=== PATIENT | male | born 1940 | race American Indian/Alaskan Native ===

== ENCOUNTER 2017-06-29 13:29 | Emergency (ER) | payer MEDICARE, OTHER ==
--- NOTE | 2017-06-29 14:14 | EDM.PDOC ---
ED HPI GENERAL MEDICAL PROBLEM - General Chief Complaint: Abdominal Pain Stated Complaint: IN BY AMBULANCE Time Seen by Provider: 06/29/17 13:40 Source of Information: Reports: Patient, RN, RN Notes Reviewed History Limitations: Reports: No Limitations - History of Present Illness INITIAL COMMENTS - FREE TEXT/NARRATIVE: Pt presents to the ER per [facility] with c/o RLQ which came on suddenly today when he woke up. He states he has a right inguinal hernia as well as an umbilical hernia. He denies fever, chills, N/V/D, chest pain or sob. Pt denies any problems with urination or bowel movements. Onset: Today, Sudden Location: Reports: Abdomen Quality: Reports: Sharp Severity: Moderate Improves with: Reports: None Associated Symptoms: Reports: No Other Symptoms Right Lower Abdomen Pain Score (Numeric/FACES): 10 - Related Data Allergies Allergy/AdvReac Type Severity Reaction Status Date / Time piperacillin sodium Allergy Severe angioedema Verified 06/29/17 13:49 [From Zosyn] tazobactam sodium Allergy Severe angioedema Verified 06/29/17 13:49 [From Zosyn] adhesive tape Allergy Blisters Verified 06/29/17 13:49 Home Meds: Home Meds Aspirin [Adult Low Dose Aspirin EC] 81 mg PO DAILY 10/26/13 [History] Isosorbide Mononitrate [Imdur] 15 mg PO DAILY 10/26/13 [History] Montelukast [Singulair] 10 mg PO BEDTIME 10/26/13 [History] Potassium Chloride [Klor-Con 10] 20 meq PO BID 10/26/13 [History] Tiotropium [Spiriva Handihaler] 1 puff INH DAILY 10/26/13 [History] Budesonide [Pulmicort] 0.5 mg NEB BIDRT #30 neb 09/13/14 [Rx] Albuterol/Ipratropium [Combivent Respimat] 2 puff INH BID 08/16/15 [History] Digoxin [Lanoxin] 0.125 mg PO DAILY 09/04/15 [History] Albuterol/Ipratropium [DuoNeb 3.0-0.5 MG/3 ML] 3 ml NEB TID 11/09/15 [History] Carvedilol 6.25 mg PO BIDMEALS 11/09/15 [History] Docusate Sodium [Colace] 100 mg PO BID 11/09/15 [History] Pantoprazole Sodium 40 mg PO DAILY 11/09/15 [History] Spironolactone 25 mg PO DAILY 11/09/15 [History] Albuterol [Proventil Neb Soln] 1 ampule INH Q4H PRN 12/24/15 [History] Furosemide [Lasix] 20 mg PO BID 12/24/15 [History] Calcium Carbonate/Vitamin D3 [Calcium 600 + Vit D 400 Softgl] 1 tab PO BID 06/29 [History] Cholecalciferol (Vitamin D3) [Vitamin D] 400 unit PO DAILY 06/29/17 [History] Fluticasone/Salmeterol [Fluticasone-Salmeterol 113-14] 500 mcg INH BID 06/29/17 [History] Lactose-Reduced Food [Ensure Active Heart Health] 237 ml PO TID 06/29/17 [ History] Lisinopril [Lisinopril] 2.5 mg PO DAILY 06/29/17 [History] Rivaroxaban [Xarelto] 15 mg PO DAILY 06/29/17 [History] traMADol [Ultram] 50 mg PO TID PRN 06/29/17 [History] traZODone 50 mg PO DAILY 06/29/17 [History] Past Medical History HEENT History: Reports: Cataract, Hard of Hearing, Other (See Below) Other HEENT History: thyroid nodule Cardiovascular History: Reports: Afib, Angina, CAD, Heart Failure, High Cholesterol, Hypertension, MS, Pacemaker, SOB on Exertion, Stents, Other (See Below) Other Cardiovascular History: 6 stents placed total Respiratory History: Reports: Asthma, Bronchitis, Recurrent, COPD, Pneumonia, Recurrent, Sleep Apnea, SOB Gastrointestinal History: Reports: Hemorrhoids Genitourinary History: Reports: Prostate Disorder Musculoskeletal History: Reports: Arthritis, Fracture, Osteoarthritis Neurological History: Reports: None Psychiatric History: Reports: Depression Other Psychiatric History: insomnia Endocrine/Metabolic History: Reports: None Hematologic History: Reports: Anemia, Iron Deficiency Immunologic History: Reports: Other (See Below) Other Immunologic History: Hx prostate and lung ca. 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 SERVICE, "NOT THE BAD KIND" - Past Surgical History Head Surgeries/Procedures: Reports: None HEENT Surgical History: Reports: Cataract Surgery, Naso-Sinus Surgery GI Surgical History: Reports: Abdominal paracentesis, Appendectomy, Colonoscopy , EGD, Polypectomy, Other (See Below) Male Surgical History: Reports: TURP-Transurethral Resection of Prostate Endocrine Surgical History: Reports: Thyroid Biopsy Musculoskeletal Surgical History: Reports: Shoulder Surgery Other Oncologic Surgeries/Procedures: 3/4 of right lobe removed Social & Family History - Family History Family Medical History: Noncontributory - Tobacco Use Smoking Status *Q: Former Smoker Years of Tobacco use: 20 Packs/Tins Daily: 0.2 Used Tobacco, but Quit: Yes Month Tobacco Last Used: ? Second Hand Smoke Exposure: No - Caffeine Use Caffeine Use: Reports: Coffee - Alcohol Use Days Per Week of Alcohol Use: 0 Number of Drinks Per Day: 1 Total Drinks Per Week: 0 - Recreational Drug Use Recreational Drug Use: No - Living Situation & Occupation Living situation: Reports: , Alone Occupation: Retired ED ROS GENERAL - Review of Systems Review Of Systems: ROS reveals no pertinent complaints other than HPI. ED EXAM, GI/ABD - Physical Exam Exam: See Below Exam Limited By: No Limitations General Appearance: Alert, WD/WN, No Apparent Distress Ears: Normal External Exam, Hearing Grossly Normal Nose: Normal Inspection Throat/Mouth: Normal Inspection, Normal Voice, No Airway Compromise Head: Atraumatic, Normocephalic Neck: Normal Inspection, Supple, Non-Tender, Full Range of Motion Respiratory/Chest: No Respiratory Distress, Crackles (bilaterally) Cardiovascular: Normal Peripheral Pulses, No Edema, No Gallop, No JVD, No Murmur , No Rub, Irregularly Irregular GI/Abdominal Exam: Normal Bowel Sounds, Distended, Rigid, Tender (Male) Exam: Deferred, Other (right inguinal hernia) Rectal (Males) Exam: Deferred Back Exam: Normal Inspection, Full Range of Motion Extremities: Normal Inspection, Normal Range of Motion, Non-Tender, No Pedal Edema, Normal Capillary Refill Neurological: Alert, Oriented, Normal Cognition, No Motor/Sensory Deficits Psychiatric: Normal Affect, Normal Mood Skin Exam: Warm, Dry, Intact, Normal Color, No Rash Lymphatic: No Adenopathy Course - Vital Signs Last Recorded V/S: Last Vital Signs Temp 99 F 06/29/17 15:45 Pulse 83 06/29/17 15:45 Resp 22 H 06/29/17 15:45 BP 94/43 L 06/29/17 15:45 Pulse Ox 98 06/29/17 15:45 - Orders/Labs/Meds Labs: Laboratory Tests 06/29/17 06/29/17 06/29/17 Range/Units 14:03 14:03 14:17 WBC 15.0 H (5.0-10.0) 10^3/uL RBC 3.21 L (4.6-6.2) 10^6/uL Hgb 10.2 L D (14.0-18.0) g/dL Hct 29.6 L (40.0-54.0) % MCV 92.2 D (80-100) fL MCH 31.8 (27.0-34.0) pg MCHC 34.5 (33.0-35.0) g/dL Plt Count 166 D (150-450) 10^3/uL Neut % (Auto) 83.1 H (42.2-75.2) % Lymph % (Auto) 7.9 L (20.5-50.1) % [place] % (Auto) 8.1 H (2-8) % Eos % (Auto) 0.7 L (1.0-3.0) % Baso % (Auto) 0.2 (0.0-1.0) % Sodium 132 L (135-145) mmol/L Potassium 5.1 H (3.6-5.0) mmol/L Chloride 99 L (101-111) mmol/L Carbon Dioxide 24.0 (21.0-31.0) mmol/L Anion Gap 14.1 BUN 64 H D (7-18) mg/dL Creatinine 1.8 H (0.6-1.3) mg/dL Est Cr Clr Drug Dosing 32.13 mL/min Estimated GFR (MDRD) 37 BUN/Creatinine Ratio 35.55 Glucose 122 H (74-105) mg/dL Calcium 8.7 (8.4-10.2) mg/dl Total Bilirubin 1.8 H (0.2-1.0) mg/dL AST 24 (10-42) IU/L ALT 21 (10-60) IU/L Alkaline Phosphatase 75 (42-121) IU/L Total Protein 6.1 L (6.7-8.2) g/dl Albumin 3.2 (3.2-5.5) g/dl Globulin 2.9 Albumin/Globulin Ratio 1.10 Amylase 24 L (28-100) U/L Lipase 26 (22-51) U/L Urine Color Dark yellow (YELLOW) Urine Appearance Cloudy (CLEAR) Urine pH 5.5 (5.0-9.0) Ur Specific [place] 1.010 (1.005-1.030) Urine Protein Negative (NEGATIVE) Urine Glucose (UA) Negative (NEGATIVE) Urine Ketones Negative (NEGATIVE) Urine Occult Blood Negative (NEGATIVE) Urine Nitrite Negative (NEGATIVE) Urine Bilirubin Small H (NEGATIVE) Urine Urobilinogen 0.2 (0.2-1.0) mg/dL Ur Leukocyte Esterase Negative (NEGATIVE) Urine RBC 0-5 /HPF Urine WBC 0-5 (0-5/HPF) /HPF Ur Epithelial Cells Few /HPF Amorphous Sediment Rare (0/HPF) /HPF Urine Mucus Many H /LPF Meds: Medications Discontinued Medications Generic Name Dose Route Start Last Admin Trade Name Freq PRN Reason Stop Dose Admin Hydromorphone HCl 0.5 mg 06/29/17 15:51 06/29/17 15:58 Dilaudid IVPUSH 06/29/17 15:52 0.5 mg ONETIME ONE Administration Departure - Departure Time of Disposition: 16:02 Disposition: DC/Tfer to Acute Hospital 02 Condition: Poor Clinical Impression: Diverticulitis, Incarcerated hernia Abdominal pain Qualifiers: Abdominal location: right lower quadrant Qualified Code(s): R10.31 - Right lower quadrant pain Appendicitis Qualifiers: Appendicitis type: acute appendicitis Acute appendicitis type: unspecified acute appendicitis type Qualified Code(s): K35.80 - Unspecified acute appendicitis - Discharge Information Forms: ED Department Discharge, Interfacility Transfer EMTALA
[2017-06-29 15:46] VITALS: BP 94/43
[2017-06-29] MEDS ORDERED: HYDROmorphone 1 MG/ML Syringe IVPUSH ONE (15:51)
--- NOTE | 2017-06-29 15:55 | CT ---
Clinical history: 76-year-old hypertensive 168 pound male with right lower quadrant pain and elevated white blood cell count (15,000) who was "treated for appendicitis 2016". Scan technique: Volume acquisition of data emergency unenhanced (serum creatinine 1.8) CT scan of the abdomen and pelvis obtained with patient lying supine on the Siemens multi slice CT scanner [place], [place]. All data archived in the PACS system for storage, reformatti ng and study. Interpretation: Abnormal. 1. Punctate calcifications lying within a tubular structure anteriorly, right lower quadrant surround ed by "dirty" (inflammatory) peritoneal fat strongly suggestive of appendicoliths and acute appendice al inflammation. Close clinical correlation please. 2. Large gallstone impacted in the neck gallbladder, RUQ. No dilatation of intra or extra hepatic addi iary ducts. Unenhanced liver, stomach, spleen, pancreas and adrenal glands unremarkable. Solitary cys t lateral pole left kidney. No stones or obstruction. 3. Densely calcified aorta and major branches. No aneurysm or dissection. Osteoporosis. Hypertrophic spondylosis. 4. Extensive sigmoid diverticulosis (diverticulitis anteriorly RLQ differential consideration along w ith acute appendicitis). 5. Huge scrotal hernia, on the right with incarcerated loops of small intestine but no current signs of mechanical obstruction. 6. No pelvic or abdominal mass lesion, signs of mechanical bowel obstruction, ascites or free intrape ritoneal air. 7. Large heart. Cardiac pacemaker. CONCLUSION: Acute inflammatory process right lower quadrant (appendicitis versus diverticulitis). Cholelithiasis. Large right scrotal hernia with incarcerated loops of small intestine. No mechanical bowel obstruction.
== END 2017-06-29 16:30 ==
LOC: DL.ED 13:29
DX: K35.80 Unspecified acute appendicitis (principal); K57.92 Diverticulitis of intestine, part unspecified, without perforation or abscess without bleeding; K40.30 Unilateral inguinal hernia, with obstruction, without gangrene, not specified as recurrent; K42.9 Umbilical hernia without obstruction or gangrene; I11.0 Hypertensive heart disease with heart failure; I50.9 Heart failure, unspecified; I25.119 Atherosclerotic heart disease of native coronary artery with unspecified angina pectoris; J44.9 Chronic obstructive pulmonary disease, unspecified; F32.9 Major depressive disorder, single episode, unspecified; Z95.5 Presence of coronary angioplasty implant and graft; Z87.891 Personal history of nicotine dependence; Z95.0 Presence of cardiac pacemaker; Z79.82 Long term (current) use of aspirin; Z79.899 Other long term (current) drug therapy; Z88.8 Allergy status to other drugs, medicaments and biological substances; Z91.048 Other nonmedicinal substance allergy status
CPT/HCPCS: 36415; 74176; 80053; 81001; 82150; 83690; 85025; 96374; 99285; J1170

== ENCOUNTER 2018-01-31 10:06 | Inpatient (IN) | payer MEDICARE, OTHER ==
[2018-01-31] MEDS ORDERED: Albuterol/Ipratropium 3.0-0.5 MG/3 ML Neb Soln NEB ONE (10:16)
[2018-01-31] MEDS ORDERED: methylPREDNISolone Sodium Succinate 125 MG/2 ML SDV IVPUSH ONE (10:16)
[2018-01-31] MEDS ORDERED: Sodium Chloride 0.9% 10 ML Syringe FLUSH PRN (10:17)
[2018-01-31 11:05] LABS: ANION GAP 10.2; CHLORIDE,CL 101 mmol/L (101-111); SODIUM,NA 136 mmol/L (135-145)
[2018-01-31] MEDS ORDERED: Levofloxacin/Dextrose 5%-Water 750 MG in Premix Bag 1 BAG IV ONE (12:45)
--- NOTE | 2018-01-31 12:51 | EDM.PDOC ---
Scribed by Magali Bentley 01/31/18 1242 for Khai Allred MD ED HPI GENERAL MEDICAL PROBLEM - General Chief Complaint: General Stated Complaint: AMBULANCE, COPD Time Seen by Provider: 01/31/18 10:12 Source of Information: Reports: Patient, EMS, EMS Notes Reviewed, RN, RN Notes Reviewed History Limitations: Reports: No Limitations - History of Present Illness INITIAL COMMENTS - FREE TEXT/NARRATIVE: Patient presents to ER by [facility] with complaint of worsening shortness of breath over the past 3 to 4 days with wheezing and cough and subjective low grade fevers. Denies chest pain or edema. Onset: Gradual Duration: Getting Worse Location: Reports: Chest Quality: Reports: Ache Severity: Severe Improves with: Reports: None Worsens with: Reports: None Associated Symptoms: Reports: No Other Symptoms - Related Data Allergies Allergy/AdvReac Type Severity Reaction Status Date / Time piperacillin sodium Allergy Severe angioedema Verified 06/29/17 13:49 [From Zosyn] tazobactam sodium Allergy Severe angioedema Verified 06/29/17 13:49 [From Zosyn] adhesive tape Allergy Blisters Verified 06/29/17 13:49 Home Meds: Home Meds Montelukast [Singulair] 10 mg PO BEDTIME 10/26/13 [History] Tiotropium [Spiriva Handihaler] 1 puff INH DAILY 10/26/13 [History] Albuterol/Ipratropium [Combivent Respimat] 2 puff INH BID 08/16/15 [History] Albuterol/Ipratropium [DuoNeb 3.0-0.5 MG/3 ML] 3 ml NEB TID 11/09/15 [History] Carvedilol 6.25 mg PO BIDMEALS 11/09/15 [History] Pantoprazole Sodium 40 mg PO DAILY 11/09/15 [History] Albuterol [Proventil Neb Soln] 1 ampule INH Q4H PRN 12/24/15 [History] Furosemide [Lasix] 20 mg PO BID 12/24/15 [History] Fluticasone/Salmeterol [Fluticasone-Salmeterol 113-14] 500 mcg INH BID 06/29/17 [History] Lisinopril 2.5 mg PO DAILY 06/29/17 [History] traZODone 50 mg PO DAILY 06/29/17 [History] Past Medical History HEENT History: Reports: Cataract, Hard of Hearing, Other (See Below) Other HEENT History: thyroid nodule Cardiovascular History: Reports: Afib, Angina, CAD, Heart Failure, High Cholesterol, Hypertension, [place], Pacemaker, SOB on Exertion, Stents, Other (See Below) Other Cardiovascular History: 6 stents placed total Respiratory History: Reports: Asthma, Bronchitis, Recurrent, COPD, Pneumonia, Recurrent, Sleep Apnea, SOB Gastrointestinal History: Reports: Hemorrhoids Genitourinary History: Reports: Prostate Disorder Musculoskeletal History: Reports: Arthritis, Fracture, Osteoarthritis Neurological History: Reports: None Psychiatric History: Reports: Depression Other Psychiatric History: insomnia Endocrine/Metabolic History: Reports: None Hematologic History: Reports: Anemia, Iron Deficiency Immunologic History: Reports: Other (See Below) Other Immunologic History: Hx prostate and lung ca. 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 SERVICE, "NOT THE BAD KIND" - Past Surgical History Head Surgeries/Procedures: Reports: None HEENT Surgical History: Reports: Cataract Surgery, Naso-Sinus Surgery GI Surgical History: Reports: Abdominal paracentesis, Appendectomy, Colonoscopy , EGD, Polypectomy, Other (See Below) Male Surgical History: Reports: TURP-Transurethral Resection of Prostate Endocrine Surgical History: Reports: Thyroid Biopsy Musculoskeletal Surgical History: Reports: Shoulder Surgery Other Oncologic Surgeries/Procedures: 3/4 of right lobe removed Social & Family History - Family History Family Medical History: Noncontributory - Caffeine Use Caffeine Use: Reports: Coffee - Living Situation & Occupation Living situation: Reports: , Alone Occupation: Retired ED ROS GENERAL - Review of Systems Review Of Systems: ROS reveals no pertinent complaints other than HPI. ED EXAM, GENERAL - Physical Exam Exam: See Below Exam Limited By: No Limitations General Appearance: Alert, Anxious, Other (chronically ill but nontoxic appearing.) Eye Exam: Bilateral Eye: Normal Inspection Nose: Normal Inspection, Normal Mucosa, No Blood Throat/Mouth: Normal Inspection, Normal Lips, Normal Gums, Normal Oropharynx, Normal Voice, No Airway Compromise Head: Atraumatic, Normocephalic Neck: Normal Inspection, Supple, Non-Tender, Full Range of Motion Respiratory/Chest: No Respiratory Distress, Chest Non-Tender, Decreased Breath Sounds (markedly decreased on the right chest), Crackles, Rhonchi (right), Wheezing (throughout bilateral), Prolonged Expiration. No: Stridor, Splinting Cardiovascular: Irregularly Irregular GI/Abdominal: Normal Bowel Sounds, Soft, Non-Tender, No Distention. No: Guarding, Rigid, Rebound (Male) Exam: Deferred Rectal (Males) Exam: Deferred Back Exam: Normal Inspection, Full Range of Motion, NT Extremities: Normal Inspection, Normal Range of Motion, Non-Tender, No Pedal Edema Neurological: Alert, Oriented, CN II-XII Intact, Normal Cognition, No Motor/ Sensory Deficits Psychiatric: Normal Affect, Normal Mood Skin Exam: Warm, Dry, Intact, Normal Color, No Rash EKG INTERPRETATION EKG Date: 01/31/18 Time: 10:31 Rhythm: A-Fib Rate (Beats/Min): 92 [place]: Normal P-Wave: Present QRS: Other (inferior q-waves, chronic and RBBB) ST-T: Normal QT: Normal Comparison: No Change Course - Vital Signs Last Recorded V/S: Last Vital Signs Temp 37.9 C 01/31/18 10:23 Pulse 82 01/31/18 10:23 Resp 20 01/31/18 10:23 BP 133/86 01/31/18 10:23 Pulse Ox 99 01/31/18 10:23 - Orders/Labs/Meds Orders: Active Orders 24 hr Category Date Time Status EKG 12 Lead [EKG Documentation Completion] [RC] STAT Care 01/31/18 10:17 Active Peripheral IV Care [RC] . DIRECTED Care 01/31/18 10:18 Active RT Aerosol Therapy [RC] ASDIRECTED Care 01/31/18 10:17 Active CULTURE BLOOD [BC] Stat Lab 01/31/18 10:34 Received CULTURE BLOOD [BC] Stat Lab 01/31/18 10:38 Received UA W/MICROSCOPIC [URIN] Stat Lab 01/31/18 11:06 Ordered Levofloxacin/Dextrose 5%-Water [Levaquin in D5W 750 MG/ Med 01/31/18 12:45 Ordered 150 ML] 750 mg Premix Bag 1 bag IV ONETIME Sodium Chloride 0.9% [Saline Flush] Med 01/31/18 10:17 Active 10 ml FLUSH ASDIRECTED PRN Blood Culture x2 Reflex Set [OM.PC] Stat Oth 01/31/18 10:18 Ordered Peripheral IV Insertion Adult [OM.PC] Stat Ot 01/31/18 10:17 Ordered Medication Orders Levofloxacin/Dextrose 750 mg/ (Premix) 150 mls @ 100 mls/hr IV ONETIME ONE Stop: 01/31/18 14:14 Sodium Chloride (Saline Flush) 10 ml FLUSH ASDIRECTED PRN PRN Reason: Keep Vein Open Last Admin: 01/31/18 10:57 Dose: 10 ml Labs: Laboratory Tests 01/31/18 01/31/18 01/31/18 Range/Units 10:34 10:34 10:34 WBC 9.5 (5.0-10.0) 10^3/uL RBC 3.47 L (4.6-6.2) 10^6/uL Hgb 8.6 L D (14.0-18.0) g/dL Hct 28.1 L (40.0-54.0) % MCV 81.0 D (80-100) fL MCH 24.8 L (27.0-34.0) pg MCHC 30.6 L (33.0-35.0) g/dL Plt Count 131 L (150-450) 10^3/uL Neut % (Auto) 85.6 H (42.2-75.2) % Lymph % (Auto) 6.0 L (20.5-50.1) % [place] % (Auto) 7.0 (2-8) % Eos % (Auto) 1.2 (1.0-3.0) % Baso % (Auto) 0.2 (0.0-1.0) % Sodium 136 (135-145) mmol/L Potassium 3.2 L D (3.6-5.0) mmol/L Chloride 101 (101-111) mmol/L Carbon Dioxide 28.0 (21.0-31.0) mmol/L Anion Gap 10.2 BUN 17 D (7-18) mg/dL Creatinine 0.9 (0.6-1.3) mg/dL Est Cr Clr Drug Dosing 61.04 mL/min Estimated GFR (MDRD) > 60 BUN/Creatinine Ratio 18.88 Glucose 104 (74-105) mg/dL Lactic Acid 1.0 (0.5-2.2) mmol/L Calcium 8.7 (8.4-10.2) mg/dl Total Bilirubin 1.3 H (0.2-1.0) mg/dL AST 27 (10-42) IU/L ALT 17 (10-60) IU/L Alkaline Phosphatase 83 (42-121) IU/L B-Natriuretic Peptide 264 H (0-100) pg/ml Total Protein 6.3 L (6.7-8.2) g/dl Albumin 3.6 (3.2-5.5) g/dl Globulin 2.7 Albumin/Globulin Ratio 1.33 Urine Color (YELLOW) Urine Appearance (CLEAR) Urine pH (5.0-9.0) Ur Specific Sutter (1.005-1.030) Urine Protein (NEGATIVE) Urine Glucose (UA) (NEGATIVE) Urine Ketones (NEGATIVE) Urine Occult Blood (NEGATIVE) Urine Nitrite (NEGATIVE) Urine Bilirubin (NEGATIVE) Urine Urobilinogen (0.2-1.0) mg/dL Ur Leukocyte Esterase (NEGATIVE) Urine RBC /HPF Urine WBC (0-5/HPF) /HPF Ur Epithelial Cells /HPF Urine Bacteria (0-FEW/HPF) /HPF Digoxin (0-2.5) ng/ml 01/31/18 01/31/18 Range/Units 10:34 11:06 WBC (5.0-10.0) 10^3/uL RBC (4.6-6.2) 10^6/uL Hgb (14.0-18.0) g/dL Hct (40.0-54.0) % MCV (80-100) fL MCH (27.0-34.0) pg MCHC (33.0-35.0) g/dL Plt Count (150-450) 10^3/uL Neut % (Auto) (42.2-75.2) % Lymph % (Auto) (20.5-50.1) % Mer[place] % (Auto) (2-8) % Eos % (Auto) (1.0-3.0) % Baso % (Auto) (0.0-1.0) % Sodium (135-145) mmol/L Potassium (3.6-5.0) mmol/L Chloride (101-111) mmol/L Carbon Dioxide (21.0-31.0) mmol/L Anion Gap BUN (7-18) mg/dL Creatinine (0.6-1.3) mg/dL Est Cr Clr Drug Dosing mL/min Estimated GFR (MDRD) BUN/Creatinine Ratio Glucose (74-105) mg/dL Lactic Acid (0.5-2.2) mmol/L Calcium (8.4-10.2) mg/dl Total Bilirubin (0.2-1.0) mg/dL AST (10-42) IU/L ALT (10-60) IU/L Alkaline Phosphatase (42-121) IU/L B-Natriuretic Peptide (0-100) pg/ml Total Protein (6.7-8.2) g/dl Albumin (3.2-5.5) g/dl Globulin Albumin/Globulin Ratio Urine Color Yellow (YELLOW) Urine Appearance Clear (CLEAR) Urine pH 5.5 (5.0-9.0) Ur Specific [place] 1.010 (1.005-1.030) Urine Protein Negative (NEGATIVE) Urine Glucose (UA) Negative (NEGATIVE) Urine Ketones Negative (NEGATIVE) Urine Occult Blood Negative (NEGATIVE) Urine Nitrite Negative (NEGATIVE) Urine Bilirubin Negative (NEGATIVE) Urine Urobilinogen 1.0 (0.2-1.0) mg/dL Ur Leukocyte Esterase Negative (NEGATIVE) Urine RBC 0-5 /HPF Urine WBC 0-5 (0-5/HPF) /HPF Ur Epithelial Cells Rare /HPF Urine Bacteria Rare (0-FEW/HPF) /HPF Digoxin < 0.2 (0-2.5) ng/ml Meds: Medications Generic Name Dose Route Start Last Admin Trade Name Freq PRN Reason Stop Dose Admin Levofloxacin/Dextrose 750 mg/ 150 mls @ 100 mls/hr 01/31/18 12:45 Premix IV 01/31/18 14:14 ONETIME ONE Sodium Chloride 10 ml 01/31/18 10:17 01/31/18 10:57 Saline Flush FLUSH 10 ml ASDIRECTED PRN Administration Keep Vein Open Discontinued Medications Generic Name Dose Route Start Last Admin Trade Name Freq PRN Reason Stop Dose Admin Albuterol/Ipratropium 3 ml 01/31/18 10:16 01/31/18 10:22 Duoneb 3.0-0.5 Mg/3 Ml NEB 01/31/18 10:17 3 ml ONETIME ONE Administration Methylprednisolone Sodium Succinate 125 mg 01/31/18 10:16 01/31/18 10:54 Solu-Medrol IVPUSH 01/31/18 10:17 125 mg ONETIME ONE Administration - Radiology Interpretation Free Text/Narrative:: [facility] [place] [facility] Final Radiology Report Call: [phone] assistance Online chat: [email or web address] Name: FELIX MO Age: 77Years M Date: 01/31/2018 SSN: -- : [id number] Study: CT CHEST WO Requesting Physician: KHAI ALLRED Images: [id number] Addl Studies: Provided Clinical History: Contrast: Without Contrast Medium: Contrast Amount: Contrast Method: Page 1 of 2 EXAM: CT Chest Without Intravenous Contrast CLINICAL HISTORY: 77 years old, male; Cough, fever and shortness of breath TECHNIQUE: Axial computed tomography images of the chest without intravenous contrast. All CT scans at this facility use at least one of these dose optimization techniques: automated exposure control; mA and/or kV adjustment per patient size (includes targeted exams where dose is matched to clinical indication); or iterative reconstruction. Coronal and sagittal reformatted images were created and reviewed. COMPARISON: XR CHEST 01/31/[address] CHEST 08/30/2012 FINDINGS: Lungs: Prior partial right pneumonectomy. I believe the patient has had a prior right upper and middle lobectomy. Patchy alveolar air space disease is present in the remaining portion of the right lung, and to a lesser extent in the lingular segment of the left upper lobe and the posterior left lower lobe. These changes could be due to pneumonia, aspiration pneumonitis, or pulmonary edema. Pleural space: There is bilateral extrapleural fat deposition. There is a trace left pleural effusion. No pneumothorax. Heart: The heart is slightly enlarged. No pericardial effusion. There is coronary artery disease. Bones/joints: Multilevel bridging osteophytes are present in the thoracic spine. Soft tissues: There is bilateral gynecomastia. Vasculature: No thoracic aortic aneurysm or displaced intimal calcifications. Lymph nodes: Non-pathologically enlarged mediastinal lymph nodes are present. Liver: There is a nodular contour to the liver compatible with cirrhosis. Gallbladder and bile ducts: There is cholelithiasis. No biliary ductal dilatation. Tubes, lines and devices: There is a left subclavian AICD device. FELIX MO | Final Radiology Report CONFIDENTIALITY STATEMENT This report is intended only for use by the referring physician, and only in accordance with law. If you received this in error, call [phone]. Page 2 of 2 IMPRESSION: Asymmetric airspace disease, much more severe on the right, which can be due to pneumonia, aspiration pneumonitis, or pulmonary edema. Given the history, pneumonia is favored. Thank you for allowing us to participate in the care of your patient. Dictated and Authenticated by: Abdoulaye Collier MD 01/31/2018 12:37 PM Central Time Departure - Departure Time of Disposition: 12:46 (admit to Dr. Sagastume) Disposition: Admitted As Inpatient 65 Condition: Serious Clinical Impression: Acute exacerbation of chronic obstructive pulmonary disease Pneumonia Qualifiers: Pneumonia type: due to unspecified organism Laterality: right Lung location: unspecified part of lung Qualified Code(s): J18.9 - Pneumonia, unspecified organism - Discharge Information Forms: ED Department Discharge - My Orders Last 24 Hours: My Active Orders 01/31/18 10:17 EKG 12 Lead [EKG Documentation Completion] [RC] STAT RT Aerosol Therapy [RC] ASDIRECTED Sodium Chloride 0.9% [Saline Flush] 10 ml FLUSH ASDIRECTED PRN Peripheral IV Insertion Adult [OM.PC] Stat 01/31/18 10:18 Peripheral IV Care [RC] . DIRECTED Blood Culture x2 Reflex Set [OM.PC] Stat 01/31/18 10:34 CULTURE BLOOD [BC] Stat 01/31/18 10:38 CULTURE BLOOD [BC] Stat 01/31/18 11:06 UA W/MICROSCOPIC [URIN] Stat 01/31/18 12:45 Levofloxacin/Dextrose 5%-Water [Levaquin in D5W 750 MG/150 ML] 750 mg Premix Bag 1 bag IV ONETIME - Assessment/Plan Last 24 Hours: My Active Orders 01/31/18 10:17 EKG 12 Lead [EKG Documentation Completion] [RC] STAT RT Aerosol Therapy [RC] ASDIRECTED Sodium Chloride 0.9% [Saline Flush] 10 ml FLUSH ASDIRECTED PRN Peripheral IV Insertion Adult [OM.PC] Stat 01/31/18 10:18 Peripheral IV Care [RC] . DIRECTED Blood Culture x2 Reflex Set [OM.PC] Stat 01/31/18 10:34 CULTURE BLOOD [BC] Stat 01/31/18 10:38 CULTURE BLOOD [BC] Stat 01/31/18 11:06 UA W/MICROSCOPIC [URIN] Stat 01/31/18 12:45 Levofloxacin/Dextrose 5%-Water [Levaquin in D5W 750 MG/150 ML] 750 mg Premix Bag 1 bag IV ONETIME I have read and agree with the documentation that has been completed regarding this visit. By signing this record, I attest that the documentation was completed in my physical presence and is an accurate record of the encounter.
[2018-01-31] MEDS: Albuterol/Ipratropium 3.0-0.5 MG/3 ML Neb Soln NEB SCH ×2 (14:00→20:00)
[2018-01-31] MEDS: methylPREDNISolone Sodium Succinate 40 MG/1 ML SDV IVPUSH SCH ×2 (14:44→21:46)
[2018-01-31] MEDS: Carvedilol 6.25 MG Tab PO SCH (18:06)
[2018-01-31] MEDS: Montelukast 10 MG Tab PO SCH (20:00)
[2018-01-31] MEDS: Furosemide 20 MG Tab PO SCH (20:00)
--- NOTE | 2018-01-31 20:25 | HP ---
DATE OF SERVICE: 01/31/2018 CHIEF COMPLAINT: Increasing shortness of breath. HISTORY OF PRESENT ILLNESS: The patient is a 77-year-old gentleman with multiple medical problems including non-small cell lung cancer, coronary artery disease, and CHF, who was admitted through the emergency room because of increasing shortness of breath that has been going on for the last 3 to 4 days. He is also coughing up some productive phlegm with grayish phlegm and also had some low-grade temperature. The patient denies, though, any chest pain, orthopnea, pedal edema, abdominal pain, nausea, vomiting, nor any other complaints. Because of this, he presented to the emergency room. He was subsequently admitted because of right lobe pneumonia and signs of COPD exacerbation. PAST MEDICAL HISTORY: Remarkable for coronary artery disease, atrial fibrillation, heart failure, hypertension, and status post permanent pacemaker placement and stent placement. FAMILY HISTORY: Noncontributory. SOCIAL HISTORY: The patient is a . Nonsmoker. Nonalcohol drinker. HOME MEDICATIONS: 1. Combivent. 2. Albuterol neb. 3. DuoNeb. 4. Coreg. 5. Lasix. 6. Flovent/Advair. 7. Protonix. 8. Singulair. 9. Lisinopril. 10.Trazodone. 11.Spiriva. ALLERGIES: Zosyn. REVIEW OF SYSTEMS: As in HPI. The rest of the review of systems is negative. PHYSICAL EXAMINATION: General: The patient is alert and oriented, in mild respiratory distress, and slightly anxious. Vital Signs: Blood pressure is 133/86, pulse of 82, respirations 20, and saturation is 100% on 2 L per nasal cannula. SHEENT: Normocephalic. There are pale palpebral conjunctivae. Sclerae anicteric. Neck: No JVD. No lymphadenopathy. Heart: Regular rate and rhythm. Normal S1 and S2. No gallops. No rubs. Lungs: Coarse breath sounds bilaterally with mild expiratory wheeze, rhonchi, and mild crackles on the right lung field. Abdomen: Slightly protuberant, but soft and nontender. Bowel sounds positive. Extremities: Negative for any significant pedal edema. No calf tenderness. LABORATORY AND DIAGNOSTIC WORKUP: CBC; WBC is 9.5, hemoglobin is 8.6, hematocrit is 28.1, and platelets are 131. Comp panel; potassium is 3.2, total bilirubin of 1.3. BNP is 264. Total protein of 6.3. Urinalysis is unremarkable. Digoxin level is less than 0.2. CAT scan of the chest showed prior partial right pneumonectomy, and there is patchy alveolar airspace disease on the right lung and also on the lingular segment of the left upper lobe. Blood cultures are taken. ADMITTING DIAGNOSES: 1. Right lobe pneumonia/chronic obstructive pulmonary disease exacerbation. 2. History of congestive heart failure. 3. Coronary artery disease. 4. History of atrial fibrillation, status post permanent pacemaker placement. 5. Lung cancer. TREATMENT PLAN: The patient is going to be admitted to General Medicine floor. He will be empirically started on IV antibiotics, Levaquin. We will also put him on Solu-Medrol. We will continue with his nebulizer treatments. He will be on DVT prophylaxis, and the rest of the management as necessary. The patient is a code level 2, that is no intubation and no resuscitation as per the patient's request. [facility] /[id number]
[2018-01-31] MEDS ORDERED: Potassium Chloride 10 MEQ Tab.ER PO ONE (20:47)
[2018-01-31] MEDS ORDERED: [UNRECOGNIZED DRUG - OTHER] INH SCH (21:00)
[2018-01-31] MEDS ORDERED: FLUTICASONE INH SCH (21:00)
[2018-01-31] MEDS ORDERED: SALMETEROL INH SCH (21:00)
[2018-01-31] MEDS: Albuterol/Ipratropium 3.0-0.5 MG/3 ML Neb Soln NEB PRN (23:33)
[2018-02-01] MEDS: Albuterol/Ipratropium 3.0-0.5 MG/3 ML Neb Soln NEB PRN ×3 (03:05→13:48)
[2018-02-01] MEDS: Acetaminophen 325 MG Tab PO PRN (03:18)
[2018-02-01] MEDS: methylPREDNISolone Sodium Succinate 40 MG/1 ML SDV IVPUSH SCH ×3 (05:49→22:48)
[2018-02-01 06:55] LABS: ANION GAP 12.2; CHLORIDE,CL 99 mmol/L (101-111); SODIUM,NA 135 mmol/L (135-145)
[2018-02-01] MEDS: Albuterol/Ipratropium 3.0-0.5 MG/3 ML Neb Soln NEB SCH ×5 (07:20→22:49)
[2018-02-01] MEDS ORDERED: traZODone 50 MG Tab PO SCH (09:00)
[2018-02-01] MEDS: Tiotropium Inhaler 18 MCG Inhalation Powder Cap Kit of 5 INH SCH (09:02)
[2018-02-01] MEDS: Furosemide 20 MG Tab PO SCH ×2 (09:05→15:53)
[2018-02-01] MEDS: Lisinopril 5 MG Tab PO SCH (09:05)
[2018-02-01] MEDS: Pantoprazole 40 MG Tab.CR PO SCH (09:05)
[2018-02-01] MEDS: Carvedilol 6.25 MG Tab PO SCH ×2 (09:05→18:20)
[2018-02-01] MEDS: Levofloxacin/Dextrose 5%-Water 500 MG in Premix Bag 1 BAG IV SCH (09:06)
[2018-02-01] MEDS: Enoxaparin 30 MG/0.3 ML Syringe SUBCUT SCH (09:07)
[2018-02-01] MEDS: FORMOTEROL IH SCH ×2 (10:02→21:15)
[2018-02-01] MEDS: MOMETASONE IH SCH ×2 (10:02→21:15)
--- NOTE | 2018-02-01 11:29 | PCM.PN ---
- General Info Date of Service: 02/01/18 Subjective Update: The patient has multiple medical problems including non-small cell lung cancer coronary artery disease and congestive heart failure. He was admitted with complaint of cough and shortness of breath. CT scan of the chest showed evidence of right lung pneumonia. Working diagnosis is COPD exacerbation secondary to right lung pneumonia. Today Patient continues to have shortness of breath Has improved somewhat compared to yesterday Has associated cough. Intensity or shortness of breath is moderate to severe. - Review of Systems General: Reports: Weakness Pulmonary: Reports: Shortness of Breath, Cough Cardiovascular: Reports: Dyspnea on Exertion Musculoskeletal: Reports: No Symptoms - Patient Data Vitals - Most Recent: Last Vital Signs Temp 37.1 C 02/01/18 09:00 Pulse 98 02/01/18 09:05 Resp 22 H 02/01/18 09:00 BP 137/86 02/01/18 09:05 Pulse Ox 95 02/01/18 09:00 Weight - Most Recent: 81.647 kg I&O - Last 24 Hours: Intake & Output 01/31/18 02/01/18 02/01/18 22:59 06:59 14:59 Intake Total 490 450 440 Output Total 400 Balance 90 450 440 Lab Results Last 24 Hours: Laboratory Results - last 24 hr 01/31/18 01/31/18 02/01/18 Range/Units 10:34 11:06 05:48 Sodium 135 (135-145) mmol/L Potassium 4.2 (3.6-5.0) mmol/L Chloride 99 L (101-111) mmol/L Carbon Dioxide 28.0 (21.0-31.0) mmol/L Anion Gap 12.2 BUN 21 H (7-18) mg/dL Creatinine 1.1 (0.6-1.3) mg/dL Est Cr Clr Drug Dosing 49.94 mL/min Estimated GFR (MDRD) > 60 Glucose 152 H (74-105) mg/dL Calcium 9.4 (8.4-10.2) mg/dl Urine Color Yellow (YELLOW) Urine Appearance Clear (CLEAR) Urine pH 5.5 (5.0-9.0) Ur Specific [place] 1.010 (1.005-1.030) Urine Protein Negative (NEGATIVE) Urine Glucose (UA) Negative (NEGATIVE) Urine Ketones Negative (NEGATIVE) Urine Occult Blood Negative (NEGATIVE) Urine Nitrite Negative (NEGATIVE) Urine Bilirubin Negative (NEGATIVE) Urine Urobilinogen 1.0 (0.2-1.0) mg/dL Ur Leukocyte Esterase Negative (NEGATIVE) Urine RBC 0-5 /HPF Urine WBC 0-5 (0-5/HPF) /HPF Ur Epithelial Cells Rare /HPF Urine Bacteria Rare (0-FEW/HPF) /HPF Digoxin < 0.2 (0-2.5) ng/ml Fabien Results Last 24 Hours: Microbiology 01/31/18 10:38 Aerobic Blood Culture - Preliminary Blood - Venous - Lab Draw NO GROWTH AFTER 1 DAY Anaerobic Blood Culture - Preliminary NO GROWTH AFTER 1 DAY 01/31/18 10:34 Aerobic Blood Culture - Preliminary Blood - Venous NO GROWTH AFTER 1 DAY Anaerobic Blood Culture - Preliminary NO GROWTH AFTER 1 DAY Med Orders - Current: Current Medications Acetaminophen (Tylenol) 650 mg PO Q4H PRN PRN Reason: Pain (Mild 1-3)/fever Last Admin: 02/01/18 03:18 Dose: 650 mg Albuterol/Ipratropium (Duoneb 3.0-0.5 Mg/3 Ml) 3 ml NEB TID [facility] Last Admin: 01/31/18 20:00 Dose: 3 ml Albuterol/Ipratropium (Duoneb 3.0-0.5 Mg/3 Ml) 3 ml NEB Q2H PRN PRN Reason: Dyspnea Last Admin: 02/01/18 05:56 Dose: 3 ml Carvedilol (Coreg) 6.25 mg PO BIDMEALS [facility] Last Admin: 02/01/18 09:05 Dose: 6.25 mg Enoxaparin Sodium (Lovenox) 30 mg SUBCUT DAILY [facility] Last Admin: 02/01/18 09:07 Dose: 30 mg Furosemide (Lasix) 20 mg PO BIDDIURETIC [facility] Levofloxacin/Dextrose 500 mg/ (Premix) 100 mls @ 100 mls/hr IV DAILY [facility] Last Admin: 02/01/18 09:06 Dose: 100 mls/hr Lisinopril (Prinivil) 2.5 mg PO DAILY [facility] Last Admin: 02/01/18 09:05 Dose: 2.5 mg Methylprednisolone Sodium Succinate (Solu-Medrol) 40 mg IVPUSH Q8HR [facility] Last Admin: 02/01/18 05:49 Dose: 40 mg Mometasone Furoate/Formoterol Fumar (Dulera 200-5 Mcg) 2 puff IH BID [facility] Last Admin: 02/01/18 10:02 Dose: 2 puff Montelukast Sodium (Singulair) 10 mg PO BEDTIME [facility] Last Admin: 01/31/18 20:00 Dose: 10 mg Pantoprazole Sodium (Protonix) 40 mg PO DAILY [facility] Last Admin: 02/01/18 09:05 Dose: 40 mg Sodium Chloride (Saline Flush) 10 ml FLUSH ASDIRECTED PRN PRN Reason: Keep Vein Open Tiotropium [place] (Spiriva Handihaler) 18 mcg INH DAILY [facility] Last Admin: 02/01/18 09:02 Dose: 18 mcg Trazodone HCl (Trazodone) 50 mg PO DAILY [facility] Last Admin: 02/01/18 09:07 Dose: Not Given Discontinued Medications Albuterol/Ipratropium (Duoneb 3.0-0.5 Mg/3 Ml) 3 ml NEB ONETIME ONE Stop: 01/31/18 10:17 Last Admin: 01/31/18 10:22 Dose: 3 ml Furosemide (Lasix) 20 mg PO BID [facility] Last Admin: 02/01/18 09:05 Dose: 20 mg Levofloxacin/Dextrose 750 mg/ (Premix) 150 mls @ 100 mls/hr IV ONETIME ONE Stop: 01/31/18 14:14 Last Admin: 01/31/18 14:44 Dose: 100 mls/hr Methylprednisolone Sodium Succinate (Solu-Medrol) 125 mg IVPUSH ONETIME ONE Stop: 01/31/18 10:17 Last Admin: 01/31/18 10:54 Dose: 125 mg Non-Formulary Medication (Fluticasone/Salmeterol [Fluticasone-Salmeterol 113-14] ) 500 mcg INH BID [facility] Potassium Chloride (Klor-Con 10) 40 meq PO ONETIME ONE Stop: 01/31/18 20:48 Last Admin: 01/31/18 21:46 Dose: 40 meq Sodium Chloride (Saline Flush) 10 ml FLUSH ASDIRECTED PRN PRN Reason: Keep Vein Open Last Admin: 01/31/18 10:57 Dose: 10 ml - Exam Quality Assessment: Supplemental Oxygen General: Alert, Oriented Lungs: Decreased Breath Sounds, Rhonchi, Wheezing GI/Abdominal Exam: Normal Bowel Sounds, Soft, Non-Tender, No Organomegaly, No Distention, No Abnormal Bruit, No Mass, Pelvis Stable Extremities: Normal Inspection, Normal Range of Motion, Non-Tender, No Pedal Edema, Normal Capillary Refill Skin: Warm, Dry, Intact - Problem List Review Problem List Initiated/Reviewed/Updated: Yes - My Orders Last 24 Hours: My Active Orders 01/31/18 20:02 Albuterol/Ipratropium [DuoNeb 3.0-0.5 MG/3 ML] 3 ml NEB Q2H PRN 01/31/18 20:03 RT Aerosol Therapy [RC] ASDIRECTED 02/01/18 09:34 Flutter Valve Therapy [RT Chest Physiotherapy] [RC] ASDIRECTED Incentive Spirometry [RT Incentive Spirometry] [RC] ASDIRECTED 02/01/18 21:00 Mometasone/Formoterol [Dulera 200-5 MCG] 2 puff IH BID - Plan Plan:: Assessment/plan: #. Acute exacerbation of COPD Patient does have diminished air entry bilaterally. He is wheezing. #. Probable community-acquired pneumonia CT scan demonstrates right lung opacity consistent with infection #. Atrial fibrillation Status post pacemaker placement Rate is controlled #. Hypertension Blood pressure is intermittently elevated plan: Plan: Aggressive nebulization with DuoNeb Continue intravenous antibiotics No intravenous fluids
[2018-02-01] MEDS: Montelukast 10 MG Tab PO SCH (21:14)
[2018-02-01] MEDS: traZODone 50 MG Tab PO SCH (21:15)
[2018-02-01] MEDS: Sodium Chloride 0.9% 10 ML Syringe FLUSH PRN (22:47)
[2018-02-02] MEDS: Albuterol/Ipratropium 3.0-0.5 MG/3 ML Neb Soln NEB SCH ×6 (03:10→23:01)
[2018-02-02] MEDS: methylPREDNISolone Sodium Succinate 40 MG/1 ML SDV IVPUSH SCH ×3 (06:00→22:20)
[2018-02-02] MEDS: Sodium Chloride 0.9% 10 ML Syringe FLUSH PRN ×2 (06:01→22:19)
[2018-02-02] MEDS: Furosemide 20 MG Tab PO SCH ×2 (08:55→14:22)
[2018-02-02] MEDS: Levofloxacin/Dextrose 5%-Water 500 MG in Premix Bag 1 BAG IV SCH (08:56)
[2018-02-02] MEDS: Pantoprazole 40 MG Tab.CR PO SCH (08:56)
[2018-02-02] MEDS: Enoxaparin 30 MG/0.3 ML Syringe SUBCUT SCH (08:56)
[2018-02-02] MEDS: Carvedilol 6.25 MG Tab PO SCH ×2 (08:57→18:41)
[2018-02-02] MEDS: Lisinopril 5 MG Tab PO SCH (08:57)
[2018-02-02] MEDS: Tiotropium Inhaler 18 MCG Inhalation Powder Cap Kit of 5 INH SCH (09:01)
[2018-02-02] MEDS: MOMETASONE IH SCH ×2 (09:02→21:05)
[2018-02-02] MEDS: FORMOTEROL IH SCH ×2 (09:02→21:05)
[2018-02-02] MEDS ORDERED: Furosemide 40 MG/4 ML VIAL IVPUSH ONE (09:36)
--- NOTE | 2018-02-02 10:38 | PCM.PN ---
- General Info Date of Service: 02/02/18 Subjective Update: Today the patient still has some shortness of breath. He has improved compared to yesterday. He is still wheezing. Nebulized bronchodilators are helping. His weight is up about 6 pounds. He has developed bilateral lower extremity edema. - Review of Systems General: Reports: No Symptoms Pulmonary: Reports: No Symptoms Cardiovascular: Reports: No Symptoms Gastrointestinal: Reports: No Symptoms Skin: Reports: No Symptoms - Patient Data Vitals - Most Recent: Last Vital Signs Temp 36.6 C 02/02/18 07:00 Pulse 95 02/02/18 08:57 Resp 20 02/02/18 07:00 BP 141/73 H 02/02/18 08:57 Pulse Ox 97 02/02/18 07:00 Weight - Most Recent: 84.731 kg I&O - Last 24 Hours: Intake & Output 02/01/18 02/02/18 02/02/18 22:59 06:59 14:59 Intake Total 1000 475 Output Total 400 650 Balance 600 -175 Fabien Results Last 24 Hours: Microbiology 01/31/18 10:38 Aerobic Blood Culture - Preliminary Blood - Venous - Lab Draw NO GROWTH AFTER 1 DAY Anaerobic Blood Culture - Preliminary NO GROWTH AFTER 1 DAY 01/31/18 10:34 Aerobic Blood Culture - Preliminary Blood - Venous NO GROWTH AFTER 1 DAY Anaerobic Blood Culture - Preliminary NO GROWTH AFTER 1 DAY Med Orders - Current: Current Medications Acetaminophen (Tylenol) 650 mg PO Q4H PRN PRN Reason: Pain (Mild 1-3)/fever Last Admin: 02/01/18 03:18 Dose: 650 mg Albuterol/Ipratropium (Duoneb 3.0-0.5 Mg/3 Ml) 3 ml NEB Q2H PRN PRN Reason: Dyspnea Last Admin: 02/01/18 13:48 Dose: 3 ml Albuterol/Ipratropium (Duoneb 3.0-0.5 Mg/3 Ml) 3 ml NEB Q4HRRT [facility] Last Admin: 02/02/18 07:07 Dose: 3 ml Carvedilol (Coreg) 6.25 mg PO BIDMEALS [facility] Last Admin: 02/02/18 08:57 Dose: 6.25 mg Enoxaparin Sodium (Lovenox) 30 mg SUBCUT DAILY [facility] Last Admin: 07/03/18 08:56 Dose: 30 mg Furosemide (Lasix) 20 mg PO BIDDIURETIC [facility] Last Admin: 02/02/18 08:55 Dose: 20 mg Levofloxacin/Dextrose 500 mg/ (Premix) 100 mls @ 100 mls/hr IV DAILY [facility] Last Admin: 02/02/18 08:56 Dose: 100 mls/hr Lisinopril (Prinivil) 2.5 mg PO DAILY [facility] Last Admin: 02/02/18 08:57 Dose: 2.5 mg Methylprednisolone Sodium Succinate (Solu-Medrol) 40 mg IVPUSH Q8HR [facility] Last Admin: 02/02/18 06:00 Dose: 40 mg Mometasone Furoate/Formoterol Fumar (Dulera 200-5 Mcg) 2 puff IH BID [facility] Last Admin: 02/02/18 09:02 Dose: 2 puff Montelukast Sodium (Singulair) 10 mg PO BEDTIME [facility] Last Admin: 02/01/18 21:14 Dose: 10 mg Pantoprazole Sodium (Protonix) 40 mg PO DAILY [facility] Last Admin: 02/02/18 08:56 Dose: 40 mg Sodium Chloride (Saline Flush) 10 ml FLUSH ASDIRECTED PRN PRN Reason: Keep Vein Open Last Admin: 02/02/18 06:01 Dose: 10 ml Tiotropium [place] (Spiriva Handihaler) 18 mcg INH DAILY [facility] Last Admin: 02/02/18 09:01 Dose: 18 mcg Trazodone HCl (Trazodone) 50 mg PO BEDTIME [facility] Last Admin: 02/01/18 21:15 Dose: 50 mg Discontinued Medications Albuterol/Ipratropium (Duoneb 3.0-0.5 Mg/3 Ml) 3 ml NEB ONETIME ONE Stop: 01/31/18 10:17 Last Admin: 01/31/18 10:22 Dose: 3 ml Albuterol/Ipratropium (Duoneb 3.0-0.5 Mg/3 Ml) 3 ml NEB TID [facility] Last Admin: 02/01/18 12:15 Dose: Not Given Furosemide (Lasix) 20 mg PO BID [facility] Last Admin: 02/01/18 09:05 Dose: 20 mg Furosemide (Lasix) 40 mg IVPUSH NOW ONE Stop: 02/02/18 09:37 Levofloxacin/Dextrose 750 mg/ (Premix) 150 mls @ 100 mls/hr IV ONETIME ONE Stop: 01/31/18 14:14 Last Admin: 01/31/18 14:44 Dose: 100 mls/hr Methylprednisolone Sodium Succinate (Solu-Medrol) 125 mg IVPUSH ONETIME ONE Stop: 01/31/18 10:17 Last Admin: 01/31/18 10:54 Dose: 125 mg Non-Formulary Medication (Fluticasone/Salmeterol [Fluticasone-Salmeterol 113-14] ) 500 mcg INH BID [facility] Potassium Chloride (Klor-Con 10) 40 meq PO ONETIME ONE Stop: 01/31/18 20:48 Last Admin: 01/31/18 21:46 Dose: 40 meq Sodium Chloride (Saline Flush) 10 ml FLUSH ASDIRECTED PRN PRN Reason: Keep Vein Open Last Admin: 01/31/18 10:57 Dose: 10 ml Trazodone HCl (Trazodone) 50 mg PO DAILY [facility] Last Admin: 02/01/18 09:07 Dose: Not Given - Exam General: Alert, Oriented, Cooperative HEENT: Pupils Equal, Pupils Reactive, EOMI, Mucous Membr. Moist/[place] Neck: Supple Lungs: Wheezing Cardiovascular: Regular Rate, Regular Rhythm Extremities: Pedal Edema - Problem List Review Problem List Initiated/Reviewed/Updated: Yes - My Orders Last 24 Hours: My Active Orders 02/01/18 13:26 RT Aerosol Therapy [RC] .PRN 02/01/18 15:00 Albuterol/Ipratropium [DuoNeb 3.0-0.5 MG/3 ML] 3 ml NEB Q4HRRT 02/01/18 21:00 Mometasone/Formoterol [Dulera 200-5 MCG] 2 puff IH BID 02/03/18 10:32 B-TYPE NATRIURETIC PEPTIDE,BNP [CHEM] Routine 02/03/18 10:33 BASIC METABOLIC PANEL,BMP [CHEM] Routine CBC W/O DIFF,HEMOGRAM [HEME] Routine - Plan Plan:: Assessment/plan: #. Acute exacerbation of COPD Patient does have diminished air entry bilaterally. He is wheezing. #. Probable community-acquired pneumonia CT scan demonstrates right lung opacity consistent with infection #. Atrial fibrillation Status post pacemaker placement Rate is controlled #. Hypertension Blood pressure is intermittently elevated plan: #. Possible acute exacerbation of diastolic congestive heart failure Patient has gained some weight Patient has developed bilateral lower extremity edema. His BNP was elevated up to 400. He might have a component of fluid overload from congestive heart failure Plan: Discontinue intravenous fluid Give a stat dose of intravenous Lasix 40 mg now Obtain basic metabolic panel Obtain brain natruretic peptide Obtain complete blood count Encourage increased ambulation
[2018-02-02] MEDS: Montelukast 10 MG Tab PO SCH (21:04)
[2018-02-02] MEDS: traZODone 50 MG Tab PO SCH (21:05)
[2018-02-03] MEDS: Albuterol/Ipratropium 3.0-0.5 MG/3 ML Neb Soln NEB SCH ×6 (03:02→22:45)
[2018-02-03] MEDS: methylPREDNISolone Sodium Succinate 40 MG/1 ML SDV IVPUSH SCH (05:36)
[2018-02-03] MEDS: Sodium Chloride 0.9% 10 ML Syringe FLUSH PRN ×2 (05:36→21:15)
[2018-02-03] MEDS: Levofloxacin/Dextrose 5%-Water 500 MG in Premix Bag 1 BAG IV SCH (08:36)
[2018-02-03] MEDS: Lisinopril 5 MG Tab PO SCH (08:37)
[2018-02-03] MEDS: Furosemide 20 MG Tab PO SCH ×2 (08:37→15:48)
[2018-02-03] MEDS: Pantoprazole 40 MG Tab.CR PO SCH (08:37)
[2018-02-03] MEDS: Carvedilol 6.25 MG Tab PO SCH ×2 (08:37→18:29)
[2018-02-03] MEDS: Enoxaparin 30 MG/0.3 ML Syringe SUBCUT SCH (08:38)
[2018-02-03] MEDS: MOMETASONE IH SCH ×2 (08:39→21:15)
[2018-02-03] MEDS: FORMOTEROL IH SCH ×2 (08:39→21:15)
[2018-02-03] MEDS: Tiotropium Inhaler 18 MCG Inhalation Powder Cap Kit of 5 INH SCH (08:39)
[2018-02-03] MEDS ORDERED: Furosemide 40 MG/4 ML VIAL IVPUSH ONE (10:22)
--- NOTE | 2018-02-03 10:27 | PCM.PN ---
- General Info Date of Service: 02/03/18 Subjective Update: The patient complains of swelling of both lower extremity CV oddities about the same today compared to yesterday Still has associated shortness of breath but it is improving. It gets worse after he ambulates like going to the bathroom. Continues to have associated cough as well. No fever and no chills - Review of Systems General: Reports: Weakness Pulmonary: Reports: Shortness of Breath, Cough Cardiovascular: Reports: Dyspnea on Exertion Gastrointestinal: Reports: No Symptoms Musculoskeletal: Reports: No Symptoms Skin: Reports: No Symptoms - Patient Data Vitals - Most Recent: Last Vital Signs Temp 36.7 C 02/03/18 07:00 Pulse 89 02/03/18 08:37 Resp 18 02/03/18 07:00 BP 146/81 H 02/03/18 08:37 Pulse Ox 97 02/03/18 07:00 Weight - Most Recent: 83.28 kg I&O - Last 24 Hours: Intake & Output 02/02/18 02/03/18 02/03/18 22:59 06:59 14:59 Intake Total 200 475 340 Output Total 3000 1050 Balance -2800 -575 340 Lab Results Last 24 Hours: Laboratory Results - last 24 hr 02/03/18 02/03/18 Range/Units 06:37 06:37 WBC 8.2 (5.0-10.0) 10^3/uL RBC 3.66 L (4.6-6.2) 10^6/uL Hgb 9.0 L (14.0-18.0) g/dL Hct 28.8 L (40.0-54.0) % MCV 78.7 L (80-100) fL MCH 24.6 L (27.0-34.0) pg MCHC 31.3 L (33.0-35.0) g/dL Plt Count 203 (150-450) 10^3/uL Sodium 136 L (138-146) mmol/L Potassium 4.0 (3.5-4.9) mmol/L Chloride 97 L (98-109) mmol/L Carbon Dioxide 32 H (24-29) mmol/L Anion Gap 11.0 BUN 38 H (8-26) mg/dL Creatinine 1.3 (0.6-1.3) mg/dL Est Cr Clr Drug Dosing 42.26 mL/min Estimated GFR (MDRD) 53 Glucose 123 H (70-105) mg/dL Calcium B-Natriuretic Peptide 187 H (0-100) pg/ml Fabien Results Last 24 Hours: Microbiology 01/31/18 10:38 Aerobic Blood Culture - Preliminary Blood - Venous - Lab Draw NO GROWTH AFTER 2 DAYS Anaerobic Blood Culture - Preliminary NO GROWTH AFTER 2 DAYS 01/31/18 10:34 Aerobic Blood Culture - Preliminary Blood - Venous NO GROWTH AFTER 2 DAYS Anaerobic Blood Culture - Preliminary NO GROWTH AFTER 2 DAYS Med Orders - Current: Current Medications Acetaminophen (Tylenol) 650 mg PO Q4H PRN PRN Reason: Pain (Mild 1-3)/fever Last Admin: 02/01/18 03:18 Dose: 650 mg Albuterol/Ipratropium (Duoneb 3.0-0.5 Mg/3 Ml) 3 ml NEB Q2H PRN PRN Reason: Dyspnea Last Admin: 02/01/18 13:48 Dose: 3 ml Albuterol/Ipratropium (Duoneb 3.0-0.5 Mg/3 Ml) 3 ml NEB Q4HRRT [facility] Last Admin: 02/03/18 07:28 Dose: 3 ml Carvedilol (Coreg) 6.25 mg PO BIDMEALS [facility] Last Admin: 02/03/18 08:37 Dose: 6.25 mg Enoxaparin Sodium (Lovenox) 30 mg SUBCUT DAILY [facility] Last Admin: 02/03/18 08:38 Dose: 30 mg Furosemide (Lasix) 20 mg PO BIDDIURETIC [facility] Last Admin: 02/03/18 08:37 Dose: 20 mg Furosemide (Lasix) 40 mg IVPUSH NOW ONE Stop: 02/03/18 10:23 Levofloxacin/Dextrose 500 mg/ (Premix) 100 mls @ 100 mls/hr IV DAILY [facility] Last Admin: 02/03/18 08:36 Dose: 100 mls/hr Lisinopril (Prinivil) 2.5 mg PO DAILY [facility] Last Admin: 02/03/18 08:37 Dose: 2.5 mg Mometasone Furoate/Formoterol Fumar (Dulera 200-5 Mcg) 2 puff IH BID [facility] Last Admin: 02/03/18 08:39 Dose: 2 puff Montelukast Sodium (Singulair) 10 mg PO BEDTIME [facility] Last Admin: 02/02/18 21:04 Dose: 10 mg Pantoprazole Sodium (Protonix) 40 mg PO DAILY [facility] Last Admin: 02/03/18 08:37 Dose: 40 mg Prednisone (Prednisone) 40 mg PO WITHBREAKFAST [facility] Sodium Chloride (Saline Flush) 10 ml FLUSH ASDIRECTED PRN PRN Reason: Keep Vein Open Last Admin: 02/03/18 05:36 Dose: 10 ml Tiotropium [place] (Spiriva Handihaler) 18 mcg INH DAILY [facility] Last Admin: 02/03/18 08:39 Dose: 18 mcg Trazodone HCl (Trazodone) 50 mg PO BEDTIME [facility] Last Admin: 02/02/18 21:05 Dose: 50 mg Discontinued Medications Albuterol/Ipratropium (Duoneb 3.0-0.5 Mg/3 Ml) 3 ml NEB ONETIME ONE Stop: 01/31/18 10:17 Last Admin: 01/31/18 10:22 Dose: 3 ml Albuterol/Ipratropium (Duoneb 3.0-0.5 Mg/3 Ml) 3 ml NEB TID [facility] Last Admin: 02/01/18 12:15 Dose: Not Given Furosemide (Lasix) 20 mg PO BID [facility] Last Admin: 02/01/18 09:05 Dose: 20 mg Furosemide (Lasix) 40 mg IVPUSH NOW ONE Stop: 02/02/18 09:37 Last Admin: 02/02/18 11:34 Dose: 40 mg Levofloxacin/Dextrose 750 mg/ (Premix) 150 mls @ 100 mls/hr IV ONETIME ONE Stop: 01/31/18 14:14 Last Admin: 01/31/18 14:44 Dose: 100 mls/hr Methylprednisolone Sodium Succinate (Solu-Medrol) 125 mg IVPUSH ONETIME ONE Stop: 01/31/18 10:17 Last Admin: 01/31/18 10:54 Dose: 125 mg Methylprednisolone Sodium Succinate (Solu-Medrol) 40 mg IVPUSH Q8HR [facility] Last Admin: 02/03/18 05:36 Dose: 40 mg Non-Formulary Medication (Fluticasone/Salmeterol [Fluticasone-Salmeterol 113-14] ) 500 mcg INH BID [facility] Potassium Chloride (Klor-Con 10) 40 meq PO ONETIME ONE Stop: 01/31/18 20:48 Last Admin: 01/31/18 21:46 Dose: 40 meq Sodium Chloride (Saline Flush) 10 ml FLUSH ASDIRECTED PRN PRN Reason: Keep Vein Open Last Admin: 01/31/18 10:57 Dose: 10 ml Trazodone HCl (Trazodone) 50 mg PO DAILY [facility] Last Admin: 02/01/18 09:07 Dose: Not Given - Problem List Review Problem List Initiated/Reviewed/Updated: Yes - My Orders Last 24 Hours: My Active Orders 02/03/18 10:22 Furosemide [Lasix] 40 mg IVPUSH NOW ONE 02/04/18 08:00 predniSONE 40 mg PO WITHBREAKFAST - Plan Plan:: Assessment/plan: #. Acute exacerbation of COPD Patient does have diminished air entry bilaterally. He is wheezing. #. Probable community-acquired pneumonia CT scan demonstrates right lung opacity consistent with infection #. Atrial fibrillation Status post pacemaker placement Rate is controlled #. Hypertension Blood pressure is intermittently elevated plan: #. Possible acute exacerbation of diastolic congestive heart failure Patient has gained some weight Patient has developed bilateral lower extremity edema. His BNP was elevated up to 400. He might have a component of fluid overload from congestive heart failure No previous echocardiogram on record. Plan: Patient still has significant edema of the lower extremities I will go ahead and give intravenous Lasix 40 mg now Continue oral Lasix Discontinue intravenous Solu Medrol Start patient on prednisone 40 mg daily Encourage increased ambulation Encourage use of incentive spirometry Continue aggressive nebulization with DuoNeb
[2018-02-03] MEDS: Acetaminophen 325 MG Tab PO PRN (18:31)
[2018-02-03] MEDS: traZODone 50 MG Tab PO SCH (21:14)
[2018-02-03] MEDS: Montelukast 10 MG Tab PO SCH (21:14)
[2018-02-04] MEDS: Albuterol/Ipratropium 3.0-0.5 MG/3 ML Neb Soln NEB SCH ×6 (02:57→22:43)
[2018-02-04] MEDS: Carvedilol 6.25 MG Tab PO SCH ×2 (08:05→18:06)
[2018-02-04] MEDS: Furosemide 20 MG Tab PO SCH ×2 (08:06→15:00)
[2018-02-04] MEDS: Pantoprazole 40 MG Tab.CR PO SCH (08:07)
[2018-02-04] MEDS: predniSONE 20 MG Tab PO SCH (08:07)
[2018-02-04] MEDS: Lisinopril 5 MG Tab PO SCH (08:08)
[2018-02-04] MEDS: MOMETASONE IH SCH ×2 (08:10→20:57)
[2018-02-04] MEDS: FORMOTEROL IH SCH ×2 (08:10→20:57)
[2018-02-04] MEDS: Tiotropium Inhaler 18 MCG Inhalation Powder Cap Kit of 5 INH SCH (08:11)
[2018-02-04] MEDS: Enoxaparin 30 MG/0.3 ML Syringe SUBCUT SCH (08:12)
[2018-02-04] MEDS: Levofloxacin/Dextrose 5%-Water 500 MG in Premix Bag 1 BAG IV SCH (10:30)
--- NOTE | 2018-02-04 10:52 | PCM.PN ---
- General Info Date of Service: 02/04/18 Admission Dx/Problem (Free Text): Shortness of breath Subjective Update: No new complaints this morning Bilateral leg swelling and shortness of breath has improved. Functional Status: Reports: Pain Controlled - Review of Systems General: Reports: No Symptoms HEENT: Reports: No Symptoms Pulmonary: Reports: Shortness of Breath Cardiovascular: Reports: No Symptoms Gastrointestinal: Reports: No Symptoms Genitourinary: Reports: No Symptoms Musculoskeletal: Reports: No Symptoms Skin: Reports: No Symptoms - Patient Data Vitals - Most Recent: Last Vital Signs Temp 37.2 C 02/04/18 07:00 Pulse 89 02/04/18 08:05 Resp 20 02/04/18 08:00 BP 123/69 02/04/18 08:08 Pulse Ox 96 02/04/18 07:00 Weight - Most Recent: 82.645 kg I&O - Last 24 Hours: Intake & Output 02/03/18 02/04/18 02/04/18 22:59 06:59 14:59 Intake Total 200 440 Output Total 2200 850 Balance -2000 -850 440 Fabien Results Last 24 Hours: Microbiology 01/31/18 10:38 Aerobic Blood Culture - Preliminary Blood - Venous - Lab Draw NO GROWTH AFTER 4 DAYS Anaerobic Blood Culture - Preliminary NO GROWTH AFTER 4 DAYS 01/31/18 10:34 Aerobic Blood Culture - Preliminary Blood - Venous NO GROWTH AFTER 4 DAYS Anaerobic Blood Culture - Preliminary NO GROWTH AFTER 4 DAYS Med Orders - Current: Current Medications Acetaminophen (Tylenol) 650 mg PO Q4H PRN PRN Reason: Pain (Mild 1-3)/fever Last Admin: 02/03/18 18:31 Dose: 650 mg Albuterol/Ipratropium (Duoneb 3.0-0.5 Mg/3 Ml) 3 ml NEB Q2H PRN PRN Reason: Dyspnea Last Admin: 02/01/18 13:48 Dose: 3 ml Albuterol/Ipratropium (Duoneb 3.0-0.5 Mg/3 Ml) 3 ml NEB Q4HRRT [facility] Last Admin: 02/04/18 07:23 Dose: 3 ml Carvedilol (Coreg) 6.25 mg PO BIDMEALS [facility] Last Admin: 02/04/18 08:05 Dose: 6.25 mg Enoxaparin Sodium (Lovenox) 30 mg SUBCUT DAILY [facility] Last Admin: 02/04/18 08:12 Dose: 30 mg Furosemide (Lasix) 20 mg PO BIDDIURETIC ARIAS Last Admin: 02/04/18 08:06 Dose: 20 mg Levofloxacin/Dextrose 500 mg/ (Premix) 100 mls @ 100 mls/hr IV DAILY [facility] Last Infusion: 02/03/18 10:28 Dose: Infused Lisinopril (Prinivil) 2.5 mg PO DAILY [facility] Last Admin: 02/04/18 08:08 Dose: 2.5 mg Mometasone Furoate/Formoterol Fumar (Dulera 200-5 Mcg) 2 puff IH BID [facility] Last Admin: 02/04/18 08:10 Dose: 2 puff Montelukast Sodium (Singulair) 10 mg PO BEDTIME [facility] Last Admin: 02/03/18 21:14 Dose: 10 mg Pantoprazole Sodium (Protonix) 40 mg PO DAILY [facility] Last Admin: 02/04/18 08:07 Dose: 40 mg Prednisone (Prednisone) 40 mg PO WITHBREAKFAST [facility] Last Admin: 02/04/18 08:07 Dose: 40 mg Sodium Chloride (Saline Flush) 10 ml FLUSH ASDIRECTED PRN PRN Reason: Keep Vein Open Last Admin: 02/03/18 21:15 Dose: 10 ml Tiotropium [place] (Spiriva Handihaler) 18 mcg INH DAILY [facility] Last Admin: 02/04/18 08:11 Dose: 18 mcg Trazodone HCl (Trazodone) 50 mg PO BEDTIME [facility] Last Admin: 02/03/18 21:14 Dose: 50 mg Discontinued Medications Albuterol/Ipratropium (Duoneb 3.0-0.5 Mg/3 Ml) 3 ml NEB ONETIME ONE Stop: 01/31/18 10:17 Last Admin: 01/31/18 10:22 Dose: 3 ml Albuterol/Ipratropium (Duoneb 3.0-0.5 Mg/3 Ml) 3 ml NEB TID [facility] Last Admin: 02/01/18 12:15 Dose: Not Given Furosemide (Lasix) 20 mg PO BID [facility] Last Admin: 02/01/18 09:05 Dose: 20 mg Furosemide (Lasix) 40 mg IVPUSH NOW ONE Stop: 02/02/18 09:37 Last Admin: 02/02/18 11:34 Dose: 40 mg Furosemide (Lasix) 40 mg IVPUSH NOW ONE Stop: 02/03/18 10:23 Last Admin: 02/03/18 10:56 Dose: 40 mg Levofloxacin/Dextrose 750 mg/ (Premix) 150 mls @ 100 mls/hr IV ONETIME ONE Stop: 01/31/18 14:14 Last Admin: 01/31/18 14:44 Dose: 100 mls/hr Methylprednisolone Sodium Succinate (Solu-Medrol) 125 mg IVPUSH ONETIME ONE Stop: 01/31/18 10:17 Last Admin: 01/31/18 10:54 Dose: 125 mg Methylprednisolone Sodium Succinate (Solu-Medrol) 40 mg IVPUSH Q8HR [facility] Last Admin: 02/03/18 05:36 Dose: 40 mg Non-Formulary Medication (Fluticasone/Salmeterol [Fluticasone-Salmeterol 113-14] ) 500 mcg INH BID [facility] Potassium Chloride (Klor-Con 10) 40 meq PO ONETIME ONE Stop: 01/31/18 20:48 Last Admin: 01/31/18 21:46 Dose: 40 meq Sodium Chloride (Saline Flush) 10 ml FLUSH ASDIRECTED PRN PRN Reason: Keep Vein Open Last Admin: 01/31/18 10:57 Dose: 10 ml Trazodone HCl (Trazodone) 50 mg PO DAILY [facility] Last Admin: 02/01/18 09:07 Dose: Not Given - Exam General: Alert, Oriented HEENT: Pupils Equal Neck: Supple Lungs: Clear to Auscultation Cardiovascular: Regular Rate GI/Abdominal Exam: Normal Bowel Sounds (Male) Exam: No Hernia Extremities: Other (Bilateral pedal edema) - Problem List Review Problem List Initiated/Reviewed/Updated: Yes - Plan Plan:: Assessment/plan: #. Acute exacerbation of COPD Continue DuoNebs [id number] and when necessary for shortness of breath Continue prednisone 40 mg daily Continued Dulera and Spiriva #. Probable community-acquired pneumonia CT scan demonstrates right lung opacity consistent with infection Continue Levaquin #. Atrial fibrillation Status post pacemaker placement Rate is controlled #. Possible acute exacerbation of diastolic congestive heart failure Patient has gained some weight Patient has developed bilateral lower extremity edema. His BNP was elevated up to 400. He might have a component of fluid overload from congestive heart failure No previous echocardiogram on record. Continue oral Lasix twice a day #Dispo Likely discharge home tomorrow
[2018-02-04] MEDS: traZODone 50 MG Tab PO SCH (20:58)
[2018-02-04] MEDS: Montelukast 10 MG Tab PO SCH (20:58)
[2018-02-05] MEDS: Albuterol/Ipratropium 3.0-0.5 MG/3 ML Neb Soln NEB SCH ×3 (03:08→11:23)
[2018-02-05 07:07] VITALS: BP 134/75
[2018-02-05] MEDS: Lisinopril 5 MG Tab PO SCH (09:42)
[2018-02-05] MEDS: Carvedilol 6.25 MG Tab PO SCH (09:42)
[2018-02-05] MEDS: predniSONE 20 MG Tab PO SCH (09:42)
[2018-02-05] MEDS: Pantoprazole 40 MG Tab.CR PO SCH (09:42)
[2018-02-05] MEDS: Furosemide 20 MG Tab PO SCH (09:42)
[2018-02-05] MEDS: Enoxaparin 30 MG/0.3 ML Syringe SUBCUT SCH (09:43)
[2018-02-05] MEDS: Levofloxacin/Dextrose 5%-Water 500 MG in Premix Bag 1 BAG IV SCH (09:43)
[2018-02-05] MEDS: Tiotropium Inhaler 18 MCG Inhalation Powder Cap Kit of 5 INH SCH (09:45)
[2018-02-05] MEDS: FORMOTEROL IH SCH (09:45)
[2018-02-05] MEDS: MOMETASONE IH SCH (09:45)
--- NOTE | 2018-02-05 10:11 | PCM.DCSUM1 ---
Discharge Summary - Hospital Course Free Text/Narrative:: 77 year old mom with a past medical history of non-small cell lung cancer, coronary artery disease, CHF, COPD, who was admitted with shortness of breath, cough, low-grade fever. He was treated for a right lower lobe pneumonia, and a COPD exacerbation. He improved weight treatment which included the COPD protocol on antibiotics [Levaquin]. He should follow-up with his primary care provider. A prescription of Lasix and Levaquin oral was provided for the patient. Diagnosis: Stroke: No Modified [place] Scale: No Symptoms at All Modified [place] Scale Score: 0 - Discharge Data Discharge Date: 02/05/18 Discharge Disposition: Home, Self-Care 01 Condition: Good - Discharge Diagnosis/Problem(s) (1) COPD exacerbation SNOMED Code(s): 807416842079334 ICD Code: J44.1 - CHRONIC OBSTRUCTIVE PULMONARY DISEASE W (ACUTE) EXACERBATION Status: Acute Current Visit: No - Patient Instructions Diet: Regular Diet as Tolerated Activity: As Tolerated Driving: May Drive Today Showering/Bathing: May Shower - Discharge Plan Prescriptions/Med Rec: Furosemide [Lasix] 20 mg PO BIDDIURETIC 30 Days #60 tablet Levofloxacin 750 mg PO DAILY 5 Days #5 tablet predniSONE 40 mg PO WITHBREAKFAST 5 Days #5 tablet Home Medications: Home Meds Montelukast [Singulair] 10 mg PO BEDTIME 10/26/13 [History] Tiotropium [Spiriva Handihaler] 1 puff INH DAILY 10/26/13 [History] Albuterol/Ipratropium [Combivent Respimat] 2 puff INH BID 08/16/15 [History] Albuterol/Ipratropium [DuoNeb 3.0-0.5 MG/3 ML] 3 ml NEB TID 11/09/15 [History] Carvedilol 6.25 mg PO BIDMEALS 11/09/15 [History] Pantoprazole Sodium 40 mg PO DAILY 11/09/15 [History] Albuterol [Proventil Neb Soln] 1 ampule INH Q4H PRN 12/24/15 [History] Furosemide [Lasix] 20 mg PO BID 12/24/15 [History] Lisinopril 2.5 mg PO DAILY 06/29/17 [History] traZODone 50 mg PO DAILY 06/29/17 [History] Mometasone/Formoterol [Dulera 200-5 MCG] 2 puff INH BID 01/31/18 [History] Acetaminophen [Tylenol] 650 mg PO Q4H PRN tablet 02/05/18 [Rx] Furosemide [Lasix] 20 mg PO BIDDIURETIC 30 Days #60 tablet 02/05/18 [Rx] Levofloxacin 750 mg PO DAILY 5 Days #5 tablet 02/05/18 [Rx] predniSONE 40 mg PO WITHBREAKFAST 5 Days #5 tablet 02/05/18 [Rx] Forms: ED Department Discharge - General Info Admission Dx/Problem (Free Text: Shortness of breath Subjective Update: No new complaints this morning Bilateral leg swelling and shortness of breath has improved. Functional Status: Reports: Pain Controlled - Review of Systems General: Reports: No Symptoms HEENT: Reports: No Symptoms Pulmonary: Reports: No Symptoms Cardiovascular: Reports: No Symptoms Gastrointestinal: Reports: No Symptoms Genitourinary: Reports: No Symptoms Musculoskeletal: Reports: No Symptoms - Patient Data Vitals - Most Recent: Last Vital Signs Temp 36.7 C 02/05/18 07:00 Pulse 80 02/05/18 09:42 Resp 20 02/05/18 07:00 BP 134/75 02/05/18 09:42 Pulse Ox 95 02/05/18 07:00 Weight - Most Recent: 82.214 kg I&O - Last 24 hours: Intake & Output 02/04/18 02/05/18 02/05/18 22:59 06:59 14:59 Intake Total 100 Output Total 475 Balance 100 -475 JORJE Results - Last 24 hrs: Microbiology 01/31/18 10:38 Aerobic Blood Culture - Preliminary Blood - Venous - Lab Draw NO GROWTH AFTER 4 DAYS Anaerobic Blood Culture - Preliminary NO GROWTH AFTER 4 DAYS 01/31/18 10:34 Aerobic Blood Culture - Preliminary Blood - Venous NO GROWTH AFTER 4 DAYS Anaerobic Blood Culture - Preliminary NO GROWTH AFTER 4 DAYS Med Orders - Current: Current Medications Acetaminophen (Tylenol) 650 mg PO Q4H PRN PRN Reason: Pain (Mild 1-3)/fever Last Admin: 02/03/18 18:31 Dose: 650 mg Albuterol/Ipratropium (Duoneb 3.0-0.5 Mg/3 Ml) 3 ml NEB Q2H PRN PRN Reason: Dyspnea Last Admin: 02/01/18 13:48 Dose: 3 ml Albuterol/Ipratropium (Duoneb 3.0-0.5 Mg/3 Ml) 3 ml NEB Q4HRRT [facility] Last Admin: 02/05/18 07:12 Dose: 3 ml Carvedilol (Coreg) 6.25 mg PO BIDMEALS [facility] Last Admin: 02/05/18 09:42 Dose: 6.25 mg Enoxaparin Sodium (Lovenox) 30 mg SUBCUT DAILY [facility] Last Admin: 02/05/18 09:43 Dose: 30 mg Furosemide (Lasix) 20 mg PO BIDDIURETIC [facility] Last Admin: 02/05/18 09:42 Dose: 20 mg Levofloxacin/Dextrose 500 mg/ (Premix) 100 mls @ 100 mls/hr IV DAILY [facility] Last Admin: 02/05/18 09:43 Dose: 100 mls/hr Lisinopril (Prinivil) 2.5 mg PO DAILY [facility] Last Admin: 02/05/18 09:42 Dose: 2.5 mg Mometasone Furoate/Formoterol Fumar (Dulera 200-5 Mcg) 2 puff IH BID [facility] Last Admin: 02/05/18 09:45 Dose: 2 puff Montelukast Sodium (Singulair) 10 mg PO BEDTIME [facility] Last Admin: 02/04/18 20:58 Dose: 10 mg Pantoprazole Sodium (Protonix) 40 mg PO DAILY [facility] Last Admin: 02/05/18 09:42 Dose: 40 mg Prednisone (Prednisone) 40 mg PO WITHBREAKFAST [facility] Last Admin: 02/05/18 09:42 Dose: 40 mg Senna/Docusate Sodium (Senna Plus) 1 tab PO BID [facility] Last Admin: 02/05/18 09:46 Dose: Not Given Sodium Chloride (Saline Flush) 10 ml FLUSH ASDIRECTED PRN PRN Reason: Keep Vein Open Last Admin: 02/03/18 21:15 Dose: 10 ml Tiotropium [place] (Spiriva Handihaler) 18 mcg INH DAILY [facility] Last Admin: 02/05/18 09:45 Dose: 18 mcg Trazodone HCl (Trazodone) 50 mg PO BEDTIME [facility] Last Admin: 02/04/18 20:58 Dose: 50 mg Discontinued Medications Albuterol/Ipratropium (Duoneb 3.0-0.5 Mg/3 Ml) 3 ml NEB ONETIME ONE Stop: 01/31/18 10:17 Last Admin: 01/31/18 10:22 Dose: 3 ml Albuterol/Ipratropium (Duoneb 3.0-0.5 Mg/3 Ml) 3 ml NEB TID [facility] Last Admin: 02/01/18 12:15 Dose: Not Given Furosemide (Lasix) 20 mg PO BID [facility] Last Admin: 02/01/18 09:05 Dose: 20 mg Furosemide (Lasix) 40 mg IVPUSH NOW ONE Stop: 02/02/18 09:37 Last Admin: 02/02/18 11:34 Dose: 40 mg Furosemide (Lasix) 40 mg IVPUSH NOW ONE Stop: 02/03/18 10:23 Last Admin: 02/03/18 10:56 Dose: 40 mg Levofloxacin/Dextrose 750 mg/ (Premix) 150 mls @ 100 mls/hr IV ONETIME ONE Stop: 01/31/18 14:14 Last Admin: 01/31/18 14:44 Dose: 100 mls/hr Methylprednisolone Sodium Succinate (Solu-Medrol) 125 mg IVPUSH ONETIME ONE Stop: 01/31/18 10:17 Last Admin: 01/31/18 10:54 Dose: 125 mg Methylprednisolone Sodium Succinate (Solu-Medrol) 40 mg IVPUSH Q8HR [facility] Last Admin: 02/03/18 05:36 Dose: 40 mg Non-Formulary Medication (Fluticasone/Salmeterol [Fluticasone-Salmeterol 113-14] ) 500 mcg INH BID [facility] Potassium Chloride (Klor-Con 10) 40 meq PO ONETIME ONE Stop: 01/31/18 20:48 Last Admin: 01/31/18 21:46 Dose: 40 meq Sodium Chloride (Saline Flush) 10 ml FLUSH ASDIRECTED PRN PRN Reason: Keep Vein Open Last Admin: 01/31/18 10:57 Dose: 10 ml Trazodone HCl (Trazodone) 50 mg PO DAILY [facility] Last Admin: 02/01/18 09:07 Dose: Not Given - Exam General: Reports: Alert, Oriented HEENT: Reports: Pupils Equal Neck: Reports: Supple Lungs: Reports: Clear to Auscultation Cardiovascular: Reports: Regular Rate, Regular Rhythm GI/Abdominal Exam: Normal Bowel Sounds
== END 2018-02-05 11:52 | disposition home or self-care (01) | DRG 193 ==
LOC: DL.ED 10:06 → EEVIPCON 13:34 → DL.MS 13:34
PROVIDERS: ADMIT Internal Medicine; ATTEND Internal Medicine
DX: J18.9 Pneumonia, unspecified organism (principal); I50.33 Acute on chronic diastolic (congestive) heart failure; J44.0 Chronic obstructive pulmonary disease with (acute) lower respiratory infection; J44.1 Chronic obstructive pulmonary disease with (acute) exacerbation; I25.119 Atherosclerotic heart disease of native coronary artery with unspecified angina pectoris; I48.91 Unspecified atrial fibrillation; I50.9 Heart failure, unspecified; I11.0 Hypertensive heart disease with heart failure; E78.00 Pure hypercholesterolemia, unspecified; G47.30 Sleep apnea, unspecified; H54.7 Unspecified visual loss; M19.90 Unspecified osteoarthritis, unspecified site; G47.00 Insomnia, unspecified; I25.10 Atherosclerotic heart disease of native coronary artery without angina pectoris; F41.9 Anxiety disorder, unspecified; I25.2 Old myocardial infarction; Z95.0 Presence of cardiac pacemaker; Z95.5 Presence of coronary angioplasty implant and graft; Z90.2 Acquired absence of lung [part of]; Z79.899 Other long term (current) drug therapy; Z87.01 Personal history of pneumonia (recurrent); Z88.1 Allergy status to other antibiotic agents; E04.1 Nontoxic single thyroid nodule; Z88.8 Allergy status to other drugs, medicaments and biological substances; R06.02 Shortness of breath; D64.9 Anemia, unspecified; E61.1 Iron deficiency; K64.9 Unspecified hemorrhoids; R05 Cough; R06.2 Wheezing; R50.9 Fever, unspecified; Z85.46 Personal history of malignant neoplasm of prostate; Z85.118 Personal history of other malignant neoplasm of bronchus and lung; Z28.21 Immunization not carried out because of patient refusal
CPT/HCPCS: 36415; 71045; 71250; 80053; 80162; 81001; 83605; 83880; 85025; 87040 ×2; 93005; 93010; 94640; 96374; 99284; 99285; J2930; J7050; 80048; 85027; 94010; 94060; 94667; A9270-GY; J1650; J1940; J1956; J2920

== ENCOUNTER 2018-03-12 09:08 | Emergency (ER) | payer MEDICARE, OTHER ==
[2018-03-12 09:17] VITALS: BP 92/54
--- NOTE | 2018-03-12 09:25 | EDM.PDOC ---
ED HPI GENERAL MEDICAL PROBLEM - General Chief Complaint: Back Pain or Injury Stated Complaint: PAIN ALL OVER Time Seen by Provider: 03/12/18 09:22 Source of Information: Reports: Patient, Old Records, RN, RN Notes Reviewed History Limitations: Reports: No Limitations - History of Present Illness INITIAL COMMENTS - FREE TEXT/NARRATIVE: Pt presents to ER from home by POV with c/o low back, RLQ abdomen, and pelvic pain with painful urination, with some chills, increasing shortness of breath, and generalized weakness. He has a chronic productive cough, but feels it is unchanged. Pt states his mid-back has been very painful and hurt more when he tries to lay down which is making it very difficult to sleep. On Mar.06 pt describes an event where he woke and did his normal morning routine, then for some reason at 9:30AM he felt suddenly tired and laid down. The next thing he knew, he woke up over 24 hours later and was disoriented to time/date but otherwise felt ok. He denies chest pain, palpitations, headache, visual changes, facial droop, slurred speech, loss of bowel or bladder control, or lateralized motor or sensory deficits. He admits to generalized weakness. Onset: Gradual Duration: Constant, Getting Worse Location: Reports: Chest, Back, Pelvis Quality: Reports: Ache Severity: Severe Improves with: Reports: None Worsens with: Reports: Other (urination) Associated Symptoms: Reports: No Other Symptoms Lower Back Pain Score (Numeric/FACES): 7 - Related Data Allergies Allergy/AdvReac Type Severity Reaction Status Date / Time piperacillin sodium Allergy Severe angioedema Verified 03/12/18 09:14 [From Zosyn] tazobactam sodium Allergy Severe angioedema Verified 03/12/18 09:14 [From Zosyn] adhesive tape Allergy Blisters Verified 03/12/18 09:14 Home Meds: Home Meds Montelukast [Singulair] 10 mg PO BEDTIME 10/26/13 [History] Tiotropium [Spiriva Handihaler] 1 puff INH DAILY 10/26/13 [History] Albuterol/Ipratropium [Combivent Respimat] 2 puff INH BID 08/16/15 [History] Albuterol/Ipratropium [DuoNeb 3.0-0.5 MG/3 ML] 3 ml NEB TID 11/09/15 [History] Carvedilol 6.25 mg PO BIDMEALS 11/09/15 [History] Pantoprazole Sodium 40 mg PO DAILY 11/09/15 [History] Albuterol [Proventil Neb Soln] 1 ampule INH Q4H PRN 12/24/15 [History] Furosemide [Lasix] 20 mg PO BID 12/24/15 [History] Lisinopril 2.5 mg PO DAILY 06/29/17 [History] traZODone 50 mg PO DAILY 06/29/17 [History] Mometasone/Formoterol [Dulera 200-5 MCG] 2 puff INH BID 01/31/18 [History] Acetaminophen [Tylenol] 650 mg PO Q4H PRN tablet 02/05/18 [Rx] Furosemide [Lasix] 20 mg PO BIDDIURETIC 30 Days #60 tablet 02/05/18 [Rx] Levofloxacin 750 mg PO DAILY 5 Days #5 tablet 02/05/18 [Rx] predniSONE 40 mg PO WITHBREAKFAST 5 Days #5 tablet 02/05/18 [Rx] Past Medical History HEENT History: Reports: Cataract, Hard of Hearing, Other (See Below) Other HEENT History: thyroid nodule Cardiovascular History: Reports: Afib, Angina, CAD, Heart Failure, High Cholesterol, Hypertension, [place], Pacemaker, SOB on Exertion, Stents, Other (See Below) Other Cardiovascular History: 6 stents placed total Respiratory History: Reports: Asthma, Bronchitis, Recurrent, COPD, Pneumonia, Recurrent, Sleep Apnea, SOB Gastrointestinal History: Reports: Hemorrhoids, Other (See Below) (Inguinal hernia. Appendicitis treated with IV antibiotics and NO surgery.) Genitourinary History: Reports: BPH, Prostate Disorder Musculoskeletal History: Reports: Arthritis, Back Pain, Chronic, Fracture ( chronic thoracic compression fractures), Osteoarthritis Neurological History: Reports: None Psychiatric History: Reports: Depression Other Psychiatric History: insomnia Endocrine/Metabolic History: Reports: None Hematologic History: Reports: Anemia, Iron Deficiency Immunologic History: Reports: Other (See Below) Other Immunologic History: Hx prostate and lung ca. 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 SERVICE, "NOT THE BAD KIND" - Past Surgical History Head Surgeries/Procedures: Reports: None HEENT Surgical History: Reports: Cataract Surgery, Naso-Sinus Surgery GI Surgical History: Reports: Abdominal paracentesis, Appendectomy, Colonoscopy , EGD, Polypectomy, Other (See Below) Male Surgical History: Reports: TURP-Transurethral Resection of Prostate Endocrine Surgical History: Reports: Thyroid Biopsy Musculoskeletal Surgical History: Reports: Shoulder Surgery Other Oncologic Surgeries/Procedures: 3/4 of right lobe removed Social & Family History - Family History Family Medical History: Noncontributory - Tobacco Use Smoking Status *Q: Former Smoker Tobacco Use Within Last Twelve Months: Cigarettes Years of Tobacco use: 50 Packs/Tins Daily: 1 Second Hand Smoke Exposure: No - Caffeine Use Caffeine Use: Reports: Coffee - Alcohol Use Alcohol Use History: No - Recreational Drug Use Recreational Drug Use: No - Living Situation & Occupation Living situation: Reports: , Alone Occupation: Retired ED ROS GENERAL - Review of Systems Review Of Systems: ROS reveals no pertinent complaints other than HPI. ED EXAM, RENAL/ - Physical Exam Exam: See Below Exam Limited By: No Limitations General Appearance: Alert, No Apparent Distress, Other (Frail, elderly, and chronically ill appearing) Eye Exam: Bilateral Eye: Normal Inspection Ears: Normal External Exam, Hearing Grossly Normal Nose: Normal Inspection, Normal Mucosa, No Blood Throat/Mouth: Normal Inspection, Normal Lips, Normal Voice, No Airway Compromise Head: Atraumatic, Normocephalic Neck: Normal Inspection, Supple, Non-Tender, Full Range of Motion. No: Lymphadenopathy (L), Lymphadenopathy (R) Respiratory/Chest: No Respiratory Distress, No Accessory Muscle Use, Chest Non- Tender, Decreased Breath Sounds, Crackles (course breath sounds throughout), Rhonchi (Rt base), Wheezing (mild, scattered wheezes), Prolonged Expiration. No : Rales, Stridor Cardiovascular: Regular Rate, Rhythm, No Edema GI/Abdominal: Normal Bowel Sounds, Soft, No Distention, Rebound (RLQ), Tender ( suprapubic tenderness, RLQ tenderness). No: Guarding, Rigid (Male) Exam: Deferred Rectal (Males) Exam: Deferred Back Exam: CVA Tenderness (L) (mild), CVA Tenderness (R) (mild), Decreased Range of Motion (chronic/stable per pt), Muscle Spasm, Paraspinal Tenderness. No: Vertebral Tenderness Extremities: Normal Inspection, Normal Range of Motion, Non-Tender, No Pedal Edema, Normal Capillary Refill Neurological: Alert, Oriented, CN II-XII Intact, Normal Cognition, No Motor/ Sensory Deficits Psychiatric: Normal Mood Skin Exam: Warm, Dry, No Rash EKG INTERPRETATION EKG Date: 03/12/18 Time: 10:01 Rhythm: A-Fib Rate (Beats/Min): 68 [place]: LAD-Left [place] Deviation P-Wave: Absent QRS: RBBB ST-T: Normal QT: Normal Comparison: No Change Course - Vital Signs Last Recorded V/S: Last Vital Signs Temp 37.2 C 03/12/18 09:14 Pulse 71 03/12/18 09:55 Resp 16 03/12/18 09:14 BP 92/54 L 03/12/18 09:14 Pulse Ox 98 03/12/18 09:14 - Orders/Labs/Meds Orders: Active Orders 24 hr Category Date Time Status EKG 12 Lead [EKG Documentation Completion] [RC] STAT Care 03/12/18 09:43 Active Peripheral IV Care [RC] . DIRECTED Care 03/12/18 09:44 Active RT Aerosol Therapy [RC] ASDIRECTED Care 03/12/18 09:55 Active Chest 2V [CR] Stat Exams 03/12/18 09:43 Taken CULTURE BLOOD [BC] Stat Lab 03/12/18 09:49 Received CULTURE BLOOD [BC] Stat Lab 03/12/18 09:57 Received Sodium Chloride 0.9% [Saline Flush] Med 03/12/18 09:43 Active 10 ml FLUSH ASDIRECTED PRN Blood Culture x2 Reflex Set [OM.PC] Stat Oth 03/12/18 09:43 Ordered Peripheral IV Insertion Adult [OM.PC] Stat Oth 03/12/18 09:43 Ordered Medication Orders Sodium Chloride (Saline Flush) 10 ml FLUSH ASDIRECTED PRN PRN Reason: Keep Vein Open Last Admin: 03/12/18 09:54 Dose: 10 ml Labs: Laboratory Tests 03/12/18 03/12/18 03/12/18 Range/Units 09:18 09:49 09:57 WBC 10.5 H (5.0-10.0) 10^3/uL RBC 3.85 L (4.6-6.2) 10^6/uL Hgb 9.1 L (14.0-18.0) g/dL Hct 29.6 L (40.0-54.0) % MCV 76.9 L (80-100) fL MCH 23.6 L (27.0-34.0) pg MCHC 30.7 L (33.0-35.0) g/dL Plt Count 270 (150-450) 10^3/uL Neut % (Auto) 74.1 (42.2-75.2) % Lymph % (Auto) 13.3 L (20.5-50.1) % [place] % (Auto) 10.8 H (2-8) % Eos % (Auto) 1.6 (1.0-3.0) % Baso % (Auto) 0.2 (0.0-1.0) % Add Manual Diff Yes Neutrophils % (Manual) 75 (42-75) % Band Neutrophils % 1 % Lymphocytes % (Manual) 19 L (20-50) % Monocytes % (Manual) 5 (2-8) % Hypochromasia 1+ slight PT (9.0-12.0) SEC INR (0.9-1.2) APTT (22.0-34.0) SEC Sodium (135-145) mmol/L Potassium (3.6-5.0) mmol/L Chloride (101-111) mmol/L Carbon Dioxide (21.0-31.0) mmol/L Anion Gap BUN (7-18) mg/dL Creatinine (0.6-1.3) mg/dL Est Cr Clr Drug Dosing mL/min Estimated GFR (MDRD) BUN/Creatinine Ratio Glucose (74-105) mg/dL Lactic Acid 1.3 (0.5-2.2) mmol/L Calcium (8.4-10.2) mg/dl Total Bilirubin (0.2-1.0) mg/dL AST (10-42) IU/L ALT (10-60) IU/L Alkaline Phosphatase (42-121) IU/L Creatine Kinase (26-174) IU/L Creatine Kinase Index (0-2.4) % CK-MB (CK-2) (0.4-4.7) ng/mL Troponin I (0.00-0.02) ng/ml B-Natriuretic Peptide (0-100) pg/ml Total Protein (6.7-8.2) g/dl Albumin (3.2-5.5) g/dl Globulin Albumin/Globulin Ratio Urine Color Dark yellow (YELLOW) Urine Appearance Slightly cloudy (CLEAR) Urine pH 5.5 (5.0-9.0) Ur Specific [place] 1.010 (1.005-1.030) Urine Protein 30 H (NEGATIVE) Urine Glucose (UA) Negative (NEGATIVE) Urine Ketones Negative (NEGATIVE) Urine Occult Blood Negative (NEGATIVE) Urine Nitrite Negative (NEGATIVE) Urine Bilirubin Small H (NEGATIVE) Urine Urobilinogen 1.0 (0.2-1.0) mg/dL Ur Leukocyte Esterase Negative (NEGATIVE) Urine RBC 0-5 /HPF Urine WBC 0-5 (0-5/HPF) /HPF Ur Epithelial Cells Rare /HPF Amorphous Sediment Occasional (0/HPF) /HPF Urine Bacteria Few (0-FEW/HPF) /HPF Hyaline Casts Few H /LPF Urine Mucus Few H /LPF 03/12/18 03/12/18 03/12/18 Range/Units 09:57 09:57 09:57 WBC (5.0-10.0) 10^3/uL RBC (4.6-6.2) 10^6/uL Hgb (14.0-18.0) g/dL Hct (40.0-54.0) % MCV (80-100) fL MCH (27.0-34.0) pg MCHC (33.0-35.0) g/dL Plt Count (150-450) 10^3/uL Neut % (Auto) (42.2-75.2) % Lymph % (Auto) (20.5-50.1) % [place] % (Auto) (2-8) % Eos % (Auto) (1.0-3.0) % Baso % (Auto) (0.0-1.0) % Add Manual Diff Neutrophils % (Manual) (42-75) % Band Neutrophils % % Lymphocytes % (Manual) (20-50) % Monocytes % (Manual) (2-8) % Hypochromasia PT 11.1 (9.0-12.0) SEC INR 1.1 (0.9-1.2) APTT 30.3 (22.0-34.0) SEC Sodium 135 (135-145) mmol/L Potassium 2.9 L (3.6-5.0) mmol/L Chloride 99 L (101-111) mmol/L Carbon Dioxide 30.0 (21.0-31.0) mmol/L Anion Gap 8.9 BUN 12 (7-18) mg/dL Creatinine 0.9 (0.6-1.3) mg/dL Est Cr Clr Drug Dosing 61.04 mL/min Estimated GFR (MDRD) > 60 BUN/Creatinine Ratio 13.33 Glucose 116 H (74-105) mg/dL Lactic Acid (0.5-2.2) mmol/L Calcium 8.7 (8.4-10.2) mg/dl Total Bilirubin 1.1 H (0.2-1.0) mg/dL AST 20 (10-42) IU/L ALT 12 (10-60) IU/L Alkaline Phosphatase 100 (42-121) IU/L Creatine Kinase 18 L (26-174) IU/L Creatine Kinase Index 5.6 H (0-2.4) % CK-MB (CK-2) 1.00 (0.4-4.7) ng/mL Troponin I 0.05 H* (0.00-0.02) ng/ml B-Natriuretic Peptide 135 H (0-100) pg/ml Total Protein 6.3 L (6.7-8.2) g/dl Albumin 3.1 L (3.2-5.5) g/dl Globulin 3.2 Albumin/Globulin Ratio 0.97 Urine Color (YELLOW) Urine Appearance (CLEAR) Urine pH (5.0-9.0) Ur Specific [place] (1.005-1.030) Urine Protein (NEGATIVE) Urine Glucose (UA) (NEGATIVE) Urine Ketones (NEGATIVE) Urine Occult Blood (NEGATIVE) Urine Nitrite (NEGATIVE) Urine Bilirubin (NEGATIVE) Urine Urobilinogen (0.2-1.0) mg/dL Ur Leukocyte Esterase (NEGATIVE) Urine RBC /HPF Urine WBC (0-5/HPF) /HPF Ur Epithelial Cells /HPF Amorphous Sediment (0/HPF) /HPF Urine Bacteria (0-FEW/HPF) /HPF Hyaline Casts /LPF Urine Mucus /LPF Meds: Medications Generic Name Dose Route Start Last Admin Trade Name Eva PRN Reason Stop Dose Admin Sodium Chloride 10 ml 03/12/18 09:43 03/12/18 09:54 Saline Flush FLUSH 10 ml ASDIRECTED PRN Administration Keep Vein Open Discontinued Medications Generic Name Dose Route Start Last Admin Trade Name Eva PRN Reason Stop Dose Admin Hydrocodone Bitart/Acetaminophen 1 tab 03/12/18 09:56 03/12/18 10:10 [place] 325-5 Mg PO 03/12/18 09:57 1 tab ONETIME ONE Administration Albuterol/Ipratropium 3 ml 03/12/18 09:54 03/12/18 10:08 Duoneb 3.0-0.5 Mg/3 Ml NEB 03/12/18 09:55 3 ml ONETIME ONE Administration Potassium Chloride 10 meq/ 100 mls @ 100 mls/hr 03/12/18 10:33 03/12/18 10:40 Premix IV 03/12/18 11:32 100 mls/hr ONETIME ONE Administration Lidocaine HCl 15 gm 03/12/18 09:55 03/12/18 10:11 Lidocaine 5% TOP 03/12/18 09:56 15 gm ONETIME ONE Administration Lidocaine HCl 1 ml 03/12/18 10:33 03/12/18 10:41 Xylocaine-Mpf 1% .XX 03/12/18 10:34 1 ml ONETIME ONE Administration Potassium Chloride 40 meq 03/12/18 10:34 03/12/18 10:39 Klor-Con 10 PO 03/12/18 10:35 40 meq ONETIME ONE Administration - Radiology Interpretation Free Text/Narrative:: CT Abd/Pelvis: consolidated area consistent with an abscess, likely from appendix, but possibly from a diverticulum per Rad. report. CXR: chronic COPD, no acute process, see Rad. report. Departure - Departure Time of Disposition: 11:40 Disposition: DC/Tfer to Acute Hospital 02 Condition: Serious Clinical Impression: Hypokalemia, Elevated troponin, Chronic midline thoracic back pain, Appendicitis with abscess COPD (chronic obstructive pulmonary disease) Qualifiers: COPD type: chronic bronchitis Chronic bronchitis type: mixed simple and mucopurulent Qualified Code(s): J41.8 - Mixed simple and mucopurulent chronic bronchitis Chronic congestive heart failure Qualifiers: Heart failure type: unspecified Qualified Code(s): I50.9 - Heart failure, unspecified - Discharge Information Forms: ED Department Discharge, Interfacility Transfer EMTALA - My Orders Last 24 Hours: My Active Orders 03/12/18 09:43 EKG 12 Lead [EKG Documentation Completion] [RC] STAT Chest 2V [CR] Stat Sodium Chloride 0.9% [Saline Flush] 10 ml FLUSH ASDIRECTED PRN Blood Culture x2 Reflex Set [OM.PC] Stat Peripheral IV Insertion Adult [OM.PC] Stat 03/12/18 09:44 Peripheral IV Care [RC] . DIRECTED 03/12/18 09:49 CULTURE BLOOD [BC] Stat 03/12/18 09:55 RT Aerosol Therapy [RC] ASDIRECTED 03/12/18 09:57 CULTURE BLOOD [BC] Stat - Assessment/Plan Last 24 Hours: My Active Orders 03/12/18 09:43 EKG 12 Lead [EKG Documentation Completion] [RC] STAT Chest 2V [CR] Stat Sodium Chloride 0.9% [Saline Flush] 10 ml FLUSH ASDIRECTED PRN Blood Culture x2 Reflex Set [OM.PC] Stat Peripheral IV Insertion Adult [OM.PC] Stat 03/12/18 09:44 Peripheral IV Care [RC] . DIRECTED 03/12/18 09:49 CULTURE BLOOD [BC] Stat 03/12/18 09:55 RT Aerosol Therapy [RC] ASDIRECTED 03/12/18 09:57 CULTURE BLOOD [BC] Stat
[2018-03-12] MEDS ORDERED: Sodium Chloride 0.9% 10 ML Syringe FLUSH PRN (09:43)
[2018-03-12] MEDS ORDERED: Albuterol/Ipratropium 3.0-0.5 MG/3 ML Neb Soln NEB ONE (09:54)
[2018-03-12] MEDS ORDERED: Lidocaine 5% Oint 35.44 GM Tube TOP ONE (09:55)
[2018-03-12] MEDS ORDERED: Acetaminophen/HYDROcodone 325-5 MG Tab PO ONE (09:56)
[2018-03-12 10:24] LABS: ANION GAP 8.9; CHLORIDE,CL 99 mmol/L (101-111); SODIUM,NA 135 mmol/L (135-145)
[2018-03-12] MEDS ORDERED: Lidocaine 1% 30 ML SDV ONE (10:33)
[2018-03-12] MEDS ORDERED: Potassium Chloride 10 MEQ in Premix Bag 1 BAG IV ONE (10:33)
[2018-03-12] MEDS ORDERED: Potassium Chloride 10 MEQ Tab.ER PO ONE (10:34)
--- NOTE | 2018-03-12 11:45 | CT ---
Clinical history: 77-year-old male (retired [employer]) with pelvic pain and dysuria who significantly , in the past year, had a seven (7) day hospitalization for "appendicitis treated with antibiotic" because of generalized poor health. This hypertensive male with "prostate and lung cancer" has not had his appendix surgically re moved. Scan technique: Volume acquisition of data emergency unenhanced CT scan of the abdomen and pelvis obt ained while the patient was lying supine on the Siemens multi slice scanner [place], [place]. All data archived in the PACS system for storage, reformatting and study. Interpretation: Abnormal. 1. *Focal inflammatory "dirty" peritoneal fat RLQ abdomen-pelvis surrounding an oval 4.0 x 6.0 cm cys tic mass (abscess?) located at the epicenter of the inflammatory process demonstrated on previous [address] exam. 2. Numerous diverticula sigmoid colon midpelvis and LLQ abdomen. 3. No ascites or free intraperitoneal air. No sign of mechanical bowel obstruction. 4. Solitary large calcified 15 mm intraluminal gallstone RUQ. 5. Unenhanced liver, stomach, spleen, pancreas and adrenal glands unremarkable. Lower pole renal marie ical cyst. No sign of nephrolithiasis or obstructive uropathy. Prostatectomy. Huge right hydrocele sc rotum. 6. Cardiomegaly. Lung bases clear. Densely calcified "cast" normal caliber aortoiliac vessels. No ane urysm or dissection. CONCLUSION: Abnormal inflammatory process RLQ. Cholelithiasis. Diverticulosis distal colon.
--- NOTE | 2018-03-12 11:49 | CR ---
Clinical history: 77-year-old male history "lung cancer", cholelithiasis, and now right RLQ abdominal abscess.... with chest pain. Interpretation: Abnormal. 1. New insufficiency fracture (50% collapse) T7 vertebral body since previous lateral chest x-ray 15 April 2016. 2. Volume loss right hemithorax and pleural-parenchymal scarring characteristic of surgery for "lung" unchanged since 2016. 3. Chronic cardiomegaly. No new cephalization of flow, signs of alveolar edema or dependent pleural f luid accumulation this patient with cardiac pacemaker (leads intact). 4. No new lung mass, hilar lymphadenopathy or focal lobar pneumonia. 5. No pneumothorax or free subdiaphragmatic air." CONCLUSION: No acute cardiopulmonary abnormality. Postoperative changes right chest and cardiac pacem vasquez. Insufficiency fracture T7 vertebral body.
--- NOTE | 2018-03-14 13:01 | EKG ---
03/12/2018 - [place] - Cesar 12-lead EKG shows atrial fibrillation with right bundle branch block. No significant ST elevation or ST depression noted on this admission. [facility] /[id number]
== END 2018-03-12 12:34 ==
LOC: DL.ED 09:08
DX: K63.89 Other specified diseases of intestine (principal); J41.8 Mixed simple and mucopurulent chronic bronchitis; I11.0 Hypertensive heart disease with heart failure; I50.9 Heart failure, unspecified; E87.6 Hypokalemia; R79.89 Other specified abnormal findings of blood chemistry; M54.6 Pain in thoracic spine; Z88.8 Allergy status to other drugs, medicaments and biological substances; Z79.899 Other long term (current) drug therapy; Z87.891 Personal history of nicotine dependence
CPT/HCPCS: 36415; 71046; 74176; 80053; 81001; 82550; 82553; 83605; 83880; 84484; 85025; 85610; 85730; 87040; 93005; 93010; 94640; 96365; 99285; A9270; J3480; J7050; 99284; J7620-GY

== ENCOUNTER 2018-03-23 12:11 | Inpatient (IN) | payer MEDICARE, OTHER ==
--- NOTE | 2018-03-23 15:50 | PCM.HP ---
H&P History of Present Illness - General Date of Service: 03/23/18 Source of Information: Patient - History of Present Illness Initial Comments - Free Text/Narative: Patient is a 77-year-old male admitted under swing bed for continued strengthening. Recently admitted in [place] underwent exploratory laparotomy for adhesiolysis, hemicolectomy, after he was noted to have an abscess at the location of the appendix from a appendicular rupture.on admission to swing bed, patient denies any pain. He was started to have some episodes of wheezing. He didn't have any bowel movement today but had bowel movement yesterday. Reports that he is tolerating his meals. - Related Data Allergies/Adverse Reactions: Allergies Allergy/AdvReac Type Severity Reaction Status Date / Time piperacillin sodium Allergy Severe angioedema Verified 03/23/18 15:34 [From Zosyn] tazobactam sodium Allergy Severe angioedema Verified 03/23/18 15:34 [From Zosyn] adhesive tape Allergy Blisters Verified 03/23/18 15:34 Home Medications: Home Meds Montelukast [Singulair] 10 mg PO BEDTIME 10/26/13 [History] Tiotropium [Spiriva Handihaler] 1 puff INH DAILY 10/26/13 [History] Albuterol/Ipratropium [Combivent Respimat] 2 puff INH BID 08/16/15 [History] Albuterol/Ipratropium [DuoNeb 3.0-0.5 MG/3 ML] 3 ml NEB TID 11/09/15 [History] Pantoprazole Sodium 40 mg PO DAILY 11/09/15 [History] Lisinopril 2.5 mg PO DAILY 06/29/17 [History] traZODone 50 mg PO BEDTIME 06/29/17 [History] Aspirin 325 mg PO DAILY 03/23/18 [History] Calcium Carbonate/Vitamin D3 [Calcium 600-Vit D3 400 Tablet] 1 tab PO BID [History] Carvedilol 3.125 mg PO BID 03/23/18 [History] Cholecalciferol (Vitamin D3) [Vitamin D] 400 units PO DAILY 03/23/18 [History] Docusate Sodium [Colace] 100 mg PO BID 03/23/18 [History] Ferrous Sulfate 325 mg PO DAILY 03/23/18 [History] Furosemide [Lasix] 20 mg PO DAILY 03/23/18 [History] Non-Formulary Medication [NF Drug] 1 puff INH BID 03/23/18 [History] Sennosides/Docusate Sodium [Senna-S] 2 tab PO BID 03/23/18 [History] Past Medical History HEENT History: Reports: Cataract, Hard of Hearing, Other (See Below) Other HEENT History: thyroid nodule Cardiovascular History: Reports: Afib, Angina, CAD, Heart Failure, High Cholesterol, Hypertension, [place], Pacemaker, SOB on Exertion, Stents, Other (See Below) Other Cardiovascular History: 6 stents placed total Respiratory History: Reports: Asthma, Bronchitis, Recurrent, COPD, Pneumonia, Recurrent, Sleep Apnea, SOB Gastrointestinal History: Reports: Hemorrhoids, Other (See Below) Genitourinary History: Reports: BPH, Prostate Disorder Musculoskeletal History: Reports: Arthritis, Back Pain, Chronic, Fracture, Osteoarthritis Neurological History: Reports: None Psychiatric History: Reports: Depression Other Psychiatric History: insomnia Endocrine/Metabolic History: Reports: None Hematologic History: Reports: Anemia, Iron Deficiency Immunologic History: Reports: Other (See Below) Other Immunologic History: Hx prostate and lung ca. 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 IN THE SERVICE, "NOT THE BAD KIND" - Past Surgical History Head Surgeries/Procedures: Reports: None HEENT Surgical History: Reports: Cataract Surgery, Naso-Sinus Surgery Cardiovascular Surgical History: Reports: AICD, Coronary Artery Stent Respiratory Surgical History: Reports: Lung Resection GI Surgical History: Reports: Abdominal paracentesis, Appendectomy, Colonoscopy , EGD, Polypectomy, Other (See Below) Male Surgical History: Reports: TURP-Transurethral Resection of Prostate Endocrine Surgical History: Reports: Thyroid Biopsy Musculoskeletal Surgical History: Reports: Shoulder Surgery Other Oncologic Surgeries/Procedures: 3/4 of right lobe removed Social & Family History - Family History Family Medical History: Noncontributory - Caffeine Use Caffeine Use: Reports: Coffee - Living Situation & Occupation Living situation: Reports: , Alone Occupation: Retired H&P Review of Systems - Review of Systems: Review Of Systems: See Below General: Reports: Weakness Pulmonary: Reports: Wheezing Cardiovascular: Reports: Edema Gastrointestinal: Reports: Abdominal Pain Genitourinary: Reports: No Symptoms Musculoskeletal: Reports: Shoulder Pain Psychiatric: Reports: No Symptoms Neurological: Reports: No Symptoms Exam - Exam Exam: See Below - Vital Signs Vital Signs: Last Vital Signs Temp 97.8 F 03/23/18 15:21 Pulse 105 H 03/23/18 15:21 Resp 20 03/23/18 15:21 BP 108/50 L 03/23/18 15:21 Pulse Ox 97 03/23/18 15:21 Weight: 181 lb 11.2 oz Problem List Initiated/Reviewed/Updated: Yes Assessment/Plan Comment:: Status post exploratory laparotomy/hemicolectomy -Completed antibiotics, PICC line for blood draw - Continue dressing changes twice a day - Continue incentive spirometry 4 times per hour - Consultation with OT and PT for strengthening - Continue pain medications as needed Anemia, can be postoperative - Hemoglobin, March 22, 2018 8.1 g/dL - We will monitor her hemoglobin periodically and monitor for any signs of bleeding. Hypomagnesemia - Recheck magnesium level, replace if still low Hypertension, -Coreg was decreased to 3.125 mg - Monitor her blood pressure periodically COPD - Continue with incentive spirometry and nebulizers DVT prophylaxis - Lovenox daily
[2018-03-23] MEDS: Carvedilol 3.125 MG Tab PO SCH (20:44)
[2018-03-23] MEDS: Montelukast 10 MG Tab PO SCH (20:45)
[2018-03-23] MEDS: Docusate Sodium 100 MG Cap PO SCH (20:46)
[2018-03-23] MEDS: traZODone 50 MG Tab PO SCH (20:46)
[2018-03-23] MEDS: traMADol 50 MG Tab PO PRN (20:47)
[2018-03-23] MEDS: Calcium Carbonate/Vitamin D3 1250 MG-200 Unit Tab PO SCH (20:53)
[2018-03-23] MEDS: Sodium Chloride 0.9% 10 ML Syringe FLUSH SCH (20:57)
[2018-03-23] MEDS ORDERED: IPRATROPIUM INH SCH (21:00)
[2018-03-23] MEDS ORDERED: ALBUTEROL INH SCH (21:00)
[2018-03-23] MEDS ORDERED: Albuterol/Ipratropium 3.0-0.5 MG/3 ML Neb Soln NEB SCH (21:00)
[2018-03-23] MEDS ORDERED: SPIRIVA INH SCH (21:00)
[2018-03-23] MEDS ORDERED: Alteplase 2 MG Vial IVPUSH ONE (22:16)
[2018-03-23] MEDS ORDERED: Acetaminophen/oxyCODONE 325-5 MG Tab PO PRN (22:21)
[2018-03-24] MEDS: Albuterol/Ipratropium 3.0-0.5 MG/3 ML Neb Soln NEB SCH ×4 (00:29→18:33)
[2018-03-24] MEDS: Pantoprazole 40 MG Tab.CR PO SCH (05:25)
[2018-03-24] MEDS ORDERED: Alteplase 2 MG Vial IVPUSH ONE (08:00)
[2018-03-24] MEDS: Enoxaparin 40 MG/0.4 ML Syringe SUBCUT SCH (08:48)
[2018-03-24] MEDS: SPIRIVA INH SCH (08:48)
[2018-03-24] MEDS: Calcium Carbonate/Vitamin D3 1250 MG-200 Unit Tab PO SCH ×2 (08:49→20:52)
[2018-03-24] MEDS: Aspirin 325 MG Tab.EC PO SCH (08:49)
[2018-03-24] MEDS: Cholecalciferol (Vitamin D3) 400 Unit Tab PO SCH (08:50)
[2018-03-24] MEDS ORDERED: Non-Formulary Medication 1 Each INH SCH (09:00)
[2018-03-24] MEDS ORDERED: Tiotropium Inhaler 18 MCG Inhalation Powder Cap Kit of 5 INH SCH (09:00)
[2018-03-24] MEDS ORDERED: Furosemide 20 MG Tab PO SCH (09:00)
[2018-03-24] MEDS: Sodium Chloride 0.9% 10 ML Syringe FLUSH SCH ×2 (09:04→20:54)
[2018-03-24] MEDS: Ferrous Sulfate 325 MG Tab PO SCH (09:05)
[2018-03-24] MEDS: Docusate Sodium 100 MG Cap PO SCH ×2 (09:05→20:52)
[2018-03-24] MEDS: Lisinopril 5 MG Tab PO SCH (10:53)
[2018-03-24] MEDS: Carvedilol 3.125 MG Tab PO SCH ×2 (10:53→18:11)
[2018-03-24] MEDS: Furosemide 40 MG Tab PO SCH (17:33)
--- NOTE | 2018-03-24 18:58 | PN ---
DATE: 03/24/2018 SUBJECTIVE: The patient appears very lethargic today. Wakes up and communicates, but has been quite sleepy. Lower extremities are also swollen. REVIEW OF SYSTEMS: Constitutional, cardiac, respiratory, gastrointestinal, and genitourinary system were reviewed. No other pertinent findings except as noted above. OBJECTIVE: General: The patient is drowsy. HEENT: Head is atraumatic and normocephalic. Ear, nose, and throat are unremarkable. Neck: Supple. Chest: Diminished breath sounds bilaterally. Cardiovascular System: Regular rate and rhythm. Abdomen: Distended. Status post abdominal surgery. Extremities: Bilateral pitting edema. LABORATORY DATA: Magnesium is 1.2. ASSESSMENT AND PLAN: 1. Status post exploratory laparotomy/hemicolectomy. The patient had surgery at [place]. Completed antibiotics. 2. Generalized weakness/drowsiness. Reason for this is not obvious. I will go ahead and send sample for ammonia level. The patient has a prior history of cirrhosis. 3. Cirrhosis of the liver. Has not been decompensated. 4. Bilateral lower extremities edema. I will go ahead and start the patient on increased dose of Lasix at 40 mg, 2 times a day. 5. Chronic obstructive pulmonary disease. Continue current medication. 6. Hypomagnesemia. Start the patient on magnesium supplements. [facility] /[id number]
[2018-03-24] MEDS: Lactulose Soln 10 GM/15 ML 30 ML UD Cup PO SCH (20:51)
[2018-03-24] MEDS: Montelukast 10 MG Tab PO SCH (20:52)
[2018-03-24] MEDS: traZODone 50 MG Tab PO SCH (20:54)
[2018-03-25] MEDS: Albuterol/Ipratropium 3.0-0.5 MG/3 ML Neb Soln NEB SCH ×4 (00:31→18:27)
[2018-03-25] MEDS: Pantoprazole 40 MG Tab.CR PO SCH (05:40)
[2018-03-25 07:11] LABS: ANION GAP 11.7; CHLORIDE,CL 96 mmol/L (101-111); SODIUM,NA 134 mmol/L (135-145)
[2018-03-25] MEDS: Calcium Carbonate/Vitamin D3 1250 MG-200 Unit Tab PO SCH ×2 (08:49→21:22)
[2018-03-25] MEDS: Docusate Sodium 100 MG Cap PO SCH ×3 (08:50→21:53)
[2018-03-25] MEDS: Furosemide 40 MG Tab PO SCH ×2 (08:50→13:50)
[2018-03-25] MEDS: Cholecalciferol (Vitamin D3) 400 Unit Tab PO SCH (08:51)
[2018-03-25] MEDS: Lisinopril 5 MG Tab PO SCH (08:51)
[2018-03-25] MEDS: Ferrous Sulfate 325 MG Tab PO SCH (08:52)
[2018-03-25] MEDS: Lactulose Soln 10 GM/15 ML 30 ML UD Cup PO SCH ×2 (08:52→21:19)
[2018-03-25] MEDS: Carvedilol 3.125 MG Tab PO SCH ×2 (08:52→17:00)
[2018-03-25] MEDS: Aspirin 325 MG Tab.EC PO SCH (08:52)
[2018-03-25] MEDS: Enoxaparin 40 MG/0.4 ML Syringe SUBCUT SCH (08:53)
[2018-03-25] MEDS: SPIRIVA INH SCH (08:54)
[2018-03-25] MEDS: Sodium Chloride 0.9% 10 ML Syringe FLUSH SCH ×2 (08:55→21:27)
[2018-03-25] MEDS: traMADol 50 MG Tab PO PRN (11:50)
[2018-03-25] MEDS: Potassium Chloride 20 MEQ in Premix Bag 1 BAG IV SCH ×2 (11:52→13:51)
[2018-03-25] MEDS: Montelukast 10 MG Tab PO SCH (21:18)
[2018-03-25] MEDS: traZODone 50 MG Tab PO SCH (21:19)
[2018-03-26] MEDS: Albuterol/Ipratropium 3.0-0.5 MG/3 ML Neb Soln NEB SCH ×4 (00:51→18:29)
[2018-03-26] MEDS: Pantoprazole 40 MG Tab.CR PO SCH (06:05)
[2018-03-26] MEDS: Enoxaparin 40 MG/0.4 ML Syringe SUBCUT SCH (08:48)
[2018-03-26] MEDS: Furosemide 40 MG Tab PO SCH ×2 (08:49→14:02)
[2018-03-26] MEDS: Calcium Carbonate/Vitamin D3 1250 MG-200 Unit Tab PO SCH ×2 (08:49→22:35)
[2018-03-26] MEDS: Cholecalciferol (Vitamin D3) 400 Unit Tab PO SCH (08:49)
[2018-03-26] MEDS: Aspirin 325 MG Tab.EC PO SCH (08:50)
[2018-03-26] MEDS: Docusate Sodium 100 MG Cap PO SCH ×2 (08:50→22:35)
[2018-03-26] MEDS: Ferrous Sulfate 325 MG Tab PO SCH (08:50)
[2018-03-26] MEDS: Lactulose Soln 10 GM/15 ML 30 ML UD Cup PO SCH ×2 (08:50→22:35)
[2018-03-26] MEDS: SPIRIVA INH SCH (08:51)
[2018-03-26] MEDS: Sodium Chloride 0.9% 10 ML Syringe FLUSH SCH ×2 (08:52→22:35)
[2018-03-26] MEDS: Lisinopril 5 MG Tab PO SCH (08:56)
[2018-03-26] MEDS: Carvedilol 3.125 MG Tab PO SCH ×2 (08:56→17:37)
[2018-03-26] MEDS ORDERED: Carboxymethylcellulose Sodium 1% Ophth Gel 0.4 ML UD EYEBOTH PRN (13:13)
[2018-03-26 13:40] LABS: ANION GAP 9.7; CHLORIDE,CL 95 mmol/L (101-111); SODIUM,NA 133 mmol/L (135-145)
[2018-03-26] MEDS: Potassium Chloride 20 MEQ in Premix Bag 100 BAG IV SCH ×2 (20:10→22:28)
[2018-03-26] MEDS: Montelukast 10 MG Tab PO SCH (22:35)
[2018-03-26] MEDS: traZODone 50 MG Tab PO SCH (22:35)
[2018-03-27] MEDS: Albuterol/Ipratropium 3.0-0.5 MG/3 ML Neb Soln NEB SCH ×4 (01:04→18:03)
[2018-03-27] MEDS: Pantoprazole 40 MG Tab.CR PO SCH (06:40)
[2018-03-27] MEDS: Cholecalciferol (Vitamin D3) 400 Unit Tab PO SCH (08:49)
[2018-03-27] MEDS: Calcium Carbonate/Vitamin D3 1250 MG-200 Unit Tab PO SCH ×2 (08:49→20:56)
[2018-03-27] MEDS: Potassium Chloride 10 MEQ Tab.ER PO SCH ×2 (08:49→17:35)
[2018-03-27] MEDS: Aspirin 325 MG Tab.EC PO SCH (08:50)
[2018-03-27] MEDS: Docusate Sodium 100 MG Cap PO SCH ×2 (08:50→20:58)
[2018-03-27] MEDS: Ferrous Sulfate 325 MG Tab PO SCH (08:50)
[2018-03-27] MEDS: Furosemide 40 MG Tab PO SCH ×2 (08:50→14:06)
[2018-03-27] MEDS: Lactulose Soln 10 GM/15 ML 30 ML UD Cup PO SCH ×2 (08:50→20:58)
[2018-03-27] MEDS: Lisinopril 5 MG Tab PO SCH (08:51)
[2018-03-27] MEDS: Carvedilol 3.125 MG Tab PO SCH ×2 (08:51→17:35)
[2018-03-27] MEDS: SPIRIVA INH SCH (08:52)
[2018-03-27] MEDS: Enoxaparin 40 MG/0.4 ML Syringe SUBCUT SCH (08:53)
[2018-03-27] MEDS: Sodium Chloride 0.9% 10 ML Syringe FLUSH SCH ×4 (08:54→20:57)
[2018-03-27] MEDS: Potassium Chloride 20 MEQ in Premix Bag 1 BAG IV SCH ×2 (11:06→12:41)
[2018-03-27] MEDS: Potassium Chloride 100 ML IV SCH ×2 (12:59→14:05)
[2018-03-27] MEDS: traZODone 50 MG Tab PO SCH (20:56)
[2018-03-27] MEDS: Montelukast 10 MG Tab PO SCH (20:56)
[2018-03-28] MEDS: Albuterol/Ipratropium 3.0-0.5 MG/3 ML Neb Soln NEB SCH ×2 (01:14→08:01)
[2018-03-28] MEDS: Pantoprazole 40 MG Tab.CR PO SCH (06:15)
[2018-03-28 06:50] LABS: ANION GAP 11.5; CHLORIDE,CL 95 mmol/L (101-111); SODIUM,NA 134 mmol/L (135-145)
[2018-03-28] MEDS: Potassium Chloride 10 MEQ Tab.ER PO SCH (09:24)
[2018-03-28] MEDS: Enoxaparin 40 MG/0.4 ML Syringe SUBCUT SCH (09:24)
[2018-03-28] MEDS: Aspirin 325 MG Tab.EC PO SCH (09:24)
[2018-03-28] MEDS: Cholecalciferol (Vitamin D3) 400 Unit Tab PO SCH (09:26)
[2018-03-28] MEDS: Sodium Chloride 0.9% 10 ML Syringe FLUSH SCH (09:26)
[2018-03-28] MEDS: Calcium Carbonate/Vitamin D3 1250 MG-200 Unit Tab PO SCH (09:26)
[2018-03-28] MEDS: Lactulose Soln 10 GM/15 ML 30 ML UD Cup PO SCH (09:28)
[2018-03-28] MEDS: Docusate Sodium 100 MG Cap PO SCH (09:28)
[2018-03-28] MEDS: Ferrous Sulfate 325 MG Tab PO SCH (09:30)
[2018-03-28] MEDS: SPIRIVA INH SCH (09:31)
[2018-03-28 09:33] VITALS: BP 85/50
[2018-03-28] MEDS: Carvedilol 3.125 MG Tab PO SCH (09:33)
[2018-03-28] MEDS: Furosemide 40 MG Tab PO SCH (09:33)
[2018-03-28] MEDS: Lisinopril 5 MG Tab PO SCH (09:33)
[2018-03-28] MEDS ORDERED: Albuterol 6.7 GM Inhaler INH PRN (10:07)
[2018-03-28] MEDS ORDERED: Magnesium Sulfate/Water 2 GM in Premix Bag 1 BAG IV ONE (10:10)
[2018-03-28] MEDS ORDERED: Sodium Chloride 0.9% 500 ML IV ONE (10:15)
[2018-03-28] MEDS ORDERED: Potassium Chloride 20 MEQ in Premix Bag 1 BAG IV ONE (10:41)
[2018-03-28] MEDS ORDERED: Albuterol/Ipratropium 3.0-0.5 MG/3 ML Neb Soln NEB SCH (11:00)
--- NOTE | 2018-03-28 11:25 | PCM.DCSUM1 ---
Discharge Summary - Hospital Course HPI Initial Comments: Patient is a 77-year-old male admitted under swing bed for continued strengthening. Recently admitted in [place] underwent exploratory laparotomy for adhesiolysis, hemicolectomy, after he was noted to have an abscess at the location of the appendix from a appendicular rupture. Diagnosis: Stroke: No - Discharge Data Discharge Date: 03/28/18 Discharge Disposition: DC/Tfer to Acute Hospital 02 Condition: Good - Patient Summary/Data Consults: Consultations 03/23/18 16:29 OT Evaluation and Treatment [CONS] Routine PT Evaluation and Treatment [CONS] Routine - Patient Instructions Fluid Restriction: 1500 mL Activity: As Tolerated Notify Provider of: Fever, Increased Pain, Swelling and Redness, Nausea and/or Vomiting - Discharge Plan Prescriptions/Med Rec: Phosphorus #1 [Neutra-Phos] 250 mg PO QID 5 Days #20 tablet Potassium Chloride [Klor-Con 10] 20 meq PO BIDMEALS 14 Days #28 tab.er Home Medications: Home Meds Montelukast [Singulair] 10 mg PO BEDTIME 10/26/13 [History] Tiotropium [Spiriva Handihaler] 1 puff INH DAILY 10/26/13 [History] Albuterol/Ipratropium [Combivent Respimat] 2 puff INH BID 08/16/15 [History] Albuterol/Ipratropium [DuoNeb 3.0-0.5 MG/3 ML] 3 ml NEB TID 11/09/15 [History] Pantoprazole Sodium 40 mg PO DAILY 11/09/15 [History] traZODone 50 mg PO BEDTIME 06/29/17 [History] Aspirin 325 mg PO DAILY 03/23/18 [History] Calcium Carbonate/Vitamin D3 [Calcium 600-Vit D3 400 Tablet] 1 tab PO BID [History] Cholecalciferol (Vitamin D3) [Vitamin D3] 400 units PO DAILY 03/23/18 [History] Docusate Sodium [Colace] 100 mg PO BID 03/23/18 [History] Ferrous Sulfate 325 mg PO DAILY 03/23/18 [History] Fluticasone/Salmeterol [Advair 500-50] 1 puff INH BID 03/23/18 [History] Non-Formulary Medication [NF Drug] 1 puff INH BID 03/23/18 [History] Sennosides/Docusate Sodium [Senna-S] 2 tab PO BID 03/23/18 [History] Phosphorus #1 [Neutra-Phos] 250 mg PO QID 5 Days #20 tablet 03/28/18 [Rx] Potassium Chloride [Klor-Con 10] 20 meq PO BIDMEALS 14 Days #28 tab.er 03/28/18 [Rx] - Discharge Summary/Plan Comment DC Time >30 min.: Yes - General Info Date of Service: 03/28/18 Subjective Update: Patient is a 77-year-old male admitted under swing bed for continued strengthening. Recently admitted in [place] underwent exploratory laparotomy for adhesiolysis, hemicolectomy, after he was noted to have an abscess at the location of the appendix from a appendicular rupture. He completed abx at [facility]. Since admission his overall condition has not improved clinically. His BP has been running low normal. Patient was hypotensive yesterday and this morning. He received bolus B/S 500 mL. Abdominal midline incision is gapped in the middle portion. He has continue to be SOB despite pulmonary treatment. IVF is given gently given history of fluid overload from cirrhosis. He is being transferred to [facility] for further management and optimization of care. Functional Status: Reports: Pain Controlled, Tolerating Diet, Other (SOB, hypotensive) - Review of Systems General: Reports: Weakness, Fatigue, Malaise, Appetite HEENT: Reports: No Symptoms Pulmonary: Reports: Shortness of Breath, Wheezing Cardiovascular: Reports: Palpitations, Edema Gastrointestinal: Reports: No Symptoms Genitourinary: Reports: No Symptoms Musculoskeletal: Reports: Other (weakness) Skin: Reports: No Symptoms Neurological: Reports: No Symptoms Psychiatric: Reports: No Symptoms - Patient Data Vitals - Most Recent: Last Vital Signs Temp 97.6 F 03/28/18 08:00 Pulse 92 03/28/18 11:02 Resp 20 03/28/18 08:00 BP 85/50 L 03/28/18 09:33 Pulse Ox 90 L 03/28/18 11:02 Weight - Most Recent: 165 lb 6 oz I&O - Last 24 hours: Intake & Output 03/27/18 03/28/18 03/28/18 22:59 06:59 14:59 Intake Total 402 75 Output Total 550 200 Balance -148 -125 Lab Results - Last 24 hrs: Laboratory Results - last 24 hr 03/28/18 03/28/18 03/28/18 Range/Units 05:55 05:55 05:55 WBC 5.5 (5.0-10.0) 10^3/uL RBC 3.16 L (4.6-6.2) 10^6/uL Hgb 7.9 L (14.0-18.0) g/dL Hct 24.9 L (40.0-54.0) % MCV 78.8 L (80-100) fL MCH 25.0 L (27.0-34.0) pg MCHC 31.7 L (33.0-35.0) g/dL Plt Count 188 (150-450) 10^3/uL Neut % (Auto) 47.3 (42.2-75.2) % Lymph % (Auto) 23.9 (20.5-50.1) % [place] % (Auto) 13.3 H (2-8) % Eos % (Auto) 14.2 H (1.0-3.0) % Baso % (Auto) 1.3 H (0.0-1.0) % Add Manual Diff Yes Neutrophils % (Manual) 50 (42-75) % Band Neutrophils % 1 % Lymphocytes % (Manual) 21 (20-50) % Monocytes % (Manual) 8 (2-8) % Eosinophils % (Manual) 16 H (1-3) % Basophils % (Manual) 4 Vacuolated Monocytes Few Platelet Estimate Adequate Giant Platelets Few Hypochromasia 1+ slight Anisocytosis 3+ marked Microcytosis 1+ slight Sodium 134 L (135-145) mmol/L Potassium 3.5 L (3.6-5.0) mmol/L Chloride 95 L (101-111) mmol/L Carbon Dioxide 31.0 (21.0-31.0) mmol/L Anion Gap 11.5 BUN 8 (7-18) mg/dL Creatinine 1.0 (0.6-1.3) mg/dL Est Cr Clr Drug Dosing 54.94 mL/min Estimated GFR (MDRD) > 60 Glucose 91 (74-105) mg/dL Calcium 8.0 L (8.4-10.2) mg/dl Phosphorus 1.9 L (2.5-4.6) mg/dL Magnesium 1.2 L (1.8-2.5) mg/dL Med Orders - Current: Current Medications Albuterol (Proventil Hfa) 0 gm INH Q2H PRN PRN Reason: Shortness of Breath Albuterol/Ipratropium (Duoneb 3.0-0.5 Mg/3 Ml) 3 ml NEB Q4HRRT [facility] Last Admin: 03/28/18 10:53 Dose: 3 ml Artificial Tears (Refresh Celluvisc) 1 each EYEBOTH ASDIRECTED PRN PRN Reason: Dry Eyes Last Admin: 03/26/18 14:02 Dose: 1 each Aspirin (Ecotrin) 325 mg PO DAILY@0800 [facility] Last Admin: 03/28/18 09:24 Dose: 325 mg Calcium Carbonate (Calcium Carbonate/Vitamin D 1250 Mg-200 Unit) 1 tab PO BID [facility] Last Admin: 03/28/18 09:26 Dose: 1 tab Carvedilol (Coreg) 3.125 mg PO BIDMEALS [facility] Last Admin: 03/28/18 09:33 Dose: Not Given Cholecalciferol (Vitamin D3) 400 units PO DAILY [facility] Last Admin: 03/28/18 09:26 Dose: 400 units Docusate Sodium (Colace) 100 mg PO BID [facility] Last Admin: 03/28/18 09:28 Dose: Not Given Enoxaparin Sodium (Lovenox) 40 mg SUBCUT DAILY [facility] Last Admin: 03/28/18 09:24 Dose: 40 mg Ferrous Sulfate (Ferrous Sulfate) 325 mg PO DAILY [facility] Last Admin: 03/28/18 09:30 Dose: 325 mg Furosemide (Lasix) 40 mg PO BIDDIURETIC [facility] Last Admin: 03/28/18 09:33 Dose: Not Given Magnesium Sulfate 2 gm/ Premix 50 mls @ 25 mls/hr IV ONETIME ONE Stop: 03/28/18 12:09 Last Admin: 03/28/18 11:03 Dose: 25 mls/hr Potassium Chloride 20 meq/ (Premix) 100 mls @ 50 mls/hr IV ONETIME ONE Stop: 03/28/18 12:40 Lactulose (Cephulac) 20 gm PO BID [facility] Last Admin: 03/28/18 09:28 Dose: Not Given Lisinopril (Prinivil) 2.5 mg PO DAILY [facility] Last Admin: 03/28/18 09:33 Dose: Not Given Magnesium Oxide (Magnesium Oxide) 250 mg PO BIDM [facility] Last Admin: 03/28/18 09:25 Dose: 250 mg Montelukast Sodium (Singulair) 10 mg PO BEDTIME [facility] Last Admin: 03/27/18 20:56 Dose: 10 mg Non-Formulary Medication (Nf Drug) 1 each INH BID [facility] Pantoprazole Sodium (Protonix) 40 mg PO ACBRK [facility] Last Admin: 03/28/18 06:15 Dose: 40 mg Potassium Chloride (Klor-Con 10) 20 meq PO BIDMEALS [facility] Last Admin: 03/28/18 09:24 Dose: 20 meq Senna/Docusate Sodium (Senna Plus) 2 tab PO BID [facility] Last Admin: 03/28/18 09:26 Dose: Not Given Sodium Chloride (Saline Flush) 10 ml FLUSH [facility] Last Admin: 03/28/18 09:26 Dose: 10 ml Sodium Phosphate (Neutra-Phos) 250 mg PO QID [facility] Tiotropium [place] (Spiriva Handihaler) 18 mcg INH DAILY [facility] Last Admin: 03/28/18 09:31 Dose: 18 mcg Tramadol HCl (Ultram) 50 mg PO Q8H PRN PRN Reason: Pain Last Admin: 03/25/18 11:50 Dose: 50 mg Trazodone HCl (Trazodone) 50 mg PO BEDTIME [facility] Last Admin: 03/27/18 20:56 Dose: 50 mg Discontinued Medications Albuterol/Ipratropium (Duoneb 3.0-0.5 Mg/3 Ml) 3 ml NEB TIDRT [facility] Albuterol/Ipratropium (Duoneb 3.0-0.5 Mg/3 Ml) 3 ml NEB Q6HRRT [facility] Last Admin: 03/28/18 08:01 Dose: 3 ml Alteplase, Recombinant (Cathflo Activase) 2 mg IVPUSH ONETIME ONE Stop: 03/24/18 08:01 Last Admin: 03/24/18 08:50 Dose: 2 mg Furosemide (Lasix) 20 mg PO DAILY [facility] Last Admin: 03/24/18 08:49 Dose: 20 mg Potassium Chloride 20 meq/ (Premix) 100 mls @ 50 mls/hr IV Q2H [facility] Stop: 03/25/18 13:59 Last Admin: 03/25/18 13:51 Dose: 50 mls/hr Potassium Chloride 20 meq/ (Premix) 0 mls @ 50 mls/hr IV Q2H [facility] Stop: 03/26/18 21:46 Last Admin: 03/26/18 22:28 Dose: 50 mls/hr Potassium Chloride 20 meq/ (Premix) 100 mls @ 50 mls/hr IV Q2H [facility] Stop: 03/27/18 14:29 Last Infusion: 03/27/18 12:58 Dose: Infused Potassium Chloride (Kcl 10 Meq In Water 100 Ml) 100 mls @ 100 mls/hr IV Q1H [facility] Stop: 03/27/18 14:44 Last Infusion: 03/27/18 15:11 Dose: Infused Sodium Chloride (Normal Saline) 500 mls @ 999 mls/hr IV .BOLUS ONE Stop: 03/28/18 10:45 Last Admin: 03/28/18 10:58 Dose: 250 mls/hr Non-Formulary Medication (Albuterol/Ipratropium [Combivent Respimat]) 2 puff INH BID [facility] Last Admin: 03/23/18 22:31 Dose: Not Given Senna/Docusate Sodium (Senna Plus) 1 tab PO BID [facility] Tiotropium [place] (Spiriva Handihaler) 18 mcg INH BID [facility] Tiotropium [place] (Spiriva Handihaler) 18 mcg INH DAILY [facility] - Exam Quality Assessment: Reports: Supplemental Oxygen, DVT Prophylaxis General: Reports: Alert, Oriented, Cooperative, Mild Distress, Lethargic HEENT: Reports: Pupils Equal, Pupils Reactive, EOMI, Mucous Membr. Moist/[place] Neck: Reports: Supple Lungs: Reports: Crackles, Rhonchi, Wheezing Cardiovascular: Reports: Regular Rate, Regular Rhythm GI/Abdominal Exam: Normal Bowel Sounds, Soft, Non-Tender, No Organomegaly, No Distention, No Abnormal Bruit, No Mass, Pelvis Stable, Other (surgical midline incision gapped in the middle) (Male) Exam: No Hernia, Normal Inspection, Normal Prostate, Circumcised Rectal (Males) Exam: Normal Exam, Normal Rectal Tone, Prostate Normal Back Exam: Reports: Normal Inspection Extremities: Pedal Edema Skin: Reports: Warm, Dry, Intact Wound/Incisions: Reports: Dressing Dry and Intact, Drainage, Other (gapped in the middle) Neurological: Reports: No New Focal Deficit Psy/Mental Status: Reports: Alert, Normal Affect, Normal Mood
[2018-03-28] MEDS ORDERED: Phosphorus #1 250 MG Tab PO SCH (13:00)
== END 2018-03-28 12:01 | DRG 948 ==
LOC: DL.MS 15:01 → UNDOADMIN 15:01 → DL.MS 16:25
PROVIDERS: ADMIT Internal Medicine; ATTEND Internal Medicine
DX: R53.1 Weakness (principal); E83.42 Hypomagnesemia; K74.60 Unspecified cirrhosis of liver; J44.9 Chronic obstructive pulmonary disease, unspecified; I95.9 Hypotension, unspecified; R06.02 Shortness of breath; D50.9 Iron deficiency anemia, unspecified; H91.90 Unspecified hearing loss, unspecified ear; I25.10 Atherosclerotic heart disease of native coronary artery without angina pectoris; I11.0 Hypertensive heart disease with heart failure; I50.9 Heart failure, unspecified; F32.9 Major depressive disorder, single episode, unspecified; N40.0 Benign prostatic hyperplasia without lower urinary tract symptoms; Z90.49 Acquired absence of other specified parts of digestive tract; Z79.899 Other long term (current) drug therapy; Z88.8 Allergy status to other drugs, medicaments and biological substances; Z95.0 Presence of cardiac pacemaker; Z85.46 Personal history of malignant neoplasm of prostate; Z85.118 Personal history of other malignant neoplasm of bronchus and lung; Z95.5 Presence of coronary angioplasty implant and graft
CPT/HCPCS: 36415; 71045; 80048; 82140; 82272; 83605; 83735; 84100; 84132; 85025; 85027; 87040; 87493; 94640; 97162-GP; 97166-GO; 97530-GO; A9270-GY; J1650; J2997; J3475; J3480; J7040; J7050; J7620-GY

== ENCOUNTER 2018-04-05 11:01 | Inpatient (IN) | payer MEDICARE, OTHER ==
[2018-04-05] MEDS ORDERED: Acetaminophen 325 MG Tab PO PRN (14:44)
[2018-04-05] MEDS ORDERED: Acetaminophen 500 MG Tab PO PRN (14:50)
--- NOTE | 2018-04-05 15:08 | PCM.HP ---
H&P History of Present Illness - General Date of Service: 04/05/18 Admit Problem/Dx: Admission Diagnosis/Problem Admission Diagnosis/Problem Weakness Source of Information: Patient, Old Records History Limitations: Reports: No Limitations - History of Present Illness Initial Comments - Free Text/Narative: This is a 77 y/O M with past Medical history of cryptogenic decompensated liver cirrhosis as the patient is denying any use of alcohol, history of lung right lung cancer, chronic obstructive pulmonary disease, chronic atrial fibrillation, coronary artery disease, status post AICD placement, dyslipidemia. CKD stage III with baseline creatinine is 1.1 to 1.4 mg/dL. The pt was recently transferred from [facility] to [facility] on 03/28/18 with hypotension. He was on swing bed for recovery of raptured appendicitis, he had Exploratory laparotomy with right hemicolectomy on 03/14/18 at [facility]. Pt was seen at [facility] by surgery and recommended dressing change for the wound . pt is now back agin today to [facility] for strengthening and wound care. - Related Data Allergies/Adverse Reactions: Allergies Allergy/AdvReac Type Severity Reaction Status Date / Time piperacillin sodium Allergy Severe angioedema Verified 03/23/18 15:34 [From Zosyn] tazobactam sodium Allergy Severe angioedema Verified 03/23/18 15:34 [From Zosyn] adhesive tape Allergy Blisters Verified 03/23/18 15:34 tazarotene [From Tazorac] Allergy Airway Verified 04/05/18 12:52 Tightness Home Medications: Home Meds Montelukast [Singulair] 10 mg PO BEDTIME 10/26/13 [History] Tiotropium [Spiriva Handihaler] 1 puff INH DAILY 10/26/13 [History] Albuterol/Ipratropium [Combivent Respimat] 2 puff INH BID 08/16/15 [History] Albuterol/Ipratropium [DuoNeb 3.0-0.5 MG/3 ML] 3 ml NEB TID 11/09/15 [History] Pantoprazole Sodium 40 mg PO DAILY 11/09/15 [History] traZODone 50 mg PO BEDTIME 06/29/17 [History] Cholecalciferol (Vitamin D3) [Vitamin D3] 400 units PO DAILY 03/23/18 [History] Docusate Sodium [Colace] 100 mg PO BID 03/23/18 [History] Ferrous Sulfate 325 mg PO DAILY 03/23/18 [History] Fluticasone/Salmeterol [Advair 500-50] 1 puff INH BID 03/23/18 [History] Acetaminophen 500 mg PO Q8HR PRN 04/05/18 [History] Aspirin [Halfprin] 81 mg PO DAILY 04/05/18 [History] Carvedilol [Coreg] 3.125 mg PO BID 04/05/18 [History] Diltiazem [Diltiazem XR] 240 mg PO DAILY 04/05/18 [History] Furosemide 20 mg PO DAILY 04/05/18 [History] Lisinopril 2.5 mg PO DAILY 04/05/18 [History] Sennosides [Senna] 1 tab PO BID 04/05/18 [History] predniSONE [Prednisone] 20 mg PO DAILY 04/05/18 [History] Past Medical History HEENT History: Reports: Cataract, Hard of Hearing, Other (See Below) Other HEENT History: thyroid nodule Cardiovascular History: Reports: Afib, Angina, CAD, Heart Failure, High Cholesterol, Hypertension, MS, Pacemaker, SOB on Exertion, Stents, Other (See Below) Other Cardiovascular History: 6 stents placed total Respiratory History: Reports: Asthma, Bronchitis, Recurrent, COPD, Pneumonia, Recurrent, Sleep Apnea, SOB Gastrointestinal History: Reports: Hemorrhoids, Other (See Below) Genitourinary History: Reports: BPH, Prostate Disorder Musculoskeletal History: Reports: Arthritis, Back Pain, Chronic, Fracture, Osteoarthritis Neurological History: Reports: None Psychiatric History: Reports: Depression Other Psychiatric History: insomnia Endocrine/Metabolic History: Reports: None Hematologic History: Reports: Anemia, Iron Deficiency Immunologic History: Reports: Other (See Below) Other Immunologic History: Hx prostate and lung ca. 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 IN THE SERVICE, "NOT THE BAD KIND" - Past Surgical History Head Surgeries/Procedures: Reports: None HEENT Surgical History: Reports: Cataract Surgery, Naso-Sinus Surgery Cardiovascular Surgical History: Reports: AICD, Coronary Artery Stent Respiratory Surgical History: Reports: Lung Resection GI Surgical History: Reports: Abdominal paracentesis, Appendectomy, Colonoscopy , EGD, Polypectomy, Other (See Below) Male Surgical History: Reports: TURP-Transurethral Resection of Prostate Endocrine Surgical History: Reports: Thyroid Biopsy Musculoskeletal Surgical History: Reports: Shoulder Surgery Other Oncologic Surgeries/Procedures: 3/4 of right lobe removed Social & Family History - Family History Family Medical History: Noncontributory - Tobacco Use Smoking Status *Q: Former Smoker Used Tobacco, but Quit: Yes Month/Year Tobacco Last Used: August Second Hand Smoke Exposure: No - Caffeine Use Caffeine Use: Reports: Coffee - Recreational Drug Use Recreational Drug Use: No - Living Situation & Occupation Living situation: Reports: , Alone Occupation: Retired H&P Review of Systems - Review of Systems: Review Of Systems: See Below General: Reports: Weakness. Denies: Fever, Night Sweats, Weight Gain HEENT: Denies: Headaches, Post Nasal Drip, Sinus Congestion, Visual Changes Pulmonary: Denies: Shortness of Breath, Pleuritic Chest Pain, Cough, Sputum Cardiovascular: Denies: Chest Pain, Dyspnea on Exertion, Lightheadedness Gastrointestinal: Denies: Abdominal Pain, Constipation, Difficulty Swallowing, Nausea, Vomiting Genitourinary: Denies: Dysuria, Burning, Urgency Musculoskeletal: Denies: Neck Pain, Arm Pain, Leg Pain, Joint Swelling Skin: Denies: Cyanosis, Bruising, Pruritis Psychiatric: Denies: Confusion, Anxiety Neurological: Denies: Dizziness, Numbness, Tremors Exam - Exam Exam: See Below - Vital Signs Vital Signs: Last Vital Signs Temp 36.8 C 04/05/18 14:00 Pulse 92 04/05/18 14:00 Resp 20 04/05/18 14:00 BP 112/55 L 04/05/18 14:00 Pulse Ox 97 04/05/18 14:00 Weight: 79.107 kg - Exam Quality Assessment: DVT Prophylaxis. No: Supplemental Oxygen, Central Line/PICC , Urinary Catheter General: Alert, Oriented, Cooperative HEENT: Conjunctiva Clear, EOMI, Hearing Intact, Mucosa Moist & [place] Neck: Supple. No: JVD, Thyromegaly Lungs: Clear to Auscultation, Normal Respiratory Effort. No: Crackles, Wheezing Cardiovascular: Irregular Rhythm, Systolic Murmur GI/Abdominal Exam: Normal Bowel Sounds, Soft, Non-Tender, Other (+ve wpund vac) . No: Guarding, Rebound (Male) Exam: Deferred Rectal (Males) Exam: Deferred Extremities: Normal Inspection, Pedal Edema Skin: Warm, Dry, Intact Neuro Extensive - Mental Status: Alert, Oriented x3, Normal Mood/Affect, Normal Cognition, Memory Intact Psychiatric: Alert, Normal Affect, Normal Mood - Problem List (1) Hypertension SNOMED Code(s): 40335467 ICD Code: I10 - ESSENTIAL (PRIMARY) HYPERTENSION Status: Acute Current Visit: Yes (2) Anemia SNOMED Code(s): 344709688 ICD Code: D64.9 - ANEMIA, UNSPECIFIED Status: Acute Current Visit: Yes (3) Edema extremities SNOMED Code(s): 079758086 ICD Code: R60.0 - LOCALIZED EDEMA Status: Acute Current Visit: Yes (4) Appendicitis with abscess SNOMED Code(s): 26898395 ICD Code: K35.3 - ACUTE APPENDICITIS WITH LOCALIZED PERITONITIS Status: Acute Current Visit: No (5) COPD (chronic obstructive pulmonary disease) with acute bronchitis SNOMED Code(s): 156545641232727 ICD Code: J44.0 - CHRONIC OBSTRUCTIVE PULMON DISEASE W ACUTE LOWER RESP INFCT Status: Acute Current Visit: No Problem List Initiated/Reviewed/Updated: Yes Orders Last 24hrs: Active Orders 24 hr Category Date Time Status Patient Status [ADT] Routine ADT 04/05/18 14:44 Ordered Ambulate [RC] ASDIRECTED Care 04/05/18 14:44 Ordered Antiembolic Devices [RC] .Routine Care 04/05/18 14:48 Ordered Oxygen Therapy [RC] PRN Care 04/05/18 14:47 Ordered Pulse Oximetry [RC] PRN Care 04/05/18 14:47 Ordered Up With Assistance [RC] ASDIRECTED Care 04/05/18 14:44 Ordered Up to Chair [RC] ASDIRECTED Care 04/05/18 14:44 Ordered VTE/DVT Education [RC] PER UNIT ROUTINE Care 04/05/18 14:48 Ordered Vital Signs [RC] Q4H Care 04/05/18 14:44 Ordered Wound Care [RC] ASDIRECTED Care 04/05/18 14:57 Ordered OT Evaluation and Treatment [CONS] Routine Cons 04/05/18 14:56 Ordered PT Evaluation and Treatment [CONS] Routine Cons 04/05/18 14:55 Ordered Regular Diet [DIET] Diet 04/05/18 Dinner Ordered CBC WITH AUTO DIFF [HEME] Routine Lab 04/06/18 06:00 Ordered Acetaminophen [Tylenol Extra Strength] Med 04/05/18 14:50 Ordered 500 mg PO Q8HR PRN Acetaminophen [Tylenol] Med 04/05/18 14:44 Ordered 650 mg PO Q4H PRN Albuterol/Ipratropium [Combivent Respimat] Med 04/05/18 21:00 Ordered 2 puff INH BID Albuterol/Ipratropium [DuoNeb 3.0-0.5 MG/3 ML] Med 04/05/18 21:00 Ordered 3 ml NEB TID Aspirin [Halfprin] Med 04/06/18 09:00 Ordered 81 mg PO DAILY Carvedilol [Coreg] Med 04/05/18 21:00 Ordered 3.125 mg PO BID Cholecalciferol (Vitamin D3) [Vitamin D3] Med 04/06/18 09:00 Ordered 400 units PO DAILY Diltiazem [Dilacor XR] Med 04/06/18 09:00 Ordered 240 mg PO DAILY Docusate Sodium [Colace] Med 04/05/18 21:00 Ordered 100 mg PO BID Enoxaparin [Lovenox] Med 04/06/18 09:00 Ordered 40 mg SUBCUT DAILY Ferrous Sulfate Med 04/06/18 09:00 Ordered 325 mg PO DAILY Fluticasone/Salmeterol [Advair 500-50] Med 04/05/18 21:00 Ordered 1 puff INH BID Furosemide [Lasix] Med 04/06/18 09:00 Ordered 20 mg PO DAILY Lisinopril [Lisinopril] Med 04/06/18 09:00 Ordered 2.5 mg PO DAILY Montelukast [Singulair] Med 04/05/18 21:00 Ordered 10 mg PO BEDTIME Pantoprazole [ProTONIX] Med 04/06/18 09:00 Ordered 40 mg PO DAILY Sennosides [Senna] Med 04/05/18 14:50 Ordered 1 tab PO DAILY PRN Tiotropium [Spiriva HandiHaler] Med 04/06/18 09:00 Ordered 1 puff INH DAILY predniSONE Med 04/06/18 09:00 Ordered 20 mg PO DAILY traZODone Med 04/05/18 21:00 Ordered 50 mg PO BEDTIME Antiembolic Hose [OM.PC] Per Unit Routine Oth 04/05/18 14:49 Ordered DVT/VTE Prophylaxis Reflex [OM.PC] Routine Oth 04/05/18 14:44 Ordered Wound Vac Management [OM.PC] Routine Oth 04/05/18 15:01 Ordered Resuscitation Status Routine Resus Stat 04/05/18 14:44 Ordered Medication Orders Acetaminophen (Tylenol) 650 mg PO Q4H PRN PRN Reason: Pain (mild 1-3 )/fever Acetaminophen (Tylenol Extra Strength) 500 mg PO Q8HR PRN PRN Reason: Pain Albuterol/Ipratropium (Duoneb 3.0-0.5 Mg/3 Ml) 3 ml NEB TID [facility] Aspirin (Halfprin) 81 mg PO DAILY [facility] Carvedilol (Coreg) 3.125 mg PO BID [facility] Cholecalciferol (Vitamin D3) 400 units PO DAILY [facility] Diltiazem HCl (Dilacor Xr) 240 mg PO DAILY [facility] Docusate Sodium (Colace) 100 mg PO BID [facility] Enoxaparin Sodium (Lovenox) 40 mg SUBCUT DAILY [facility] Ferrous Sulfate (Ferrous Sulfate) 325 mg PO DAILY [facility] Furosemide (Lasix) 20 mg PO DAILY [facility] Montelukast Sodium (Singulair) 10 mg PO BEDTIME [facility] Non-Formulary Medication (Albuterol/Ipratropium [Combivent Respimat]) 2 puff INH BID [facility] Non-Formulary Medication (Fluticasone/Salmeterol [Advair 500-50]) 1 puff INH BID [facility] Non-Formulary Medication (Lisinopril [Lisinopril]) 2.5 mg PO DAILY [facility] Non-Formulary Medication (Sennosides [Senna]) 1 tab PO DAILY PRN PRN Reason: Constipation Pantoprazole Sodium (Protonix) 40 mg PO DAILY [facility] Prednisone (Prednisone) 20 mg PO DAILY [facility] Tiotropium [place] (Spiriva Handihaler) mcg INH DAILY [facility] Trazodone HCl (Trazodone) 50 mg PO BEDTIME [facility] Assessment/Plan Comment:: This is a 77 y/o M admitted as a transfer from [facility] for management of wound vac and strengthening. Recently he had exploratory laparotomy with right Hemicolectomy , he had Right lower quadrant abscess from perforated appendix Impression and Plan: 1. Appendicular rupture and abscess. He is post Ileocecectomy with stapled anastomosis. He is started on diet and now having regular Bowel movement -wound vac is still present but not much drainage -will continue dressing change and manage wound vac 2. Chronic obstructive pulmonary disease, remains stable. The patient will be encouraged to use incentive spirometry and flutter valve. Continue with nebulizers 3. History of atrial fibrillation. The patient is not on any anticoagulation secondary to recent surgery and risk of bleeding. he has received blood transfusion in his last admission at [facility] -His rate is controlled with Diltiazem 4. Anemia. The patient's hemoglobin is stable at 8.9 ( labs from 04/05/18) . No indication for transfusion for now -CBC in AM 5. Hypertension. BP acceptable and will continue Coreg at o 3.125 mg BID , Diltiazem at 240 mg daily and lisinopril at 2.5 mg daily 6. Generalized weakness: PT and OT to evaluate and treat the patient ( consult in place) 7. Edema of extremities: He is on lasic at 20 mg daily and will continue. will check weight QOD 8. DVT prophylaxis: Continue Enoxapain 9. GI prophylaxis: Continue Protonix Code Status: Full Code
[2018-04-05] MEDS: Albuterol/Ipratropium 3.0-0.5 MG/3 ML Neb Soln NEB SCH ×2 (16:18→21:36)
[2018-04-05] MEDS: Formoterol/Mometasone 200-5 MCG 8.8 GM Inhaler IH SCH (18:00)
[2018-04-05] MEDS: traZODone 50 MG Tab PO SCH (20:51)
[2018-04-05] MEDS: Montelukast 10 MG Tab PO SCH (20:51)
[2018-04-05] MEDS: Docusate Sodium 100 MG Cap PO SCH (20:51)
[2018-04-05] MEDS: Carvedilol 3.125 MG Tab PO SCH (20:51)
[2018-04-05] MEDS ORDERED: ALBUTEROL INH SCH (21:00)
[2018-04-05] MEDS ORDERED: IPRATROPIUM INH SCH (21:00)
[2018-04-06] MEDS: Albuterol/Ipratropium 3.0-0.5 MG/3 ML Neb Soln NEB SCH ×3 (07:17→21:11)
[2018-04-06] MEDS: Formoterol/Mometasone 200-5 MCG 8.8 GM Inhaler IH SCH ×2 (07:48→17:38)
[2018-04-06] MEDS: Ferrous Sulfate 325 MG Tab PO SCH (08:39)
[2018-04-06] MEDS: Docusate Sodium 100 MG Cap PO SCH ×3 (08:39→21:10)
[2018-04-06] MEDS: Diltiazem 240 MG Cap.ER PO SCH (08:39)
[2018-04-06] MEDS: Aspirin 81 MG Tab.EC PO SCH (08:39)
[2018-04-06] MEDS: Enoxaparin 40 MG/0.4 ML Syringe SUBCUT SCH (08:39)
[2018-04-06] MEDS: predniSONE 20 MG Tab PO SCH (08:40)
[2018-04-06] MEDS: Furosemide 20 MG Tab PO SCH (08:40)
[2018-04-06] MEDS: Carvedilol 3.125 MG Tab PO SCH ×2 (08:40→21:10)
[2018-04-06] MEDS: Cholecalciferol (Vitamin D3) 400 Unit Tab PO SCH (08:40)
[2018-04-06] MEDS: Pantoprazole 40 MG Tab.CR PO SCH (08:40)
[2018-04-06] MEDS: Tiotropium Inhaler 18 MCG Inhalation Powder Cap Kit of 5 INH SCH (08:41)
[2018-04-06] MEDS: Lisinopril 5 MG Tab PO SCH (08:41)
[2018-04-06] MEDS: Montelukast 10 MG Tab PO SCH (21:06)
[2018-04-06] MEDS: traZODone 50 MG Tab PO SCH (21:10)
[2018-04-07] MEDS: Formoterol/Mometasone 200-5 MCG 8.8 GM Inhaler IH SCH ×2 (06:45→18:11)
[2018-04-07] MEDS: Albuterol/Ipratropium 3.0-0.5 MG/3 ML Neb Soln NEB SCH ×3 (07:07→21:18)
[2018-04-07] MEDS: Enoxaparin 40 MG/0.4 ML Syringe SUBCUT SCH (08:40)
[2018-04-07] MEDS: predniSONE 20 MG Tab PO SCH (08:41)
[2018-04-07] MEDS: Cholecalciferol (Vitamin D3) 400 Unit Tab PO SCH (08:41)
[2018-04-07] MEDS: Ferrous Sulfate 325 MG Tab PO SCH (08:41)
[2018-04-07] MEDS: Pantoprazole 40 MG Tab.CR PO SCH (08:41)
[2018-04-07] MEDS: Aspirin 81 MG Tab.EC PO SCH (08:41)
[2018-04-07] MEDS: Furosemide 20 MG Tab PO SCH (08:42)
[2018-04-07] MEDS: Lisinopril 5 MG Tab PO SCH (08:42)
[2018-04-07] MEDS: Carvedilol 3.125 MG Tab PO SCH ×2 (08:42→21:17)
[2018-04-07] MEDS: Diltiazem 240 MG Cap.ER PO SCH (08:44)
[2018-04-07] MEDS: Docusate Sodium 100 MG Cap PO SCH ×3 (08:45→21:17)
[2018-04-07] MEDS: Tiotropium Inhaler 18 MCG Inhalation Powder Cap Kit of 5 INH SCH (08:46)
[2018-04-07] MEDS: traZODone 50 MG Tab PO SCH (21:17)
[2018-04-07] MEDS: Montelukast 10 MG Tab PO SCH (21:18)
[2018-04-08] MEDS: Albuterol/Ipratropium 3.0-0.5 MG/3 ML Neb Soln NEB SCH ×3 (07:19→20:46)
[2018-04-08] MEDS: Carvedilol 3.125 MG Tab PO SCH ×2 (09:31→20:44)
[2018-04-08] MEDS: Diltiazem 240 MG Cap.ER PO SCH (09:31)
[2018-04-08] MEDS: Furosemide 20 MG Tab PO SCH (09:31)
[2018-04-08] MEDS: Ferrous Sulfate 325 MG Tab PO SCH (09:32)
[2018-04-08] MEDS: Cholecalciferol (Vitamin D3) 400 Unit Tab PO SCH (09:32)
[2018-04-08] MEDS: predniSONE 20 MG Tab PO SCH (09:32)
[2018-04-08] MEDS: Pantoprazole 40 MG Tab.CR PO SCH (09:32)
[2018-04-08] MEDS: Aspirin 81 MG Tab.EC PO SCH (09:32)
[2018-04-08] MEDS: Lisinopril 5 MG Tab PO SCH (09:32)
[2018-04-08] MEDS: Docusate Sodium 100 MG Cap PO SCH ×2 (09:33→20:44)
[2018-04-08] MEDS: Enoxaparin 40 MG/0.4 ML Syringe SUBCUT SCH (09:33)
[2018-04-08] MEDS: Formoterol/Mometasone 200-5 MCG 8.8 GM Inhaler IH SCH ×2 (11:00→17:18)
[2018-04-08] MEDS: Tiotropium Inhaler 18 MCG Inhalation Powder Cap Kit of 5 INH SCH (11:00)
[2018-04-08] MEDS: Montelukast 10 MG Tab PO SCH (20:46)
[2018-04-08] MEDS: traZODone 50 MG Tab PO SCH (20:46)
[2018-04-09] MEDS: Albuterol/Ipratropium 3.0-0.5 MG/3 ML Neb Soln NEB SCH ×3 (07:08→21:15)
[2018-04-09] MEDS: Formoterol/Mometasone 200-5 MCG 8.8 GM Inhaler IH SCH ×2 (07:37→18:08)
[2018-04-09] MEDS: Tiotropium Inhaler 18 MCG Inhalation Powder Cap Kit of 5 INH SCH (08:49)
[2018-04-09] MEDS: Diltiazem 240 MG Cap.ER PO SCH (08:50)
[2018-04-09] MEDS: Cholecalciferol (Vitamin D3) 400 Unit Tab PO SCH (08:50)
[2018-04-09] MEDS: Carvedilol 3.125 MG Tab PO SCH ×2 (08:50→21:18)
[2018-04-09] MEDS: Aspirin 81 MG Tab.EC PO SCH (08:51)
[2018-04-09] MEDS: Pantoprazole 40 MG Tab.CR PO SCH (08:51)
[2018-04-09] MEDS: Docusate Sodium 100 MG Cap PO SCH ×2 (08:51→21:15)
[2018-04-09] MEDS: Ferrous Sulfate 325 MG Tab PO SCH (08:51)
[2018-04-09] MEDS: Furosemide 20 MG Tab PO SCH (08:52)
[2018-04-09] MEDS: Lisinopril 5 MG Tab PO SCH (08:52)
[2018-04-09] MEDS: predniSONE 20 MG Tab PO SCH (08:53)
[2018-04-09] MEDS: Enoxaparin 40 MG/0.4 ML Syringe SUBCUT SCH (08:53)
[2018-04-09] MEDS ORDERED: Mineral Oil/Petrolatum/Phenylephrine/Shark Liver Oil Oint 57 GM Tube RECTAL PRN (12:57)
[2018-04-09] MEDS: traZODone 50 MG Tab PO SCH (21:15)
[2018-04-09] MEDS: Montelukast 10 MG Tab PO SCH (21:15)
[2018-04-10] MEDS: Albuterol/Ipratropium 3.0-0.5 MG/3 ML Neb Soln NEB SCH ×3 (07:10→22:30)
[2018-04-10] MEDS: Aspirin 81 MG Tab.EC PO SCH (09:09)
[2018-04-10] MEDS: Cholecalciferol (Vitamin D3) 400 Unit Tab PO SCH (09:09)
[2018-04-10] MEDS: Formoterol/Mometasone 200-5 MCG 8.8 GM Inhaler IH SCH ×2 (09:09→19:56)
[2018-04-10] MEDS: Diltiazem 240 MG Cap.ER PO SCH (09:09)
[2018-04-10] MEDS: Pantoprazole 40 MG Tab.CR PO SCH (09:09)
[2018-04-10] MEDS: Carvedilol 3.125 MG Tab PO SCH ×2 (09:10→22:28)
[2018-04-10] MEDS: Lisinopril 5 MG Tab PO SCH (09:10)
[2018-04-10] MEDS: Furosemide 20 MG Tab PO SCH (09:10)
[2018-04-10] MEDS: predniSONE 20 MG Tab PO SCH (09:10)
[2018-04-10] MEDS: Ferrous Sulfate 325 MG Tab PO SCH (09:11)
[2018-04-10] MEDS: Docusate Sodium 100 MG Cap PO SCH ×2 (09:11→22:29)
[2018-04-10] MEDS: Enoxaparin 40 MG/0.4 ML Syringe SUBCUT SCH (09:13)
[2018-04-10] MEDS: Tiotropium Inhaler 18 MCG Inhalation Powder Cap Kit of 5 INH SCH (09:13)
[2018-04-10] MEDS: traZODone 50 MG Tab PO SCH (22:29)
[2018-04-10] MEDS: Montelukast 10 MG Tab PO SCH (22:30)
[2018-04-11] MEDS: Albuterol/Ipratropium 3.0-0.5 MG/3 ML Neb Soln NEB SCH ×3 (07:16→20:51)
[2018-04-11] MEDS: Enoxaparin 40 MG/0.4 ML Syringe SUBCUT SCH (09:28)
[2018-04-11] MEDS: Lisinopril 5 MG Tab PO SCH (09:29)
[2018-04-11] MEDS: Cholecalciferol (Vitamin D3) 400 Unit Tab PO SCH (09:29)
[2018-04-11] MEDS: Aspirin 81 MG Tab.EC PO SCH (09:30)
[2018-04-11] MEDS: Carvedilol 3.125 MG Tab PO SCH ×2 (09:30→20:48)
[2018-04-11] MEDS: Docusate Sodium 100 MG Cap PO SCH ×2 (09:30→20:50)
[2018-04-11] MEDS: Diltiazem 240 MG Cap.ER PO SCH (09:30)
[2018-04-11] MEDS: Furosemide 20 MG Tab PO SCH (09:31)
[2018-04-11] MEDS: Ferrous Sulfate 325 MG Tab PO SCH (09:31)
[2018-04-11] MEDS: predniSONE 10 MG Tab PO SCH (09:31)
[2018-04-11] MEDS: Pantoprazole 40 MG Tab.CR PO SCH (09:31)
[2018-04-11] MEDS: Tiotropium Inhaler 18 MCG Inhalation Powder Cap Kit of 5 INH SCH (09:32)
[2018-04-11] MEDS: Formoterol/Mometasone 200-5 MCG 8.8 GM Inhaler IH SCH ×2 (09:34→17:41)
--- NOTE | 2018-04-11 13:48 | PN ---
DATE: 04/11/2018 SUBJECTIVE: Mr. Georges is a 77-year-old gentleman, well known to me from previous care. He is currently in swing bed following a complicated hospital stay. It was originally thought to be a ruptured appendicitis with an exploratory laparotomy on 03/14/2018. He subsequently developed an abscess. Hemicolectomy was done at the time of the laparotomy on 03/14/2018. He is on swing bed for wound VAC as well as working with Physical and Occupational therapy for strengthening following his prolonged illness. Other past medical history includes right-sided lung cancer, COPD, chronic AFib, coronary artery disease, cardiomyopathy with an AICD, dyslipidemia, and cirrhosis of the liver. Nursing staff expressed no concerns. Review of his clinical data show stable vital signs. Blood pressure has improved. He had been hypotensive prior to transfer back to [place]. Oxygen saturations are in the high 90s on room air. He is drinking adequate fluids. He is voiding and moving his bowels. He is tolerating 100% of his meals. Followup lab work was performed on April 06. CBC was done, white count and platelets are within normal limits; hemoglobin and hematocrit 8.5 and 27.4. I will order a followup hemoglobin and hematocrit for April 12. On exam, Mr. Georges is sitting in his recliner. He actually looks very good. It is obvious he has put back on some weight. He is in good spirits. We had a long visit. He voices no concerns or complaints. He denied chest pain or shortness of breath. No abdominal pain. No calf or leg pain. Vital signs were stable. Blood pressure was 102/72, pulse 77, respiratory rate 20, oxygen saturation 98% on room air. He is afebrile. Weight 173 pounds. On exam, chest was clear with diminished breath sounds. Heart was regular. Abdomen was benign. Calves were soft and nontender. We will continue the present management. He is finished with his IV antibiotics and continues on wound management with wound VAC. He is working daily with Physical and Occupational therapy and feels he is getting stronger. No other changes are made in his care today. Hemoglobin and hematocrit were ordered for April 12. [facility] /[id number]
[2018-04-11] MEDS: Montelukast 10 MG Tab PO SCH (20:48)
[2018-04-11] MEDS: traZODone 50 MG Tab PO SCH (20:51)
[2018-04-12] MEDS: Formoterol/Mometasone 200-5 MCG 8.8 GM Inhaler IH SCH ×2 (07:16→18:31)
[2018-04-12] MEDS: Albuterol/Ipratropium 3.0-0.5 MG/3 ML Neb Soln NEB SCH ×3 (07:45→20:48)
[2018-04-12] MEDS: Aspirin 81 MG Tab.EC PO SCH (09:15)
[2018-04-12] MEDS: Cholecalciferol (Vitamin D3) 400 Unit Tab PO SCH (09:15)
[2018-04-12] MEDS: Ferrous Sulfate 325 MG Tab PO SCH (09:15)
[2018-04-12] MEDS: Pantoprazole 40 MG Tab.CR PO SCH (09:16)
[2018-04-12] MEDS: Docusate Sodium 100 MG Cap PO SCH ×2 (09:16→20:49)
[2018-04-12] MEDS: predniSONE 10 MG Tab PO SCH (09:16)
[2018-04-12] MEDS: Furosemide 20 MG Tab PO SCH (09:17)
[2018-04-12] MEDS: Lisinopril 5 MG Tab PO SCH (09:23)
[2018-04-12] MEDS: Diltiazem 240 MG Cap.ER PO SCH (09:24)
[2018-04-12] MEDS: Carvedilol 3.125 MG Tab PO SCH ×2 (09:24→20:48)
[2018-04-12] MEDS: Enoxaparin 40 MG/0.4 ML Syringe SUBCUT SCH (09:25)
[2018-04-12] MEDS: Tiotropium Inhaler 18 MCG Inhalation Powder Cap Kit of 5 INH SCH (09:27)
[2018-04-12] MEDS: Montelukast 10 MG Tab PO SCH (20:48)
[2018-04-12] MEDS: traZODone 50 MG Tab PO SCH (20:49)
[2018-04-13] MEDS: Albuterol/Ipratropium 3.0-0.5 MG/3 ML Neb Soln NEB SCH ×3 (07:13→20:57)
[2018-04-13] MEDS: Formoterol/Mometasone 200-5 MCG 8.8 GM Inhaler IH SCH ×2 (09:04→18:07)
[2018-04-13] MEDS: Docusate Sodium 100 MG Cap PO SCH ×2 (09:05→20:57)
[2018-04-13] MEDS: Ferrous Sulfate 325 MG Tab PO SCH (09:07)
[2018-04-13] MEDS: Cholecalciferol (Vitamin D3) 400 Unit Tab PO SCH (09:07)
[2018-04-13] MEDS: predniSONE 10 MG Tab PO SCH (09:07)
[2018-04-13] MEDS: Pantoprazole 40 MG Tab.CR PO SCH (09:08)
[2018-04-13] MEDS: Lisinopril 5 MG Tab PO SCH (09:08)
[2018-04-13] MEDS: Carvedilol 3.125 MG Tab PO SCH ×2 (09:08→20:56)
[2018-04-13] MEDS: Diltiazem 240 MG Cap.ER PO SCH (09:08)
[2018-04-13] MEDS: Furosemide 20 MG Tab PO SCH (09:08)
[2018-04-13] MEDS: Aspirin 81 MG Tab.EC PO SCH (09:08)
[2018-04-13] MEDS: Enoxaparin 40 MG/0.4 ML Syringe SUBCUT SCH (09:13)
[2018-04-13] MEDS: Tiotropium Inhaler 18 MCG Inhalation Powder Cap Kit of 5 INH SCH (09:36)
[2018-04-13] MEDS: traZODone 50 MG Tab PO SCH (20:56)
[2018-04-13] MEDS: Montelukast 10 MG Tab PO SCH (20:57)
[2018-04-14] MEDS: Albuterol/Ipratropium 3.0-0.5 MG/3 ML Neb Soln NEB SCH ×3 (07:17→21:06)
[2018-04-14] MEDS: Tiotropium Inhaler 18 MCG Inhalation Powder Cap Kit of 5 INH SCH (08:15)
[2018-04-14] MEDS: Formoterol/Mometasone 200-5 MCG 8.8 GM Inhaler IH SCH ×2 (08:17→17:47)
[2018-04-14] MEDS: Lisinopril 5 MG Tab PO SCH (08:17)
[2018-04-14] MEDS: predniSONE 10 MG Tab PO SCH (08:17)
[2018-04-14] MEDS: Furosemide 20 MG Tab PO SCH (08:17)
[2018-04-14] MEDS: Diltiazem 240 MG Cap.ER PO SCH (08:18)
[2018-04-14] MEDS: Cholecalciferol (Vitamin D3) 400 Unit Tab PO SCH (08:18)
[2018-04-14] MEDS: Carvedilol 3.125 MG Tab PO SCH ×2 (08:18→21:06)
[2018-04-14] MEDS: Aspirin 81 MG Tab.EC PO SCH (08:18)
[2018-04-14] MEDS: Enoxaparin 40 MG/0.4 ML Syringe SUBCUT SCH (08:19)
[2018-04-14] MEDS: Pantoprazole 40 MG Tab.CR PO SCH (08:19)
[2018-04-14] MEDS: Docusate Sodium 100 MG Cap PO SCH ×2 (08:19→21:05)
[2018-04-14] MEDS: Ferrous Sulfate 325 MG Tab PO SCH (08:19)
[2018-04-14] MEDS: Montelukast 10 MG Tab PO SCH (21:05)
[2018-04-14] MEDS: traZODone 50 MG Tab PO SCH (21:06)
[2018-04-15] MEDS: Albuterol/Ipratropium 3.0-0.5 MG/3 ML Neb Soln NEB SCH ×3 (07:11→21:08)
[2018-04-15] MEDS: Cholecalciferol (Vitamin D3) 400 Unit Tab PO SCH (09:25)
[2018-04-15] MEDS: Furosemide 20 MG Tab PO SCH (09:25)
[2018-04-15] MEDS: Diltiazem 240 MG Cap.ER PO SCH (09:26)
[2018-04-15] MEDS: Aspirin 81 MG Tab.EC PO SCH (09:26)
[2018-04-15] MEDS: Ferrous Sulfate 325 MG Tab PO SCH (09:26)
[2018-04-15] MEDS: Pantoprazole 40 MG Tab.CR PO SCH (09:26)
[2018-04-15] MEDS: Carvedilol 3.125 MG Tab PO SCH ×2 (09:26→21:12)
[2018-04-15] MEDS: Enoxaparin 40 MG/0.4 ML Syringe SUBCUT SCH (09:27)
[2018-04-15] MEDS: Lisinopril 5 MG Tab PO SCH (09:28)
[2018-04-15] MEDS: predniSONE 10 MG Tab PO SCH (09:29)
[2018-04-15] MEDS: Formoterol/Mometasone 200-5 MCG 8.8 GM Inhaler IH SCH ×2 (09:37→18:48)
[2018-04-15] MEDS: Tiotropium Inhaler 18 MCG Inhalation Powder Cap Kit of 5 INH SCH (09:42)
[2018-04-15] MEDS: Docusate Sodium 100 MG Cap PO SCH ×2 (09:47→21:09)
[2018-04-15] MEDS: traZODone 50 MG Tab PO SCH (21:09)
[2018-04-15] MEDS: Montelukast 10 MG Tab PO SCH (21:09)
[2018-04-16] MEDS: Albuterol/Ipratropium 3.0-0.5 MG/3 ML Neb Soln NEB SCH ×3 (07:06→20:49)
[2018-04-16] MEDS: Formoterol/Mometasone 200-5 MCG 8.8 GM Inhaler IH SCH ×2 (07:41→17:14)
[2018-04-16] MEDS: predniSONE 5 MG Tab PO SCH (08:59)
[2018-04-16] MEDS: Pantoprazole 40 MG Tab.CR PO SCH (08:59)
[2018-04-16] MEDS: Tiotropium Inhaler 18 MCG Inhalation Powder Cap Kit of 5 INH SCH (08:59)
[2018-04-16] MEDS: Lisinopril 5 MG Tab PO SCH (09:00)
[2018-04-16] MEDS: Cholecalciferol (Vitamin D3) 400 Unit Tab PO SCH (09:00)
[2018-04-16] MEDS: Ferrous Sulfate 325 MG Tab PO SCH (09:00)
[2018-04-16] MEDS: Diltiazem 240 MG Cap.ER PO SCH (09:00)
[2018-04-16] MEDS: Furosemide 20 MG Tab PO SCH (09:01)
[2018-04-16] MEDS: Enoxaparin 40 MG/0.4 ML Syringe SUBCUT SCH (09:01)
[2018-04-16] MEDS: Aspirin 81 MG Tab.EC PO SCH (09:01)
[2018-04-16] MEDS: Carvedilol 3.125 MG Tab PO SCH ×2 (09:01→20:48)
[2018-04-16] MEDS: Docusate Sodium 100 MG Cap PO SCH ×2 (09:02→20:48)
[2018-04-16] MEDS ORDERED: hydrOXYzine HCl 10 MG Tab PO PRN (12:04)
[2018-04-16] MEDS: traZODone 50 MG Tab PO SCH (20:49)
[2018-04-16] MEDS: Montelukast 10 MG Tab PO SCH (20:49)
[2018-04-17] MEDS: Formoterol/Mometasone 200-5 MCG 8.8 GM Inhaler IH SCH ×2 (06:22→18:05)
[2018-04-17] MEDS: Albuterol/Ipratropium 3.0-0.5 MG/3 ML Neb Soln NEB SCH ×3 (07:07→20:40)
[2018-04-17] MEDS: Docusate Sodium 100 MG Cap PO SCH ×2 (08:52→20:40)
[2018-04-17] MEDS: Aspirin 81 MG Tab.EC PO SCH (08:55)
[2018-04-17] MEDS: Furosemide 20 MG Tab PO SCH (08:56)
[2018-04-17] MEDS: Ferrous Sulfate 325 MG Tab PO SCH (08:56)
[2018-04-17] MEDS: Cholecalciferol (Vitamin D3) 400 Unit Tab PO SCH (08:56)
[2018-04-17] MEDS: Carvedilol 3.125 MG Tab PO SCH ×2 (08:56→20:39)
[2018-04-17] MEDS: Diltiazem 240 MG Cap.ER PO SCH (08:56)
[2018-04-17] MEDS: Pantoprazole 40 MG Tab.CR PO SCH (08:57)
[2018-04-17] MEDS: Lisinopril 5 MG Tab PO SCH (08:57)
[2018-04-17] MEDS: predniSONE 5 MG Tab PO SCH (08:57)
[2018-04-17] MEDS: Enoxaparin 40 MG/0.4 ML Syringe SUBCUT SCH (08:58)
[2018-04-17] MEDS: Tiotropium Inhaler 18 MCG Inhalation Powder Cap Kit of 5 INH SCH (08:58)
[2018-04-17] MEDS: Montelukast 10 MG Tab PO SCH (20:39)
[2018-04-17] MEDS: traZODone 50 MG Tab PO SCH (20:39)
[2018-04-18] MEDS: Formoterol/Mometasone 200-5 MCG 8.8 GM Inhaler IH SCH ×2 (06:43→18:16)
[2018-04-18] MEDS: Albuterol/Ipratropium 3.0-0.5 MG/3 ML Neb Soln NEB SCH ×3 (07:09→21:41)
[2018-04-18] MEDS: Tiotropium Inhaler 18 MCG Inhalation Powder Cap Kit of 5 INH SCH (09:21)
[2018-04-18] MEDS: Lisinopril 5 MG Tab PO SCH (09:22)
[2018-04-18] MEDS: Furosemide 20 MG Tab PO SCH (09:22)
[2018-04-18] MEDS: Diltiazem 240 MG Cap.ER PO SCH (09:22)
[2018-04-18] MEDS: Cholecalciferol (Vitamin D3) 400 Unit Tab PO SCH (09:22)
[2018-04-18] MEDS: Aspirin 81 MG Tab.EC PO SCH (09:22)
[2018-04-18] MEDS: predniSONE 5 MG Tab PO SCH (09:22)
[2018-04-18] MEDS: Pantoprazole 40 MG Tab.CR PO SCH (09:22)
[2018-04-18] MEDS: Ferrous Sulfate 325 MG Tab PO SCH (09:22)
[2018-04-18] MEDS: Carvedilol 3.125 MG Tab PO SCH ×2 (09:23→21:40)
[2018-04-18] MEDS: Docusate Sodium 100 MG Cap PO SCH ×2 (09:25→21:40)
[2018-04-18] MEDS: Enoxaparin 40 MG/0.4 ML Syringe SUBCUT SCH (09:25)
--- NOTE | 2018-04-18 13:38 | PCM.PN ---
- General Info Date of Service: 04/18/18 Admission Dx/Problem (Free Text): Admission Diagnosis/Problem Admission Diagnosis/Problem Weakness Subjective Update: This is a 77 y/O M with past Medical history of cryptogenic decompensated liver cirrhosis as the patient is denying any use of alcohol, history of lung right lung cancer, chronic obstructive pulmonary disease, chronic atrial fibrillation, coronary artery disease, status post AICD placement, dyslipidemia , KD stage III. He had Exploratory laparotomy with right hemicolectomy on at [facility]. He was admitted to [facility] for strengthening and wound care. Seen and examined at bedside today. No acute overnight event. Patient doing well. Functional Status: Reports: Pain Controlled - Review of Systems General: Reports: No Symptoms HEENT: Reports: No Symptoms Pulmonary: Reports: No Symptoms Cardiovascular: Reports: No Symptoms Gastrointestinal: Reports: No Symptoms Genitourinary: Reports: No Symptoms Musculoskeletal: Reports: No Symptoms Skin: Reports: No Symptoms Neurological: Reports: No Symptoms Psychiatric: Reports: No Symptoms - Patient Data Vitals - Most Recent: Last Vital Signs Temp 99.0 F 04/18/18 08:02 Pulse 65 04/18/18 09:23 Resp 20 04/18/18 08:02 BP 131/59 L 04/18/18 09:23 Pulse Ox 97 04/18/18 08:02 Weight - Most Recent: 177 lb 3.2 oz I&O - Last 24 Hours: Intake & Output 04/17/18 04/18/18 04/18/18 22:59 06:59 14:59 Intake Total 660 340 Output Total 400 150 Balance 260 -150 340 Med Orders - Current: Current Medications Acetaminophen (Tylenol) 650 mg PO Q4H PRN PRN Reason: Pain (mild 1-3 )/fever Acetaminophen (Tylenol Extra Strength) 500 mg PO Q8HR PRN PRN Reason: Pain Albuterol/Ipratropium (Duoneb 3.0-0.5 Mg/3 Ml) 3 ml NEB TIDRT [facility] Last Admin: 04/18/18 07:09 Dose: 3 ml Aspirin (Halfprin) 81 mg PO DAILY [facility] Last Admin: 04/18/18 09:22 Dose: 81 mg Carvedilol (Coreg) 3.125 mg PO BID [facility] Last Admin: 04/18/18 09:23 Dose: 3.125 mg Cholecalciferol (Vitamin D3) 400 units PO DAILY [facility] Last Admin: 04/18/18 09:22 Dose: 400 units Diltiazem HCl (Dilacor Xr) 240 mg PO DAILY [facility] Last Admin: 04/18/18 09:22 Dose: 240 mg Docusate Sodium (Colace) 100 mg PO BID [facility] Last Admin: 04/18/18 09:25 Dose: Not Given Enoxaparin Sodium (Lovenox) 40 mg SUBCUT DAILY [facility] Last Admin: 04/18/18 09:25 Dose: 40 mg Ferrous Sulfate (Ferrous Sulfate) 325 mg PO DAILY [facility] Last Admin: 04/18/18 09:22 Dose: 325 mg Furosemide (Lasix) 20 mg PO DAILY [facility] Last Admin: 04/18/18 09:22 Dose: 20 mg Hydroxyzine HCl (Atarax) 10 mg PO BID PRN PRN Reason: Anxiety Lisinopril (Prinivil) 2.5 mg PO DAILY [facility] Last Admin: 04/18/18 09:22 Dose: 2.5 mg Mometasone Furoate/Formoterol Fumar (Dulera 200-5 Mcg) 2 puff IH BIDRT [facility] Last Admin: 04/18/18 06:43 Dose: 2 puff Montelukast Sodium (Singulair) 10 mg PO BEDTIME [facility] Last Admin: 04/17/18 20:39 Dose: 10 mg Pantoprazole Sodium (Protonix) 40 mg PO DAILY [facility] Last Admin: 04/18/18 09:22 Dose: 40 mg Phenyleph/Shark Oil/Min Oil/Petrol (Preparation H Oint) 0 gm RECTAL BID PRN PRN Reason: Hemorrhoids Prednisone (Prednisone) 5 mg PO DAILY [facility] Stop: 04/20/18 09:01 Last Admin: 04/18/18 09:22 Dose: 5 mg Senna/Docusate Sodium (Senna Plus) 1 tab PO DAILY PRN PRN Reason: CONSTIPATION Tiotropium [place] (Spiriva Handihaler) 18 mcg INH DAILY [facility] Last Admin: 04/18/18 09:21 Dose: 18 mcg Trazodone HCl (Trazodone) 50 mg PO BEDTIME [facility] Last Admin: 04/17/18 20:39 Dose: 50 mg Discontinued Medications Non-Formulary Medication (Albuterol/Ipratropium [Combivent Respimat]) 2 puff INH BID [facility] Prednisone (Prednisone) 20 mg PO DAILY [facility] Stop: 04/10/18 09:01 Last Admin: 04/10/18 09:10 Dose: 20 mg Prednisone (Prednisone) 10 mg PO DAILY [facility] Stop: 04/15/18 09:01 Last Admin: 04/15/18 09:29 Dose: 10 mg - Exam Quality Assessment: DVT Prophylaxis General: Alert, Oriented HEENT: Pupils Equal, Pupils Reactive, EOMI, Mucous Membr. Moist/[place] Neck: Supple Lungs: Clear to Auscultation, Normal Respiratory Effort Cardiovascular: Regular Rate, Regular Rhythm GI/Abdominal Exam: Normal Bowel Sounds, Soft, Non-Tender, No Organomegaly, No Distention, No Abnormal Bruit, No Mass, Pelvis Stable (Male) Exam: No Hernia, Normal Inspection, Normal Prostate, Circumcised Back Exam: Normal Inspection, Full Range of Motion Extremities: Normal Inspection, Normal Range of Motion, Non-Tender, No Pedal Edema, Normal Capillary Refill Skin: Warm, Dry, Intact Wound/Incisions: Healing Well Neurological: No New Focal Deficit Psy/Mental Status: Alert, Normal Affect, Normal Mood - Problem List Review Problem List Initiated/Reviewed/Updated: Yes - My Orders Last 24 Hours: My Active Orders 04/17/18 16:03 Incentive Spirometry [RT Incentive Spirometry] [RC] Q2HWA - Plan Plan:: This is a 77 y/o M admitted as a transfer from [facility] for management of wound vac and strengthening. Recently he had exploratory laparotomy with right Hemicolectomy , he had Right lower quadrant abscess from perforated appendix Impression and Plan: 1. Appendicular rupture and abscess. He is post Ileocecectomy with stapled anastomosis. -wound vac is still present but not much drainage -will continue dressing change and manage wound vac 2. Chronic obstructive pulmonary disease, remains stable. The patient will be encouraged to use incentive spirometry and flutter valve. Continue with nebulizers 3. History of atrial fibrillation. The patient is not on any anticoagulation secondary to recent surgery and risk of bleeding. he has received blood transfusion in his last admission at [facility] -His rate is controlled with Diltiazem 4. Anemia. The patient's hemoglobin is stable at 8.9 ( labs from 04/05/18) . No indication for transfusion for now 5. Hypertension. BP acceptable and will continue Coreg at o 3.125 mg BID , Diltiazem at 240 mg daily and lisinopril at 2.5 mg daily 6. Generalized weakness: PT and OT to evaluate and treat the patient ( consult in place) 7. Edema of extremities: He is on lasic at 20 mg daily and will continue. will check weight QOD 8. DVT prophylaxis: Continue Enoxapain 9. GI prophylaxis: Continue Protonix Code Status: Full Code
[2018-04-18] MEDS: Montelukast 10 MG Tab PO SCH (21:39)
[2018-04-18] MEDS: traZODone 50 MG Tab PO SCH (21:39)
[2018-04-19] MEDS: Formoterol/Mometasone 200-5 MCG 8.8 GM Inhaler IH SCH ×2 (06:12→17:07)
[2018-04-19] MEDS: Albuterol/Ipratropium 3.0-0.5 MG/3 ML Neb Soln NEB SCH ×3 (07:15→20:38)
[2018-04-19] MEDS: Lisinopril 5 MG Tab PO SCH (08:36)
[2018-04-19] MEDS: Tiotropium Inhaler 18 MCG Inhalation Powder Cap Kit of 5 INH SCH (08:36)
[2018-04-19] MEDS: predniSONE 5 MG Tab PO SCH (08:37)
[2018-04-19] MEDS: Ferrous Sulfate 325 MG Tab PO SCH (08:37)
[2018-04-19] MEDS: Aspirin 81 MG Tab.EC PO SCH (08:37)
[2018-04-19] MEDS: Cholecalciferol (Vitamin D3) 400 Unit Tab PO SCH (08:37)
[2018-04-19] MEDS: Carvedilol 3.125 MG Tab PO SCH ×2 (08:38→20:38)
[2018-04-19] MEDS: Pantoprazole 40 MG Tab.CR PO SCH (08:38)
[2018-04-19] MEDS: Diltiazem 240 MG Cap.ER PO SCH (08:38)
[2018-04-19] MEDS: Furosemide 20 MG Tab PO SCH (08:38)
[2018-04-19] MEDS: Docusate Sodium 100 MG Cap PO SCH (08:39)
[2018-04-19] MEDS: Enoxaparin 40 MG/0.4 ML Syringe SUBCUT SCH (08:39)
[2018-04-19] MEDS ORDERED: Docusate Sodium 100 MG Cap PO PRN (11:39)
[2018-04-19] MEDS: traZODone 50 MG Tab PO SCH (20:38)
[2018-04-19] MEDS: Montelukast 10 MG Tab PO SCH (20:39)
[2018-04-20] MEDS: Formoterol/Mometasone 200-5 MCG 8.8 GM Inhaler IH SCH ×2 (06:12→18:01)
[2018-04-20] MEDS: Albuterol/Ipratropium 3.0-0.5 MG/3 ML Neb Soln NEB SCH ×3 (07:36→20:24)
[2018-04-20] MEDS: Tiotropium Inhaler 18 MCG Inhalation Powder Cap Kit of 5 INH SCH (08:05)
[2018-04-20] MEDS: Aspirin 81 MG Tab.EC PO SCH (08:06)
[2018-04-20] MEDS: Carvedilol 3.125 MG Tab PO SCH ×2 (08:07→20:23)
[2018-04-20] MEDS: Lisinopril 5 MG Tab PO SCH (08:08)
[2018-04-20] MEDS: Diltiazem 240 MG Cap.ER PO SCH (08:09)
[2018-04-20] MEDS: Pantoprazole 40 MG Tab.CR PO SCH (08:09)
[2018-04-20] MEDS: Furosemide 20 MG Tab PO SCH (08:09)
[2018-04-20] MEDS: Cholecalciferol (Vitamin D3) 400 Unit Tab PO SCH (08:10)
[2018-04-20] MEDS: Enoxaparin 40 MG/0.4 ML Syringe SUBCUT SCH (08:10)
[2018-04-20] MEDS: Ferrous Sulfate 325 MG Tab PO SCH (08:10)
[2018-04-20] MEDS: predniSONE 5 MG Tab PO SCH (08:10)
[2018-04-20] MEDS: traZODone 50 MG Tab PO SCH (20:21)
[2018-04-20] MEDS: Montelukast 10 MG Tab PO SCH (20:21)
[2018-04-21] MEDS: Formoterol/Mometasone 200-5 MCG 8.8 GM Inhaler IH SCH (06:36)
[2018-04-21] MEDS: Albuterol/Ipratropium 3.0-0.5 MG/3 ML Neb Soln NEB SCH ×2 (07:15→15:11)
[2018-04-21] MEDS: Tiotropium Inhaler 18 MCG Inhalation Powder Cap Kit of 5 INH SCH (08:18)
[2018-04-21] MEDS: Lisinopril 5 MG Tab PO SCH (08:20)
[2018-04-21] MEDS: Aspirin 81 MG Tab.EC PO SCH (08:20)
[2018-04-21] MEDS: Cholecalciferol (Vitamin D3) 400 Unit Tab PO SCH (08:21)
[2018-04-21] MEDS: Pantoprazole 40 MG Tab.CR PO SCH (08:21)
[2018-04-21] MEDS: Furosemide 20 MG Tab PO SCH (08:21)
[2018-04-21] MEDS: Carvedilol 3.125 MG Tab PO SCH (08:21)
[2018-04-21] MEDS: Diltiazem 240 MG Cap.ER PO SCH (08:22)
[2018-04-21] MEDS: Ferrous Sulfate 325 MG Tab PO SCH (08:22)
[2018-04-21] MEDS: Enoxaparin 40 MG/0.4 ML Syringe SUBCUT SCH (08:22)
[2018-04-21 14:42] VITALS: BP 120/56
--- NOTE | 2018-04-21 15:40 | PCM.DCSUM1 ---
Discharge Summary - Hospital Course HPI Initial Comments: José Manuel is a 77 y/O M with past Medical history of cryptogenic decompensated liver cirrhosis as the patient is denying any use of alcohol, history of lung right lung cancer, chronic obstructive pulmonary disease, chronic atrial fibrillation, coronary artery disease, status post AICD placement, dyslipidemia , KD stage III. He had Exploratory laparotomy with right hemicolectomy on at [facility]. He was admitted to [facility] for strengthening and wound care. Post operatively hewas doing very well until he had a central wound dehscience. He was started on a wound VAC 04/01/18 and has been having the dressing changed at the swing bed in [place] 3X week. Patient has done well and is being discharge home. He denies fever, chills. He is tolerating diet well. He will follow up with surgery. He will need wound care supply for wound change. The superior and inferior abdominal incision is healing well however there is a central dehiscence measuring approximately 3 X 4 cm. It is fairly superficial with 3 areas of undermining on the left aspect of the wound. No tunneling noted. There is 75% granulation tissue with 25% fibrous slough and exposed suture ends. No signs of hematoma, seroma, induration, erythema, drainage, warmth or wound infection. There are a couple areas around the wound where the cate-tissue has peeled. No blistering or drainage noted. The wound is non- painful. Wound is packed with saline moistened gauze and covered with Telfa taped in place. Wound vac has been discontinued. Patient currently requires twice daily wet to dry dressing changes until the wound is healed. Dressing Change Supply 4 x 4 guaze moistened with sterile saline or wound wash Pack in wound area Cover with ABD dressing and tape with paper tape BID ICD-10 1. Dehiscence operative wound subsequent encounter 2. s/p exploratory laparotomy with KAELYN and ileocecectomy Diagnosis: Stroke: No - Discharge Data Discharge Date: 04/21/18 Discharge Disposition: Home, Self-Care 01 Condition: Good - Patient Summary/Data Consults: Consultations 04/05/18 14:55 PT Evaluation and Treatment [CONS] Routine 04/05/18 14:56 OT Evaluation and Treatment [CONS] Routine - Patient Instructions Diet: Regular Diet as Tolerated Activity: As Tolerated Showering/Bathing: May Shower Notify Provider of: Fever, Increased Pain, Swelling and Redness, Nausea and/or Vomiting - Discharge Plan *PRESCRIPTION DRUG MONITORING PROGRAM REVIEWED*: Not Applicable Home Medications: Home Meds Montelukast [Singulair] 10 mg PO BEDTIME 10/26/13 [History] Tiotropium [Spiriva Handihaler] 1 puff INH DAILY 10/26/13 [History] Albuterol/Ipratropium [Combivent Respimat] 2 puff INH BID 08/16/15 [History] Albuterol/Ipratropium [DuoNeb 3.0-0.5 MG/3 ML] 3 ml NEB TID 11/09/15 [History] Pantoprazole Sodium 40 mg PO DAILY 11/09/15 [History] traZODone 50 mg PO BEDTIME 06/29/17 [History] Cholecalciferol (Vitamin D3) [Vitamin D3] 400 units PO DAILY 03/23/18 [History] Docusate Sodium [Colace] 100 mg PO BID 03/23/18 [History] Ferrous Sulfate 325 mg PO DAILY 03/23/18 [History] Fluticasone/Salmeterol [Advair 500-50] 1 puff INH BID 03/23/18 [History] Acetaminophen 500 mg PO Q8HR PRN 04/05/18 [History] Aspirin [Halfprin] 81 mg PO DAILY 04/05/18 [History] Carvedilol [Coreg] 3.125 mg PO BID 04/05/18 [History] Diltiazem [Dilacor XR] 240 mg PO DAILY 04/05/18 [History] Furosemide 20 mg PO DAILY 04/05/18 [History] Lisinopril 2.5 mg PO DAILY 04/05/18 [History] Sennosides [Senna] 1 tab PO BID 04/05/18 [History] predniSONE [Prednisone] 20 mg PO DAILY 04/05/18 [History] - Discharge Summary/Plan Comment DC Time >30 min.: Yes - General Info Admission Dx/Problem (Free Text: Admission Diagnosis/Problem Admission Diagnosis/Problem Weakness Subjective Update: José Manuel is a 77 y/O M with past Medical history of cryptogenic decompensated liver cirrhosis as the patient is denying any use of alcohol, history of lung right lung cancer, chronic obstructive pulmonary disease, chronic atrial fibrillation, coronary artery disease, status post AICD placement, dyslipidemia , KD stage III. He had Exploratory laparotomy with right hemicolectomy on at [facility]. He was admitted to [facility] for strengthening and wound care. Post operatively hewas doing very well until he had a central wound dehscience. He was started on a wound VAC 04/01/18 and has been having the dressing changed at the swing bed in [place] 3X week. Patient has done well and is being discharge home. He denies fever, chills. He is tolerating diet well. He will follow up with surgery. He will need wound care supply for wound change. The superior and inferior abdominal incision is healing well however there is a central dehiscence measuring approximately 3 X 4 cm. It is fairly superficial with 3 areas of undermining on the left aspect of the wound. No tunneling noted. There is 75% granulation tissue with 25% fibrous slough and exposed suture ends. No signs of hematoma, seroma, induration, erythema, drainage, warmth or wound infection. There are a couple areas around the wound where the cate-tissue has peeled. No blistering or drainage noted. The wound is non- painful. Wound is packed with saline moistened gauze and covered with Telfa taped in place. Wound vac has been discontinued. Patient currently requires twice daily wet to dry dressing changes until the wound is healed. Dressing Change Supply 4 x 4 guaze moistened with sterile saline or wound wash Pack in wound area Cover with ABD dressing and tape with paper tape BID ICD-10 1. Dehiscence operative wound subsequent encounter 2. s/p exploratory laparotomy with KAELYN and ileocecectomy Functional Status: Reports: Pain Controlled - Review of Systems General: Reports: No Symptoms HEENT: Reports: No Symptoms Pulmonary: Reports: No Symptoms Cardiovascular: Reports: No Symptoms Gastrointestinal: Reports: No Symptoms Genitourinary: Reports: No Symptoms Musculoskeletal: Reports: No Symptoms Skin: Reports: No Symptoms Neurological: Reports: No Symptoms Psychiatric: Reports: No Symptoms - Patient Data Vitals - Most Recent: Last Vital Signs Temp 98 F 04/21/18 14:41 Pulse 71 04/21/18 14:41 Resp 20 04/21/18 14:41 BP 120/56 L 04/21/18 14:41 Pulse Ox 98 04/21/18 15:11 Weight - Most Recent: 177 lb 12.8 oz I&O - Last 24 hours: Intake & Output 04/21/18 04/21/18 04/21/18 06:59 14:59 22:59 Intake Total 400 765 Balance 400 765 Med Orders - Current: Current Medications Acetaminophen (Tylenol) 650 mg PO Q4H PRN PRN Reason: Pain (mild 1-3 )/fever Acetaminophen (Tylenol Extra Strength) 500 mg PO Q8HR PRN PRN Reason: Pain Albuterol/Ipratropium (Duoneb 3.0-0.5 Mg/3 Ml) 3 ml NEB TIDRT [facility] Last Admin: 04/21/18 15:11 Dose: 3 ml Aspirin (Halfprin) 81 mg PO DAILY [facility] Last Admin: 04/21/18 08:20 Dose: 81 mg Carvedilol (Coreg) 3.125 mg PO BID [facility] Last Admin: 04/21/18 08:21 Dose: 3.125 mg Cholecalciferol (Vitamin D3) 400 units PO DAILY [facility] Last Admin: 04/21/18 08:21 Dose: 400 units Diltiazem HCl (Dilacor Xr) 240 mg PO DAILY [facility] Last Admin: 04/21/18 08:22 Dose: 240 mg Docusate Sodium (Colace) 100 mg PO BID PRN PRN Reason: Constipation Enoxaparin Sodium (Lovenox) 40 mg SUBCUT DAILY [facility] Last Admin: 04/21/18 08:22 Dose: 40 mg Ferrous Sulfate (Ferrous Sulfate) 325 mg PO DAILY [facility] Last Admin: 04/21/18 08:22 Dose: 325 mg Furosemide (Lasix) 20 mg PO DAILY [facility] Last Admin: 04/21/18 08:21 Dose: 20 mg Hydroxyzine HCl (Atarax) 10 mg PO BID PRN PRN Reason: Anxiety Last Admin: 04/19/18 15:29 Dose: 10 mg Lisinopril (Prinivil) 2.5 mg PO DAILY [facility] Last Admin: 04/21/18 08:20 Dose: 2.5 mg Mometasone Furoate/Formoterol Fumar (Dulera 200-5 Mcg) 2 puff IH BIDRT [facility] Last Admin: 04/21/18 06:36 Dose: 2 puff Montelukast Sodium (Singulair) 10 mg PO BEDTIME [facility] Last Admin: 04/20/18 20:21 Dose: 10 mg Pantoprazole Sodium (Protonix) 40 mg PO DAILY [facility] Last Admin: 04/21/18 08:21 Dose: 40 mg Phenyleph/Shark Oil/Min Oil/Petrol (Preparation H Oint) 0 gm RECTAL BID PRN PRN Reason: Hemorrhoids Senna/Docusate Sodium (Senna Plus) 1 tab PO DAILY PRN PRN Reason: CONSTIPATION Tiotropium [place] (Spiriva Handihaler) 18 mcg INH DAILY [facility] Last Admin: 04/21/18 08:18 Dose: 18 mcg Trazodone HCl (Trazodone) 50 mg PO BEDTIME [facility] Last Admin: 04/20/18 20:21 Dose: 50 mg Discontinued Medications Docusate Sodium (Colace) 100 mg PO BID [facility] Last Admin: 04/19/18 08:39 Dose: Not Given Non-Formulary Medication (Albuterol/Ipratropium [Combivent Respimat]) 2 puff INH BID [facility] Prednisone (Prednisone) 20 mg PO DAILY [facility] Stop: 04/10/18 09:01 Last Admin: 04/10/18 09:10 Dose: 20 mg Prednisone (Prednisone) 10 mg PO DAILY [facility] Stop: 04/15/18 09:01 Last Admin: 04/15/18 09:29 Dose: 10 mg Prednisone (Prednisone) 5 mg PO DAILY [facility] Stop: 04/20/18 09:01 Last Admin: 04/20/18 08:10 Dose: 5 mg - Exam Quality Assessment: Reports: DVT Prophylaxis General: Reports: Alert, Oriented HEENT: Reports: Pupils Equal, Pupils Reactive, EOMI, Mucous Membr. Moist/[place] Neck: Reports: Supple Lungs: Reports: Clear to Auscultation, Normal Respiratory Effort Cardiovascular: Reports: Regular Rate, Regular Rhythm GI/Abdominal Exam: Normal Bowel Sounds, Soft, Non-Tender, No Organomegaly, No Distention, No Abnormal Bruit, No Mass, Pelvis Stable (Male) Exam: No Hernia, Normal Inspection, Normal Prostate, Circumcised Rectal (Males) Exam: Normal Exam, Normal Rectal Tone, Prostate Normal Back Exam: Reports: Normal Inspection, Full Range of Motion Extremities: Normal Inspection, Normal Range of Motion, Non-Tender, No Pedal Edema, Normal Capillary Refill Skin: Reports: Warm, Dry, Intact Wound/Incisions: Reports: Healing Well Neurological: Reports: No New Focal Deficit Psy/Mental Status: Reports: Alert, Normal Affect, Normal Mood
== END 2018-04-21 16:43 | disposition home or self-care (01) | DRG 920 ==
LOC: DL.MS 13:35 → UNDOADMIN 13:35 → DL.MS 14:44
PROVIDERS: ADMIT Internal Medicine Nephrology; ATTEND Internal Medicine Nephrology
DX: T81.31XA Disruption of external operation (surgical) wound, not elsewhere classified, initial encounter (principal); I13.0 Hypertensive heart and chronic kidney disease with heart failure and stage 1 through stage 4 chronic kidney disease, or unspecified chronic kidney disease; I42.9 Cardiomyopathy, unspecified; R53.1 Weakness; K74.69 Other cirrhosis of liver; J44.9 Chronic obstructive pulmonary disease, unspecified; I48.2 Chronic atrial fibrillation; I25.10 Atherosclerotic heart disease of native coronary artery without angina pectoris; E78.5 Hyperlipidemia, unspecified; H91.90 Unspecified hearing loss, unspecified ear; I50.9 Heart failure, unspecified; N18.3 Chronic kidney disease, stage 3 (moderate); G47.30 Sleep apnea, unspecified; N40.0 Benign prostatic hyperplasia without lower urinary tract symptoms; Z90.49 Acquired absence of other specified parts of digestive tract; Z95.810 Presence of automatic (implantable) cardiac defibrillator; D64.9 Anemia, unspecified; Y83.8 Other surgical procedures as the cause of abnormal reaction of the patient, or of later complication, without mention of misadventure at the time of the procedure; Z85.118 Personal history of other malignant neoplasm of bronchus and lung; Z88.1 Allergy status to other antibiotic agents; Z79.82 Long term (current) use of aspirin; Z79.52 Long term (current) use of systemic steroids; Z79.899 Other long term (current) drug therapy; Z95.5 Presence of coronary angioplasty implant and graft; Z87.891 Personal history of nicotine dependence; Z98.890 Other specified postprocedural states
CPT/HCPCS: 36415; 85014; 85018; 85025; 94640; 97110-GO; 97110-GP; 97116-GP; 97162-GP; 97165-GO; 97530-GO; A9270-GY; J1650; J7620-GY

== ENCOUNTER 2018-11-22 09:29 | Emergency (ER) | payer MEDICARE, OTHER ==
[2018-11-22] MEDS ORDERED: Albuterol/Ipratropium 3.0-0.5 MG/3 ML Neb Soln NEB ONE (09:59)
--- NOTE | 2018-11-22 09:59 | EDM.PDOC ---
ED HPI GENERAL MEDICAL PROBLEM - General Chief Complaint: Respiratory Problem Stated Complaint: DOESN'T FEEL GOOD,BAD BREATHING [id number] Time Seen by Provider: 11/22/18 09:45 Source of Information: Reports: Patient History Limitations: Reports: No Limitations - History of Present Illness INITIAL COMMENTS - FREE TEXT/NARRATIVE: This 78 yo male patient reports to the ED with increased shortness of breath over the past 5 days. The patient reports he has been feeling worse since an injection he got last week. The patient reports he has had increased shortness of breath with any effort. The patient also reports he had some left sided posterior back pain along with his shortness of breath. The patient reports he was hoping his symptoms would improve, but they have gotten worse. The patient reports he has a history of prostate cancer and lung cancer. The patient reports he had 3/4 of his right lung removed 8 years ago, but did not have to have chemo or radiation after surgery. 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 Upper Back Pain Score (Numeric/FACES): 5 - Related Data Allergies Allergy/AdvReac Type Severity Reaction Status Date / Time piperacillin sodium Allergy Severe angioedema Verified 03/23/18 15:34 [From Zosyn] tazobactam sodium Allergy Severe angioedema Verified 03/23/18 15:34 [From Zosyn] adhesive tape Allergy Blisters Verified 03/23/18 15:34 tazarotene [From Tazorac] Allergy Airway Verified 04/05/18 12:52 Tightness Home Meds: Home Meds Montelukast [Singulair] 10 mg PO BEDTIME 10/26/13 [History] Tiotropium [Spiriva Handihaler] 1 puff INH DAILY 10/26/13 [History] Albuterol/Ipratropium [Combivent Respimat] 2 puff INH BID 08/16/15 [History] Albuterol/Ipratropium [DuoNeb 3.0-0.5 MG/3 ML] 3 ml NEB TID 11/09/15 [History] Pantoprazole Sodium 40 mg PO DAILY 11/09/15 [History] traZODone 50 mg PO BEDTIME 06/29/17 [History] Cholecalciferol (Vitamin D3) [Vitamin D3] 400 units PO DAILY 03/23/18 [History] Docusate Sodium [Colace] 100 mg PO BID 03/23/18 [History] Ferrous Sulfate 325 mg PO DAILY 03/23/18 [History] Fluticasone/Salmeterol [Advair 500-50] 1 puff INH BID 03/23/18 [History] Acetaminophen 500 mg PO Q8HR PRN 04/05/18 [History] Aspirin [Halfprin] 81 mg PO DAILY 04/05/18 [History] Carvedilol [Coreg] 3.125 mg PO BID 04/05/18 [History] Diltiazem [Dilacor XR] 240 mg PO DAILY 04/05/18 [History] Furosemide 20 mg PO DAILY 04/05/18 [History] Lisinopril 2.5 mg PO DAILY 04/05/18 [History] Sennosides [Senna] 1 tab PO BID 04/05/18 [History] predniSONE [Prednisone] 20 mg PO DAILY 04/05/18 [History] Past Medical History HEENT History: Reports: Cataract, Hard of Hearing, Other (See Below) Other HEENT History: thyroid nodule Cardiovascular History: Reports: Afib, Angina, CAD, Heart Failure, High Cholesterol, Hypertension, NC, Pacemaker, SOB on Exertion, Stents, Other (See Below) Other Cardiovascular History: 6 stents placed total Respiratory History: Reports: Asthma, Bronchitis, Recurrent, COPD, Pneumonia, Recurrent, Sleep Apnea, SOB Gastrointestinal History: Reports: Hemorrhoids, Other (See Below) Genitourinary History: Reports: BPH, Prostate Disorder Musculoskeletal History: Reports: Arthritis, Back Pain, Chronic, Fracture, Osteoarthritis Neurological History: Reports: None Psychiatric History: Reports: Depression Other Psychiatric History: insomnia Endocrine/Metabolic History: Reports: None Hematologic History: Reports: Anemia, Iron Deficiency Immunologic History: Reports: Other (See Below) Other Immunologic History: Hx prostate and lung ca. 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 IN THE SERVICE, "NOT THE BAD KIND" - Past Surgical History Head Surgeries/Procedures: Reports: None HEENT Surgical History: Reports: Cataract Surgery, Naso-Sinus Surgery Cardiovascular Surgical History: Reports: AICD, Coronary Artery Stent Respiratory Surgical History: Reports: Lung Resection GI Surgical History: Reports: Abdominal paracentesis, Appendectomy, Colonoscopy , EGD, Polypectomy, Other (See Below) Male Surgical History: Reports: TURP-Transurethral Resection of Prostate Endocrine Surgical History: Reports: Thyroid Biopsy Musculoskeletal Surgical History: Reports: Shoulder Surgery Other Oncologic Surgeries/Procedures: 3/4 of right lobe removed Social & Family History - Family History Family Medical History: Noncontributory - Tobacco Use Smoking Status *Q: Never Smoker Second Hand Smoke Exposure: No - Caffeine Use Caffeine Use: Reports: Coffee - Recreational Drug Use Recreational Drug Use: No - Living Situation & Occupation Living situation: Reports: , Alone Occupation: Retired ED ROS GENERAL - Review of Systems Review Of Systems: ROS reveals no pertinent complaints other than HPI. ED EXAM, GENERAL - Physical Exam Exam: See Below Exam Limited By: No Limitations General Appearance: Alert, WD/WN, Moderate Distress Eye Exam: Bilateral Eye: EOMI, Normal Inspection, PERRL Ears: Normal External Exam, Normal Canal, Hearing Grossly Normal, Normal TMs Nose: Normal Inspection, Normal Mucosa, No Blood Throat/Mouth: Normal Inspection, Normal Lips, Normal Teeth, Normal Gums, Normal Oropharynx, Normal Voice, No Airway Compromise Head: Atraumatic, Normocephalic Neck: Normal Inspection, Supple, Non-Tender, Full Range of Motion Respiratory/Chest: Decreased Breath Sounds, Rhonchi (diffuse) Cardiovascular: Normal Peripheral Pulses, Regular Rate, Rhythm, No Edema, No Gallop, No JVD, No Murmur, No Rub GI/Abdominal: Normal Bowel Sounds, Soft, Non-Tender, No Organomegaly, No Distention, No Abnormal Bruit, No Mass (Male) Exam: Deferred Rectal (Males) Exam: Deferred Back Exam: Normal Inspection, Full Range of Motion, NT Extremities: Pedal Edema (2+) Neurological: Alert, Oriented, CN II-XII Intact, Normal Cognition, Normal Gait, Normal Reflexes, No Motor/Sensory Deficits Psychiatric: Normal Affect, Normal Mood Skin Exam: Warm, Dry, Intact, Normal Color, No Rash Lymphatic: No Adenopathy Course - Vital Signs Last Recorded V/S: Last Vital Signs Temp 37.4 C 11/22/18 10:34 Pulse 56 L 11/22/18 10:34 Resp 20 11/22/18 10:34 BP 99/51 L 11/22/18 10:34 Pulse Ox 96 11/22/18 10:34 - Orders/Labs/Meds Orders: Active Orders 24 hr Category Date Time Status EKG Documentation Completion [RC] URGENT Care 11/22/18 09:41 Active RT Aerosol Therapy [RC] ASDIRECTED Care 11/22/18 10:00 Active Levofloxacin/Dextrose 5%-Water [Levaquin in D5W 500 MG/ Med 11/22/18 10:53 Ordered 100 ML] 500 mg Premix Bag 1 bag IV ONETIME Medication Orders Levofloxacin/Dextrose 500 mg/ (Premix) 100 mls @ 100 mls/hr IV ONETIME ONE Stop: 11/22/18 11:52 Labs: Laboratory Tests 11/22/18 11/22/18 11/22/18 Range/Units 09:53 09:53 09:53 WBC 9.3 (5.0-10.0) 10^3/uL RBC 4.08 L (4.6-6.2) 10^6/uL Hgb 10.9 L D (14.0-18.0) g/dL Hct 33.7 L (40.0-54.0) % MCV 82.6 D (80-100) fL MCH 26.7 L (27.0-34.0) pg MCHC 32.3 L (33.0-35.0) g/dL Plt Count 176 (150-450) 10^3/uL Neut % (Auto) 76.6 H (42.2-75.2) % Lymph % (Auto) 10.0 L (20.5-50.1) % [place] % (Auto) 10.0 H (2-8) % Eos % (Auto) 3.1 H (1.0-3.0) % Baso % (Auto) 0.3 (0.0-1.0) % PT 10.5 (9.0-12.0) SEC INR 1.1 (0.9-1.2) D-Dimer, Quantitative 394 (0-400) ng/mL Sodium 132 L (135-145) mmol/L Potassium 3.4 L (3.6-5.0) mmol/L Chloride 95 L (101-111) mmol/L Carbon Dioxide 25.0 (21.0-31.0) mmol/L Anion Gap 15.4 BUN 26 H (7-18) mg/dL Creatinine 1.3 (0.6-1.3) mg/dL Est Cr Clr Drug Dosing 41.58 mL/min Estimated GFR (MDRD) 53 BUN/Creatinine Ratio 20.00 Glucose 104 (74-105) mg/dL Calcium 8.5 (8.4-10.2) mg/dl Total Bilirubin 1.5 H (0.2-1.0) mg/dL AST 24 (10-42) IU/L ALT 17 (10-60) IU/L Alkaline Phosphatase 131 H (42-121) IU/L Troponin I 0.03 H* (0.00-0.02) ng/ml Total Protein 6.7 (6.7-8.2) g/dl Albumin 3.4 (3.2-5.5) g/dl Globulin 3.3 Albumin/Globulin Ratio 1.03 Meds: Medications Generic Name Dose Route Start Last Admin Trade Name Freq PRN Reason Stop Dose Admin Levofloxacin/Dextrose 500 mg/ 100 mls @ 100 mls/hr 11/22/18 10:53 Premix IV 11/22/18 11:52 ONETIME ONE Discontinued Medications Generic Name Dose Route Start Last Admin Trade Name Freq PRN Reason Stop Dose Admin Albuterol/Ipratropium 3 ml 11/22/18 09:59 11/22/18 10:12 Duoneb 3.0-0.5 Mg/3 Ml NEB 11/22/18 10:00 3 ml ONETIME ONE Administration Departure - Departure Time of Disposition: 10:56 Disposition: Home, Self-Care 01 Condition: Fair Clinical Impression: Bronchitis - Discharge Information *PRESCRIPTION DRUG MONITORING PROGRAM REVIEWED*: Not Applicable *COPY OF PRESCRIPTION DRUG MONITORING REPORT IN PATIENT MARY: Not Applicable Instructions: Upper Respiratory Infection, Adult, [id number], Chronic Obstructive Pulmonary Disease Exacerbation, [id number] Forms: ED Department Discharge Care Plan Goals: The patient was advised of the examination, lab and x-ray results during the visit. The patient was given an IV dose of Levaquin while in the ED. The patient was discharged with a script for Levaquin (500 mg) #6 to take 1 by mouth daily for 6 days (starting 11/23/18). The patient should continue to take his current medications as prescribed. If the patient has any additional symptoms or concerns, the patient should either visit his primary care facility or return to the emergency department. - My Orders Last 24 Hours: My Active Orders 11/22/18 09:41 EKG Documentation Completion [RC] URGENT 11/22/18 10:00 RT Aerosol Therapy [RC] ASDIRECTED 11/22/18 10:53 Levofloxacin/Dextrose 5%-Water [Levaquin in D5W 500 MG/100 ML] 500 mg Premix Bag 1 bag IV ONETIME - Assessment/Plan Last 24 Hours: My Active Orders 11/22/18 09:41 EKG Documentation Completion [RC] URGENT 11/22/18 10:00 RT Aerosol Therapy [RC] ASDIRECTED 11/22/18 10:53 Levofloxacin/Dextrose 5%-Water [Levaquin in D5W 500 MG/100 ML] 500 mg Premix Bag 1 bag IV ONETIME
[2018-11-22 10:19] LABS: ANION GAP 15.4
--- NOTE | 2018-11-22 10:38 | CR ---
Clinical history: 78-year-old male complaining of shortness of breath. Interpretation: *Subtle new nodular density left lung apex warrants further evaluation this patient with chronic volume loss and scarring of the contralateral right lung. CT scan chest without IV contrast suggested. CXR otherwise relatively unchanged except for technique and inspiration when compared directly back to chest films of and 28 March 2018. Chronic cardiomegaly without new venous congestion, cephalization of flow or dependent pleural fluid accumulation (chronic pleural reactive changes bilaterally). External bus monitor leads. Cardiac pacemaker (single lead intact and unchanged). No long-arm venous catheter. No new lung mass, hilar lymphadenopathy or focal lobar pneumonia. No atelectasis or collapse. No pneumothorax. CONCLUSION: No acute new cardiopulmonary abnormality. Suspicious nodular density left lung apex. CT scan recommended.
[2018-11-22] MEDS ORDERED: Levofloxacin/Dextrose 5%-Water 500 MG in Premix Bag 1 BAG IV ONE (10:53)
[2018-11-22 11:35] VITALS: BP 99/47; PULSE 61
== END 2018-11-22 12:12 | disposition home or self-care (01) ==
LOC: DL.ED 09:29
DX: J40 Bronchitis, not specified as acute or chronic (principal); I48.91 Unspecified atrial fibrillation; I25.10 Atherosclerotic heart disease of native coronary artery without angina pectoris; I11.0 Hypertensive heart disease with heart failure; I50.9 Heart failure, unspecified; E78.00 Pure hypercholesterolemia, unspecified; F32.9 Major depressive disorder, single episode, unspecified; Z88.1 Allergy status to other antibiotic agents; Z88.8 Allergy status to other drugs, medicaments and biological substances; Z79.899 Other long term (current) drug therapy
CPT/HCPCS: 36415; 71046; 80053; 84484; 85025; 85379; 85610; 93005; 94640; 96365; 99285; J1956; 99284; J7620-GY

== ENCOUNTER 2019-12-27 10:03 | Emergency (ER) | payer MEDICARE, OTHER ==
[2019-12-27 10:27] VITALS: BP 93/60; PULSE 62
--- NOTE | 2019-12-27 10:53 | EDM.PDOC ---
ED HPI GENERAL MEDICAL PROBLEM - General Chief Complaint: Respiratory Problem Stated Complaint: COPD/SHORTNESS OF BREATH Time Seen by Provider: 12/27/19 10:35 Source of Information: Reports: Patient History Limitations: Reports: No Limitations - History of Present Illness INITIAL COMMENTS - FREE TEXT/NARRATIVE: This 79 yo male patient reports to the ED due to difficulties breathing. The patient reports he has a history of COPD and was in a car with the air conditioning on this past weekend. The patient reports increased shortness of breath since Thursday. The patient reports he did a Duoneb treatment this morning between 7 and 8 am with little to no symptom improvement. The patient reports he attempted to get into his primary care facility ([facility]) , but was advised to come to the ED. 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 - Related Data Allergies Allergy/AdvReac Type Severity Reaction Status Date / Time piperacillin sodium Allergy Severe angioedema Verified 12/27/19 10:20 [From Zosyn] tazobactam sodium Allergy Severe angioedema Verified 12/27/19 10:20 [From Zosyn] adhesive tape Allergy Blisters Verified 12/27/19 10:20 tazarotene [From Tazorac] Allergy Airway Verified 12/27/19 10:20 Tightness Home Meds: Home Meds Montelukast [Singulair] 10 mg PO BEDTIME 10/26/13 [History] Tiotropium [Spiriva Handihaler] 1 puff INH DAILY 10/26/13 [History] Albuterol/Ipratropium [Combivent Respimat] 2 puff INH BID 08/16/15 [History] Albuterol/Ipratropium [DuoNeb 3.0-0.5 MG/3 ML] 3 ml NEB TID 11/09/15 [History] Pantoprazole Sodium 40 mg PO DAILY 11/09/15 [History] Cholecalciferol (Vitamin D3) [Vitamin D3] 400 units PO DAILY 03/23/18 [History] Docusate Sodium [Colace] 100 mg PO BID 03/23/18 [History] Ferrous Sulfate 325 mg PO DAILY 03/23/18 [History] Fluticasone/Salmeterol [Advair 500-50] 1 puff INH BID 03/23/18 [History] Acetaminophen 500 mg PO Q8HR PRN 04/05/18 [History] Aspirin [Halfprin] 81 mg PO DAILY 04/05/18 [History] Furosemide 20 mg PO DAILY 04/05/18 [History] Lisinopril 2.5 mg PO DAILY 04/05/18 [History] Sennosides [Senna] 1 tab PO BID 04/05/18 [History] carvediloL [Coreg] 3.125 mg PO BID 04/05/18 [History] Past Medical History HEENT History: Reports: Cataract, Hard of Hearing, Other (See Below) Other HEENT History: thyroid nodule Cardiovascular History: Reports: Afib, Angina, CAD, Heart Failure, High Cholesterol, Hypertension, VT, Pacemaker, SOB on Exertion, Stents, Other (See Below) Other Cardiovascular History: 6 stents placed total Respiratory History: Reports: Asthma, Bronchitis, Recurrent, COPD, Pneumonia, Recurrent, Sleep Apnea, SOB Gastrointestinal History: Reports: Hemorrhoids, Other (See Below) Genitourinary History: Reports: BPH, Prostate Disorder Musculoskeletal History: Reports: Arthritis, Back Pain, Chronic, Fracture, Osteoarthritis Neurological History: Reports: None Psychiatric History: Reports: Depression Other Psychiatric History: insomnia Endocrine/Metabolic History: Reports: None Hematologic History: Reports: Anemia, Iron Deficiency Immunologic History: Reports: Other (See Below) Other Immunologic History: Hx prostate and lung ca. 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 IN THE SERVICE, "NOT THE BAD KIND" - Past Surgical History Head Surgeries/Procedures: Reports: None HEENT Surgical History: Reports: Cataract Surgery, Naso-Sinus Surgery Cardiovascular Surgical History: Reports: AICD, Coronary Artery Stent Respiratory Surgical History: Reports: Lung Resection GI Surgical History: Reports: Abdominal paracentesis, Appendectomy, Colonoscopy , EGD, Polypectomy, Other (See Below) Male Surgical History: Reports: TURP-Transurethral Resection of Prostate Endocrine Surgical History: Reports: Thyroid Biopsy Musculoskeletal Surgical History: Reports: Shoulder Surgery Other Oncologic Surgeries/Procedures: 3/4 of right lobe removed Social & Family History - Family History Family Medical History: Noncontributory - Tobacco Use Smoking Status *Q: Former Smoker Used Tobacco, but Quit: No - Caffeine Use Caffeine Use: Reports: Coffee - Living Situation & Occupation Living situation: Reports: , Alone Occupation: Retired ED ROS GENERAL - Review of Systems Review Of Systems: Comprehensive ROS is negative, except as noted in HPI. ED EXAM, GENERAL - Physical Exam Exam: See Below Exam Limited By: No Limitations General Appearance: Alert, WD/WN, Moderate Distress Eye Exam: Bilateral Eye: EOMI, Normal Inspection, PERRL Nose: Normal Inspection, Normal Mucosa, No Blood Throat/Mouth: Normal Inspection, Normal Lips, Normal Teeth, Normal Gums, Normal Oropharynx, Normal Voice, No Airway Compromise Head: Atraumatic, Normocephalic Neck: Normal Inspection, Supple, Non-Tender, Full Range of Motion Respiratory/Chest: No Respiratory Distress, No Accessory Muscle Use, Chest Non- Tender, Decreased Breath Sounds (throughout) Cardiovascular: Normal Peripheral Pulses, Regular Rate, Rhythm, No Edema, No Gallop, No JVD, No Murmur, No Rub GI/Abdominal: Normal Bowel Sounds, Soft, Non-Tender, No Organomegaly, No Distention, No Abnormal Bruit, No Mass (Male) Exam: Deferred Rectal (Males) Exam: Deferred Back Exam: Normal Inspection, Full Range of Motion, NT Extremities: Normal Inspection, Normal Range of Motion, Non-Tender, Normal Capillary Refill, No Pedal Edema Neurological: Alert, Oriented, CN II-XII Intact, Normal Cognition, Normal Gait, Normal Reflexes, No Motor/Sensory Deficits Psychiatric: Normal Affect, Normal Mood Skin Exam: Warm, Dry, Intact, Normal Color, No Rash Lymphatic: No Adenopathy Course - Vital Signs Last Recorded V/S: Last Vital Signs Temp 36.7 C 12/27/19 10:23 Pulse 62 12/27/19 10:23 Resp 20 12/27/19 10:23 BP 93/60 12/27/19 10:23 Pulse Ox 94 L 12/27/19 10:23 - Orders/Labs/Meds Labs: Laboratory Tests 12/27/19 12/27/19 Range/Units 10:50 10:50 WBC 7.4 (5.0-10.0) 10^3/uL RBC 3.70 L (4.6-6.2) 10^6/uL Hgb 10.5 L (14.0-18.0) g/dL Hct 32.2 L (40.0-54.0) % MCV 87.0 D (80-100) fL MCH 28.4 (27.0-34.0) pg MCHC 32.6 L (33.0-35.0) g/dL Plt Count 172 (150-450) 10^3/uL Neut % (Auto) 75.0 (42.2-75.2) % Lymph % (Auto) 11.0 L (20.5-50.1) % [place] % (Auto) 10.9 H (2-8) % Eos % (Auto) 2.7 (1.0-3.0) % Baso % (Auto) 0.4 (0.0-1.0) % Sodium 136 (136-145) mmol/L Potassium 4.2 (3.5-5.1) mmol/L Chloride 102 (98-107) mmol/L Carbon Dioxide 27 (21-32) mmol/L Anion Gap 11.2 (7-13) mEq/L BUN 25 H (7-18) mg/dL Creatinine 1.40 H (0.70-1.30) mg/dL Est Cr Clr Drug Dosing 37.98 mL/min Estimated GFR (MDRD) 49 BUN/Creatinine Ratio 17.9 (No establ ref range) Glucose 98 (74-99) mg/dL Calcium 7.8 L (8.5-10.1) mg/dL Total Bilirubin 1.3 H (0.2-1.0) mg/dL AST 23 (15-37) U/L ALT 19 (16-63) U/L Alkaline Phosphatase 130 H (46-116) U/L B-Natriuretic Peptide 142 H (0-100) pg/ml Total Protein 6.2 L (6.4-8.2) g/dL Albumin 3.2 L (3.4-5.0) g/dL Globulin 3.0 Albumin/Globulin Ratio 1.07 Meds: Medications Discontinued Medications Generic Name Dose Route Start Last Admin Trade Name Freq PRN Reason Stop Dose Admin Methylprednisolone Sodium Succinate 40 mg 12/27/19 12:37 Solu-Medrol IVPUSH 12/27/19 12:38 ONETIME ONE Departure - Departure Time of Disposition: 12:40 Disposition: Home, Self-Care 01 Condition: Fair Clinical Impression: COPD (chronic obstructive pulmonary disease) with acute bronchitis, COPD exacerbation - Discharge Information *PRESCRIPTION DRUG MONITORING PROGRAM REVIEWED*: Not Applicable *COPY OF PRESCRIPTION DRUG MONITORING REPORT IN PATIENT MARY: Not Applicable Instructions: Chronic Obstructive Pulmonary Disease Exacerbation, [id number] Forms: ED Department Discharge Care Plan Goals: The patient was advised of the examination, lab and x-ray results during the visit. The patient was given an IV dose of Solumedrol while in the ED. The patient was discharged with scripts for Azithromycin (250 mg) #6 to take 2 by mouth on day 1 and 1 by mouth on days 2-5 and Prednisone (20 mg) #10 to take 2 by mouth daily with food. The patient should continue to take his medications as prescribed. The patient should also continue to use his breathing treatments. If the patient has any additional symptoms or concerns, the patient should either visit his primary care facility or return to the emergency department. Sepsis Event Note - Evaluation Sepsis Screening Result: No Definite Risk - Focused Exam Vital Signs: Vital Signs Temp Pulse Resp BP Pulse Ox 12/27/19 10:23 36.7 C 62 20 93/60 94 L Date Exam was Performed: 12/27/19 Time Exam was Performed: 12:40
[2019-12-27 11:17] LABS: ANION GAP 11.2 mEq/L (7-13)
--- NOTE | 2019-12-27 11:20 | CR ---
EXAMINATION: Chest 2V SEX: Male AGE: 79 years CLINICAL HISTORY: 79-year-old male complaining of shortness of breath (COPD "acting up because of sister's air conditioner") comparison exam 22 November 2018. SOB. Interpretation: *No acute new cardiopulmonary abnormality identified in the interval since 22 November 2018 comparison exam. Chronically enlarged cardiac silhouette and cardiac pacer (single lead) unchanged. No new pulmonary vascular congestion, cephalization of flow or alveolar edema. Chronic pleural reactive changes both bases but no dependent new pleural fluid accumulation. Chronic asymmetric pleural reactive changes right lung apex. No new lung mass, hilar lymphadenopathy or focal lobar pneumonia. No pneumothorax or pneumomediastinum.
[2019-12-27] MEDS ORDERED: methylPREDNISolone Sodium Succinate 40 MG/1 ML SDV IVPUSH ONE (12:37)
== END 2019-12-27 12:46 | disposition home or self-care (01) ==
LOC: DL.ED 10:03
DX: J44.1 Chronic obstructive pulmonary disease with (acute) exacerbation (principal); J20.9 Acute bronchitis, unspecified; J44.0 Chronic obstructive pulmonary disease with (acute) lower respiratory infection; I11.0 Hypertensive heart disease with heart failure; I50.9 Heart failure, unspecified; I25.10 Atherosclerotic heart disease of native coronary artery without angina pectoris; I48.91 Unspecified atrial fibrillation; M19.90 Unspecified osteoarthritis, unspecified site; F32.9 Major depressive disorder, single episode, unspecified; D64.9 Anemia, unspecified; Z87.891 Personal history of nicotine dependence; I25.2 Old myocardial infarction; Z95.0 Presence of cardiac pacemaker; Z88.0 Allergy status to penicillin; Z91.048 Other nonmedicinal substance allergy status; Z88.8 Allergy status to other drugs, medicaments and biological substances; Z79.899 Other long term (current) drug therapy; Z79.82 Long term (current) use of aspirin
CPT/HCPCS: 36415; 71046; 80053; 83880; 85025; 96374; 99285; J2920

== ENCOUNTER 2020-03-07 09:15 | Emergency (ER) | payer MEDICARE, OTHER ==
--- NOTE | 2020-03-07 09:23 | EDM.PDOC ---
ED HPI GENERAL MEDICAL PROBLEM - General Chief Complaint: Respiratory Problem Stated Complaint: SOB COPD ACTING UP [phone] Time Seen by Provider: 03/07/20 09:19 Source of Information: Reports: Patient, Old Records, RN, RN Notes Reviewed History Limitations: Reports: No Limitations - History of Present Illness INITIAL COMMENTS - FREE TEXT/NARRATIVE: Pt presents to ER by POV with c/o a "COPD flare up". Pt reports progressively worsening shortness of breath over the past week. He denies chest pain, increasing edema, orthopnea, fever, chills, any recent travel, or known COVID exposures. 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) - Related Data Allergies Allergy/AdvReac Type Severity Reaction Status Date / Time piperacillin sodium Allergy Severe angioedema Verified 03/07/20 09:27 [From Zosyn] tazobactam sodium Allergy Severe angioedema Verified 03/07/20 09:27 [From Zosyn] adhesive tape Allergy Blisters Verified 03/07/20 09:27 tazarotene [From Tazorac] Allergy Airway Verified 03/07/20 09:27 Tightness Home Meds: Home Meds Montelukast [Singulair] 10 mg PO BEDTIME 10/26/13 [History] Tiotropium [Spiriva Handihaler] 1 puff INH DAILY 10/26/13 [History] Albuterol/Ipratropium [Combivent Respimat] 2 puff INH BID 08/16/15 [History] Albuterol/Ipratropium [DuoNeb 3.0-0.5 MG/3 ML] 3 ml NEB TID 11/09/15 [History] Pantoprazole Sodium 40 mg PO DAILY 11/09/15 [History] Cholecalciferol (Vitamin D3) [Vitamin D3] 400 units PO DAILY 03/23/18 [History] Docusate Sodium [Colace] 100 mg PO BID 03/23/18 [History] Ferrous Sulfate 325 mg PO DAILY 03/23/18 [History] Acetaminophen 500 mg PO Q8HR PRN 04/05/18 [History] Aspirin [Halfprin] 81 mg PO DAILY 04/05/18 [History] Furosemide 40 mg PO DAILY 04/05/18 [History] Lisinopril 2.5 mg PO DAILY 04/05/18 [History] Sennosides [Senna] 1 tab PO BID 04/05/18 [History] carvediloL [Coreg] 3.125 mg PO BID 04/05/18 [History] Fluticasone Propion/Salmeterol [[place]ela 500-50 Inhub] 1 inh PO BID 03/07/20 [History] Potassium Chloride [K-Tab ER] 20 meq PO DAILY 03/07/20 [History] Rosuvastatin Calcium 5 mg PO BEDTIME 03/07/20 [History] dilTIAZem HCL [Diltiazem 24Hr ER] 240 mg PO DAILY 03/07/20 [History] Past Medical History HEENT History: Reports: Cataract, Hard of Hearing, Other (See Below) Other HEENT History: thyroid nodule Cardiovascular History: Reports: Afib, Angina, CAD, Heart Failure, High Cholesterol, Hypertension, MA, Pacemaker, SOB on Exertion, Stents, Other (See Below) Other Cardiovascular History: 6 stents placed total Respiratory History: Reports: Asthma, Bronchitis, Recurrent, COPD, Pneumonia, Recurrent, Sleep Apnea, SOB Gastrointestinal History: Reports: Hemorrhoids, Other (See Below) Genitourinary History: Reports: BPH, Prostate Disorder Musculoskeletal History: Reports: Arthritis, Back Pain, Chronic, Fracture, Osteoarthritis Neurological History: Reports: None Psychiatric History: Reports: Depression Other Psychiatric History: insomnia Endocrine/Metabolic History: Reports: None Hematologic History: Reports: Anemia, Iron Deficiency Immunologic History: Reports: Other (See Below) Other Immunologic History: Hx prostate and lung ca. 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 IN THE SERVICE, "NOT THE BAD KIND" - Past Surgical History Head Surgeries/Procedures: Reports: None HEENT Surgical History: Reports: Cataract Surgery, Naso-Sinus Surgery Cardiovascular Surgical History: Reports: AICD, Coronary Artery Stent Respiratory Surgical History: Reports: Lung Resection GI Surgical History: Reports: Abdominal paracentesis, Appendectomy, Colonoscopy, EGD, Polypectomy, Other (See Below) Male Surgical History: Reports: TURP-Transurethral Resection of Prostate Endocrine Surgical History: Reports: Thyroid Biopsy Musculoskeletal Surgical History: Reports: Shoulder Surgery Other Oncologic Surgeries/Procedures: 3/4 of right lobe removed Social & Family History - Family History Family Medical History: Noncontributory - Caffeine Use Caffeine Use: Reports: Coffee - Living Situation & Occupation Living situation: Reports: , Alone Occupation: Retired ED ROS GENERAL - Review of Systems Review Of Systems: Comprehensive ROS is negative, except as noted in HPI. ED EXAM, GENERAL - Physical Exam Exam: See Below Exam Limited By: No Limitations General Appearance: Alert, No Apparent Distress, Other (Chronically ill appearing elderly male) Nose: Normal Inspection, Normal Mucosa, No Blood Throat/Mouth: Normal Inspection, Normal Lips, Normal Voice, No Airway Compromise Head: Atraumatic, Normocephalic Neck: Normal Inspection, Non-Tender, Full Range of Motion. No: Lymphadenopathy (L), Lymphadenopathy (R) Respiratory/Chest: No Respiratory Distress, No Accessory Muscle Use, Chest Non- Tender, Decreased Breath Sounds, Crackles, Wheezing. No: Rales, Rhonchi Cardiovascular: Regular Rate, Rhythm GI/Abdominal: Normal Bowel Sounds, Soft, Non-Tender Back Exam: Normal Inspection Extremities: Normal Range of Motion, Non-Tender, Normal Capillary Refill Neurological: Alert, Oriented, CN II-XII Intact, Normal Cognition, No Motor/Sensory Deficits Psychiatric: Normal Affect, Normal Mood Skin Exam: Warm, Dry, Intact, Normal Color, No Rash Course - Vital Signs Last Recorded V/S: Last Vital Signs Temp 97.5 F 03/07/20 09:24 Pulse 65 03/07/20 09:28 Resp 20 03/07/20 09:24 BP 128/64 03/07/20 09:24 Pulse Ox 95 03/07/20 09:28 - Orders/Labs/Meds Orders: Active Orders 24 hr Category Date Time Status Peripheral IV Care [RC] . DIRECTED Care 03/07/20 09:28 Active RT Aerosol Therapy [RC] ASDIRECTED Care 03/07/20 09:28 Active Chest 2V [CR] Stat Exams 03/07/20 09:29 Ordered Levofloxacin/Dextrose 5%-Water [Levaquin in D5W 500 MG/ Med 03/07/20 09:28 Active 100 ML] 500 mg Premix Bag 1 bag IV ONETIME Sodium Chloride 0.9% [Saline Flush] Med 03/07/20 09:28 Active 10 ml FLUSH ASDIRECTED PRN Peripheral IV Insertion Adult [OM.PC] Stat Oth 03/07/20 09:27 Ordered Medication Orders Levofloxacin/Dextrose 500 mg/ (Premix) 100 mls @ 100 mls/hr IV ONETIME ONE Stop: 03/07/20 10:27 Last Admin: 03/07/20 09:41 Dose: 100 mls/hr Documented by: GI Sodium Chloride (Saline Flush) 10 ml FLUSH ASDIRECTED PRN PRN Reason: Keep Vein Open Last Admin: 03/07/20 09:41 Dose: 10 ml Documented by: GI Labs: Laboratory Tests 03/07/20 03/07/20 Range/Units 09:38 09:38 WBC 4.9 L (5.0-10.0) 10^3/uL RBC 3.57 L (4.6-6.2) 10^6/uL Hgb 10.2 L (14.0-18.0) g/dL Hct 31.9 L (40.0-54.0) % MCV 89.4 (80-100) fL MCH 28.6 (27.0-34.0) pg MCHC 32.0 L (33.0-35.0) g/dL Plt Count 146 L (150-450) 10^3/uL Neut % (Auto) 64.3 (42.2-75.2) % Lymph % (Auto) 19.1 L (20.5-50.1) % [place] % (Auto) 11.3 H (2-8) % Eos % (Auto) 4.9 H (1.0-3.0) % Baso % (Auto) 0.4 (0.0-1.0) % Sodium 137 (136-145) mmol/L Potassium 4.1 (3.5-5.1) mmol/L Chloride 102 (98-107) mmol/L Carbon Dioxide 29 (21-32) mmol/L Anion Gap 10.1 (7-13) mEq/L BUN 23 H (7-18) mg/dL Creatinine 1.25 (0.70-1.30) mg/dL Est Cr Clr Drug Dosing 43.30 mL/min Estimated GFR (MDRD) 56 BUN/Creatinine Ratio 18.4 (No establ ref range) Glucose 97 (74-99) mg/dL Calcium 8.2 L (8.5-10.1) mg/dL Total Bilirubin 0.6 (0.2-1.0) mg/dL AST 24 (15-37) U/L ALT 16 (16-63) U/L Alkaline Phosphatase 107 (46-116) U/L Total Protein 6.8 (6.4-8.2) g/dL Albumin 3.5 (3.4-5.0) g/dL Globulin 3.3 Albumin/Globulin Ratio 1.1 Meds: Medications Generic Name Dose Route Start Last Admin Trade Name Freq PRN Reason Stop Dose Admin Levofloxacin/Dextrose 500 mg/ 100 mls @ 100 mls/hr 03/07/20 09:28 03/07/20 09:41 Premix IV 03/07/20 10:27 100 mls/hr ONETIME ONE Administration Sodium Chloride 10 ml 03/07/20 09:28 03/07/20 09:41 Saline Flush FLUSH 10 ml ASDIRECTED PRN Administration Keep Vein Open Discontinued Medications Generic Name Dose Route Start Last Admin Trade Name Freq PRN Reason Stop Dose Admin Albuterol/Ipratropium 3 ml 03/07/20 09:28 03/07/20 09:44 Duoneb 3.0-0.5 Mg/3 Ml NEB 03/07/20 09:29 3 ml ONETIME ONE Administration Methylprednisolone Sodium Succinate 125 mg 03/07/20 09:28 03/07/20 09:41 Solu-Medrol IVPUSH 03/07/20 09:29 125 mg ONETIME ONE Administration - Radiology Interpretation Free Text/Narrative:: Chest X-ray: COPD changes, no acute process, see Rad. report. Departure - Departure Time of Disposition: 10:30 Disposition: Home, Self-Care 01 Condition: Fair Clinical Impression: Acute exacerbation of chronic obstructive pulmonary disease - Discharge Information *PRESCRIPTION DRUG MONITORING PROGRAM REVIEWED*: Not Applicable *COPY OF PRESCRIPTION DRUG MONITORING REPORT IN PATIENT MARY: Not Applicable Instructions: Chronic Obstructive Pulmonary Disease Exacerbation, [id number] Forms: ED Department Discharge Additional Instructions: Rx: Levaquin 500mg Rx: Prednisone 20 Use your nebulizer as prescribed. Follow up in clinic with your doctor in 5 to 7 days for recheck. Return to ER if worse at any time. Sepsis Event Note (ED) - Focused Exam Vital Signs: Vital Signs Temp Pulse Resp BP Pulse Ox Pulse Ox 03/07/20 09:28 65 95 03/07/20 09:24 97.5 F 67 20 128/64 97 - My Orders Last 24 Hours: My Active Orders 03/07/20 09:27 Peripheral IV Insertion Adult [OM.PC] Stat 03/07/20 09:28 Peripheral IV Care [RC] . DIRECTED RT Aerosol Therapy [RC] ASDIRECTED Levofloxacin/Dextrose 5%-Water [Levaquin in D5W 500 MG/100 ML] 500 mg Premix Bag 1 bag IV ONETIME Sodium Chloride 0.9% [Saline Flush] 10 ml FLUSH ASDIRECTED PRN 03/07/20 09:29 Chest 2V [CR] Stat - Assessment/Plan Last 24 Hours: My Active Orders 03/07/20 09:27 Peripheral IV Insertion Adult [OM.PC] Stat 03/07/20 09:28 Peripheral IV Care [RC] . DIRECTED RT Aerosol Therapy [RC] ASDIRECTED Levofloxacin/Dextrose 5%-Water [Levaquin in D5W 500 MG/100 ML] 500 mg Premix Bag 1 bag IV ONETIME Sodium Chloride 0.9% [Saline Flush] 10 ml FLUSH ASDIRECTED PRN 03/07/20 09:29 Chest 2V [CR] Stat
[2020-03-07 09:27] VITALS: BP 128/64
[2020-03-07] MEDS ORDERED: Levofloxacin/Dextrose 5%-Water 500 MG in Premix Bag 1 BAG IV ONE (09:28)
[2020-03-07] MEDS ORDERED: methylPREDNISolone Sodium Succinate 125 MG/2 ML SDV IVPUSH ONE (09:28)
[2020-03-07] MEDS ORDERED: Sodium Chloride 0.9% 10 ML Syringe FLUSH PRN (09:28)
[2020-03-07] MEDS ORDERED: Albuterol/Ipratropium 3.0-0.5 MG/3 ML Neb Soln NEB ONE (09:28)
[2020-03-07 09:47] VITALS: PULSE 65
[2020-03-07 10:02] LABS: ANION GAP 10.1 mEq/L (7-13)
--- NOTE | 2020-03-07 10:47 | CR ---
EXAMINATION: Chest 2V SEX: Male AGE: 79 years CLINICAL HISTORY: 79-year-old male with COPD, heart disease and now "WHEEZING". Comparison exams 27 Dec 2019 and 22 November 2018. Interpretation: Abnormal but generally unchanged. 1. Chronic cardiomegaly later with intact single lead. External monitoring and evaluation advisor leads. 2. Chronic pleural parenchymal scarring with underlying volume loss right hemithorax, unchanged. 3. No pulmonary vascular congestion, cephalization of flow, alveolar edema, or dependent pleural effusion. 4. Osteoporosis and kyphosis associated with several old midthoracic compression fractures. 5. No new lung mass, hilar lymphadenopathy, focal lobar infiltrate or atelectasis. 6. No pneumothorax or pneumomediastinum. 7. Calcifications outlining ectatic thoracic aorta. CONCLUSION: No acute new cardiopulmonary abnormality.
== END 2020-03-07 10:41 | disposition home or self-care (01) ==
LOC: DL.ED 09:15
DX: J44.1 Chronic obstructive pulmonary disease with (acute) exacerbation (principal); M19.90 Unspecified osteoarthritis, unspecified site; I48.91 Unspecified atrial fibrillation; I25.10 Atherosclerotic heart disease of native coronary artery without angina pectoris; I11.0 Hypertensive heart disease with heart failure; I50.9 Heart failure, unspecified; E78.00 Pure hypercholesterolemia, unspecified; I25.2 Old myocardial infarction; F32.9 Major depressive disorder, single episode, unspecified; Z95.5 Presence of coronary angioplasty implant and graft; Z88.1 Allergy status to other antibiotic agents; Z91.048 Other nonmedicinal substance allergy status; Z79.82 Long term (current) use of aspirin; Z79.899 Other long term (current) drug therapy
CPT/HCPCS: 36415; 71046; 80053; 85025; 94640; 96365; 96375; 99283; 99285; J1956; J2930; J7620-GY

== ENCOUNTER 2020-08-08 09:34 | Emergency (ER) | payer MEDICARE, OTHER ==
[2020-08-08 10:27] VITALS: BP 105/54; PULSE 65
[2020-08-08] MEDS ORDERED: Sodium Chloride 0.9% 10 ML Syringe FLUSH PRN (10:55)
[2020-08-08] MEDS ORDERED: methylPREDNISolone Sodium Succinate 125 MG/2 ML SDV IVPUSH ONE (10:55)
[2020-08-08] MEDS ORDERED: Albuterol/Ipratropium 3.0-0.5 MG/3 ML Neb Soln NEB ONE (10:55)
--- NOTE | 2020-08-08 11:33 | EDM.PDOC ---
<Nitish Allred - Last Filed: 08/08/20 11:23> ED HPI GENERAL MEDICAL PROBLEM - General Chief Complaint: Respiratory Problem Stated Complaint: COPD Time Seen by Provider: 08/08/20 10:30 - History of Present Illness INITIAL COMMENTS - FREE TEXT/NARRATIVE: 79 y/o M c/o SOB x 4 days. Pt states he feels like his COPD is acting up again like it does every four months. Today pt awoke from sleep and felt SOB to the point he felt he needed to go to the ER to get treated. The SOB is constant, worse with exertion and does not improve with the patients daily COPD medications which he has taken today. Pt has been using his rescue inhaler more in the last few days but does know exactly how much more. Pt believes his COPD medications are not working very well. Pt states he lives alone and has not been leaving his house and has taken great care to not be exposed to COVID. Denies wells, vision prob, difficulty swallowing, cp, abd pn, difficult voiding, recent falls, fever, cough, chills, drugs, etoh. Onset: Gradual Duration: Day(s):, Getting Worse Location: Reports: Chest Severity: Mild Improves with: Reports: None Worsens with: Reports: Movement Associated Symptoms: Reports: No Other Symptoms Treatments [employer]: Reports: Breathing Treatments - Related Data Allergies Allergy/AdvReac Type Severity Reaction Status Date / Time piperacillin sodium Allergy Severe angioedema Verified 08/08/20 11:13 [From Zosyn] tazobactam sodium Allergy Severe angioedema Verified 08/08/20 11:13 [From Zosyn] adhesive tape Allergy Blisters Verified 08/08/20 11:13 tazarotene [From Tazorac] Allergy Airway Verified 08/08/20 11:13 Tightness Home Meds: Home Meds Montelukast [Singulair] 10 mg PO BEDTIME 10/26/13 [History] Tiotropium [Spiriva Handihaler] 1 puff INH DAILY 10/26/13 [History] Albuterol/Ipratropium [Combivent Respimat] 2 puff INH BID 08/16/15 [History] Albuterol/Ipratropium [DuoNeb 3.0-0.5 MG/3 ML] 3 ml NEB TID 11/09/15 [History] Pantoprazole Sodium 40 mg PO DAILY 11/09/15 [History] Cholecalciferol (Vitamin D3) [Vitamin D3] 400 units PO DAILY 03/23/18 [History] Docusate Sodium [Colace] 100 mg PO BID 03/23/18 [History] Ferrous Sulfate 325 mg PO DAILY 03/23/18 [History] Acetaminophen 500 mg PO Q8HR PRN 04/05/18 [History] Aspirin [Halfprin] 81 mg PO DAILY 04/05/18 [History] Furosemide 40 mg PO DAILY 04/05/18 [History] Lisinopril 2.5 mg PO DAILY 04/05/18 [History] Sennosides [Senna] 1 tab PO BID 04/05/18 [History] carvediloL [Coreg] 3.125 mg PO BID 04/05/18 [History] Fluticasone Propion/Salmeterol [Wixela 500-50 Inhub] 1 inh PO BID 03/07/20 [History] Potassium Chloride [K-Tab ER] 20 meq PO DAILY 03/07/20 [History] Rosuvastatin Calcium 5 mg PO BEDTIME 03/07/20 [History] dilTIAZem HCL [Diltiazem 24Hr ER] 240 mg PO DAILY 03/07/20 [History] Past Medical History HEENT History: Reports: Cataract, Hard of Hearing, Other (See Below) Other HEENT History: thyroid nodule Cardiovascular History: Reports: Afib, Angina, CAD, Heart Failure, High Cholesterol, Hypertension, [place], Pacemaker, SOB on Exertion, Stents, Other (See Below) Other Cardiovascular History: 6 stents placed total Respiratory History: Reports: Asthma, Bronchitis, Recurrent, COPD, Pneumonia, Re current, Sleep Apnea, SOB Gastrointestinal History: Reports: Hemorrhoids, Other (See Below) Genitourinary History: Reports: BPH, Prostate Disorder Musculoskeletal History: Reports: Arthritis, Back Pain, Chronic, Fracture, Osteoarthritis Neurological History: Reports: None Psychiatric History: Reports: Depression Other Psychiatric History: insomnia Endocrine/Metabolic History: Reports: None Hematologic History: Reports: Anemia, Iron Deficiency Immunologic History: Reports: Other (See Below) Other Immunologic History: Hx prostate and lung ca. 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 IN THE SERVICE, "NOT THE BAD KIND" - Past Surgical History Head Surgeries/Procedures: Reports: None HEENT Surgical History: Reports: Cataract Surgery, Naso-Sinus Surgery Cardiovascular Surgical History: Reports: AICD, Coronary Artery Stent Respiratory Surgical History: Reports: Lung Resection GI Surgical History: Reports: Abdominal paracentesis, Appendectomy, Colonoscopy, EGD, Polypectomy, Other (See Below) Male Surgical History: Reports: TURP-Transurethral Resection of Prostate Endocrine Surgical History: Reports: Thyroid Biopsy Musculoskeletal Surgical History: Reports: Shoulder Surgery Other Oncologic Surgeries/Procedures: 3/4 of right lobe removed Social & Family History - Family History Family Medical History: No Pertinent Family History - Caffeine Use Caffeine Use: Reports: Coffee - Living Situation & Occupation Living situation: Reports: , Alone Occupation: Retired ED ROS GENERAL - Review of Systems Review Of Systems: Comprehensive ROS is negative, except as noted in HPI. ED EXAM, GENERAL - Physical Exam Exam: See Below Exam Limited By: No Limitations General Appearance: Alert, Mild Distress Nose: Normal Inspection Throat/Mouth: Normal Inspection Head: Atraumatic, Normocephalic Neck: Normal Inspection, Supple, Non-Tender, Full Range of Motion Respiratory/Chest: No Accessory Muscle Use, Wheezing Cardiovascular: Normal Peripheral Pulses GI/Abdominal: Soft, Non-Tender, No Distention Back Exam: Normal Inspection, Full Range of Motion, NT Extremities: Normal Inspection Psychiatric: Normal Affect Skin Exam: Warm, Dry, Intact Departure - Departure Disposition: Home, Self-Care 01 Clinical Impression: COPD exacerbation, Elevated brain natriuretic peptide (BNP) level, Elevated serum creatinine - Discharge Information Instructions: Chronic Obstructive Pulmonary Disease, [id number] Referrals: PCP,Unobtain [Primary Care Provider] - Forms: ED Department Discharge Additional Instructions: Rx: Prednisone 1.) Keep appointment with your goods layer for tomorrow, discuss your visit today during this visit. 2.) Follow up with your boomboat operator and button reclaimer regarding today's visit, you may need to schedule a visit with them for the following week. 3.) Do not take your morning dose of Carvedilol tomorrow as your blood pressure and heart rate have been low. Talk about changing this medication dose with your goods layer tomorrow. 4.) Return to the emergency department with any shortness of breath, chest pain, or weight gain of more than 5lbs in a short period of time. Sepsis Event Note (ED) - Evaluation Sepsis Screening Result: No Definite Risk <Mame Moreno - Last Filed: 08/08/20 20:35> Course - Vital Signs Last Recorded V/S: Last Vital Signs Temp 97.5 F 08/08/20 10:26 Pulse 65 08/08/20 10:26 Resp 19 08/08/20 10:26 BP 105/54 L 08/08/20 10:26 Pulse Ox 100 08/08/20 10:56 - Orders/Labs/Meds Orders: Active Orders 24 hr Category Date Time Status CULTURE BLOOD [BC] Stat Lab 08/08/20 11:14 Results CULTURE BLOOD [BC] Stat Lab 08/08/20 11:17 Results Blood Culture x2 Reflex Set [OM.PC] Stat Oth 08/08/20 10:55 Ordered Peripheral IV Insertion Adult [OM.PC] Stat Oth 08/08/20 10:55 Ordered Labs: Laboratory Tests 08/08/20 08/08/20 Range/Units 11:17 11:17 WBC 4.8 L (5.0-10.0) 10^3/uL RBC 3.33 L (4.6-6.2) 10^6/uL Hgb 9.6 L (14.0-18.0) g/dL Hct 30.4 L (40.0-54.0) % MCV 91.3 (80-100) fL MCH 28.8 (27.0-34.0) pg MCHC 31.6 L (33.0-35.0) g/dL Plt Count 162 (150-450) 10^3/uL Neut % (Auto) 60.2 (42.2-75.2) % Lymph % (Auto) 22.0 (20.5-50.1) % [place] % (Auto) 11.5 H (2-8) % Eos % (Auto) 5.7 H (1.0-3.0) % Baso % (Auto) 0.6 (0.0-1.0) % Sodium 141 (136-145) mmol/L Potassium 4.1 (3.5-5.1) mmol/L Chloride 104 (98-107) mmol/L Carbon Dioxide 29 (21-32) mmol/L Anion Gap 12.1 (7-13) mEq/L BUN 33 H (7-18) mg/dL Creatinine 1.48 H (0.70-1.30) mg/dL Est Cr Clr Drug Dosing 35.92 mL/min Estimated GFR (MDRD) 46 BUN/Creatinine Ratio 22.3 (No establ ref range) Glucose 106 H (74-99) mg/dL Calcium 8.7 (8.5-10.1) mg/dL Total Bilirubin 0.7 (0.2-1.0) mg/dL AST 20 (15-37) U/L ALT 16 (16-63) U/L Alkaline Phosphatase 92 (46-116) U/L B-Natriuretic Peptide 140 H (0-100) pg/ml Total Protein 6.2 L (6.4-8.2) g/dL Albumin 3.6 (3.4-5.0) g/dL Globulin 2.6 Albumin/Globulin Ratio 1.4 Meds: Medications Discontinued Medications Generic Name Dose Route Start Last Admin Trade Name Freq PRN Reason Stop Dose Admin Albuterol/Ipratropium 3 ml 08/08/20 10:55 08/08/20 11:20 Duoneb 3.0-0.5 Mg/3 Ml NEB 08/08/20 10:56 3 ml ONETIME ONE Administration Methylprednisolone Sodium Succinate 125 mg 08/08/20 10:55 08/08/20 11:20 Solu-Medrol IVPUSH 08/08/20 10:56 125 mg ONETIME ONE Administration Sodium Chloride 10 ml 08/08/20 10:55 08/08/20 11:19 Saline Flush FLUSH 10 ml ASDIRECTED PRN Administration Keep Vein Open - Radiology Interpretation Free Text/Narrative:: Blood pressure cuff realigned prior to orthostatic measurements; orthostatic measurements appropriate. Patient states he feels improved work of breathing following SoluMedrol and Albuterol nebulizer. CXR revealed some mild CHF. Discussed admission to this facility for COPD exacerbation with the patient; he stated he would not like to be admitted and would like to go home. The patient states he has a follow up with his goods layer tomorrow; will tell patient to hold AM dose of Carvedilol prior to nephrology visit and to discuss bradycardia during this visit. Will treat acute COPD exacerbation with Prednisone burst, as patient refuses admission. Discussed need to follow up with pulmonology. Patient verbalized understanding and agreement with plan of care. Departure - Departure Time of Disposition: 13:23 Condition: Good - Discharge Information *PRESCRIPTION DRUG MONITORING PROGRAM REVIEWED*: Not Applicable *COPY OF PRESCRIPTION DRUG MONITORING REPORT IN PATIENT MARY: Not Applicable Sepsis Event Note (ED) - Focused Exam Vital Signs: Vital Signs Temp Pulse Resp BP Pulse Ox Pulse Ox 08/08/20 10:56 100 08/08/20 10:26 97.5 F 65 19 105/54 L 100
[2020-08-08 11:53] LABS: ANION GAP 12.1 mEq/L (7-13)
--- NOTE | 2020-08-08 12:05 | CR ---
PROCEDURE INFORMATION: Exam: XR Chest, 2 Views Exam date and time: 08/08/2020 11:41 AM Age: 79 years old Clinical indication: Other: Cough, dyspnea TECHNIQUE: Imaging protocol: XR of the chest Views: 2 views. COMPARISON: CR Chest 2V 03/07/2020 9:52 AM FINDINGS: Tubes, catheters and devices: A pacemaker device is present, and its leads are in appropriate position. There is a surgical clip at the right hilum. Lungs: There is mild perihilar interstitial prominence consistent with volume overload or early congestive heart failure. Pleural space: Bilateral pleural thickening without change. Stable right apical pleural thickening. Heart/Mediastinum: The heart is enlarged. Wide superior mediastinum. Vasculature: The aorta demonstrates moderate atherosclerotic calcification and ectasia. Diaphragm: There is tenting of the right hemidiaphragm consistent with previous inflammatory disease. Bones/joints: Multiple thoracic compression fractures Soft tissues: There is volume loss with the right chest. IMPRESSION: There is mild perihilar interstitial prominence consistent with volume overload or early congestive heart failure.
== END 2020-08-08 13:39 | disposition home or self-care (01) ==
LOC: DL.ED 09:34
DX: J44.1 Chronic obstructive pulmonary disease with (acute) exacerbation (principal); R74.8 Abnormal levels of other serum enzymes; I48.91 Unspecified atrial fibrillation; I25.10 Atherosclerotic heart disease of native coronary artery without angina pectoris; I11.0 Hypertensive heart disease with heart failure; I50.9 Heart failure, unspecified; E78.00 Pure hypercholesterolemia, unspecified; I25.2 Old myocardial infarction; M19.90 Unspecified osteoarthritis, unspecified site; Z79.82 Long term (current) use of aspirin; Z95.5 Presence of coronary angioplasty implant and graft; Z88.1 Allergy status to other antibiotic agents; Z91.048 Other nonmedicinal substance allergy status; Z88.8 Allergy status to other drugs, medicaments and biological substances; Z79.899 Other long term (current) drug therapy
CPT/HCPCS: 36415; 71046; 80053; 83880; 85025; 87040; 94640; 96374; 99284; 99285-25; J2930; J7620-GY

== ENCOUNTER 2020-09-26 09:00 | Inpatient (IN) | payer MEDICARE, OTHER ==
[2020-09-26] MEDS ORDERED: Albuterol/Ipratropium 3.0-0.5 MG/3 ML Neb Soln NEB ONE ×2 (09:26→10:52)
--- NOTE | 2020-09-26 09:44 | EDM.PDOC ---
<Rigo Sams Antionette - Last Filed: 09/26/20 11:41> ED HPI GENERAL MEDICAL PROBLEM - General Chief Complaint: Respiratory Problem Stated Complaint: COPD ACTING UP Time Seen by Provider: 09/26/20 09:37 Source of Information: Reports: Patient History Limitations: Reports: No Limitations - History of Present Illness INITIAL COMMENTS - FREE TEXT/NARRATIVE: 80 y/o m c/o SOB x 1 week. Pt believes both his COPD and CHF may be acting up and feels like he cannot get air in. He reports his condition has deteriorated over the last several days and has had no relief with his nebulizer which he takes twice a day. He reports he had to sleep upright in his recliner last night because he could not breathe lying down. Pt also reports a productive cough with barker sputum for the last week. Other hx of 6 cardiac stents 10 years ago, HTN and a demand pacemaker. Denies fever, chills, cp, abd pn, difficulty voiding, constipation, trauma, drugs, etoh. Pt takes the non selective beta tangela Carvedilol for his HTN and hear disease and a Duo neb nebulizer for his COPD. Onset: Gradual Duration: Week(s): Location: Reports: Chest Severity: Moderate Improves with: Reports: None Worsens with: Reports: Movement - Related Data Allergies Allergy/AdvReac Type Severity Reaction Status Date / Time piperacillin sodium Allergy Severe angioedema Verified 09/26/20 09:35 [From Zosyn] tazobactam sodium Allergy Severe angioedema Verified 09/26/20 09:35 [From Zosyn] adhesive tape Allergy Blisters Verified 09/26/20 09:35 tazarotene [From Tazorac] Allergy Airway Verified 09/26/20 09:35 Tightness Home Meds: Home Meds Montelukast [Singulair] 10 mg PO BEDTIME 10/26/13 [History] Tiotropium [Spiriva Handihaler] 1 puff INH DAILY 10/26/13 [History] Pantoprazole Sodium 40 mg PO DAILY 11/09/15 [History] Sennosides [Senna] 1 tab PO BID 04/05/18 [History] Potassium Chloride [K-Tab ER] 20 meq PO DAILY 03/07/20 [History] Rosuvastatin Calcium 5 mg PO BEDTIME 03/07/20 [History] dilTIAZem HCL [Diltiazem 24Hr ER] 240 mg PO DAILY 03/07/20 [History] Aspirin 81 mg PO DAILY 09/26/20 [History] Furosemide [Lasix] 20 mg PO BID 09/26/20 [History] Past Medical History HEENT History: Reports: Cataract, Hard of Hearing, Other (See Below) Other HEENT History: thyroid nodule Cardiovascular History: Reports: Afib, Angina, CAD, Heart Failure, High Cholesterol, Hypertension, [place], Pacemaker, SOB on Exertion, Stents, Other (See Below) Other Cardiovascular History: 6 stents placed total Respiratory History: Reports: Asthma, Bronchitis, Recurrent, COPD, Pneumonia, Recurrent, Sleep Apnea, SOB Gastrointestinal History: Reports: Hemorrhoids, Other (See Below) Genitourinary History: Reports: BPH, Prostate Disorder Musculoskeletal History: Reports: Arthritis, Back Pain, Chronic, Fracture, Osteoarthritis Neurological History: Reports: None Psychiatric History: Reports: Depression Other Psychiatric History: insomnia Endocrine/Metabolic History: Reports: None Hematologic History: Reports: Anemia, Iron Deficiency Immunologic History: Reports: Other (See Below) Other Immunologic History: Hx prostate and lung ca. 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 IN THE SERVICE, "NOT THE BAD KIND" - Past Surgical History Head Surgeries/Procedures: Reports: None HEENT Surgical History: Reports: Cataract Surgery, Naso-Sinus Surgery Cardiovascular Surgical History: Reports: AICD, Coronary Artery Stent Respiratory Surgical History: Reports: Lung Resection Other Respiratory Surgeries/Procedures: mediastinoscopy GI Surgical History: Reports: Abdominal paracentesis, Appendectomy, Colonoscopy, EGD, Polypectomy, Other (See Below) Other GI Surgeries/Procedures: uMBILICAL HERNIA PRESENT, appendix rupture recently 01/05/16 Male Surgical History: Reports: TURP-Transurethral Resection of Prostate Endocrine Surgical History: Reports: Thyroid Biopsy Musculoskeletal Surgical History: Reports: Shoulder Surgery Other Oncologic Surgeries/Procedures: 3/4 of right lobe removed Social & Family History - Family History Family Medical History: No Pertinent Family History - Caffeine Use Caffeine Use: Reports: Coffee - Living Situation & Occupation Living situation: Reports: , Alone Occupation: Retired ED ROS GENERAL - Review of Systems Review Of Systems: Comprehensive ROS is negative, except as noted in HPI. ED EXAM, GENERAL - Physical Exam Exam: See Below Exam Limited By: No Limitations General Appearance: Alert, WD/WN, No Apparent Distress Eye Exam: Bilateral Eye: PERRL Ears: Normal External Exam, Normal Canal, Hearing Grossly Normal, Normal TMs Ear Exam: Bilateral Ear: Auricle Normal, Canal Normal, TM normal Nose: Normal Inspection, Normal Mucosa, No Blood Throat/Mouth: Normal Inspection, Normal Lips, Normal Teeth, Normal Gums, Normal Oropharynx, Normal Voice, No Airway Compromise Head: Atraumatic, Normocephalic Neck: Normal Inspection, Supple, Non-Tender, Full Range of Motion Respiratory/Chest: No Respiratory Distress, Chest Non-Tender, Other (Diminshed bilaerally with Rhonchi in the R lower lobe. Expiratory wheezes bilaterally) Cardiovascular: Normal Peripheral Pulses, Regular Rate, Rhythm, No Edema, No Gallop, No JVD, No Murmur, No Rub GI/Abdominal: Normal Bowel Sounds, Soft, Non-Tender, No Organomegaly, No Distention, No Abnormal Bruit, No Mass (Male) Exam: Deferred Rectal (Males) Exam: Deferred Back Exam: Normal Inspection, Full Range of Motion, NT Extremities: Normal Inspection, Normal Range of Motion, Non-Tender, Normal Capillary Refill, No Pedal Edema Neurological: Alert, Oriented, CN II-XII Intact, Normal Cognition, Normal Gait, Normal Reflexes, No Motor/Sensory Deficits Psychiatric: Normal Affect, Normal Mood Skin Exam: Warm, Dry, Intact, Normal Color, No Rash Departure - Departure Time of Disposition: 11:42 Disposition: Admitted As Inpatient 65 Clinical Impression: Community acquired pneumonia Qualifiers: Laterality: right Lung location: middle lobe of lung Qualified Code(s): J18.9 - Pneumonia, unspecified organism - Discharge Information *PRESCRIPTION DRUG MONITORING PROGRAM REVIEWED*: Not Applicable *COPY OF PRESCRIPTION DRUG MONITORING REPORT IN PATIENT MARY: Not Applicable Forms: ED Department Discharge Care Plan Goals: Discussed pts hx, exam, labs, x ray, ekg and treatments with Dr. Melgar. Dr. Melgar accepted pt for continued evaluation and care at [facility]. Sepsis Event Note (ED) - Evaluation Sepsis Screening Result: No Definite Risk <Jay Mike - Last Filed: 09/26/20 11:56> Course - Vital Signs Last Recorded V/S: Last Vital Signs Temp 36.9 C 09/26/20 09:16 Pulse 62 09/26/20 10:52 Resp 24 H 09/26/20 09:34 BP 111/68 09/26/20 09:16 Pulse Ox 95 09/26/20 10:52 - Orders/Labs/Meds Orders: Active Orders 24 hr Category Date Time Status Admission Diagnosis [ADT] Urgent ADT 09/26/20 11:42 Ordered Admission Status [Patient Status] [ADT] Routine ADT 09/26/20 11:42 Active EKG Documentation Completion [RC] STAT Care 09/26/20 09:23 Active RT Aerosol Therapy [RC] ASDIRECTED Care 09/26/20 09:26 Active RT Aerosol Therapy [RC] ASDIRECTED Care 09/26/20 10:52 Active CULTURE BLOOD [BC] Stat Lab 09/26/20 11:10 Received CULTURE BLOOD [BC] Stat Lab 09/26/20 11:32 Received UA RFX JORJE AND CULT IF INDIC [URIN] Stat Lab 09/26/20 09:23 Ordered Magnesium Sulfate/Water [Magnesium Sulfate in Water 2 Med 09/26/20 10:30 Active GM/50 ML] 2 gm in 50 ml IV ONETIME Blood Culture x2 Reflex Set [OM.PC] Stat Oth 09/26/20 10:55 Ordered Medication Orders Magnesium Sulfate (Magnesium Sulfate In Water 2 Gm/50 Ml) 2 gm in 50 mls @ 25 mls/hr IV ONETIME ONE Stop: 09/26/20 12:29 Last Admin: 09/26/20 10:32 Dose: 25 mls/hr Documented by: KENJI Labs: Laboratory Tests 09/26/20 09/26/20 09/26/20 Range/Units 09:33 09:34 09:34 WBC 9.3 (5.0-10.0) 10^3/uL RBC 3.55 L (4.6-6.2) 10^6/uL Hgb 10.4 L (14.0-18.0) g/dL Hct 32.1 L (40.0-54.0) % MCV 90.4 (80-100) fL MCH 29.3 (27.0-34.0) pg MCHC 32.4 L (33.0-35.0) g/dL Plt Count 151 (150-450) 10^3/uL Neut % (Auto) 73.6 (42.2-75.2) % Lymph % (Auto) 11.1 L (20.5-50.1) % [place] % (Auto) 9.3 H (2-8) % Eos % (Auto) 5.8 H (1.0-3.0) % Baso % (Auto) 0.2 (0.0-1.0) % Sodium 137 (136-145) mmol/L Potassium 3.8 (3.5-5.1) mmol/L Chloride 100 (98-107) mmol/L Carbon Dioxide 28 (21-32) mmol/L Anion Gap 12.8 (7-13) mEq/L BUN 23 H (7-18) mg/dL Creatinine 1.45 H (0.70-1.30) mg/dL Est Cr Clr Drug Dosing 36.06 mL/min Estimated GFR (MDRD) 47 BUN/Creatinine Ratio 15.9 (No establ ref range) Glucose 95 (74-99) mg/dL Lactic Acid (0.4-2.0) mmol/L Calcium 8.5 (8.5-10.1) mg/dL Magnesium 1.9 (1.8-2.4) mg/dL Total Bilirubin 1.3 H (0.2-1.0) mg/dL AST 18 (15-37) U/L ALT 13 L (16-63) U/L Alkaline Phosphatase 93 (46-116) U/L Troponin I < 0.017 (0.000-0.056) ng/mL B-Natriuretic Peptide 183 H (0-100) pg/ml Total Protein 6.6 (6.4-8.2) g/dL Albumin 3.3 L (3.4-5.0) g/dL Globulin 3.3 Albumin/Globulin Ratio 1.00 SARS CoV-2 RNA Rapid NELDA Negative (NEGATIVE) 09/26/20 Range/Units 09:34 WBC (5.0-10.0) 10^3/uL RBC (4.6-6.2) 10^6/uL Hgb (14.0-18.0) g/dL Hct (40.0-54.0) % MCV (80-100) fL MCH (27.0-34.0) pg MCHC (33.0-35.0) g/dL Plt Count (150-450) 10^3/uL Neut % (Auto) (42.2-75.2) % Lymph % (Auto) (20.5-50.1) % [place] % (Auto) (2-8) % Eos % (Auto) (1.0-3.0) % Baso % (Auto) (0.0-1.0) % Sodium (136-145) mmol/L Potassium (3.5-5.1) mmol/L Chloride (98-107) mmol/L Carbon Dioxide (21-32) mmol/L Anion Gap (7-13) mEq/L BUN (7-18) mg/dL Creatinine (0.70-1.30) mg/dL Est Cr Clr Drug Dosing mL/min Estimated GFR (MDRD) BUN/Creatinine Ratio (No establ ref range) Glucose (74-99) mg/dL Lactic Acid 0.7 (0.4-2.0) mmol/L Calcium (8.5-10.1) mg/dL Magnesium (1.8-2.4) mg/dL Total Bilirubin (0.2-1.0) mg/dL AST (15-37) U/L ALT (16-63) U/L Alkaline Phosphatase (46-116) U/L Troponin I (0.000-0.056) ng/mL B-Natriuretic Peptide (0-100) pg/ml Total Protein (6.4-8.2) g/dL Albumin (3.4-5.0) g/dL Globulin Albumin/Globulin Ratio SARS CoV-2 RNA Rapid NELDA (NEGATIVE) Meds: Medications Generic Name Dose Route Start Last Admin Trade Name Freq PRN Reason Stop Dose Admin Magnesium Sulfate 2 gm in 50 mls @ 25 mls/hr 09/26/20 10:30 09/26/20 10:32 Magnesium Sulfate In Water 2 Gm/50 Ml IV 09/26/20 12:29 25 mls/hr ONETIME ONE Administration Discontinued Medications Generic Name Dose Route Start Last Admin Trade Name Freq PRN Reason Stop Dose Admin Albuterol/Ipratropium 3 ml 09/26/20 09:26 09/26/20 09:46 Duoneb 3.0-0.5 Mg/3 Ml NEB 09/26/20 09:27 3 ml ONETIME ONE Administration Albuterol/Ipratropium 3 ml 09/26/20 10:52 09/26/20 11:16 Duoneb 3.0-0.5 Mg/3 Ml NEB 09/26/20 10:53 3 ml ONETIME ONE Administration Ceftriaxone Sodium 1 gm/ 50 mls @ 100 mls/hr 09/26/20 10:56 09/26/20 11:50 Sodium Chloride IV 09/26/20 11:25 100 mls/hr ONETIME ONE Administration Methylprednisolone Sodium Succinate 125 mg 09/26/20 10:54 09/26/20 11:49 Solu-Medrol IVPUSH 09/26/20 10:55 125 mg ONETIME ONE Administration - Re-Assessments/Exams Free Text/Narrative Re-Assessment/Exam: 09/26/20 11:51 I have examined the patient. I have discussed findings and treatment plan with the PA student. I agree with the assessment and plan in the following students note. Sepsis Event Note (ED) - Focused Exam Vital Signs: Vital Signs Temp Pulse Resp BP Pulse Ox Pulse Ox 09/26/20 10:52 62 95 09/26/20 09:34 24 H 09/26/20 09:26 78 96 09/26/20 09:16 36.9 C 75 111/68 91 L
[2020-09-26 10:01] LABS: ANION GAP 12.8 mEq/L (7-13); CHLORIDE,CL 100 mmol/L (98-107); SODIUM,NA 137 mmol/L (136-145)
[2020-09-26] MEDS ORDERED: Magnesium Sulfate/Water 2 GM/50 ML BAG IV ONE (10:30)
--- NOTE | 2020-09-26 10:41 | CR ---
PROCEDURE INFORMATION: Exam: XR Chest, 2 Views Exam date and time: 09/26/2020 10:12 AM Age: 80 years old Clinical indication: Shortness of breath; Additional info: Short of breath TECHNIQUE: Imaging protocol: XR of the chest Views: 2 views. COMPARISON: CR Chest 2V 08/08/2020 11:[address] Chest wo Cont 02/01/2020 1:35:02 PM FINDINGS: Tubes, catheters and devices: Surgical clips again present at the right hilar region. Lungs: There is increased relatively dense airspace opacity in the right mid and lower lateral chest and at the right base, most likely pneumonia. Predominantly linear atelectasis or scar at the right apex, and additional scarring at the right base with retraction. Pleural spaces: Pleural thickening in the mid and lower lateral chest bilaterally, right greater than left similar to slightly increased since 08/08/2020. No pleural effusion or pneumothorax. Right apical pleural thickening is stable. This pleural thickening could obscure the spiculated nodular opacity seen at the right apex on prior CT chest. Heart/Mediastinum: Heart size remains markedly enlarged. Vasculature: Aorta remains markedly tortuous and ectatic with atherosclerotic calcification and known aneurysmal dilatation. Single lead pacemaker from a left subclavian transvenous approach again present. Bones/joints: There is exaggeration of the normal thoracic scoliosis. Multilevel vertebral compression deformities are stable. IMPRESSION: 1. Increased relatively dense airspace opacity at the right mid and lower lateral chest and right base, most likely pneumonia. 2. Multifocal pleural thickening, most pronounced at the right apex, and likely increased in the mid and lower chest bilaterally. 3. Pacemaker present. 4. Continued marked cardiomegaly and known aneurysmal dilatation of the thoracic aorta.
[2020-09-26] MEDS ORDERED: methylPREDNISolone Sodium Succinate 125 MG/2 ML SDV IVPUSH ONE (10:54)
[2020-09-26] MEDS ORDERED: cefTRIAXone 1 GM in Sodium Chloride 0.9% 50 ML IV ONE (10:56)
[2020-09-26] MEDS ORDERED: Albuterol 0.083% 2.5 MG/3 ML Neb Soln NEB PRN (12:36)
[2020-09-26] MEDS ORDERED: Acetaminophen 325 MG Tab PO PRN (12:36)
--- NOTE | 2020-09-26 13:26 | PCM.HP ---
H&P History of Present Illness - General Date of Service: 09/26/20 Admit Problem/Dx: Admission Diagnosis/Problem Admission Diagnosis/Problem Hypoxia Source of Information: Patient History Limitations: Reports: No Limitations - History of Present Illness Initial Comments - Free Text/Narative: Patient is an 80-year-old male with a medical history of chronic atrial fibrillation, chronic systolic CHF status post AICD, hypertension, hyperlipidemia, lung cancer and prostate cancer, COPD, asthma, liver cirrhosis who presented with complaints of cough, shortness of breath and generalized weakness. Patient reports progressive shortness of breath and generalized weakness over t he past 1 week especially with activity. He has also had mildly productive cough. He denies any fever or chest pain. He reports taking his medications religiously. He denies any dizziness, nausea, vomiting, diarrhea. He presented to ER for further evaluation and was found to be hypoxic requiring up to 2 L of oxygen by nasal cannula. Labs significant for hemoglobin of 10.4 which is not far from his baseline, creatinine of 1.45, BNP of 186. Troponin was negative. Chest x-ray showed increased relatively airspace opacity at the right mid and lower lateral chest and right base. Patient received ceftriaxone and azithromycin. Patient later became hypotensive with blood pressure of 85/44. - Related Data Allergies/Adverse Reactions: Allergies Allergy/AdvReac Type Severity Reaction Status Date / Time piperacillin sodium Allergy Severe angioedema Verified 09/26/20 09:35 [From Zosyn] tazobactam sodium Allergy Severe angioedema Verified 09/26/20 09:35 [From Zosyn] adhesive tape Allergy Blisters Verified 09/26/20 09:35 tazarotene [From Tazorac] Allergy Airway Verified 09/26/20 09:35 Tightness Home Medications: Home Meds Montelukast [Singulair] 10 mg PO BEDTIME 10/26/13 [History] Pantoprazole Sodium 40 mg PO DAILY 11/09/15 [History] Sennosides [Senna] 2 tab PO BID 04/05/18 [History] Potassium Chloride [K-Tab ER] 20 meq PO DAILY 03/07/20 [History] dilTIAZem HCL [Diltiazem 24Hr ER] 240 mg PO DAILY 03/07/20 [History] Albuterol Sulfate [Proair Hfa] 2 inh INH DAILY 09/26/20 [History] Albuterol/Ipratropium [Combivent Respimat] 4 gm IH QID PRN 09/26/20 [History] Albuterol/Ipratropium [DuoNeb 3.0-0.5 MG/3 ML] 3 ml .XX QID PRN 09/26/20 [History] Aspirin 81 mg PO DAILY 09/26/20 [History] Cholecalciferol (Vitamin D3) [Vitamin D3] 25 mcg PO DAILY 09/26/20 [History] Ferrous Sulfate 325 mg PO DAILY 09/26/20 [History] Fluticasone Propion/Salmeterol [Fluticasone-Salmeterol 500-50] 1 each IH BID 09/26/20 [History] Furosemide [Lasix] 20 mg PO BID 09/26/20 [History] Losartan [Cozaar] 25 mg PO DAILY 09/26/20 [History] Tiotropium [Spiriva] 18 mcg INH DAILY 09/26/20 [History] carvediloL [Carvedilol] 3.125 mg PO BID 09/26/20 [History] Past Medical History HEENT History: Reports: Cataract, Hard of Hearing, Other (See Below) Other HEENT History: thyroid nodule Cardiovascular History: Reports: Afib, Angina, CAD, Heart Failure, High Cholesterol, Hypertension, MS, Pacemaker, SOB on Exertion, Stents, Other (See Below) Other Cardiovascular History: 6 stents placed total Respiratory History: Reports: Asthma, Bronchitis, Recurrent, COPD, Pneumonia, Recurrent, Sleep Apnea, SOB Gastrointestinal History: Reports: Hemorrhoids, Other (See Below) Genitourinary History: Reports: BPH, Prostate Disorder Musculoskeletal History: Reports: Arthritis, Back Pain, Chronic, Fracture, Osteoarthritis Neurological History: Reports: None Psychiatric History: Reports: Depression Other Psychiatric History: insomnia Endocrine/Metabolic History: Reports: None Hematologic History: Reports: Anemia, Iron Deficiency Immunologic History: Reports: Other (See Below) Other Immunologic History: Hx prostate and lung ca. Oncologic (Cancer) History: Reports: Lung, Prostate Dermatologic History: Reports: Other (See Below) Other Dermatologic History: Dry skin and bruising noted - Infectious Disease History Infectious Disease History: Reports: Measles Other Infectious Disease History: sOME KIND OF HEPATITIS WHILE IN THE SERVICE, "NOT THE BAD KIND" - Past Surgical History Head Surgeries/Procedures: Reports: None HEENT Surgical History: Reports: Cataract Surgery, Naso-Sinus Surgery Cardiovascular Surgical History: Reports: AICD, Coronary Artery Stent Respiratory Surgical History: Reports: Lung Resection Other Respiratory Surgeries/Procedures: mediastinoscopy GI Surgical History: Reports: Abdominal paracentesis, Appendectomy, Colonoscopy, EGD, Polypectomy, Other (See Below) Other GI Surgeries/Procedures: uMBILICAL HERNIA PRESENT, appendix rupture recently 01/05/16 Male Surgical History: Reports: Prostatectomy, TURP-Transurethral Resection of Prostate Endocrine Surgical History: Reports: Thyroid Biopsy Musculoskeletal Surgical History: Reports: Shoulder Surgery Other Oncologic Surgeries/Procedures: 3 of right lobe removed Social & Family History - Family History Family Medical History: No Pertinent Family History - Tobacco Use Tobacco Use Status *Q: Never Tobacco User Second Hand Smoke Exposure: No - Caffeine Use Caffeine Use: Reports: Coffee - Alcohol Use Date of Last Drink: 09/01/18 - Recreational Drug Use Recreational Drug Use: No - Living Situation & Occupation Living situation: Reports: , Alone Occupation: Retired H&P Review of Systems - Review of Systems: Review Of Systems: See Below General: Reports: Malaise HEENT: Reports: No Symptoms Pulmonary: Reports: Shortness of Breath, Wheezing, Cough, Sputum Cardiovascular: Reports: No Symptoms Gastrointestinal: Reports: No Symptoms Genitourinary: Reports: No Symptoms Musculoskeletal: Reports: No Symptoms Skin: Reports: No Symptoms Psychiatric: Reports: No Symptoms Neurological: Reports: No Symptoms Hematologic/Lymphatic: Reports: No Symptoms Immunologic: Reports: No Symptoms Exam - Exam Exam: See Below - Vital Signs Vital Signs: Last Vital Signs Temp 98.8 F 09/26/20 12:25 Pulse 57 L 09/26/20 12:25 Resp 22 H 09/26/20 12:25 BP 105/39 L 09/26/20 12:25 Pulse Ox 100 09/26/20 12:25 Weight: 174 lb 12.8 oz - Exam Quality Assessment: Supplemental Oxygen General: Alert, Oriented, 4 HEENT: PERRLA, Hearing Intact, Mucosa Moist & [place], Nares Patent, Normal Nasal Septum, Posterior Pharynx Clear, Conjunctiva Clear, EOMI, EACs Clear, TMs Clear Neck: Supple, Trachea Midline, 2 Lungs: Rhonchi, Wheezing Cardiovascular: Regular Rhythm, Bradycardia GI/Abdominal Exam: Normal Bowel Sounds, Soft, Non-Tender, No Organomegaly, No Distention, No Abnormal Bruit, No Mass, Pelvis Stable Back Exam: Normal Inspection, Full Range of Motion, NT Extremities: Normal Inspection, Normal Range of Motion, Non-Tender, No Pedal Edema, Normal Capillary Refill Skin: Warm, Dry, Intact Neurological: Cranial Nerves Intact, Reflexes Equal Bilateral Neuro Extensive - Mental Status: Alert, Oriented x3, Normal Mood/Affect, Normal Cognition Neuro Extensive - Motor, Sensory, Reflexes: CN II-XII Intact, Normal Gait, Normal Reflexes Psychiatric: Alert, Normal Affect, Normal Mood - Patient Data Lab Results Last 24 hrs: Laboratory Results - last 24 hr 09/26/20 09/26/20 09/26/20 Range/Units 09:33 09:34 09:34 WBC 9.3 (5.0-10.0) 10^3/uL RBC 3.55 L (4.6-6.2) 10^6/uL Hgb 10.4 L (14.0-18.0) g/dL Hct 32.1 L (40.0-54.0) % MCV 90.4 (80-100) fL MCH 29.3 (27.0-34.0) pg MCHC 32.4 L (33.0-35.0) g/dL Plt Count 151 (150-450) 10^3/uL Neut % (Auto) 73.6 (42.2-75.2) % Lymph % (Auto) 11.1 L (20.5-50.1) % Randall % (Auto) 9.3 H (2-8) % Eos % (Auto) 5.8 H (1.0-3.0) % Baso % (Auto) 0.2 (0.0-1.0) % Sodium 137 (136-145) mmol/L Potassium 3.8 (3.5-5.1) mmol/L Chloride 100 (98-107) mmol/L Carbon Dioxide 28 (21-32) mmol/L Anion Gap 12.8 (7-13) mEq/L BUN 23 H (7-18) mg/dL Creatinine 1.45 H (0.70-1.30) mg/dL Est Cr Clr Drug Dosing 36.06 mL/min Estimated GFR (MDRD) 47 BUN/Creatinine Ratio 15.9 (No establ ref range) Glucose 95 (74-99) mg/dL Lactic Acid (0.4-2.0) mmol/L Calcium 8.5 (8.5-10.1) mg/dL Magnesium 1.9 (1.8-2.4) mg/dL Total Bilirubin 1.3 H (0.2-1.0) mg/dL AST 18 (15-37) U/L ALT 13 L (16-63) U/L Alkaline Phosphatase 93 (46-116) U/L Troponin I < 0.017 (0.000-0.056) ng/mL B-Natriuretic Peptide 183 H (0-100) pg/ml Total Protein 6.6 (6.4-8.2) g/dL Albumin 3.3 L (3.4-5.0) g/dL Globulin 3.3 Albumin/Globulin Ratio 1.00 SARS CoV-2 RNA Rapid NELDA Negative (NEGATIVE) 09/26/20 Range/Units 09:34 WBC (5.0-10.0) 10^3/uL RBC (4.6-6.2) 10^6/uL Hgb (14.0-18.0) g/dL Hct (40.0-54.0) % MCV (80-100) fL MCH (27.0-34.0) pg MCHC (33.0-35.0) g/dL Plt Count (150-450) 10^3/uL Neut % (Auto) (42.2-75.2) % Lymph % (Auto) (20.5-50.1) % Randall % (Auto) (2-8) % Eos % (Auto) (1.0-3.0) % Baso % (Auto) (0.0-1.0) % Sodium (136-145) mmol/L Potassium (3.5-5.1) mmol/L Chloride (98-107) mmol/L Carbon Dioxide (21-32) mmol/L Anion Gap (7-13) mEq/L BUN (7-18) mg/dL Creatinine (0.70-1.30) mg/dL Est Cr Clr Drug Dosing mL/min Estimated GFR (MDRD) BUN/Creatinine Ratio (No establ ref range) Glucose (74-99) mg/dL Lactic Acid 0.7 (0.4-2.0) mmol/L Calcium (8.5-10.1) mg/dL Magnesium (1.8-2.4) mg/dL Total Bilirubin (0.2-1.0) mg/dL AST (15-37) U/L ALT (16-63) U/L Alkaline Phosphatase (46-116) U/L Troponin I (0.000-0.056) ng/mL B-Natriuretic Peptide (0-100) pg/ml Total Protein (6.4-8.2) g/dL Albumin (3.4-5.0) g/dL Globulin Albumin/Globulin Ratio SARS CoV-2 RNA Rapid NELDA (NEGATIVE) Result Diagrams: 09/26/20 09:34 09/26/20 09:34 Problem List Initiated/Reviewed/Updated: Yes Orders Last 24hrs: Active Orders 24 hr Category Date Time Status Admission Diagnosis [ADT] Urgent ADT 09/26/20 11:42 Ordered Admission Status [Patient Status] [ADT] Routine ADT 09/26/20 11:42 Active Height and Weight [RC] DAILY Care 09/26/20 12:36 Active Intake and Output [RC] QSHIFT Care 09/26/20 12:37 Active Oxygen Therapy [RC] PRN Care 09/26/20 12:36 Active RT Aerosol Therapy [RC] ASDIRECTED Care 09/26/20 09:26 Active RT Aerosol Therapy [RC] ASDIRECTED Care 09/26/20 10:52 Active RT Aerosol Therapy [RC] ASDIRECTED Care 09/26/20 12:38 Active RT Sputum Induction [RC] Click to Edit Care 09/26/20 12:57 Active Up With Assistance [RC] ASDIRECTED Care 09/26/20 12:36 Active VTE/DVT Education [RC] PER UNIT ROUTINE Care 09/26/20 12:36 Active Vital Signs [RC] Q4H Care 09/26/20 12:36 Active 2 Gram Sodium Diet [DIET] Diet 09/26/20 Lunch Active CULTURE BLOOD [BC] Stat Lab 09/26/20 11:10 Received CULTURE BLOOD [BC] Stat Lab 09/26/20 11:32 Received UA RFX JORJE AND CULT IF INDIC [URIN] Stat Lab 09/26/20 09:23 Ordered Acetaminophen [TylenoL] Med 09/26/20 12:36 Active 650 mg PO Q4H PRN Albuterol [Proventil Neb Soln] Med 09/26/20 12:36 Ordered 2.5 mg NEB Q2H PRN Albuterol/Ipratropium [DuoNeb 3.0-0.5 MG/3 ML] Med 09/26/20 13:00 Ordered 3 ml NEB Q6HRRT Aspirin Med 09/27/20 09:00 Ordered 81 mg PO DAILY Azithromycin [Zithromax] 500 mg Med 09/27/20 10:00 Ordered Sodium Chloride 0.9% [Normal Saline (AdvBag)] 250 ml IV Q24H Cholecalciferol (Vitamin D3) [Vitamin D3] Med 09/27/20 09:00 Ordered 25 mcg PO DAILY Ferrous Sulfate Med 09/27/20 09:00 Ordered 325 mg PO DAILY Heparin Sodium Med 09/26/20 14:00 Active 5,000 units SUBCUT Q8HR Montelukast [Singulair] Med 09/26/20 21:00 Ordered 10 mg PO BEDTIME Pantoprazole [ProTONIX] Med 09/27/20 09:00 Ordered 40 mg PO DAILY Potassium Chloride [K-Tab ER] Med 09/27/20 09:00 Ordered 20 meq PO DAILY Sennosides [Senna] Med 09/26/20 21:00 Ordered 2 tab PO BID carvediloL [Coreg] Med 09/26/20 21:00 Ordered 3.125 mg PO BID cefTRIAXone [Rocephin] 1,000 mg Med 09/27/20 10:00 Ordered Sodium Chloride 0.9% [Normal Saline] 50 ml IV Q24H Blood Culture x2 Reflex Set [OM.PC] Stat Oth 09/26/20 10:55 Ordered Resuscitation Status Routine Resus Stat 09/26/20 12:36 Ordered Medication Orders Acetaminophen (Tylenol) 650 mg PO Q4H PRN PRN Reason: Pain (Mild 1-3)/fever Albuterol (Proventil Neb Soln) 2.5 mg NEB Q2H PRN PRN Reason: shortness of breath/wheezing Albuterol/Ipratropium (Duoneb 3.0-0.5 Mg/3 Ml) 3 ml NEB Q6HRRT ARIAS Aspirin (Aspirin) 81 mg PO DAILY [facility]AS Carvedilol (Coreg) 3.125 mg PO BID ARIAS Cholecalciferol (Vitamin D3) 25 mcg PO DAILY ARIAS Ferrous Sulfate (Ferrous Sulfate) 325 mg PO DAILY [facility]AS Heparin Sodium (Porcine) (Heparin Sodium) 5,000 units SUBCUT Q8HR [facility] Azithromycin 500 mg/ Sodium (Chloride) 250 mls @ 250 mls/hr IV Q24H [facility] Ceftriaxone Sodium 1,000 mg/ (Sodium Chloride) 50 mls @ 100 mls/hr IV Q24H [facility] Montelukast Sodium (Singulair) 10 mg PO BEDTIME [facility] Non-Formulary Medication (Potassium Chloride [K-Tab Er]) 20 meq PO DAILY [facility] Non-Formulary Medication (Sennosides [Senna]) 2 tab PO BID [facility] Pantoprazole Sodium (Protonix) 40 mg PO DAILY [facility] Assessment/Plan Comment:: Sepsis Acute hypoxic respiratory failure Community-acquired pneumonia COPD exacerbation Sepsis due to hypotension, hypoxia, lung opacities. Continue ceftriaxone and azithromycin Sputum and blood cultures pending Oxygen supplementation as required Hold antihypertensives for now Bolus normal saline 4 times daily duo nebs with as needed albuterol Solu-Medrol 40 mg 4 times daily PORTILLO on CKD Creatinine elevated at 1.45. Recent baseline was 1.2. Monitor with IV fluids Hold diuretics for now Chronic systolic CHF Status post AICD Hold diuretics beta-tangela for now due to sepsis and bradycardia Strict I's and O's and daily weights Chronic anemia Hemoglobin at baseline Chronic atrial fibrillation Not on anticoagulation Recently asked to stop carvedilol due to bradycardia Hold Cardizem for now Hypertension Hold losartan
[2020-09-26] MEDS ORDERED: Melatonin 3 MG Tab PO PRN (13:31)
[2020-09-26] MEDS: Heparin Sodium 5,000 Units/ML Vial SUBCUT SCH ×2 (13:58→21:09)
[2020-09-26] MEDS: Albuterol/Ipratropium 3.0-0.5 MG/3 ML Neb Soln NEB SCH ×2 (13:59→18:16)
[2020-09-26] MEDS ORDERED: Azithromycin 500 MG in Sodium Chloride 0.9% 250 ML IV ONE (15:03)
[2020-09-26] MEDS ORDERED: Sodium Chloride 0.9% 1,000 ML IV SCH (20:00)
[2020-09-26] MEDS: Montelukast 10 MG Tab PO SCH (20:24)
[2020-09-26] MEDS: Formoterol/Mometasone 200-5 MCG 8.8 GM Inhaler IH SCH (20:26)
[2020-09-26] MEDS: Sodium Chloride 0.9% 10 ML Syringe FLUSH PRN (20:27)
[2020-09-26] MEDS: methylPREDNISolone Sodium Succinate 40 MG/1 ML SDV IVPUSH SCH (20:34)
[2020-09-26] MEDS ORDERED: Carvedilol 3.125 MG Tab PO SCH (21:00)
[2020-09-26] MEDS ORDERED: Midodrine 2.5 MG Tab PO ONE (23:42)
[2020-09-27] MEDS: Albuterol/Ipratropium 3.0-0.5 MG/3 ML Neb Soln NEB SCH ×4 (00:07→17:38)
[2020-09-27] MEDS: Sodium Chloride 0.9% 10 ML Syringe FLUSH PRN ×2 (00:15→02:18)
[2020-09-27] MEDS: methylPREDNISolone Sodium Succinate 40 MG/1 ML SDV IVPUSH SCH ×4 (02:18→20:19)
[2020-09-27] MEDS: Heparin Sodium 5,000 Units/ML Vial SUBCUT SCH ×3 (05:33→22:29)
[2020-09-27 06:42] LABS: ANION GAP 13.9 mEq/L (7-13)
[2020-09-27] MEDS: Cholecalciferol (Vitamin D3) 25 MCG Tab PO SCH (09:17)
[2020-09-27] MEDS: Pantoprazole 40 MG Tab.CR PO SCH (09:17)
[2020-09-27] MEDS: Aspirin 81 MG Tab.Chew PO SCH (09:17)
[2020-09-27] MEDS: Ferrous Sulfate 325 MG Tab PO SCH (09:17)
[2020-09-27] MEDS: Potassium Chloride 10 MEQ Tab.ER PO SCH (09:19)
[2020-09-27] MEDS: Formoterol/Mometasone 200-5 MCG 8.8 GM Inhaler IH SCH ×2 (09:20→20:58)
[2020-09-27] MEDS: Carvedilol 3.125 MG Tab PO SCH ×2 (09:56→17:40)
--- NOTE | 2020-09-27 10:24 | PCM.PN ---
- General Info Date of Service: 09/27/20 Admission Dx/Problem (Free Text): Admission Diagnosis/Problem Admission Diagnosis/Problem Hypoxia Subjective Update: Patient seen and examined this morning. He is now off oxygen. Has no new complaints. Functional Status: Reports: Pain Controlled - Review of Systems General: Reports: No Symptoms HEENT: Reports: No Symptoms Pulmonary: Reports: No Symptoms Cardiovascular: Reports: No Symptoms Gastrointestinal: Reports: No Symptoms Genitourinary: Reports: No Symptoms Musculoskeletal: Reports: No Symptoms Skin: Reports: No Symptoms Neurological: Reports: No Symptoms Psychiatric: Reports: No Symptoms - Patient Data Vitals - Most Recent: Last Vital Signs Temp 98 F 09/27/20 05:00 Pulse 72 09/27/20 09:56 Resp 20 09/27/20 05:00 BP 109/48 L 09/27/20 09:56 Pulse Ox 95 09/27/20 05:00 Weight - Most Recent: 178 lb 12.8 oz I&O - Last 24 Hours: Intake & Output 09/26/20 09/27/20 09/27/20 22:59 06:59 14:59 Intake Total 440 1407 Output Total 200 250 Balance 240 1157 Lab Results Last 24 Hours: Laboratory Results - last 24 hr 09/26/20 09/27/20 09/27/20 Range/Units 22:40 06:10 06:10 WBC 5.6 (5.0-10.0) 10^3/uL RBC 3.05 L (4.6-6.2) 10^6/uL Hgb 8.9 L D (14.0-18.0) g/dL Hct 27.3 L (40.0-54.0) % MCV 89.5 (80-100) fL MCH 29.2 (27.0-34.0) pg MCHC 32.6 L (33.0-35.0) g/dL Plt Count 129 L (150-450) 10^3/uL Sodium 137 (136-145) mmol/L Potassium 3.9 (3.5-5.1) mmol/L Chloride 101 (98-107) mmol/L Carbon Dioxide 26 (21-32) mmol/L Anion Gap 13.9 H (7-13) mEq/L BUN 31 H (7-18) mg/dL Creatinine 1.57 H (0.70-1.30) mg/dL Est Cr Clr Drug Dosing 33.30 mL/min Estimated GFR (MDRD) 43 Glucose 180 H (74-99) mg/dL Calcium 7.7 L (8.5-10.1) mg/dL Urine Color Dark yellow (YELLOW) Urine Appearance Slightly cloudy (CLEAR) Urine pH 5.0 (5.0-9.0) Ur Specific [place] >= 1.030 (1.005-1.030) Urine Protein Negative (NEGATIVE) Urine Glucose (UA) Negative (NEGATIVE) Urine Ketones Negative (NEGATIVE) Urine Occult Blood Negative (NEGATIVE) Urine Nitrite Negative (NEGATIVE) Urine Bilirubin Small H (NEGATIVE) Urine Urobilinogen 1.0 (0.2-1.0) mg/dL Ur Leukocyte Esterase Negative (NEGATIVE) Fabien Results Last 24 Hours: Microbiology 09/26/20 11:00 Gram Stain - Final Sputum - Expectorated Med Orders - Current: Current Medications Acetaminophen (Tylenol) 650 mg PO Q4H PRN PRN Reason: Pain (Mild 1-3)/fever Albuterol (Proventil Neb Soln) 2.5 mg NEB Q2H PRN PRN Reason: shortness of breath/wheezing Albuterol/Ipratropium (Duoneb 3.0-0.5 Mg/3 Ml) 3 ml NEB Q6HRRT [facility] Last Admin: 09/27/20 07:45 Dose: 3 ml Documented by: Aspirin (Aspirin) 81 mg PO DAILY [facility] Last Admin: 09/27/20 09:17 Dose: 81 mg Documented by: Carvedilol (Coreg) 3.125 mg PO BIDMEALS [facility] Last Admin: 09/27/20 09:56 Dose: Not Given Documented by: Cholecalciferol (Vitamin D3) 25 mcg PO DAILY [facility] Last Admin: 09/27/20 09:17 Dose: 25 mcg Documented by: Ferrous Sulfate (Ferrous Sulfate) 325 mg PO DAILY [facility] Last Admin: 09/27/20 09:17 Dose: 325 mg Documented by: Heparin Sodium (Porcine) (Heparin Sodium) 5,000 units SUBCUT Q8HR [facility] Last Admin: 09/27/20 05:33 Dose: 5,000 units Documented by: Azithromycin 500 mg/ Sodium (Chloride) 250 mls @ 250 mls/hr IV Q24H [facility] Ceftriaxone Sodium 1 gm/ (Sodium Chloride) 50 mls @ 100 mls/hr IV Q24H [facility] Sodium Chloride (Normal Saline) 1,000 mls @ 100 mls/hr IV ASDIRECTED [facility] Melatonin (Melatonin) 3 mg PO BEDTIME PRN PRN Reason: Insomnia Methylprednisolone Sodium Succinate (Solu-Medrol) 40 mg IVPUSH Q6H [facility] Last Admin: 09/27/20 09:17 Dose: 40 mg Documented by: Mometasone Furoate/Formoterol Fumar (Dulera 200-5 Mcg) 2 puff IH BID [facility] Last Admin: 09/27/20 09:20 Dose: 2 puff Documented by: Montelukast Sodium (Singulair) 10 mg PO BEDTIME [facility] Last Admin: 09/26/20 20:24 Dose: 10 mg Documented by: Pantoprazole Sodium (Protonix) 40 mg PO DAILY [facility] Last Admin: 09/27/20 09:17 Dose: 40 mg Documented by: Potassium Chloride (Klor-Con 10) 20 meq PO DAILY [facility] Last Admin: 09/27/20 09:19 Dose: 20 meq Documented by: Senna/Docusate Sodium (Senna Plus) 2 tab PO BID [facility] Last Admin: 09/27/20 09:19 Dose: 2 tab Documented by: Sodium Chloride (Saline Flush) 10 ml FLUSH ASDIRECTED PRN PRN Reason: IV Use Last Admin: 09/27/20 02:18 Dose: 10 ml Documented by: Discontinued Medications Albuterol/Ipratropium (Duoneb 3.0-0.5 Mg/3 Ml) 3 ml NEB ONETIME ONE Stop: 09/26/20 09:27 Last Admin: 09/26/20 09:46 Dose: 3 ml Documented by: Albuterol/Ipratropium (Duoneb 3.0-0.5 Mg/3 Ml) 3 ml NEB ONETIME ONE Stop: 09/26/20 10:53 Last Admin: 09/26/20 11:16 Dose: 3 ml Documented by: Carvedilol (Coreg) 3.125 mg PO BID [facility] Magnesium Sulfate (Magnesium Sulfate In Water 2 Gm/50 Ml) 2 gm in 50 mls @ 25 mls/hr IV ONETIME ONE Stop: 09/26/20 12:29 Last Admin: 09/26/20 10:32 Dose: 25 mls/hr Documented by: Ceftriaxone Sodium 1 gm/ (Sodium Chloride) 50 mls @ 100 mls/hr IV ONETIME ONE Stop: 09/26/20 11:25 Last Admin: 09/26/20 11:50 Dose: 100 mls/hr Documented by: Azithromycin 500 mg/ Sodium (Chloride) 250 mls @ 250 mls/hr IV ONETIME ONE Stop: 09/26/20 16:02 Last Admin: 09/26/20 15:34 Dose: 250 mls/hr Documented by: Sodium Chloride (Normal Saline) 1,000 mls @ 250 mls/hr IV ASDIRECTED [facility] Last Infusion: 09/27/20 00:16 Dose: Infused Documented by: Methylprednisolone Sodium Succinate (Solu-Medrol) 125 mg IVPUSH ONETIME ONE Stop: 09/26/20 10:55 Last Admin: 09/26/20 11:49 Dose: 125 mg Documented by: Midodrine (Midodrine) 5 mg PO ONETIME ONE Stop: 09/26/20 23:43 Last Admin: 09/27/20 00:07 Dose: 5 mg Documented by: - Exam General: Alert, Oriented HEENT: Pupils Equal, Pupils Reactive, EOMI, Mucous Membr. Moist/[place] Neck: Supple Lungs: Normal Respiratory Effort, Wheezing Cardiovascular: Regular Rate, Regular Rhythm GI/Abdominal Exam: Normal Bowel Sounds, Soft, Non-Tender, No Organomegaly, No Distention, No Abnormal Bruit, No Mass, Pelvis Stable Extremities: Normal Inspection, Normal Range of Motion, Non-Tender, No Pedal Edema, Normal Capillary Refill Skin: Warm, Dry, Intact Neurological: No New Focal Deficit Psy/Mental Status: Alert, Normal Affect, Normal Mood - Patient Data Lab Results Last 24 hrs: Laboratory Results - last 24 hr 09/26/20 09/27/20 09/27/20 Range/Units 22:40 06:10 06:10 WBC 5.6 (5.0-10.0) 10^3/uL RBC 3.05 L (4.6-6.2) 10^6/uL Hgb 8.9 L D (14.0-18.0) g/dL Hct 27.3 L (40.0-54.0) % MCV 89.5 (80-100) fL MCH 29.2 (27.0-34.0) pg MCHC 32.6 L (33.0-35.0) g/dL Plt Count 129 L (150-450) 10^3/uL Sodium 137 (136-145) mmol/L Potassium 3.9 (3.5-5.1) mmol/L Chloride 101 (98-107) mmol/L Carbon Dioxide 26 (21-32) mmol/L Anion Gap 13.9 H (7-13) mEq/L BUN 31 H (7-18) mg/dL Creatinine 1.57 H (0.70-1.30) mg/dL Est Cr Clr Drug Dosing 33.30 mL/min Estimated GFR (MDRD) 43 Glucose 180 H (74-99) mg/dL Calcium 7.7 L (8.5-10.1) mg/dL Urine Color Dark yellow (YELLOW) Urine Appearance Slightly cloudy (CLEAR) Urine pH 5.0 (5.0-9.0) Ur Specific [place] >= 1.030 (1.005-1.030) Urine Protein Negative (NEGATIVE) Urine Glucose (UA) Negative (NEGATIVE) Urine Ketones Negative (NEGATIVE) Urine Occult Blood Negative (NEGATIVE) Urine Nitrite Negative (NEGATIVE) Urine Bilirubin Small H (NEGATIVE) Urine Urobilinogen 1.0 (0.2-1.0) mg/dL Ur Leukocyte Esterase Negative (NEGATIVE) Result Diagrams: 09/27/20 06:10 09/27/20 06:10 Fabien Results Last 24 hrs: Microbiology 09/26/20 11:00 Gram Stain - Final Sputum - Expectorated Sepsis Event Note - Evaluation Sepsis Screening Result: No Definite Risk - Focused Exam Vital Signs: Vital Signs Temp Pulse Pulse Resp BP BP Pulse Ox 09/27/20 09:56 72 109/48 L 09/27/20 07:42 68 09/27/20 05:00 98 F 68 20 107/58 L 95 09/27/20 02:00 97.9 F 68 20 97/61 95 09/27/20 00:10 57 L 09/27/20 00:00 57 L 20 89/48 L 93 L 09/26/20 23:00 63 20 95/39 L 95 Pulse Ox 09/27/20 09:56 09/27/20 07:42 09/27/20 05:00 09/27/20 02:00 09/27/20 00:10 93 L 09/27/20 00:00 09/26/20 23:00 - Problem List Review Problem List Initiated/Reviewed/Updated: Yes - My Orders Last 24 Hours: My Active Orders 09/26/20 Lunch 2 Gram Sodium Diet [DIET] 09/26/20 12:36 Height and Weight [RC] 06 Oxygen Therapy [RC] PRN Up With Assistance [RC] ASDIRECTED VTE/DVT Education [RC] PER UNIT ROUTINE Vital Signs [RC] 04,08,12,16,20,00 Acetaminophen [TylenoL] 650 mg PO Q4H PRN Albuterol [Proventil Neb Soln] 2.5 mg NEB Q2H PRN 09/26/20 12:37 Intake and Output [RC] 06,14,22 09/26/20 12:38 RT Aerosol Therapy [RC] ASDIRECTED 09/26/20 13:00 Albuterol/Ipratropium [DuoNeb 3.0-0.5 MG/3 ML] 3 ml NEB Q6HRRT 09/26/20 13:31 Melatonin 3 mg PO BEDTIME PRN 09/26/20 13:33 Code Status [Resuscitation Status] Routine 09/26/20 14:00 Heparin Sodium 5,000 units SUBCUT Q8HR 09/26/20 20:08 Sodium Chloride 0.9% [Saline Flush] 10 ml FLUSH ASDIRECTED PRN 09/26/20 20:15 methylPREDNISolone Sod Succ [Solu-MEDROL] 40 mg IVPUSH Q6H 09/26/20 21:00 Docusate Sodium/Sennosides [Senna Plus] 2 tab PO BID Mometasone/Formoterol [Dulera 200-5 MCG] 2 puff IH BID Montelukast [Singulair] 10 mg PO BEDTIME 09/27/20 08:00 carvediloL [Coreg] 3.125 mg PO BIDMEALS 09/27/20 09:00 Aspirin 81 mg PO DAILY Cholecalciferol (Vitamin D3) [Vitamin D3] 25 mcg PO DAILY Ferrous Sulfate 325 mg PO DAILY Pantoprazole [ProTONIX] 40 mg PO DAILY Potassium Chloride [Klor-Con 10] 20 meq PO DAILY 09/27/20 10:00 cefTRIAXone [Rocephin] 1 gm Sodium Chloride 0.9% [Normal Saline] 50 ml IV Q24H 09/27/20 10:30 Sodium Chloride 0.9% @ 100 MLS/HR(1,000ml) Sodium Chloride 0.9% [Normal Saline] 1,000 ml IV ASDIRECTED 09/27/20 15:00 Azithromycin [Zithromax] 500 mg Sodium Chloride 0.9% [Normal Saline (AdvBag)] 250 ml IV Q24H - Plan Plan:: Sepsis Acute hypoxic respiratory failure Community-acquired pneumonia COPD exacerbation Sepsis due to hypotension, hypoxia, lung opacities. Continue ceftriaxone and azithromycin Sputum and blood cultures pending Oxygen supplementation as required Continue to hold antihypertensives for now Bolus and maintenance normal saline as necessary Received 5 mg of midodrine overnight due to low blood pressure 4 times daily duo nebs with as needed albuterol Continue Solu-Medrol 40 mg 4 times daily PORTILLO on CKD Creatinine elevated at 1.57. Recent baseline was 1.2. Monitor with IV fluids Hold diuretics for now Chronic systolic CHF Status post AICD Hold diuretics beta-tangela for now due to sepsis and bradycardia Strict I's and O's and daily weights Chronic anemia Hemoglobin at baseline Chronic atrial fibrillation Not on anticoagulation due to severe bruising and bleeding risk Recently asked to stop carvedilol due to bradycardia Hold Cardizem for now Hypertension Hold losartan
[2020-09-27] MEDS: cefTRIAXone 1 GM in Sodium Chloride 0.9% 50 ML IV SCH (10:52)
[2020-09-27] MEDS: Sodium Chloride 0.9% 1,000 ML IV SCH ×2 (12:13→22:31)
[2020-09-27] MEDS ORDERED: Azithromycin 500 MG in Sodium Chloride 0.9% 250 ML IV SCH (15:00)
[2020-09-27] MEDS: Montelukast 10 MG Tab PO SCH (20:58)
[2020-09-28] MEDS: methylPREDNISolone Sodium Succinate 40 MG/1 ML SDV IVPUSH SCH ×2 (02:52→08:56)
[2020-09-28] MEDS: Albuterol/Ipratropium 3.0-0.5 MG/3 ML Neb Soln NEB SCH ×2 (02:52→07:53)
[2020-09-28] MEDS: Heparin Sodium 5,000 Units/ML Vial SUBCUT SCH (05:56)
[2020-09-28] MEDS: Potassium Chloride 10 MEQ Tab.ER PO SCH (09:01)
[2020-09-28] MEDS: Carvedilol 3.125 MG Tab PO SCH (09:02)
[2020-09-28] MEDS: Pantoprazole 40 MG Tab.CR PO SCH (09:02)
[2020-09-28] MEDS: Ferrous Sulfate 325 MG Tab PO SCH (09:03)
[2020-09-28] MEDS: Cholecalciferol (Vitamin D3) 25 MCG Tab PO SCH (09:03)
[2020-09-28] MEDS: Aspirin 81 MG Tab.Chew PO SCH (09:03)
[2020-09-28] MEDS: Formoterol/Mometasone 200-5 MCG 8.8 GM Inhaler IH SCH (09:07)
[2020-09-28 09:10] VITALS: BP 125/62; PULSE 93
--- NOTE | 2020-09-28 09:49 | PCM.DCSUM1 ---
Discharge Summary - Hospital Course Free Text/Narrative:: Patient is an 80-year-old male with a medical history of chronic atrial fibrillation, chronic systolic CHF status post AICD, hypertension, hyperlipidemia, lung cancer and prostate cancer, COPD, asthma, liver cirrhosis who presented with complaints of cough, shortness of breath and generalized weakness. He was found to be hypoxic requiring up to 2 L of oxygen by nasal cannula. Labs significant for hemoglobin of 10.4 which is not far from his baseline, creatinine of 1.45, BNP of 186. Troponin was negative. Chest x-ray showed increased relatively airspace opacity at the right mid and lower lateral chest and right base. He was treated for sepsis with acute hypoxic respiratory failure due to community-acquired pneumonia and COPD exacerbation with antibiotics and steroids. Renal function improved with IV fluids. Sputum culture grew gram- positive cocci in pairs and clusters and gram-negative diplococci, also gram- negative rods presumptive Pseudomonas aeruginosa. Diagnosis: Stroke: No - Discharge Data Discharge Date: 09/28/20 Discharge Disposition: Home, Self-Care 01 Condition: Good - Referral to Home Health Primary Care Physician: Jay Vazquez MD - Discharge Plan *PRESCRIPTION DRUG MONITORING PROGRAM REVIEWED*: Not Applicable *COPY OF PRESCRIPTION DRUG MONITORING REPORT IN PATIENT MARY: Not Applicable Prescriptions/Med Rec: Losartan [Cozaar] 12.5 mg PO DAILY #90 Furosemide [Lasix] 20 mg PO DAILY #90 levoFLOXacin [Levofloxacin] 750 mg PO Q48H #4 tablet predniSONE [Prednisone] 40 mg PO DAILY #3 tablet Doxycycline [Vibra-Tabs] 100 mg PO Q12HR #14 tab Home Medications: Home Meds Montelukast [Singulair] 10 mg PO BEDTIME 10/26/13 [History] Pantoprazole Sodium 40 mg PO DAILY 11/09/15 [History] Sennosides [Senna] 2 tab PO BID 04/05/18 [History] Potassium Chloride [K-Tab ER] 20 meq PO DAILY 03/07/20 [History] Albuterol Sulfate [Proair Hfa] 2 inh INH DAILY 09/26/20 [History] Albuterol/Ipratropium [Combivent Respimat] 4 gm IH QID PRN 09/26/20 [History] Albuterol/Ipratropium [DuoNeb 3.0-0.5 MG/3 ML] 3 ml .XX QID PRN 09/26/20 [History] Aspirin 81 mg PO DAILY 09/26/20 [History] Cholecalciferol (Vitamin D3) [Vitamin D3] 25 mcg PO DAILY 09/26/20 [History] Ferrous Sulfate 325 mg PO DAILY 09/26/20 [History] Fluticasone Propion/Salmeterol [Fluticasone-Salmeterol 500-50] 1 each IH BID 09/26/20 [History] Tiotropium [Spiriva HandiHaler] 18 mcg INH DAILY 09/26/20 [History] carvediloL [Carvedilol] 3.125 mg PO BID 09/26/20 [History] Doxycycline [Vibra-Tabs] 100 mg PO Q12HR #14 tab 09/28/20 [Rx] Furosemide [Lasix] 20 mg PO DAILY #90 09/28/20 [Rx] Losartan [Cozaar] 12.5 mg PO DAILY #90 09/28/20 [Rx] levoFLOXacin [Levofloxacin] 750 mg PO Q48H #4 tablet 09/28/20 [Rx] predniSONE [Prednisone] 40 mg PO DAILY #3 tablet 09/28/20 [Rx] Referrals: Rhonda Goode NP [Ordering Only Provider] - - Discharge Summary/Plan Comment DC Time >30 min.: Yes - General Info Admission Dx/Problem (Free Text: Admission Diagnosis/Problem Admission Diagnosis/Problem Hypoxia Subjective Update: Patient seen and examined this morning. He is off oxygen. Has no new complaints. Functional Status: Reports: Pain Controlled - Review of Systems General: Reports: No Symptoms HEENT: Reports: No Symptoms Pulmonary: Reports: No Symptoms Cardiovascular: Reports: No Symptoms Gastrointestinal: Reports: No Symptoms Genitourinary: Reports: No Symptoms Musculoskeletal: Reports: No Symptoms Skin: Reports: No Symptoms Neurological: Reports: No Symptoms Psychiatric: Reports: No Symptoms - Patient Data Vitals - Most Recent: Last Vital Signs Temp 99.0 F 09/28/20 04:00 Pulse 93 09/28/20 09:02 Resp 18 09/28/20 04:00 BP 125/62 09/28/20 09:02 Pulse Ox 95 09/28/20 04:00 Weight - Most Recent: 180 lb I&O - Last 24 hours: Intake & Output 09/27/20 09/28/20 09/28/20 22:59 06:59 14:59 Intake Total 590 250 Output Total 525 Balance 590 -275 Lab Results - Last 24 hrs: Laboratory Results - last 24 hr 09/28/20 09/28/20 Range/Units 06:35 06:35 WBC 7.8 (5.0-10.0) 10^3/uL RBC 3.15 L (4.6-6.2) 10^6/uL Hgb 9.2 L (14.0-18.0) g/dL Hct 28.2 L (40.0-54.0) % MCV 89.5 (80-100) fL MCH 29.2 (27.0-34.0) pg MCHC 32.6 L (33.0-35.0) g/dL Plt Count 149 L (150-450) 10^3/uL Sodium 136 (136-145) mmol/L Potassium 4.0 (3.5-5.1) mmol/L Chloride 102 (98-107) mmol/L Carbon Dioxide 24 (21-32) mmol/L Anion Gap 14.0 H (7-13) mEq/L BUN 33 H (7-18) mg/dL Creatinine 1.20 (0.70-1.30) mg/dL Est Cr Clr Drug Dosing 43.57 mL/min Estimated GFR (MDRD) 58 Glucose 157 H (74-99) mg/dL Calcium 7.8 L (8.5-10.1) mg/dL JORJE Results - Last 24 hrs: Microbiology 09/26/20 11:00 Gram Stain - Final Sputum - Expectorated Sputum Culture - Preliminary 09/26/20 11:32 Aerobic Blood Culture - Preliminary Blood - Arm, Left NO GROWTH AFTER 1 DAY Anaerobic Blood Culture - Preliminary NO GROWTH AFTER 1 DAY 09/26/20 11:10 Aerobic Blood Culture - Preliminary Blood - Arm, Left NO GROWTH AFTER 1 DAY Anaerobic Blood Culture - Preliminary NO GROWTH AFTER 1 DAY Med Orders - Current: Current Medications Acetaminophen (Tylenol) 650 mg PO Q4H PRN PRN Reason: Pain (Mild 1-3)/fever Albuterol (Proventil Neb Soln) 2.5 mg NEB Q2H PRN PRN Reason: shortness of breath/wheezing Albuterol/Ipratropium (Duoneb 3.0-0.5 Mg/3 Ml) 3 ml NEB Q6HRRT [facility] Last Admin: 09/28/20 07:53 Dose: 3 ml Documented by: Aspirin (Aspirin) 81 mg PO DAILY [facility] Last Admin: 09/28/20 09:03 Dose: 81 mg Documented by: Carvedilol (Coreg) 3.125 mg PO BIDMEALS [facility] Last Admin: 09/28/20 09:02 Dose: 3.125 mg Documented by: Cholecalciferol (Vitamin D3) 25 mcg PO DAILY [facility] Last Admin: 09/28/20 09:03 Dose: 25 mcg Documented by: Ferrous Sulfate (Ferrous Sulfate) 325 mg PO DAILY [facility] Last Admin: 09/28/20 09:03 Dose: 325 mg Documented by: Heparin Sodium (Porcine) (Heparin Sodium) 5,000 units SUBCUT Q8HR [facility] Last Admin: 09/28/20 05:56 Dose: 5,000 units Documented by: Azithromycin 500 mg/ Sodium (Chloride) 250 mls @ 250 mls/hr IV Q24H [facility] Last Admin: 09/27/20 15:04 Dose: 250 mls/hr Documented by: Ceftriaxone Sodium 1 gm/ (Sodium Chloride) 50 mls @ 100 mls/hr IV Q24H [facility] Last Infusion: 09/27/20 11:31 Dose: Infused Documented by: Sodium Chloride (Normal Saline) 1,000 mls @ 100 mls/hr IV ASDIRECTED [facility] Last Admin: 09/27/20 22:31 Dose: 100 mls/hr Documented by: Melatonin (Melatonin) 3 mg PO BEDTIME PRN PRN Reason: Insomnia Methylprednisolone Sodium Succinate (Solu-Medrol) 40 mg IVPUSH Q6H [facility] Last Admin: 09/28/20 08:56 Dose: 40 mg Documented by: Mometasone Furoate/Formoterol Fumar (Dulera 200-5 Mcg) 2 puff IH BID [facility] Last Admin: 09/28/20 09:07 Dose: 2 puff Documented by: Montelukast Sodium (Singulair) 10 mg PO BEDTIME [facility] Last Admin: 09/27/20 20:58 Dose: 10 mg Documented by: Pantoprazole Sodium (Protonix) 40 mg PO DAILY [facility] Last Admin: 09/28/20 09:02 Dose: 40 mg Documented by: Potassium Chloride (Klor-Con 10) 20 meq PO DAILY [facility] Last Admin: 09/28/20 09:01 Dose: 20 meq Documented by: Senna/Docusate Sodium (Senna Plus) 2 tab PO BID [facility] Last Admin: 09/28/20 09:00 Dose: 2 tab Documented by: Sodium Chloride (Saline Flush) 10 ml FLUSH ASDIRECTED PRN PRN Reason: IV Use Last Admin: 09/27/20 02:18 Dose: 10 ml Documented by: Discontinued Medications Albuterol/Ipratropium (Duoneb 3.0-0.5 Mg/3 Ml) 3 ml NEB ONETIME ONE Stop: 09/26/20 09:27 Last Admin: 09/26/20 09:46 Dose: 3 ml Documented by: Albuterol/Ipratropium (Duoneb 3.0-0.5 Mg/3 Ml) 3 ml NEB ONETIME ONE Stop: 09/26/20 10:53 Last Admin: 09/26/20 11:16 Dose: 3 ml Documented by: Carvedilol (Coreg) 3.125 mg PO BID [facility] Magnesium Sulfate (Magnesium Sulfate In Water 2 Gm/50 Ml) 2 gm in 50 mls @ 25 mls/hr IV ONETIME ONE Stop: 09/26/20 12:29 Last Admin: 09/26/20 10:32 Dose: 25 mls/hr Documented by: Ceftriaxone Sodium 1 gm/ (Sodium Chloride) 50 mls @ 100 mls/hr IV ONETIME ONE Stop: 09/26/20 11:25 Last Admin: 09/26/20 11:50 Dose: 100 mls/hr Documented by: Azithromycin 500 mg/ Sodium (Chloride) 250 mls @ 250 mls/hr IV ONETIME ONE Stop: 09/26/20 16:02 Last Admin: 09/26/20 15:34 Dose: 250 mls/hr Documented by: Sodium Chloride (Normal Saline) 1,000 mls @ 250 mls/hr IV ASDIRECTED [facility] Last Infusion: 09/27/20 00:16 Dose: Infused Documented by: Methylprednisolone Sodium Succinate (Solu-Medrol) 125 mg IVPUSH ONETIME ONE Stop: 09/26/20 10:55 Last Admin: 09/26/20 11:49 Dose: 125 mg Documented by: Midodrine (Midodrine) 5 mg PO ONETIME ONE Stop: 09/26/20 23:43 Last Admin: 09/27/20 00:07 Dose: 5 mg Documented by: - Exam General: Reports: Alert, Oriented HEENT: Reports: Pupils Equal, Pupils Reactive, EOMI, Mucous Membr. Moist/[place] Neck: Reports: Supple Lungs: Reports: Clear to Auscultation, Normal Respiratory Effort Cardiovascular: Reports: Regular Rate, Regular Rhythm GI/Abdominal Exam: Normal Bowel Sounds, Soft, Non-Tender, No Organomegaly, No Distention, No Abnormal Bruit, No Mass, Pelvis Stable Back Exam: Reports: Normal Inspection, Full Range of Motion Extremities: Normal Inspection, Normal Range of Motion, Non-Tender, No Pedal Edema, Normal Capillary Refill Skin: Reports: Warm, Dry, Intact Neurological: Reports: No New Focal Deficit Psy/Mental Status: Reports: Alert, Normal Affect, Normal Mood
[2020-09-28] MEDS: cefTRIAXone 1 GM in Sodium Chloride 0.9% 50 ML IV SCH (09:59)
== END 2020-09-28 12:42 | disposition home or self-care (01) | DRG 871 ==
LOC: DL.ED 09:00 → DL.MS 11:42
PROVIDERS: ADMIT Internal Medicine; ATTEND Internal Medicine
DX: A41.9 Sepsis, unspecified organism (principal); J96.01 Acute respiratory failure with hypoxia; J18.9 Pneumonia, unspecified organism; J44.0 Chronic obstructive pulmonary disease with (acute) lower respiratory infection; J44.1 Chronic obstructive pulmonary disease with (acute) exacerbation; I48.20 Chronic atrial fibrillation, unspecified; N17.9 Acute kidney failure, unspecified; I13.0 Hypertensive heart and chronic kidney disease with heart failure and stage 1 through stage 4 chronic kidney disease, or unspecified chronic kidney disease; I50.22 Chronic systolic (congestive) heart failure; I50.9 Heart failure, unspecified; D63.1 Anemia in chronic kidney disease; H91.90 Unspecified hearing loss, unspecified ear; I48.91 Unspecified atrial fibrillation; I25.10 Atherosclerotic heart disease of native coronary artery without angina pectoris; I11.9 Hypertensive heart disease without heart failure; N18.9 Chronic kidney disease, unspecified; E78.00 Pure hypercholesterolemia, unspecified; I25.2 Old myocardial infarction; Z95.0 Presence of cardiac pacemaker; Z95.5 Presence of coronary angioplasty implant and graft; G47.30 Sleep apnea, unspecified; N40.0 Benign prostatic hyperplasia without lower urinary tract symptoms; Z79.51 Long term (current) use of inhaled steroids; M19.90 Unspecified osteoarthritis, unspecified site; G89.29 Other chronic pain; M54.9 Dorsalgia, unspecified; Z90.49 Acquired absence of other specified parts of digestive tract; F32.9 Major depressive disorder, single episode, unspecified; G47.00 Insomnia, unspecified; D50.9 Iron deficiency anemia, unspecified; Z85.46 Personal history of malignant neoplasm of prostate; Z85.118 Personal history of other malignant neoplasm of bronchus and lung; Z88.1 Allergy status to other antibiotic agents; Z88.8 Allergy status to other drugs, medicaments and biological substances; Z91.048 Other nonmedicinal substance allergy status; Z79.82 Long term (current) use of aspirin; Z79.899 Other long term (current) drug therapy; Z20.822 Contact with and (suspected) exposure to COVID-19
CPT/HCPCS: 36415; 71046; 80053; 83605; 83735; 83880; 84484; 85025; 87040 ×2; 87070; 87186; 87205; 93005; 94640 ×2; 96365; 99284; 99285; J3475; U0002; 80048; 81003; 85027; 87077; 99223; 99232; 99239; A9270-GY; J0456; J0696; J1644; J2920; J2930; J7030; J7050; J7620-GY

== ENCOUNTER 2020-10-23 15:00 | Emergency (ER) | payer MEDICARE, OTHER ==
[2020-10-23 15:19] VITALS: BP 102/52; PULSE 73
== END 2020-10-23 15:20 | disposition left against medical advice (07) ==
LOC: DL.ED 15:00
DX: Z53.21 Procedure and treatment not carried out due to patient leaving prior to being seen by health care provider (principal)

== ENCOUNTER 2021-01-09 12:44 | Inpatient (IN) | payer OTHER, MEDICARE ==
--- NOTE | 2021-01-09 13:22 | EDM.PDOC ---
ED HPI GENERAL MEDICAL PROBLEM - General Chief Complaint: Respiratory Problem Stated Complaint: HARD TIME BREATHING Time Seen by Provider: 01/09/21 13:20 Source of Information: Reports: Patient, Old Records, RN, RN Notes Reviewed History Limitations: Reports: No Limitations - History of Present Illness INITIAL COMMENTS - FREE TEXT/NARRATIVE: Pt presents to ER from home by POV with c/o progressively worsening shortness of breath, fever, and profound weakness over the past several days. Pt states that he uses nebulizers, but not oxygen at home. Records indicate that he has be oxygen dependent in the past, but pt state that was only when he as in the hospital. He was last in the hospital with pneumonia in September 2020. Pt states he woke up SOB. Sats 86% room air. On 2 liters patient is 94%. Pt usually sats around 94% per records. Pt denies ever having Covid, and denies chest pain. Pt states he has ran a fever at home today of 102.0F. Onset: Gradual Duration: Chronic, Getting Worse, Recurring Location: Reports: Chest Quality: Reports: Other (Denies pain) Severity: Moderate Improves with: Reports: None Worsens with: Reports: None Associated Symptoms: Reports: No Other Symptoms - Related Data Allergies Allergy/AdvReac Type Severity Reaction Status Date / Time piperacillin sodium Allergy Severe angioedema Verified 01/09/21 13:13 [From Zosyn] tazobactam sodium Allergy Severe angioedema Verified 01/09/21 13:13 [From Zosyn] adhesive tape Allergy Blisters Verified 01/09/21 13:13 tazarotene [From Tazorac] Allergy Airway Verified 01/09/21 13:13 Tightness Home Meds: Home Meds Montelukast [Singulair] 10 mg PO BEDTIME 10/26/13 [History] Pantoprazole Sodium 40 mg PO DAILY 11/09/15 [History] Sennosides [Senna] 2 tab PO BID 04/05/18 [History] Potassium Chloride [K-Tab ER] 20 meq PO DAILY 03/07/20 [History] Albuterol Sulfate [Proair Hfa] 2 inh INH DAILY 09/26/20 [History] Albuterol/Ipratropium [Combivent Respimat] 4 gm IH QID PRN 09/26/20 [History] Albuterol/Ipratropium [DuoNeb 3.0-0.5 MG/3 ML] 3 ml .XX QID PRN 09/26/20 [History] Aspirin 81 mg PO DAILY 09/26/20 [History] Cholecalciferol (Vitamin D3) [Vitamin D3] 25 mcg PO DAILY 09/26/20 [History] Ferrous Sulfate 325 mg PO DAILY 09/26/20 [History] Fluticasone Propion/Salmeterol [Fluticasone-Salmeterol 500-50] 1 each IH BID 09/26/20 [History] Tiotropium [Spiriva HandiHaler] 18 mcg INH DAILY 09/26/20 [History] carvediloL [Carvedilol] 3.125 mg PO BID 09/26/20 [History] Doxycycline [Vibra-Tabs] 100 mg PO Q12HR #14 tab 09/28/20 [Rx] Furosemide [Lasix] 20 mg PO DAILY #90 09/28/20 [Rx] Losartan [Cozaar] 12.5 mg PO DAILY #90 09/28/20 [Rx] Past Medical History HEENT History: Reports: Cataract, Hard of Hearing, Other (See Below) Other HEENT History: thyroid nodule Cardiovascular History: Reports: Afib, Angina, CAD, Heart Failure, High Cholesterol, Hypertension, CA, Pacemaker, SOB on Exertion, Stents, Other (See Below) Other Cardiovascular History: 6 stents placed total Respiratory History: Reports: Asthma, Bronchitis, Recurrent, COPD, Pneumonia, Recurrent, Sleep Apnea, SOB Gastrointestinal History: Reports: Hemorrhoids, Other (See Below) Genitourinary History: Reports: BPH, Prostate Disorder Musculoskeletal History: Reports: Arthritis, Back Pain, Chronic, Fracture, Osteoarthritis Neurological History: Reports: None Psychiatric History: Reports: Depression Other Psychiatric History: insomnia Endocrine/Metabolic History: Reports: None Hematologic History: Reports: Anemia, Iron Deficiency Immunologic History: Reports: Other (See Below) Other Immunologic History: Hx prostate and lung ca. Oncologic (Cancer) History: Reports: Lung, Prostate Dermatologic History: Reports: Other (See Below) Other Dermatologic History: Dry skin and bruising noted - Infectious Disease History Infectious Disease History: Reports: Measles Other Infectious Disease History: sOME KIND OF HEPATITIS WHILE IN THE SERVICE, "NOT THE BAD KIND" - Past Surgical History Head Surgeries/Procedures: Reports: None HEENT Surgical History: Reports: Cataract Surgery, Naso-Sinus Surgery Cardiovascular Surgical History: Reports: AICD, Coronary Artery Stent Respiratory Surgical History: Reports: Lung Resection Other Respiratory Surgeries/Procedures: mediastinoscopy GI Surgical History: Reports: Abdominal paracentesis, Appendectomy, Colonoscopy, EGD, Polypectomy, Other (See Below) Other GI Surgeries/Procedures: uMBILICAL HERNIA PRESENT, appendix rupture recently 01/05/16 Male Surgical History: Reports: Prostatectomy, TURP-Transurethral Resection of Prostate Endocrine Surgical History: Reports: Thyroid Biopsy Musculoskeletal Surgical History: Reports: Shoulder Surgery Other Oncologic Surgeries/Procedures: 3 of right lobe removed Social & Family History - Family History Family Medical History: No Pertinent Family History - Tobacco Use Tobacco Use Status *Q: Former Tobacco User Used Tobacco, but Quit: Yes Month/Year Tobacco Last Used: - Caffeine Use Caffeine Use: Reports: Coffee - Recreational Drug Use Recreational Drug Use: No - Living Situation & Occupation Living situation: Reports: , Alone Occupation: Retired ED ROS GENERAL - Review of Systems Review Of Systems: Comprehensive ROS is negative, except as noted in HPI. ED EXAM, GENERAL - Physical Exam Exam: See Below Exam Limited By: No Limitations General Appearance: Alert, Anxious, Mild Distress, Other (Chronically ill, but non-toxic appearing) Eye Exam: Bilateral Eye: Normal Inspection Ears: Hearing Loss (chronic) Nose: Normal Inspection, Normal Mucosa, No Blood Throat/Mouth: Normal Lips, Normal Voice, No Airway Compromise Head: Atraumatic, Normocephalic Neck: Normal Inspection, Non-Tender Respiratory/Chest: No Respiratory Distress, No Accessory Muscle Use, Decreased Breath Sounds, Crackles, Rhonchi (Right chest), Wheezing Cardiovascular: Irregularly Irregular GI/Abdominal: Normal Bowel Sounds, Soft, Non-Tender Back Exam: Normal Inspection Extremities: Normal Inspection, Non-Tender, No Pedal Edema Neurological: Alert, Oriented, No Motor/Sensory Deficits, Other (Generalized weakness, full assist required to stand and transfer) Psychiatric: Normal Affect, Normal Mood Skin Exam: Warm, Dry, Intact, Normal Color, No Rash #1 Interpretation EKG Date: 01/09/21 Time: 13:32 Rhythm: A-Fib Rate (Beats/Min): 100 Virgil: LAD-Left Virgil Deviation P-Wave: Absent QRS: RBBB (Old inferior Q waves) ST-T: Other (nonspecific chronic T wave abnormalities) QT: Prolonged Comparison: No Change Course - Vital Signs Last Recorded V/S: Last Vital Signs Temp 100.2 F 01/09/21 13:05 Pulse 79 01/09/21 13:26 Resp 18 01/09/21 13:05 BP 110/51 L 01/09/21 13:05 Pulse Ox 94 L 01/09/21 13:37 - Orders/Labs/Meds Orders: Active Orders 24 hr Category Date Time Status EKG 12 Lead [EKG Documentation Completion] [] STAT Care 01/09/21 13:27 Active Peripheral IV Care [] . DIRECTED Care 01/09/21 13:27 Active RT Aerosol Therapy [] ASDIRECTED Care 01/09/21 13:26 Active CULTURE BLOOD [] Stat Lab 01/09/21 13:30 Received CULTURE BLOOD [] Stat Lab 01/09/21 13:38 Received Sodium Chloride 0.9% [Saline Flush] Med 01/09/21 13:27 Active 10 ml FLUSH ASDIRECTED PRN Blood Culture x2 Reflex Set [OM.PC] Stat Oth 01/09/21 13:26 Ordered Peripheral IV Insertion Adult [OM.PC] Routine Oth 01/09/21 13:27 Ordered Medication Orders Sodium Chloride (Sodium Chloride 0.9% 10 Ml Syringe) 10 ml FLUSH ASDIRECTED PRN PRN Reason: Keep Vein Open Last Admin: 01/09/21 13:55 Dose: 10 ml Documented by: DREW Labs: Laboratory Tests 01/09/21 01/09/21 01/09/21 Range/Units 13:30 13:30 13:30 WBC 15.3 H (5.0-10.0) 10^3/uL RBC 3.48 L (4.6-6.2) 10^6/uL Hgb 10.1 L (14.0-18.0) g/dL Hct 31.3 L (40.0-54.0) % MCV 89.9 (80-100) fL MCH 29.0 (27.0-34.0) pg MCHC 32.3 L (33.0-35.0) g/dL Plt Count 191 (150-450) 10^3/uL Neut % (Auto) 88.7 H (42.2-75.2) % Lymph % (Auto) 5.8 L (20.5-50.1) % Leake % (Auto) 5.1 (2-8) % Eos % (Auto) 0.3 L (1.0-3.0) % Baso % (Auto) 0.1 (0.0-1.0) % PT 11.6 (9.0-12.0) SEC INR 1.2 (0.9-1.2) Sodium 140 (136-145) mmol/L Potassium 3.6 (3.5-5.1) mmol/L Chloride 103 (98-107) mmol/L Carbon Dioxide 29 (21-32) mmol/L Anion Gap 11.6 (7-13) mEq/L BUN 32 H (7-18) mg/dL Creatinine 1.66 H (0.70-1.30) mg/dL Est Cr Clr Drug Dosing 31.49 mL/min Estimated GFR (MDRD) 40 BUN/Creatinine Ratio 19.3 (No establ ref range) Glucose 90 (70-99) mg/dL Lactic Acid (0.4-2.0) mmol/L Calcium 9.0 (8.5-10.1) mg/dL Total Bilirubin 1.0 (0.2-1.0) mg/dL AST 17 (15-37) U/L ALT 16 (16-63) U/L Alkaline Phosphatase 87 (46-116) U/L Troponin I High Sens 18 (<=76) pg/mL B-Natriuretic Peptide 132 H (0-100) pg/ml Total Protein 6.2 L (6.4-8.2) g/dL Albumin 3.2 L (3.4-5.0) g/dL Globulin 3.0 Albumin/Globulin Ratio 1.07 Influenza Type A RNA (NEGATIVE) Influenza Type B RNA (NEGATIVE) SARS-CoV-2 RNA (NELDA) (NEGATIVE) 01/09/21 01/09/21 Range/Units 13:30 13:38 WBC (5.0-10.0) 10^3/uL RBC (4.6-6.2) 10^6/uL Hgb (14.0-18.0) g/dL Hct (40.0-54.0) % MCV (80-100) fL MCH (27.0-34.0) pg MCHC (33.0-35.0) g/dL Plt Count (150-450) 10^3/uL Neut % (Auto) (42.2-75.2) % Lymph % (Auto) (20.5-50.1) % Leake % (Auto) (2-8) % Eos % (Auto) (1.0-3.0) % Baso % (Auto) (0.0-1.0) % PT (9.0-12.0) SEC INR (0.9-1.2) Sodium (136-145) mmol/L Potassium (3.5-5.1) mmol/L Chloride (98-107) mmol/L Carbon Dioxide (21-32) mmol/L Anion Gap (7-13) mEq/L BUN (7-18) mg/dL Creatinine (0.70-1.30) mg/dL Est Cr Clr Drug Dosing mL/min Estimated GFR (MDRD) BUN/Creatinine Ratio (No establ ref range) Glucose (70-99) mg/dL Lactic Acid 0.9 (0.4-2.0) mmol/L Calcium (8.5-10.1) mg/dL Total Bilirubin (0.2-1.0) mg/dL AST (15-37) U/L ALT (16-63) U/L Alkaline Phosphatase (46-116) U/L Troponin I High Sens (<=76) pg/mL B-Natriuretic Peptide (0-100) pg/ml Total Protein (6.4-8.2) g/dL Albumin (3.4-5.0) g/dL Globulin Albumin/Globulin Ratio Influenza Type A RNA Negative (NEGATIVE) Influenza Type B RNA Negative (NEGATIVE) SARS-CoV-2 RNA (NELDA) Negative (NEGATIVE) Meds: Medications Generic Name Dose Route Start Last Admin Trade Name Freq PRN Reason Stop Dose Admin Sodium Chloride 10 ml 01/09/21 13:27 01/09/21 13:55 Sodium Chloride 0.9% 10 Ml Syringe FLUSH 10 ml ASDIRECTED PRN Administration Keep Vein Open Discontinued Medications Generic Name Dose Route Start Last Admin Trade Name Freq PRN Reason Stop Dose Admin Albuterol/Ipratropium 3 ml 01/09/21 13:25 01/09/21 13:40 Albuterol/Ipratropium 3.0-0.5 Mg/3 Ml Neb Soln NEB 01/09/21 13:26 3 ml ONETIME ONE Administration Levofloxacin/Dextrose 500 mg/ 100 mls @ 100 mls/hr 01/09/21 13:43 01/09/21 13:54 Premix IV 01/09/21 14:42 100 mls/hr ONETIME ONE Administration Methylprednisolone Sodium Succinate 125 mg 01/09/21 13:25 01/09/21 13:54 Methylprednisolone Sodium Succinate 125 Mg/2 Ml Sdv IVPUSH 01/09/21 13:26 125 mg ONETIME ONE Administration Departure - Departure Time of Disposition: 14:55 (admitted to Dr. Zamorano) Disposition: Admitted As Inpatient 65 Condition: Fair Clinical Impression: Acute exacerbation of chronic obstructive pulmonary disease (COPD) Pneumonia Qualifiers: Pneumonia type: due to unspecified organism Laterality: right Lung location: unspecified part of lung Qualified Code(s): J18.9 - Pneumonia, unspecified organism - Discharge Information *PRESCRIPTION DRUG MONITORING PROGRAM REVIEWED*: No *COPY OF PRESCRIPTION DRUG MONITORING REPORT IN PATIENT MARY: No Forms: ED Department Discharge Sepsis Event Note (ED) - Evaluation Sepsis Screening Result: No Definite Risk - Focused Exam Vital Signs: Vital Signs Temp Pulse Pulse Resp BP Pulse Ox Pulse Ox 01/09/21 13:37 94 L 01/09/21 13:26 79 97 01/09/21 13:05 100.2 F 86 18 110/51 L 01/09/21 13:04 94 L 01/09/21 13:03 100.2 F 86 18 110/51 L 86 L - My Orders Last 24 Hours: My Active Orders 01/09/21 13:26 RT Aerosol Therapy [RC] ASDIRECTED Blood Culture x2 Reflex Set [OM.PC] Stat 01/09/21 13:27 EKG 12 Lead [EKG Documentation Completion] [RC] STAT Peripheral IV Care [RC] . DIRECTED Sodium Chloride 0.9% [Saline Flush] 10 ml FLUSH ASDIRECTED PRN Peripheral IV Insertion Adult [OM.PC] Routine 01/09/21 13:30 CULTURE BLOOD [BC] Stat 01/09/21 13:38 CULTURE BLOOD [BC] Stat - Assessment/Plan Last 24 Hours: My Active Orders 01/09/21 13:26 RT Aerosol Therapy [RC] ASDIRECTED Blood Culture x2 Reflex Set [OM.PC] Stat 01/09/21 13:27 EKG 12 Lead [EKG Documentation Completion] [RC] STAT Peripheral IV Care [RC] . DIRECTED Sodium Chloride 0.9% [Saline Flush] 10 ml FLUSH ASDIRECTED PRN Peripheral IV Insertion Adult [OM.PC] Routine 01/09/21 13:30 CULTURE BLOOD [BC] Stat 01/09/21 13:38 CULTURE BLOOD [BC] Stat
[2021-01-09] MEDS ORDERED: Albuterol/Ipratropium 3.0-0.5 MG/3 ML Neb Soln NEB ONE (13:25)
[2021-01-09] MEDS ORDERED: methylPREDNISolone Sodium Succinate 125 MG/2 ML SDV IVPUSH ONE (13:25)
[2021-01-09] MEDS ORDERED: Levofloxacin/Dextrose 5%-Water 500 MG in Premix Bag 1 BAG IV ONE (13:43)
[2021-01-09] MEDS: Sodium Chloride 0.9% 10 ML Syringe FLUSH PRN ×2 (13:55→17:41)
--- NOTE | 2021-01-09 14:11 | CR ---
EXAMINATION: Chest 1V Frontal SEX: Male AGE: 80 years CLINICAL HISTORY: 80-year-old male with cough, fever and shortness of breath. Interpretation: Abnormal but relatively unchanged considering differences in film technique (AP versus PA CXR 26 September 2020). Cardiac pacemaker and chronic cardiac enlargement. No new signs of heart failure i.E. no vascular congestion, alveolar edema or dependent pleural fluid accumulation. Extensive pleural parenchymal scarring right hemithorax. No new lung mass or hilar lymphadenopathy. No alveolar infiltrate, air bronchograms or peripheral "groundglass" interstitial lung densities. No new atelectasis or collapse. Note: Subtle relative increased right midlung density which could be significant. Clinical?
[2021-01-09 14:17] LABS: ANION GAP 11.6 mEq/L (7-13)
[2021-01-09 14:26] LABS: CORONAVIRUS COVID-19 NAA NEGATIVE (NEGATIVE)
[2021-01-09] MEDS ORDERED: Acetaminophen 325 MG Tab PO PRN (15:48)
[2021-01-09] MEDS ORDERED: Ondansetron 4 MG/2 ML SDV IVPUSH PRN (15:48)
[2021-01-09] MEDS ORDERED: Sodium Chloride 0.9% 10 ML Syringe FLUSH PRN (15:48)
--- NOTE | 2021-01-09 15:58 | PCM.SN.2 ---
- Free Text/Narrative Note: START OF DOCTOR EMAMIS HISTORY AND PHYSICAL / CONSULTATION NOTE Chief Complaint: Shortness of breath History of Present Illness: The patient is an 80 old male who presents to clinic dyspnea. He states dyspnea started proximally 10 AM on January 08, 2021. He states he was in his kitchen working when it was gradual onset. Since that time he has become progressively dyspneic and developed cough which is nonproductive. He denies fever, rigors, nausea, vomiting, wheeze, abdominal pain, diarrhea, myalgia, chest pain, peripheral edema, anosmia, dysgeusia. Patient has known history of CHF as well as COPD. He presents for further evaluation Surgical History: Right lung resection, prostatectomy, right shoulder surgery, right hemicolectomy/ileocecectomy, AICD/pacemaker placement, bilateral cataract surgery, sinus surgery, cardiac stent placementnumerous Family History: Coronary artery disease, hypertension, hyperlipidemia Social History: Tobacco: Former smoker Alcohol: Denies Caffeine: Coffee Drugs: Never Allergies: Zosyn, adhesive tape, Tazorac, Tazarotene Code Status: DNR, DNI Pertinent Laboratory Results / Pertinent Radiology Results / Pertinent Diagnostic Results / Pertinent Vital Signs: Blood pressure 110/51, pulse 79, respiration 18, temperature 100.2 degrees, patient satting 94% 2 L, creatinine 1.66, white blood count 15.3, hemoglobin 10.1 Physical Examination: General: -Alert -No acute distress -No dyspnea -No tachypnea Head: -Atraumatic -Normocephalic Eyes: -Pupils equally round and reactive to light and accommodation -Extraocular muscles intact Neurological: -Cranial nerves II-XII intact Neck: -No jugular venous distention -No thyromegaly -No cervical lymphadenopathy Heart: -Regular rate -Regular rhythm -No murmurs -No gallops -No rubs Lungs: -Bilateral wheeze present -No rhonchi -No rales -Distant breath sounds bilaterally Abdomen: -Normal bowel sounds in all four quadrants -No rebound -No guarding -No tenderness Extremities: -2/4 pulse in all four extremities -No clubbing -No cyanosis -No edema -No calf tenderness present bilaterally -Negative Homans sign bilaterally Musculoskeletal: -5/5 bilateral upper extremity strength -5/5 bilateral lower extremity strength -Sensorium of bilateral upper extremities are equal and intact -Sensorium of bilateral lower extremities are equal and intact Additional Details / Additional Findings / Exceptions / Miscellaneous: Assessment / Plan: Dyspnea, likely secondary to COPD exacerbation and pneumonia COPD. Solu-Medrol 60 mg IV every 8 hours plus DuoNeb every 4 hours plus azithromycin 500 mg IV daily plus Rocephin 1 g IV daily Pneumonia. Azithromycin 500 mg IV daily plus Rocephin 1 g IV daily plus DuoNeb every 4 hours Angina Cryptogenic cirrhosis History of prostate cancer, status post prostatectomy. Outpatient follow-up with hematology/oncology upon discharge as the patient indicates he receives IV infusion for this medical condition every 4 months however he is unable to state which medications may be Chronic kidney disease, baseline creatinine approximate 1.5. Will monitor creatinine level intermittently History of non-small cell lung cancer, status post right lung resection. Patient indicates that he is in remission and no longer requires to be monitored for this medical condition by Atrial fibrillation, status post AICD/pacemaker placement Degenerative disc disease Cholelithiasis Constipation Diverticulosis Anemia, chronic. Will monitor hemoglobin level intermittently. Check serum ferritin, iron panel, fecal occult blood CHF, ejection fraction 40 to 45% per echocardiogram from October 19, 2020. Patient status post AICD/pacemaker placement Moderate to severe pulmonary hypertension GERD. Protonix 40 mg p.o. daily Coronary artery disease, status post GA, status post [place] Hyperlipidemia Hypertension Osteopenia/osteoporosis History of hyperammonemia History of thyroid nodule. Outpatient monitoring with his primary care physician or provider Obstructive sleep apnea. CPAP/BiPAP: Okay to use home device and/or pressure when sleeping if the patient uses CPAP/BiPAP at home BPH, prior to prostatectomy Chronic pain Osteoarthritis Depression Insomnia Peripheral vascular disease DVT prophylaxis. Bilateral CD Disposition: Anticipate discharge within 48 hours. I requested physical therapy/Occupational Therapy evaluate the patient. At the time of admission, the patient so medications were pending input to the EMR/DHR system. Once their input, they will be reviewed and reconciled END OF DOCTOR EMAMIS HISTORY AND PHYSICAL / CONSULTATION NOTE
[2021-01-09] MEDS ORDERED: Azithromycin 500 MG in Sodium Chloride 0.9% 250 ML IV SCH (17:00)
[2021-01-09] MEDS ORDERED: cefTRIAXone 1 GM in Sodium Chloride 0.9% 50 ML IV SCH (17:00)
[2021-01-09] MEDS: Furosemide 20 MG Tab PO SCH (17:40)
[2021-01-09] MEDS: Albuterol/Ipratropium 3.0-0.5 MG/3 ML Neb Soln NEB SCH (18:00)
[2021-01-09] MEDS ORDERED: Montelukast 10 MG Tab PO SCH (21:00)
[2021-01-09] MEDS ORDERED: Rosuvastatin 10 MG Tab PO SCH (21:00)
[2021-01-09] MEDS: methylPREDNISolone Sodium Succinate 40 MG/1 ML SDV IVPUSH SCH (21:14)
[2021-01-10] MEDS: Albuterol/Ipratropium 3.0-0.5 MG/3 ML Neb Soln NEB SCH ×4 (00:12→10:39)
[2021-01-10] MEDS: methylPREDNISolone Sodium Succinate 40 MG/1 ML SDV IVPUSH SCH (06:00)
[2021-01-10] MEDS ORDERED: Pantoprazole 40 MG Tab.CR PO SCH (06:00)
[2021-01-10 06:50] LABS: ANION GAP 9.8 mEq/L (7-13)
[2021-01-10] MEDS ORDERED: Ferrous Sulfate 325 MG Tab PO SCH ×2 (08:00→09:00)
--- NOTE | 2021-01-10 08:01 | PCM.SN.2 ---
- Free Text/Narrative Note: START OF DOCTOR EMAMIS DISCHARGE SUMMARY Date of Admission: January 09, 2021 Date of Discharge: 7:57 AM on 01/10/2021 Primary Diagnosis: Dyspnea, secondary to COPD exacerbation and pneumonia Secondary Diagnosis: COPD Pneumonia Angina Cryptogenic cirrhosis History of prostate cancer, status post prostatectomy for which the patient follows up with a doctor on an outpatient basis and receives an IV infusion every 4 months for this medical condition however the patient is unable to state which medication this is Chronic kidney disease, baseline creatinine approximately 1.5 History of non-small cell lung cancer, status post right lung resection. The patient Nicolas that he is in remission and is no longer required to be monitored for for this condition by a doctor Atrial fibrillation, status post AICD/pacemaker placement Degenerative disc disease Cholelithiasis Constipation Diverticulosis Iron deficiency anemia CHF, ejection fraction 40 to 45% per echocardiogram from October 19, 2020 Moderate to severe pulmonary hypertension GERD Coronary artery disease, status post GA, status post stent Hyperlipidemia Hypertension Osteopenia/osteoporosis History of hyperammonemia History of thyroid nodule Thrombocytopenia Obstructive sleep apnea BPH, prior to prostatectomy Chronic pain Osteoarthritis Depression Insomnia Peripheral vascular disease Consultations: None Condition on Discharge: Stable Disposition: The patient will be advised to follow-up with his primary care physician or provider 5 to 7 days post discharge for posthospitalization evaluation. The patient will also need to discuss assessment of his history of thyroid nodule The patient will be advised to follow-up with hematology/oncology as directed for which he states he receives an IV infusion every 4 months for his history of prostate cancer Discharge Medications: Spiriva 18 mcg inhaled daily Protonix 40 mg p.o. daily Advair Diskus: 500/50 mc inhalation twice daily DuoNeb 3 times daily Combivent Respimat: 2 puffs twice daily as needed shortness of breath/wheeze Proventil HFA: 90 candida as per spray: 2 puffs every 6 hours as needed shortness of breath or wheeze Crestor 5 mg p.o. nightly K-Dur 20 McCugh p.o. daily Singular 10 mg p.o. nightly Losartan 25 mg p.o. daily Lasix 20 mg p.o. twice daily Ferrous sulfate 3 and 25 mg p.o. daily Tiazac 2040 mg p.o. daily Vitamin D 25 mcg p.o. daily Calcitriol 0.5 mg p.o. daily Aspirin 81 mg p.o. daily Vitamin C 2R 50 mg p.o. daily Prednisone 10 mg p.o.: 4 tabs daily x3 days then 3 tabs daily x3 days then 2 tabs daily x3 days then 1 tab daily x3 days. Quantity sufficient. 0 refills Azithromycin 250 mg p.o. daily. Quantity 7. 0 refills Vantin 200 mg p.o. twice daily. Quantity 14. 0 refills END OF DOCTOR EMAMIS DISCHARGE SUMMARY
[2021-01-10 08:40] VITALS: BP 110/58
[2021-01-10] MEDS ORDERED: Potassium Chloride 10 MEQ Tab.ER PO SCH (09:00)
[2021-01-10] MEDS ORDERED: Aspirin 81 MG Tab.EC PO SCH (09:00)
[2021-01-10] MEDS ORDERED: Cholecalciferol (Vitamin D3) 25 MCG Tab PO SCH (09:00)
[2021-01-10] MEDS ORDERED: Calcitriol 0.25 MCG Cap PO SCH (09:00)
[2021-01-10] MEDS ORDERED: Losartan 25 MG Tab PO SCH (09:00)
[2021-01-10] MEDS ORDERED: Ascorbic Acid 500 MG Tab PO SCH (09:00)
[2021-01-10] MEDS ORDERED: Diltiazem 240 MG Cap.ER PO SCH (09:00)
[2021-01-10] MEDS: Furosemide 20 MG Tab PO SCH (09:43)
[2021-01-10 11:05] VITALS: PULSE 87
== END 2021-01-10 11:15 | disposition home or self-care (01) | DRG 190 ==
LOC: DL.ED 12:44 → DL.MS 14:56 → DL.ED 15:00
PROVIDERS: ADMIT Internal Medicine; ATTEND Internal Medicine
DX: J44.1 Chronic obstructive pulmonary disease with (acute) exacerbation (principal); J18.9 Pneumonia, unspecified organism; I13.0 Hypertensive heart and chronic kidney disease with heart failure and stage 1 through stage 4 chronic kidney disease, or unspecified chronic kidney disease; Z87.01 Personal history of pneumonia (recurrent); J44.0 Chronic obstructive pulmonary disease with (acute) lower respiratory infection; K74.69 Other cirrhosis of liver; I11.0 Hypertensive heart disease with heart failure; I25.10 Atherosclerotic heart disease of native coronary artery without angina pectoris; Z20.822 Contact with and (suspected) exposure to COVID-19; I48.91 Unspecified atrial fibrillation; K59.00 Constipation, unspecified; Z95.0 Presence of cardiac pacemaker; Z66 Do not resuscitate; G47.30 Sleep apnea, unspecified; D50.9 Iron deficiency anemia, unspecified; K21.9 Gastro-esophageal reflux disease without esophagitis; I50.9 Heart failure, unspecified; N18.9 Chronic kidney disease, unspecified; K80.20 Calculus of gallbladder without cholecystitis without obstruction; G47.00 Insomnia, unspecified; K57.90 Diverticulosis of intestine, part unspecified, without perforation or abscess without bleeding; I27.20 Pulmonary hypertension, unspecified; E78.5 Hyperlipidemia, unspecified; I25.119 Atherosclerotic heart disease of native coronary artery with unspecified angina pectoris; M81.0 Age-related osteoporosis without current pathological fracture; M85.80 Other specified disorders of bone density and structure, unspecified site; D69.6 Thrombocytopenia, unspecified; G47.33 Obstructive sleep apnea (adult) (pediatric); N40.0 Benign prostatic hyperplasia without lower urinary tract symptoms; G89.29 Other chronic pain; M19.90 Unspecified osteoarthritis, unspecified site; F32.9 Major depressive disorder, single episode, unspecified; I73.9 Peripheral vascular disease, unspecified; M54.9 Dorsalgia, unspecified; H91.90 Unspecified hearing loss, unspecified ear; E78.00 Pure hypercholesterolemia, unspecified; I25.2 Old myocardial infarction; Z85.46 Personal history of malignant neoplasm of prostate; Z95.5 Presence of coronary angioplasty implant and graft; Z95.810 Presence of automatic (implantable) cardiac defibrillator; Z98.49 Cataract extraction status, unspecified eye; Z88.8 Allergy status to other drugs, medicaments and biological substances; Z91.048 Other nonmedicinal substance allergy status; Z85.118 Personal history of other malignant neoplasm of bronchus and lung; Z88.1 Allergy status to other antibiotic agents; Z79.899 Other long term (current) drug therapy; Z79.82 Long term (current) use of aspirin; Z87.891 Personal history of nicotine dependence; Z28.82 Immunization not carried out because of caregiver refusal
CPT/HCPCS: 0240U; 36415; 71045; 80048; 80053; 82728; 83540; 83550; 83605; 83735; 83880; 83970; 84100; 84484; 85025; 85610; 87040; 93005; 93010; 94640; 96365; 96375; 99284; 99285-25; A9270-GY; J0456; J0696; J1956; J2920; J2930; J7050; J7620-GY

== ENCOUNTER 2021-03-02 19:56 | Emergency (ER) | payer OTHER, MEDICARE ==
[2021-03-02] MEDS ORDERED: Albuterol/Ipratropium 3.0-0.5 MG/3 ML Neb Soln NEB ONE (21:01)
[2021-03-02 21:14] VITALS: PULSE 73
[2021-03-02 21:26] VITALS: BP 108/52
[2021-03-02 21:51] LABS: ANION GAP 11.7 mEq/L (7-13)
--- NOTE | 2021-03-02 21:58 | EDM.PDOC ---
ED HPI GENERAL MEDICAL PROBLEM - General Chief Complaint: Respiratory Problem Stated Complaint: FELL, SCRAPED SKIN, BLOOD Time Seen by Provider: 03/02/21 21:15 Source of Information: Reports: Patient, Family History Limitations: Reports: No Limitations - History of Present Illness INITIAL COMMENTS - FREE TEXT/NARRATIVE: This 80 yo male patient was brought to the ED due to a recent fall. The patient was with family when he "missed" a step and fell. The patient has had numerous falls over the past 24 hours. The patient has multiple skin tears to his upper extremities. The patient denies any loss of consciousness before, during or after the fall. The patient lives independently in an apartment. Onset: Today Duration: Constant Location: Reports: Upper Extremity, Left, Upper Extremity, Right, Lower Extremity, Left, Lower Extremity, Right Quality: Reports: Ache Severity: Moderate Improves with: Reports: None Worsens with: Reports: None Context: Reports: Other Associated Symptoms: Reports: No Other Symptoms Treatments HO[employer] FILLER: Reports: Dressing(s) Right Lower Arm Pain Score (Numeric/FACES): 9 Left Lower Arm Pain Score (Numeric/FACES): 7 - Related Data Allergies Allergy/AdvReac Type Severity Reaction Status Date / Time piperacillin sodium Allergy Severe angioedema Verified 03/02/21 21:26 [From Zosyn] tazobactam sodium Allergy Severe angioedema Verified 03/02/21 21:26 [From Zosyn] adhesive tape Allergy Blisters Verified 03/02/21 21:26 tazarotene [From Tazorac] Allergy Airway Verified 03/02/21 21:26 Tightness Home Meds: Home Meds Montelukast [Singulair] 10 mg PO BEDTIME 10/26/13 [History] Pantoprazole Sodium 40 mg PO DAILY 11/09/15 [History] Potassium Chloride [K-Tab ER] 20 meq PO DAILY 03/07/20 [History] Albuterol Sulfate [Proair Hfa] 2 inh INH Q6H PRN 09/26/20 [History] Albuterol/Ipratropium [Combivent Respimat] 2 puff IH BID PRN 09/26/20 [History] Albuterol/Ipratropium [DuoNeb 3.0-0.5 MG/3 ML] 3 ml NEB TID 09/26/20 [History] Cholecalciferol (Vitamin D3) [Vitamin D3] 25 mcg PO DAILY 09/26/20 [History] Fluticasone Propion/Salmeterol [Fluticasone-Salmeterol 500-50] 1 puff IH BID 09/26/20 [History] Tiotropium [Spiriva HandiHaler] 18 mcg INH DAILY 09/26/20 [History] Aspirin [Aspirin EC] 81 mg PO DAILY 01/09/21 [History] Calcitriol 0.5 mcg PO DAILY 01/09/21 [History] Diltiazem [Tiazac] 240 mg PO DAILY 01/09/21 [History] Furosemide [Lasix] 20 mg PO BID 01/09/21 [History] Losartan [Cozaar] 12.5 mg PO DAILY 01/09/21 [History] Rosuvastatin [Crestor] 5 mg PO BEDTIME 01/09/21 [History] Ascorbic Acid [Vitamin C] 250 mg PO DAILY 30 Days #30 tablet 01/10/21 [Rx] Ferrous Sulfate 325 mg PO DAILY 03/02/21 [History] Past Medical History HEENT History: Reports: Cataract, Hard of Hearing, Other (See Below) Other HEENT History: thyroid nodule Cardiovascular History: Reports: Afib, Angina, CAD, Heart Failure, High Cholesterol, Hypertension, [place], Pacemaker, SOB on Exertion, Stents, Other (See Below) Other Cardiovascular History: 6 stents placed total Respiratory History: Reports: Asthma, Bronchitis, Recurrent, COPD, Pneumonia, Recurrent, Sleep Apnea, SOB Gastrointestinal History: Reports: GERD, Hemorrhoids, Other (See Below) Genitourinary History: Reports: BPH, Prostate Disorder Musculoskeletal History: Reports: Arthritis, Back Pain, Chronic, Fracture, Osteoarthritis Neurological History: Reports: None Psychiatric History: Reports: Depression Other Psychiatric History: insomnia Endocrine/Metabolic History: Reports: None Hematologic History: Reports: Anemia, Blood Transfusion(s), Iron Deficiency Immunologic History: Reports: Other (See Below) Other Immunologic History: Hx prostate and lung ca. 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 IN THE SERVICE, "NOT THE BAD KIND" - Past Surgical History Head Surgeries/Procedures: Reports: None HEENT Surgical History: Reports: Cataract Surgery, Naso-Sinus Surgery Cardiovascular Surgical History: Reports: AICD, Coronary Artery Stent Respiratory Surgical History: Reports: Lung Resection Other Respiratory Surgeries/Procedures: mediastinoscopy GI Surgical History: Reports: Abdominal paracentesis, Appendectomy, Colonoscopy, EGD, Polypectomy, Other (See Below) Other GI Surgeries/Procedures: uMBILICAL HERNIA PRESENT, appendix rupture recently 01/05/16 Male Surgical History: Reports: Prostatectomy, TURP-Transurethral Resection of Prostate Endocrine Surgical History: Reports: Thyroid Biopsy Musculoskeletal Surgical History: Reports: Shoulder Surgery Other Oncologic Surgeries/Procedures: 3 of right lobe removed Social & Family History - Family History Family Medical History: No Pertinent Family History - Tobacco Use Tobacco Use Status *Q: Former Tobacco User Used Tobacco, but Quit: Yes Month/Year Tobacco Last Used: 08/1999 - Caffeine Use Caffeine Use: Reports: Coffee - Recreational Drug Use Recreational Drug Use: No - Living Situation & Occupation Living situation: Reports: , Alone Occupation: Retired ED ROS GENERAL - Review of Systems Review Of Systems: Comprehensive ROS is negative, except as noted in HPI. ED EXAM, GENERAL - Physical Exam Exam: See Below Exam Limited By: No Limitations General Appearance: Alert, WD/WN, Mild Distress Eye Exam: Bilateral Eye: EOMI, Normal Inspection, PERRL Ears: Normal External Exam, Normal Canal, Hearing Grossly Normal, Normal TMs Nose: Normal Inspection, Normal Mucosa, No Blood Throat/Mouth: Normal Inspection, Normal Lips, Normal Teeth, Normal Gums, Normal Oropharynx, Normal Voice, No Airway Compromise Head: Atraumatic, Normocephalic Neck: Normal Inspection, Supple, Non-Tender, Full Range of Motion Respiratory/Chest: No Respiratory Distress, Lungs Clear, Normal Breath Sounds, N o Accessory Muscle Use, Chest Non-Tender Cardiovascular: Normal Peripheral Pulses, Regular Rate, Rhythm, No Edema, No Gallop, No JVD, No Murmur, No Rub GI/Abdominal: Normal Bowel Sounds, Soft, Non-Tender, No Organomegaly, No Distention, No Abnormal Bruit, No Mass (Male) Exam: Deferred Rectal (Males) Exam: Deferred Back Exam: Normal Inspection, Full Range of Motion, NT Extremities: Arm Pain Neurological: Alert, Oriented, CN II-XII Intact, Normal Cognition, Normal Gait, Normal Reflexes, No Motor/Sensory Deficits Psychiatric: Normal Affect, Normal Mood Skin Exam: Warm, Dry, Wound/Incision (multiple skin tears to upper extremities.) Lymphatic: No Adenopathy Course - Vital Signs Last Recorded V/S: Last Vital Signs Temp 99.2 F 03/02/21 20:40 Pulse 73 03/02/21 21:01 Resp 24 H 03/02/21 20:40 BP 108/52 L 03/02/21 20:40 Pulse Ox 94 L 03/02/21 20:40 - Orders/Labs/Meds Orders: Active Orders 24 hr Category Date Time Status RT Aerosol Therapy [RC] ASDIRECTED Care 03/02/21 21:01 Active Ankle Min 3V Lt [CR] Urgent Exams 03/02/21 21:50 Ordered Knee 1V or 2V Lt [CR] Urgent Exams 03/02/21 21:50 Ordered Knee 1V or 2V Rt [CR] Urgent Exams 03/02/21 21:50 Ordered Labs: Laboratory Tests 03/02/21 03/02/21 Range/Units 21:26 21:26 WBC 5.6 (5.0-10.0) 10^3/uL RBC 3.54 L (4.6-6.2) 10^6/uL Hgb 10.2 L (14.0-18.0) g/dL Hct 31.7 L (40.0-54.0) % MCV 89.5 (80-100) fL MCH 28.8 (27.0-34.0) pg MCHC 32.2 L (33.0-35.0) g/dL Plt Count 151 (150-450) 10^3/uL Neut % (Auto) 66.8 (42.2-75.2) % Lymph % (Auto) 14.8 L (20.5-50.1) % [place] % (Auto) 12.0 H (2-8) % Eos % (Auto) 5.7 H (1.0-3.0) % Baso % (Auto) 0.7 (0.0-1.0) % Sodium 140 (136-145) mmol/L Potassium 3.7 (3.5-5.1) mmol/L Chloride 102 (98-107) mmol/L Carbon Dioxide 30 (21-32) mmol/L Anion Gap 11.7 (7-13) mEq/L BUN 34 H (7-18) mg/dL Creatinine 1.68 H (0.70-1.30) mg/dL Est Cr Clr Drug Dosing 31.68 mL/min Estimated GFR (MDRD) 39 BUN/Creatinine Ratio 20.2 (No establ ref range) Glucose 107 H (70-99) mg/dL Calcium 9.3 (8.5-10.1) mg/dL Total Bilirubin 0.6 (0.2-1.0) mg/dL AST 25 (15-37) U/L ALT 21 (16-63) U/L Alkaline Phosphatase 90 (46-116) U/L B-Natriuretic Peptide 119 H (0-100) pg/ml Total Protein 6.3 L (6.4-8.2) g/dL Albumin 3.3 L (3.4-5.0) g/dL Globulin 3.0 Albumin/Globulin Ratio 1.10 Meds: Medications Discontinued Medications Generic Name Dose Route Start Last Admin Trade Name Freq PRN Reason Stop Dose Admin Acetaminophen 1,000 mg 03/02/21 23:13 03/02/21 23:16 Acetaminophen 500 Mg Tab PO 03/02/21 23:14 1,000 mg ONETIME ONE Administration Albuterol/Ipratropium 3 ml 03/02/21 21:01 03/02/21 21:09 Albuterol/Ipratropium 3.0-0.5 Mg/3 Ml Neb Soln NEB 03/02/21 21:02 3 ml ONETIME ONE Administration - Radiology Interpretation Free Text/Narrative:: [facility] Final Radiology Report Call: [phone] assistance Online chat: [email or web address] Name: FELIX MO Age: 80Years M Date: 03/02/2021 SSN: -- : 1940 Study: CT HEAD WO CONT Requesting Physician: Jay Mike Images: 158 Addl Studies: Provided Clinical History: multiple ground level falls Contrast: Without Contrast Medium: Contrast Amount: Contrast Method: CONFIDENTIALITY STATEMENT This report is intended only for use by the referring physician, and only in accordance with law. If you received this in error, call [phone]. Page 1 of 1 PROCEDURE INFORMATION: Exam: CT Head Without Contrast Exam date and time: 03/02/2021 10:46 PM Age: 80 years old Clinical indication: Other: Falls; Additional info: Multiple ground level falls TECHNIQUE: Imaging protocol: Computed tomography of the head without contrast. Radiation optimization: All CT scans at this facility use at least one of these dose optimization techniques: automated exposure control; mA and/or kV adjustment per patient size (includes targeted exams where dose is matched to clinical indication); or iterative reconstruction. COMPARISON: CT Head wo Cont 12/24/2015 12:53 PM FINDINGS: Brain: Normal. No hemorrhage. Unremarkable white matter. No mass effect. Cerebral ventricles: No ventriculomegaly. Paranasal sinuses: Visualized sinuses are unremarkable. No fluid levels. Mastoid air cells: Visualized mastoid air cells are well aerated. Bones/joints: Unremarkable. No acute fracture. Soft tissues: Unremarkable. IMPRESSION: No acute intracranial abnormality. Thank you for allowing us to participate in the care of your patient. Dictated and Authenticated by: Adolph Fajardo MD 03/02/2021 11:36 PM Central Time ([place] & [place]) [facility] Final Radiology Report Call: [phone] assistance Online chat: [email or web address] Name: FELIX MO Age: 80Years M Date: 03/02/2021 SSN: -- : 1940 Study: CR KNEE 1V OR 2V RT Requesting Physician: Jay Mike Images: 2 Addl Studies: Provided Clinical History: multiple ground level falls Contrast: Contrast Medium: Contrast Amount: Contrast Method: CONFIDENTIALITY STATEMENT This report is intended only for use by the referring physician, and only in accordance with law. If you received this in error, call [phone]. Page 1 of 1 PROCEDURE INFORMATION: Exam: XR Right Knee Exam date and time: 03/02/2021 10:59 PM Age: 80 years old Clinical indication: Other: Pain; Additional info: Multiple ground level falls TECHNIQUE: Imaging protocol: XR Right knee. Views: 1 or 2 views. COMPARISON: No relevant prior studies available. FINDINGS: Bones/joints: Two views demonstrate no definite fracture. Bones appear osteopenic. Degenerative changes noted. Patella is slightly high. Trace suprapatellar effusion. Soft tissues: Normal. IMPRESSION: No definite fracture. If concern persists, recommend follow-up radiograph with additional views. Thank you for allowing us to participate in the care of your patient. Dictated and Authenticated by: Adolph Fajardo MD 03/02/2021 11:48 PM Central Time ( & [place]) [facility] Final Radiology Report Call: [phone] assistance Online chat: [email or web address] Name: FELIX MO Age: 80Years M Date: 03/02/2021 SSN: -- : 1940 Study: CR KNEE 1V OR 2V RT Requesting Physician: Jay Mike Images: 2 Addl Studies: Provided Clinical History: multiple ground level falls Contrast: Contrast Medium: Contrast Amount: Contrast Method: CONFIDENTIALITY STATEMENT This report is intended only for use by the referring physician, and only in accordance with law. If you received this in error, call [phone]. Page 1 of 1 PROCEDURE INFORMATION: Exam: XR Right Knee Exam date and time: 03/02/2021 10:59 PM Age: 80 years old Clinical indication: Other: Pain; Additional info: Multiple ground level falls TECHNIQUE: Imaging protocol: XR Right knee. Views: 1 or 2 views. COMPARISON: No relevant prior studies available. FINDINGS: Bones/joints: Two views demonstrate no definite fracture. Bones appear osteopenic. Degenerative changes noted. Patella is slightly high. Trace suprapatellar effusion. Soft tissues: Normal. IMPRESSION: No definite fracture. If concern persists, recommend follow-up radiograph with additional views. Thank you for allowing us to participate in the care of your patient. Dictated and Authenticated by: Adolph Fajardo MD 03/02/2021 11:48 PM Central Time ( & [place]) [facility] Final Radiology Report Call: [phone] assistance Online chat: [email or web address] Name: FELIX MO Age: 80Years M Date: 03/02/2021 SSN: -- : 1940 Study: CR ANKLE MIN 3V LT Requesting Physician: Jay Mike Images: 3 Addl Studies: Provided Clinical History: multiple ground level falls Contrast: Contrast Medium: Contrast Amount: Contrast Method: CONFIDENTIALITY STATEMENT This report is intended only for use by the referring physician, and only in accordance with law. If you received this in error, call [phone]. Page 1 of 1 PROCEDURE INFORMATION: Exam: XR Left Ankle Exam date and time: 03/02/2021 11:06 PM Age: 80 years old Clinical indication: Other: Pain; Additional info: Multiple ground level falls TECHNIQUE: Imaging protocol: XR Left ankle. Views: 3 or more views. COMPARISON: No relevant prior studies available. FINDINGS: Bones/joints: Bones are osteopenic. No fracture identified. No malalignment. Degenerative changes noted. Soft tissues: Mild soft tissue swelling seen. Atherosclerosis noted. IMPRESSION: No evidence of acute osseous injury Thank you for allowing us to participate in the care of your patient. Dictated and Authenticated by: Adolph Fajardo MD 03/02/2021 11:50 PM Central Time ([place] & [place]) Departure - Departure Time of Disposition: 23:54 Disposition: Home, Self-Care 01 Condition: Fair Clinical Impression: Skin tear, Fall from ground level - Discharge Information *PRESCRIPTION DRUG MONITORING PROGRAM REVIEWED*: Not Applicable *COPY OF PRESCRIPTION DRUG MONITORING REPORT IN PATIENT MARY: Not Applicable Forms: ED Department Discharge Care Plan Goals: The patient and family were advised of the examination, lab results, x-ray results and CT results during the visit. The patient was advised to use his walker to ambulate. The patient should follow-up with his primary care facility for continued evaluation and further management. If the patient has any additional symptoms or concerns, the patient should either return to the emergency department or visit his primary care facility. Sepsis Event Note (ED) - Evaluation Sepsis Screening Result: No Definite Risk - Focused Exam Vital Signs: Vital Signs Temp Pulse Resp BP Pulse Ox 03/02/21 21:01 73 03/02/21 20:40 99.2 F 71 24 H 108/52 L 94 L - My Orders Last 24 Hours: My Active Orders 03/02/21 21:01 RT Aerosol Therapy [RC] ASDIRECTED 03/02/21 21:50 Ankle Min 3V Lt [CR] Urgent Knee 1V or 2V Lt [CR] Urgent Knee 1V or 2V Rt [CR] Urgent - Assessment/Plan Last 24 Hours: My Active Orders 03/02/21 21:01 RT Aerosol Therapy [RC] ASDIRECTED 03/02/21 21:50 Ankle Min 3V Lt [CR] Urgent Knee 1V or 2V Lt [CR] Urgent Knee 1V or 2V Rt [CR] Urgent
[2021-03-02] MEDS ORDERED: Acetaminophen 500 MG Tab PO ONE (23:13)
--- NOTE | 2021-03-02 23:37 | CT ---
PROCEDURE INFORMATION: Exam: CT Head Without Contrast Exam date and time: 03/02/2021 10:46 PM Age: 80 years old Clinical indication: Other: Falls; Additional info: Multiple ground level falls TECHNIQUE: Imaging protocol: Computed tomography of the head without contrast. Radiation optimization: All CT scans at this facility use at least one of these dose optimization techniques: automated exposure control; mA and/or kV adjustment per patient size (includes targeted exams where dose is matched to clinical indication); or iterative reconstruction. COMPARISON: CT Head wo Cont 12/24/2015 12:53 PM FINDINGS: Brain: Normal. No hemorrhage. Unremarkable white matter. No mass effect. Cerebral ventricles: No ventriculomegaly. Paranasal sinuses: Visualized sinuses are unremarkable. No fluid levels. Mastoid air cells: Visualized mastoid air cells are well aerated. Bones/joints: Unremarkable. No acute fracture. Soft tissues: Unremarkable. IMPRESSION: No acute intracranial abnormality.
--- NOTE | 2021-03-02 23:48 | CR ---
PROCEDURE INFORMATION: Exam: XR Right Knee Exam date and time: 03/02/2021 10:59 PM Age: 80 years old Clinical indication: Other: Pain; Additional info: Multiple ground level falls TECHNIQUE: Imaging protocol: XR Right knee. Views: 1 or 2 views. COMPARISON: No relevant prior studies available. FINDINGS: Bones/joints: Two views demonstrate no definite fracture. Bones appear osteopenic. Degenerative changes noted. Patella is slightly high. Trace suprapatellar effusion. Soft tissues: Normal. IMPRESSION: No definite fracture. If concern persists, recommend follow-up radiograph with additional views.
--- NOTE | 2021-03-02 23:49 | CR ---
PROCEDURE INFORMATION: Exam: XR Left Knee Exam date and time: 03/02/2021 11:03 PM Age: 80 years old Clinical indication: Other: Pain; Additional info: Multiple ground level falls TECHNIQUE: Imaging protocol: XR Left knee. Views: 1 or 2 views. COMPARISON: No relevant prior studies available. FINDINGS: Bones/joints: Two views. Osteopenia. No definite fracture. No malalignment. Soft tissues: Trace suprapatellar effusion. Atherosclerosis noted. IMPRESSION: No definite fracture. If symptoms persist, recommend follow-up knee radiograph with additional views.
--- NOTE | 2021-03-02 23:51 | CR ---
PROCEDURE INFORMATION: Exam: XR Left Ankle Exam date and time: 03/02/2021 11:06 PM Age: 80 years old Clinical indication: Other: Pain; Additional info: Multiple ground level falls TECHNIQUE: Imaging protocol: XR Left ankle. Views: 3 or more views. COMPARISON: No relevant prior studies available. FINDINGS: Bones/joints: Bones are osteopenic. No fracture identified. No malalignment. Degenerative changes noted. Soft tissues: Mild soft tissue swelling seen. Atherosclerosis noted. IMPRESSION: No evidence of acute osseous injury
== END 2021-03-03 00:06 | disposition home or self-care (01) ==
LOC: DL.ED 19:56
DX: S41.112A Laceration without foreign body of left upper arm, initial encounter (principal); S41.111A Laceration without foreign body of right upper arm, initial encounter; I48.91 Unspecified atrial fibrillation; I25.119 Atherosclerotic heart disease of native coronary artery with unspecified angina pectoris; I11.0 Hypertensive heart disease with heart failure; I50.9 Heart failure, unspecified; E78.00 Pure hypercholesterolemia, unspecified; I25.2 Old myocardial infarction; J44.9 Chronic obstructive pulmonary disease, unspecified; K21.9 Gastro-esophageal reflux disease without esophagitis; M19.90 Unspecified osteoarthritis, unspecified site; D64.9 Anemia, unspecified; Z87.891 Personal history of nicotine dependence; Z88.0 Allergy status to penicillin; Z91.048 Other nonmedicinal substance allergy status; Z88.8 Allergy status to other drugs, medicaments and biological substances; Z79.82 Long term (current) use of aspirin; Z79.899 Other long term (current) drug therapy; W10.9XXA Fall (on) (from) unspecified stairs and steps, initial encounter
CPT/HCPCS: 36415; 70450; 73560; 73610; 80053; 83880; 85025; 99283; 99284; A9270; J7620-GY

== ENCOUNTER 2021-03-07 10:17 | Inpatient (IN) | payer OTHER, MEDICARE ==
--- NOTE | 2021-03-07 10:35 | EDM.PDOC ---
ED HPI GENERAL MEDICAL PROBLEM - General Chief Complaint: Fever Stated Complaint: Short of breath, weakness, freq. falls, fever, red arm Time Seen by Provider: 03/07/21 10:34 Source of Information: Reports: Patient, Old Records, RN, RN Notes Reviewed History Limitations: Reports: No Limitations - History of Present Illness INITIAL COMMENTS - FREE TEXT/NARRATIVE: Pt arrives from home by ambulance with c/o shortness of breath, generalized weakness, fever, and right arm redness. Pt fell on concrete last week sustaining a large right forearm skin tear, small left forearm skin tear, painful bruise to the left knee and left ankle. Pt states he has been getting progressively weaker, and fell twice on 03/02/21. Pt has become so weak that he has been having difficulty standing from a chair. Yesterday he had to call a neighbor to lift him out of his chair and assist him to his bed. Again today he could not get up from his chair. His caregiver arrived and with her assistance they could not get him up from the chair, so they called the ambulance. This morning the pt's caregiver found pt with a fever (exact temp. unknown to me). Pt claims he thinks his weakness is compounded by worsening shortness of breath. Denies productive cough or hemoptysis. Denies chest pain or edema. Onset: Gradual bilat knees Pain Score (Numeric/FACES): 5 Lower Leg Pain Score (Numeric/FACES): 6 - Related Data Allergies Allergy/AdvReac Type Severity Reaction Status Date / Time piperacillin sodium Allergy Severe angioedema Verified 03/07/21 10:32 [From Zosyn] tazobactam sodium Allergy Severe angioedema Verified 03/07/21 10:32 [From Zosyn] adhesive tape Allergy Blisters Verified 03/07/21 10:32 tazarotene [From Tazorac] Allergy Airway Verified 03/07/21 10:32 Tightness Home Meds: Home Meds Montelukast [Singulair] 10 mg PO BEDTIME 10/26/13 [History] Pantoprazole Sodium 40 mg PO DAILY 11/09/15 [History] Potassium Chloride [K-Tab ER] 20 meq PO DAILY 03/07/20 [History] Albuterol Sulfate [Proair Hfa] 2 inh INH Q6H PRN 09/26/20 [History] Albuterol/Ipratropium [Combivent Respimat] 2 puff IH BID PRN 09/26/20 [History] Albuterol/Ipratropium [DuoNeb 3.0-0.5 MG/3 ML] 3 ml NEB TID 09/26/20 [History] Cholecalciferol (Vitamin D3) [Vitamin D3] 25 mcg PO DAILY 09/26/20 [History] Fluticasone Propion/Salmeterol [Fluticasone-Salmeterol 500-50] 1 puff IH BID 09/26/20 [History] Tiotropium [Spiriva HandiHaler] 18 mcg INH DAILY 09/26/20 [History] Aspirin [Aspirin EC] 81 mg PO DAILY 01/09/21 [History] Calcitriol 0.25 mcg PO DAILY 01/09/21 [History] Diltiazem [Tiazac] 240 mg PO DAILY 01/09/21 [History] Furosemide [Lasix] 20 mg PO BID 01/09/21 [History] Losartan [Cozaar] 12.5 mg PO DAILY 01/09/21 [History] Rosuvastatin [Crestor] 5 mg PO BEDTIME 01/09/21 [History] Ascorbic Acid [Vitamin C] 250 mg PO DAILY 30 Days #30 tablet 01/10/21 [Rx] Ferrous Sulfate 325 mg PO DAILY 03/02/21 [History] Docusate Sodium [Colace] 100 mg PO BID PRN 03/07/21 [History] Sennosides/Docusate Sodium [Senokot-S Tablet] 2 each PO BID PRN 03/07/21 [History] Past Medical History HEENT History: Reports: Cataract, Hard of Hearing, Other (See Below) Other HEENT History: thyroid nodule Cardiovascular History: Reports: Afib, Angina, CAD, Heart Failure, High Cholesterol, Hypertension, [place], Pacemaker, SOB on Exertion, Stents, Other (See Below) Other Cardiovascular History: 6 stents placed total Respiratory History: Reports: Asthma, Bronchitis, Recurrent, COPD, Pneumonia, Recurrent, Sleep Apnea, SOB Gastrointestinal History: Reports: GERD, Hemorrhoids, Other (See Below) Genitourinary History: Reports: BPH, Prostate Disorder Musculoskeletal History: Reports: Arthritis, Back Pain, Chronic, Fracture, Osteoarthritis Neurological History: Reports: None Psychiatric History: Reports: Depression Other Psychiatric History: insomnia Endocrine/Metabolic History: Reports: None Hematologic History: Reports: Anemia, Blood Transfusion(s), Iron Deficiency Immunologic History: Reports: Other (See Below) Other Immunologic History: Hx prostate and lung ca. 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 IN THE SERVICE, "NOT THE BAD KIND" - Past Surgical History Head Surgeries/Procedures: Reports: None HEENT Surgical History: Reports: Cataract Surgery, Naso-Sinus Surgery Cardiovascular Surgical History: Reports: AICD, Coronary Artery Stent Respiratory Surgical History: Reports: Lung Resection Other Respiratory Surgeries/Procedures: mediastinoscopy GI Surgical History: Reports: Abdominal paracentesis, Appendectomy, Colonoscopy, EGD, Polypectomy, Other (See Below) Other GI Surgeries/Procedures: uMBILICAL HERNIA PRESENT, appendix rupture recently 01/05/16 Male Surgical History: Reports: Prostatectomy, TURP-Transurethral Resection of Prostate Endocrine Surgical History: Reports: Thyroid Biopsy Musculoskeletal Surgical History: Reports: Shoulder Surgery Other Oncologic Surgeries/Procedures: 3/4 of right lobe removed Social & Family History - Family History Family Medical History: No Pertinent Family History - Tobacco Use Tobacco Use Status *Q: Former Tobacco User Tobacco Use Within Last Twelve Months: Cigarettes - Caffeine Use Caffeine Use: Reports: Coffee - Living Situation & Occupation Living situation: Reports: , Alone Occupation: Retired ED ROS GENERAL - Review of Systems Review Of Systems: Comprehensive ROS is negative, except as noted in HPI. ED EXAM, SKIN/RASH Exam: See Below Exam Limited By: No Limitations General Appearance: Alert, No Apparent Distress, Other (Frail elderly male) Eye Exam: Bilateral Eye: Normal Inspection Nose: Normal Inspection. No: Nasal Flaring Throat/Mouth: Normal Lips, Normal Voice, No Airway Compromise Head: Atraumatic, Normocephalic Neck: Normal Inspection, Non-Tender Respiratory/Chest: No Respiratory Distress, No Accessory Muscle Use, Decreased Breath Sounds, Crackles, Wheezing. No: Rales, Rhonchi Cardiovascular: Normal Peripheral Pulses, Irregularly Irregular GI/Abdominal: Normal Bowel Sounds, Soft, Non-Tender Extremities: No Pedal Edema, Arm Pain (Right arm and forearm tender with large steri-stripped skin tear with no drainage. Essentially the entire right arm is ecchymotic with resolving contusion, mild erythema superiorly.), Limited Range of Motion (Left knee with large tender contusion. Tender left ankle.) Neurological: Alert, Oriented, No Motor/Sensory Deficits Psychiatric: Normal Affect, Normal Mood Skin: Warm, Dry #1 Interpretation EKG Date: 03/07/21 Time: 11:06 Rhythm: A-Fib Rate (Beats/Min): 80 [place]: LAD-Left [place] Deviation P-Wave: Absent QRS: RBBB ST-T: Normal QT: Prolonged (Borderline prolonged) Comparison: No Change Course - Vital Signs Last Recorded V/S: Last Vital Signs Temp 97.4 F 03/07/21 13:54 Pulse 65 03/07/21 13:54 Resp 20 03/07/21 13:54 BP 106/49 L 03/07/21 13:54 Pulse Ox 98 03/07/21 13:54 - Orders/Labs/Meds Orders: Active Orders 24 hr Category Date Time Status Admission Status [Patient Status] [ADT] Routine ADT 03/07/21 13:18 Active CULTURE BLOOD [BC] Stat Lab 03/07/21 10:58 Received CULTURE BLOOD [BC] Stat Lab 03/07/21 11:06 Results UA RFX JORJE AND CULT IF INDIC [URIN] Stat Lab 03/07/21 10:43 Ordered Blood Culture x2 Reflex Set [OM.PC] Stat Oth 03/07/21 10:42 Ordered Peripheral IV Insertion Adult [OM.PC] Stat Oth 03/07/21 10:43 Ordered Medication Orders Acetaminophen (Acetaminophen 325 Mg Tab) 650 mg PO Q4H PRN PRN Reason: Pain (Mild 1-3)/fever Last Admin: 03/07/21 15:49 Dose: 650 mg Documented by: [id number] Albuterol/Ipratropium (Albuterol/Ipratropium 3.0-0.5 Mg/3 Ml Neb Soln) 3 ml NEB Q4HRRT ARIAS Heparin Sodium (Porcine) (Heparin Sodium 5,000 Units/Ml Vial) 5,000 units SUBCUT Q12HR ARIAS Vancomycin HCl 1 gm/ Sodium (Chloride) 250 mls @ 166.667 mls/hr IV Q24H ARIAS Last Admin: 03/07/21 14:50 Dose: 166.667 mls/hr Documented by: [id number] Methylprednisolone Sodium Succinate (Methylprednisolone Sodium Succinate 40 Mg/1 Ml Sdv) 40 mg IVPUSH Q8HR ARIAS Ondansetron HCl (Ondansetron 4 Mg/2 Ml Sdv) 4 mg IVPUSH Q4H PRN PRN Reason: Nausea/Vomiting Pantoprazole Sodium (Pantoprazole 40 Mg Tab.Cr) 40 mg PO ACBREAKFAST ARIAS Sodium Chloride (Sodium Chloride 0.9% 10 Ml Syringe) 10 ml FLUSH ASDIRECTED PRN PRN Reason: Keep Vein Open Vancomycin HCl (Pharmacy To Dose - Vancomycin) 0 dose .XX ASDIRECTED ARIAS Labs: Laboratory Tests 03/07/21 03/07/21 03/07/21 Range/Units 10:52 11:06 11:06 WBC 6.1 (5.0-10.0) 10^3/uL RBC 3.40 L (4.6-6.2) 10^6/uL Hgb 9.8 L (14.0-18.0) g/dL Hct 30.6 L (40.0-54.0) % MCV 90.0 (80-100) fL MCH 28.8 (27.0-34.0) pg MCHC 32.0 L (33.0-35.0) g/dL Plt Count 144 L (150-450) 10^3/uL Neut % (Auto) 68.3 (42.2-75.2) % Lymph % (Auto) 15.2 L (20.5-50.1) % Wolfe % (Auto) 12.0 H (2-8) % Eos % (Auto) 4.0 H (1.0-3.0) % Baso % (Auto) 0.5 (0.0-1.0) % Sodium 135 L (136-145) mmol/L Potassium 3.7 (3.5-5.1) mmol/L Chloride 100 (98-107) mmol/L Carbon Dioxide 27 (21-32) mmol/L Anion Gap 11.7 (7-13) mEq/L BUN 28 H (7-18) mg/dL Creatinine 1.40 H (0.70-1.30) mg/dL Est Cr Clr Drug Dosing 37.34 mL/min Estimated GFR (MDRD) 49 BUN/Creatinine Ratio 20.0 (No establ ref range) Glucose 103 H (70-99) mg/dL Lactic Acid (0.4-2.0) mmol/L Calcium 8.0 L (8.5-10.1) mg/dL Total Bilirubin 1.9 H (0.2-1.0) mg/dL AST 33 (15-37) U/L ALT 19 (16-63) U/L Alkaline Phosphatase 94 (46-116) U/L Troponin I High Sens 32 (<=76) pg/mL C-Reactive Protein 10.2 H (0.0-0.9) mg/dL B-Natriuretic Peptide 130 H (0-100) pg/ml Total Protein 6.0 L (6.4-8.2) g/dL Albumin 3.0 L (3.4-5.0) g/dL Globulin 3.0 Albumin/Globulin Ratio 1.00 Influenza Type A RNA Negative (NEGATIVE) Influenza Type B RNA Negative (NEGATIVE) SARS-CoV-2 RNA (NELDA) Negative (NEGATIVE) 03/07/21 Range/Units 11:06 WBC (5.0-10.0) 10^3/uL RBC (4.6-6.2) 10^6/uL Hgb (14.0-18.0) g/dL Hct (40.0-54.0) % MCV (80-100) fL MCH (27.0-34.0) pg MCHC (33.0-35.0) g/dL Plt Count (150-450) 10^3/uL Neut % (Auto) (42.2-75.2) % Lymph % (Auto) (20.5-50.1) % Wolfe % (Auto) (2-8) % Eos % (Auto) (1.0-3.0) % Baso % (Auto) (0.0-1.0) % Sodium (136-145) mmol/L Potassium (3.5-5.1) mmol/L Chloride (98-107) mmol/L Carbon Dioxide (21-32) mmol/L Anion Gap (7-13) mEq/L BUN (7-18) mg/dL Creatinine (0.70-1.30) mg/dL Est Cr Clr Drug Dosing mL/min Estimated GFR (MDRD) BUN/Creatinine Ratio (No establ ref range) Glucose (70-99) mg/dL Lactic Acid 1.2 (0.4-2.0) mmol/L Calcium (8.5-10.1) mg/dL Total Bilirubin (0.2-1.0) mg/dL AST (15-37) U/L ALT (16-63) U/L Alkaline Phosphatase (46-116) U/L Troponin I High Sens (<=76) pg/mL C-Reactive Protein (0.0-0.9) mg/dL B-Natriuretic Peptide (0-100) pg/ml Total Protein (6.4-8.2) g/dL Albumin (3.4-5.0) g/dL Globulin Albumin/Globulin Ratio Influenza Type A RNA (NEGATIVE) Influenza Type B RNA (NEGATIVE) SARS-CoV-2 RNA (NELDA) (NEGATIVE) Meds: Medications Generic Name Dose Route Start Last Admin Trade Name Freq PRN Reason Stop Dose Admin Acetaminophen 650 mg 03/07/21 13:54 03/07/21 15:49 Acetaminophen 325 Mg Tab PO 650 mg Q4H PRN Administration Pain (Mild 1-3)/fever Albuterol/Ipratropium 3 ml 03/07/21 19:00 Albuterol/Ipratropium 3.0-0.5 Mg/3 Ml Neb Soln NEB Q4HRRT ARIAS Heparin Sodium (Porcine) 5,000 units 03/07/21 21:00 Heparin Sodium 5,000 Units/Ml Vial SUBCUT Q12HR ARIAS Vancomycin HCl 1 gm/ Sodium 250 mls @ 166.667 mls/hr 03/07/21 15:00 03/07/21 14:50 Chloride IV 166.667 mls/hr Q24H ARIAS Administration Methylprednisolone Sodium Succinate 40 mg 03/07/21 22:00 Methylprednisolone Sodium Succinate 40 Mg/1 Ml Sdv IVPUSH Q8HR ARIAS Ondansetron HCl 4 mg 03/07/21 13:54 Ondansetron 4 Mg/2 Ml Sdv IVPUSH Q4H PRN Nausea/Vomiting Pantoprazole Sodium 40 mg 03/08/21 06:00 Pantoprazole 40 Mg Tab.Cr PO ACBREAKFAST ARIAS Sodium Chloride 10 ml 03/07/21 13:54 Sodium Chloride 0.9% 10 Ml Syringe FLUSH ASDIRECTED PRN Keep Vein Open Vancomycin HCl 0 dose 03/07/21 14:00 Pharmacy To Dose - Vancomycin .XX ASDIRECTED ARIAS Discontinued Medications Generic Name Dose Route Start Last Admin Trade Name Freq PRN Reason Stop Dose Admin Albuterol/Ipratropium 3 ml 03/07/21 11:53 03/07/21 12:59 Albuterol/Ipratropium 3.0-0.5 Mg/3 Ml Neb Soln NEB 03/07/21 11:54 3 ml ONETIME ONE Administration Methylprednisolone Sodium Succinate 125 mg 03/07/21 11:53 03/07/21 12:59 Methylprednisolone Sodium Succinate 125 Mg/2 Ml Sdv IVPUSH 03/07/21 11:54 125 mg ONETIME ONE Administration Sodium Chloride 10 ml 03/07/21 10:42 03/07/21 12:59 Sodium Chloride 0.9% 10 Ml Syringe FLUSH 10 ml ASDIRECTED PRN Administration Keep Vein Open - Radiology Interpretation Free Text/Narrative:: [facility] [place] [facility] Final Radiology Report Call: [phone] assistance Online chat: [email or web address] Name: FELIX MO Age: 80Years M Date: 03/07/2021 SSN: -- : [id number] Study: CR CHEST 1V FRONTAL Requesting Physician: KHAI CHATMAN Images: 1 Addl Studies: Provided Clinical History: shortness of breath Contrast: Contrast Medium: Contrast Amount: Contrast Method: Page 1 of 2 PROCEDURE INFORMATION: Exam: XR Chest Exam date and time: 03/07/2021 10:49 AM Age: 80 years old Clinical indication: Shortness of breath; Prior surgery; Surgery date: 6+ months; Surgery type: Pacemaker TECHNIQUE: Imaging protocol: XR of the chest. Views: 1 view. COMPARISON: CR Chest 1V Frontal 01/09/2021 1:57 PM FINDINGS: Tubes, catheters and devices: Pacemaker. Lungs: Diffuse bilateral interstitial prominence is less prominent than it was on 01/09/2021. There has been more marked improvement on the right. Scarring in the right lung base. Surgical clips in the right hilum. Volume loss in the right. Pleural spaces: Unremarkable. No pleural effusion. No pneumothorax. Heart/Mediastinum: Cardiomegaly. Vasculature: Aortic calcifications. Bones/joints: Degenerative arthritis in the shoulders and spine. IMPRESSION: 1. Decrease in the diffuse bilateral interstitial prominence compared with 01/09/2021. 2. Postoperative changes right lung with scarring and volume loss 3. Cardiomegaly FELIX MO | Final Radiology Report CONFIDENTIALITY STATEMENT This report is intended only for use by the referring physician, and only in accordance with law. If you received this in error, call [phone]. Page 2 of 2 Thank you for allowing us to participate in the care of your patient. Dictated and Authenticated by: Phoebe Garcia MD 03/07/2021 11:19 AM Central Time ([place] & [place]) Departure - Departure Time of Disposition: 12:25 (admit to Dr. Zamorano) Disposition: Admitted As Inpatient 65 Condition: Fair Clinical Impression: COPD, Severe chronic obstructive pulmonary disease, Generalized weakness, Contusion of left knee, subsequent encounter - Discharge Information Sepsis Event Note (ED) - Evaluation Sepsis Screening Result: No Definite Risk - Focused Exam Vital Signs: Vital Signs Temp Pulse Resp BP Pulse Ox Pulse Ox 03/07/21 11:54 64 100 03/07/21 10:25 98.7 F 72 24 H 101/51 L 91 L - My Orders Last 24 Hours: My Active Orders 03/07/21 10:42 Blood Culture x2 Reflex Set [OM.PC] Stat 03/07/21 10:43 UA RFX JORJE AND CULT IF INDIC [URIN] Stat Peripheral IV Insertion Adult [OM.PC] Stat 03/07/21 10:58 CULTURE BLOOD [BC] Stat 03/07/21 11:06 CULTURE BLOOD [BC] Stat 03/07/21 13:18 Admission Status [Patient Status] [ADT] Routine - Assessment/Plan Last 24 Hours: My Active Orders 03/07/21 10:42 Blood Culture x2 Reflex Set [OM.PC] Stat 03/07/21 10:43 UA RFX JORJE AND CULT IF INDIC [URIN] Stat Peripheral IV Insertion Adult [OM.PC] Stat 03/07/21 10:58 CULTURE BLOOD [BC] Stat 03/07/21 11:06 CULTURE BLOOD [BC] Stat 03/07/21 13:18 Admission Status [Patient Status] [ADT] Routine
[2021-03-07] MEDS ORDERED: Sodium Chloride 0.9% 10 ML Syringe FLUSH PRN (10:42)
--- NOTE | 2021-03-07 11:20 | CR ---
PROCEDURE INFORMATION: Exam: XR Chest Exam date and time: 03/07/2021 10:49 AM Age: 80 years old Clinical indication: Shortness of breath; Prior surgery; Surgery date: 6+ months; Surgery type: Pacemaker TECHNIQUE: Imaging protocol: XR of the chest. Views: 1 view. COMPARISON: CR Chest 1V Frontal 01/09/2021 1:57 PM FINDINGS: Tubes, catheters and devices: Pacemaker. Lungs: Diffuse bilateral interstitial prominence is less prominent than it was on 01/09/2021. There has been more marked improvement on the right. Scarring in the right lung base. Surgical clips in the right hilum. Volume loss in the right. Pleural spaces: Unremarkable. No pleural effusion. No pneumothorax. Heart/Mediastinum: Cardiomegaly. Vasculature: Aortic calcifications. Bones/joints: Degenerative arthritis in the shoulders and spine. IMPRESSION: 1. Decrease in the diffuse bilateral interstitial prominence compared with 01/09/2021. 2. Postoperative changes right lung with scarring and volume loss 3. Cardiomegaly
[2021-03-07 11:35] LABS: ANION GAP 11.7 mEq/L (7-13)
[2021-03-07 11:52] LABS: CORONAVIRUS COVID-19 NAA NEGATIVE (NEGATIVE)
[2021-03-07] MEDS ORDERED: methylPREDNISolone Sodium Succinate 125 MG/2 ML SDV IVPUSH ONE (11:53)
[2021-03-07] MEDS ORDERED: Albuterol/Ipratropium 3.0-0.5 MG/3 ML Neb Soln NEB ONE (11:53)
[2021-03-07] MEDS ORDERED: Ondansetron 4 MG/2 ML SDV IVPUSH PRN (13:54)
--- NOTE | 2021-03-07 14:06 | PCM.HP ---
H&P History of Present Illness - General Date of Service: 03/07/21 Admit Problem/Dx: Admission Diagnosis/Problem Admission Diagnosis/Problem COPD, Mild chronic obstructive pulmonary disease - History of Present Illness Initial Comments - Free Text/Narative: The patient 70-year-old male who presents to complain of generalized weakness and dyspnea. Please note that the patient is a fair historian at best. From what is able to ascertain the patient denies fever, rigors, nausea, vomiting, cough, wheeze, abdominal pain, diarrhea, chest pain. He states that he had a fall approximately 5 days prior to this hospitalization and I believe he presented to the emergency department at that time for retention. He states leading up to his hospitalization he was exhibiting bilateral foot pain as well. He presents for further evaluation bilat knees Pain Score (Numeric/FACES): 5 - Related Data Allergies/Adverse Reactions: Allergies Allergy/AdvReac Type Severity Reaction Status Date / Time piperacillin sodium Allergy Severe angioedema Verified 03/07/21 10:32 [From Zosyn] tazobactam sodium Allergy Severe angioedema Verified 03/07/21 10:32 [From Zosyn] adhesive tape Allergy Blisters Verified 03/07/21 10:32 tazarotene [From Tazorac] Allergy Airway Verified 03/07/21 10:32 Tightness Home Medications: Home Meds Montelukast [Singulair] 10 mg PO BEDTIME 10/26/13 [History] Pantoprazole Sodium 40 mg PO DAILY 11/09/15 [History] Potassium Chloride [K-Tab ER] 20 meq PO DAILY 03/07/20 [History] Albuterol Sulfate [Proair Hfa] 2 inh INH Q6H PRN 09/26/20 [History] Albuterol/Ipratropium [Combivent Respimat] 2 puff IH BID PRN 09/26/20 [History] Albuterol/Ipratropium [DuoNeb 3.0-0.5 MG/3 ML] 3 ml NEB TID 09/26/20 [History] Cholecalciferol (Vitamin D3) [Vitamin D3] 25 mcg PO DAILY 09/26/20 [History] Fluticasone Propion/Salmeterol [Fluticasone-Salmeterol 500-50] 1 puff IH BID 09/26/20 [History] Tiotropium [Spiriva HandiHaler] 18 mcg INH DAILY 09/26/20 [History] Aspirin [Aspirin EC] 81 mg PO DAILY 01/09/21 [History] Calcitriol 0.25 mcg PO DAILY 01/09/21 [History] Diltiazem [Tiazac] 240 mg PO DAILY 01/09/21 [History] Furosemide [Lasix] 20 mg PO BID 01/09/21 [History] Losartan [Cozaar] 12.5 mg PO DAILY 01/09/21 [History] Rosuvastatin [Crestor] 5 mg PO BEDTIME 01/09/21 [History] Ascorbic Acid [Vitamin C] 250 mg PO DAILY 30 Days #30 tablet 01/10/21 [Rx] Ferrous Sulfate 325 mg PO DAILY 03/02/21 [History] Docusate Sodium [Colace] 100 mg PO BID PRN 03/07/21 [History] Sennosides/Docusate Sodium [Senokot-S Tablet] 2 each PO BID PRN 03/07/21 [History] Past Medical History HEENT History: Reports: Cataract, Hard of Hearing, Other (See Below) Other HEENT History: thyroid nodule Cardiovascular History: Reports: Afib, Angina, CAD, Heart Failure, High Cholesterol, Hypertension, VA, Pacemaker, SOB on Exertion, Stents, Other (See Below) Other Cardiovascular History: 6 stents placed total Respiratory History: Reports: Asthma, Bronchitis, Recurrent, COPD, Pneumonia, Recurrent, Sleep Apnea, SOB Gastrointestinal History: Reports: GERD, Hemorrhoids, Other (See Below) Genitourinary History: Reports: BPH, Prostate Disorder Musculoskeletal History: Reports: Arthritis, Back Pain, Chronic, Fracture, Osteoarthritis Neurological History: Reports: None Psychiatric History: Reports: Depression Other Psychiatric History: insomnia Endocrine/Metabolic History: Reports: None Hematologic History: Reports: Anemia, Blood Transfusion(s), Iron Deficiency Immunologic History: Reports: Other (See Below) Other Immunologic History: Hx prostate and lung ca. 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 IN THE SERVICE, "NOT THE BAD KIND" - Past Surgical History Head Surgeries/Procedures: Reports: None HEENT Surgical History: Reports: Cataract Surgery, Naso-Sinus Surgery Cardiovascular Surgical History: Reports: AICD, Coronary Artery Stent Respiratory Surgical History: Reports: Lung Resection Other Respiratory Surgeries/Procedures: mediastinoscopy GI Surgical History: Reports: Abdominal paracentesis, Appendectomy, Colonoscopy, EGD, Polypectomy, Other (See Below) Other GI Surgeries/Procedures: uMBILICAL HERNIA PRESENT, appendix rupture recently 01/05/16 Male Surgical History: Reports: Prostatectomy, TURP-Transurethral Resection of Prostate Endocrine Surgical History: Reports: Thyroid Biopsy Musculoskeletal Surgical History: Reports: Shoulder Surgery Other Oncologic Surgeries/Procedures: 3 of right lobe removed Social & Family History - Family History Family Medical History: No Pertinent Family History - Tobacco Use Tobacco Use Status *Q: Former Tobacco User Second Hand Smoke Exposure: No - Caffeine Use Caffeine Use: Reports: Coffee - Recreational Drug Use Recreational Drug Use: No - Living Situation & Occupation Living situation: Reports: , Alone Occupation: Retired H&P Review of Systems - Review of Systems: Review Of Systems: See Below General: Reports: Weakness. Denies: No Symptoms HEENT: Reports: No Symptoms Pulmonary: Reports: Shortness of Breath Cardiovascular: Reports: No Symptoms Gastrointestinal: Reports: No Symptoms Genitourinary: Reports: No Symptoms Musculoskeletal: Reports: No Symptoms Skin: Reports: Other (The patient complains of redness of his right arm) Psychiatric: Reports: No Symptoms Neurological: Reports: No Symptoms Hematologic/Lymphatic: Reports: No Symptoms Immunologic: Reports: No Symptoms Exam - Exam Exam: See Below - Vital Signs Vital Signs: Last Vital Signs Temp 98.7 F 03/07/21 10:25 Pulse 64 03/07/21 11:54 Resp 24 H 03/07/21 10:25 BP 101/51 L 03/07/21 10:25 Pulse Ox 100 03/07/21 11:54 Weight: 175 lb 14.4 oz - Exam General: Alert, Oriented, 4 HEENT: PERRLA, Hearing Intact, Mucosa Moist & [place], Nares Patent, Normal Nasal Septum, Posterior Pharynx Clear, Conjunctiva Clear, EOMI, EACs Clear, TMs Clear Neck: Supple, Trachea Midline, 2 Lungs: Clear to Auscultation, Normal Respiratory Effort, Decreased Breath Sounds Cardiovascular: Regular Rate, Normal S1, Normal S2, Irregular Rhythm. No: Regular Rhythm GI/Abdominal Exam: Normal Bowel Sounds, Soft, Non-Tender, No Organomegaly, No Distention, No Abnormal Bruit, No Mass, Pelvis Stable Extremities: Normal Range of Motion, Non-Tender, No Pedal Edema, Normal Capillary Refill, Redness, Other (Erythema of right forearm) Peripheral Pulses: 2+: Carotid (L), Carotid (R), Brachial (L), Brachial (R), Radial (L), Radial (R), Femoral (L), Femoral (R), Popliteal (L), Popliteal (R), Posterior Tibial (L), Posterior Tibial (R), Dorsalis Pedis (L), Dorsalis Pedis (R) Skin: Warm, Dry, Intact Neurological: Cranial Nerves Intact, Reflexes Equal Bilateral Neuro Extensive - Mental Status: Alert, Oriented x3, Normal Mood/Affect, Normal Cognition Neuro Extensive - Motor, Sensory, Reflexes: CN II-XII Intact, Normal Gait, Normal Reflexes DTR: 2+: Bicep (L), Bicep (R), Tricep (L), Tricep (R), Patella (L), Patella (R), Achilles (L), Achilles (R) Psychiatric: Alert, Normal Affect, Normal Mood - Patient Data Lab Results Last 24 hrs: Laboratory Results - last 24 hr 03/07/21 03/07/21 03/07/21 Range/Units 10:52 11:06 11:06 WBC 6.1 (5.0-10.0) 10^3/uL RBC 3.40 L (4.6-6.2) 10^6/uL Hgb 9.8 L (14.0-18.0) g/dL Hct 30.6 L (40.0-54.0) % MCV 90.0 (80-100) fL MCH 28.8 (27.0-34.0) pg MCHC 32.0 L (33.0-35.0) g/dL Plt Count 144 L (150-450) 10^3/uL Neut % (Auto) 68.3 (42.2-75.2) % Lymph % (Auto) 15.2 L (20.5-50.1) % [place] % (Auto) 12.0 H (2-8) % Eos % (Auto) 4.0 H (1.0-3.0) % Baso % (Auto) 0.5 (0.0-1.0) % Sodium 135 L (136-145) mmol/L Potassium 3.7 (3.5-5.1) mmol/L Chloride 100 (98-107) mmol/L Carbon Dioxide 27 (21-32) mmol/L Anion Gap 11.7 (7-13) mEq/L BUN 28 H (7-18) mg/dL Creatinine 1.40 H (0.70-1.30) mg/dL Est Cr Clr Drug Dosing 37.34 mL/min Estimated GFR (MDRD) 49 BUN/Creatinine Ratio 20.0 (No establ ref range) Glucose 103 H (70-99) mg/dL Lactic Acid (0.4-2.0) mmol/L Calcium 8.0 L (8.5-10.1) mg/dL Total Bilirubin 1.9 H (0.2-1.0) mg/dL AST 33 (15-37) U/L ALT 19 (16-63) U/L Alkaline Phosphatase 94 (46-116) U/L Troponin I High Sens 32 (<=76) pg/mL C-Reactive Protein 10.2 H (0.0-0.9) mg/dL B-Natriuretic Peptide 130 H (0-100) pg/ml Total Protein 6.0 L (6.4-8.2) g/dL Albumin 3.0 L (3.4-5.0) g/dL Globulin 3.0 Albumin/Globulin Ratio 1.00 Influenza Type A RNA Negative (NEGATIVE) Influenza Type B RNA Negative (NEGATIVE) SARS-CoV-2 RNA (NELDA) Negative (NEGATIVE) 03/07/21 Range/Units 11:06 WBC (5.0-10.0) 10^3/uL RBC (4.6-6.2) 10^6/uL Hgb (14.0-18.0) g/dL Hct (40.0-54.0) % MCV (80-100) fL MCH (27.0-34.0) pg MCHC (33.0-35.0) g/dL Plt Count (150-450) 10^3/uL Neut % (Auto) (42.2-75.2) % Lymph % (Auto) (20.5-50.1) % [place] % (Auto) (2-8) % Eos % (Auto) (1.0-3.0) % Baso % (Auto) (0.0-1.0) % Sodium (136-145) mmol/L Potassium (3.5-5.1) mmol/L Chloride (98-107) mmol/L Carbon Dioxide (21-32) mmol/L Anion Gap (7-13) mEq/L BUN (7-18) mg/dL Creatinine (0.70-1.30) mg/dL Est Cr Clr Drug Dosing mL/min Estimated GFR (MDRD) BUN/Creatinine Ratio (No establ ref range) Glucose (70-99) mg/dL Lactic Acid 1.2 (0.4-2.0) mmol/L Calcium (8.5-10.1) mg/dL Total Bilirubin (0.2-1.0) mg/dL AST (15-37) U/L ALT (16-63) U/L Alkaline Phosphatase (46-116) U/L Troponin I High Sens (<=76) pg/mL C-Reactive Protein (0.0-0.9) mg/dL B-Natriuretic Peptide (0-100) pg/ml Total Protein (6.4-8.2) g/dL Albumin (3.4-5.0) g/dL Globulin Albumin/Globulin Ratio Influenza Type A RNA (NEGATIVE) Influenza Type B RNA (NEGATIVE) SARS-CoV-2 RNA (NELDA) (NEGATIVE) Result Diagrams: 03/07/21 11:06 03/07/21 11:06 Fabien Results Last 24 hrs: Microbiology 03/07/21 11:06 Anaerobic Blood Culture - Final Blood - Arm, Right Problem List Initiated/Reviewed/Updated: Yes Orders Last 24hrs: Active Orders 24 hr Category Date Time Status Admission Status [Patient Status] [ADT] Routine ADT 03/07/21 13:18 Active CPAP Adult [RT BiPAP/CPAP] [RC] ASDIRECTED Care 03/07/21 13:58 Ordered Communication Order [RC] Care 03/07/21 13:57 Ordered Communication Order [RC] Care 03/07/21 13:57 Ordered Oxygen Therapy [RC] PRN Care 03/07/21 13:54 Ordered Peripheral IV Care [RC] . DIRECTED Care 03/07/21 13:56 Ordered Pulse Oximetry [RC] PRN Care 03/07/21 13:55 Ordered RT Aerosol Therapy [RC] ASDIRECTED Care 03/07/21 13:59 Ordered Up With Assistance [RC] ASDIRECTED Care 03/07/21 13:54 Ordered Vital Signs [RC] Q4H Care 03/07/21 13:54 Ordered Consult to Case Management/Office Cashier [CONS] Cons 03/07/21 13:54 Ordered Routine OT Evaluation and Treatment [CONS] Routine Cons 03/07/21 13:54 Ordered PT Evaluation and Treatment [CONS] Routine Cons 03/07/21 13:54 Ordered Heart Healthy Diet [DIET] Diet 03/07/21 Lunch Ordered CULTURE BLOOD [BC] Stat Lab 03/07/21 10:58 Received CULTURE BLOOD [BC] Stat Lab 03/07/21 11:06 Results UA RFX FABIEN AND CULT IF INDIC [URIN] Stat Lab 03/07/21 10:43 Ordered Acetaminophen [TylenoL] Med 03/07/21 13:54 Ordered 650 mg PO Q4H PRN Albuterol/Ipratropium [DuoNeb 3.0-0.5 MG/3 ML] Med 03/07/21 15:00 Ordered 3 ml NEB Q4HRRT Heparin Sodium Med 03/07/21 21:00 Ordered 5,000 units SUBCUT Q12HR Ondansetron [Zofran] Med 03/07/21 13:54 Ordered 4 mg IVPUSH Q4H PRN Pantoprazole [ProTONIX] Med 03/08/21 06:00 Ordered 40 mg PO ACBREAKFAST Pharmacy to Dose - Vancomycin Med 03/07/21 14:00 Ordered 1 dose .XX ASDIRECTED Sodium Chloride 0.9% [Saline Flush] Med 03/07/21 10:42 Active 10 ml FLUSH ASDIRECTED PRN Sodium Chloride 0.9% [Saline Flush] Med 03/07/21 13:54 Ordered 10 ml FLUSH ASDIRECTED PRN methylPREDNISolone Sod Succ [Solu-MEDROL] Med 03/07/21 14:00 Ordered 40 mg IVPUSH Q8H Blood Culture x2 Reflex Set [OM.PC] Stat Oth 03/07/21 10:42 Ordered Peripheral IV Insertion Adult [OM.PC] Routine Oth 03/07/21 13:54 Ordered Peripheral IV Insertion Adult [OM.PC] Stat Oth 03/07/21 10:43 Ordered Saline Lock Insert [OM.PC] Routine Oth 03/07/21 13:54 Ordered Resuscitation Status Routine Resus Stat 03/07/21 13:54 Ordered Medication Orders Acetaminophen (Acetaminophen 325 Mg Tab) 650 mg PO Q4H PRN PRN Reason: Pain (Mild 1-3)/fever Heparin Sodium (Porcine) (Heparin Sodium 5,000 Units/Ml Vial) 5,000 units SUBCU T Q12HR ARIAS Ondansetron HCl (Ondansetron 4 Mg/2 Ml Sdv) 4 mg IVPUSH Q4H PRN PRN Reason: Nausea/Vomiting Pantoprazole Sodium (Pantoprazole 40 Mg Tab.Cr) 40 mg PO ACBREAKFAST ARIAS Sodium Chloride (Sodium Chloride 0.9% 10 Ml Syringe) 10 ml FLUSH ASDIRECTED PRN PRN Reason: Keep Vein Open Last Admin: 03/07/21 12:59 Dose: 10 ml Documented by: JAMEY Sodium Chloride (Sodium Chloride 0.9% 10 Ml Syringe) 10 ml FLUSH ASDIRECTED PRN PRN Reason: Keep Vein Open Vancomycin HCl (Pharmacy To Dose - Vancomycin) 1 dose .XX ASDIRECTED [facility] Assessment/Plan Comment:: Surgical History: Prostatectomy, right shoulder surgery, right hemicolectomy/ileocecectomy, cardiac stentsnumerous, right lung resection, AICD/pacemaker placement, bilateral cataract surgery, sinus surgery Family History: Coronary artery disease, hypertension, hyperlipidemia Social History: Tobacco: Former smoker Alcohol: Denies Caffeine: Coffee Drugs: Never Allergies: Zosyn, adhesive tape, Tazorac Code Status: DNR, DNI Assessment / Plan: COPD exacerbation. Solu-Medrol 40 mg IV every 8 hours plus DuoNeb every 4 hours Right arm cellulitis. IV vancomycin to be dosed by pharmacy. We will demarcate and date margin of erythema daily Angina Cryptogenic cirrhosis History of prostate cancer, status post prostatectomy. Outpatient follow-up with hematology/oncology as the patient indicates he receives an IV medication infusion every 4 months that he does not know the name of Documented history of BPH despite prostatectomy History non-small cell cancer, status post right lung resection. The patient indicates he is in remission and no longer requires to be monitored for this medical condition by Atrial fibrillation, status post AICD/pacemaker placement Degenerative's disease Hyperbilirubinemia, chronic, intermittent Chronic kidney disease, baseline creatinine approximately 1.5. Will monitor creatinine level intermittently Cholelithiasis, asymptomatic Constipation Thrombocytopenia. We will monitor platelet count intermittently Anemia, chronic/iron deficiency anemia. Will monitor hemoglobin level intermittently CHF, ejection fraction 4045% per echocardiogram from October 19, 2020. Patient status post AICD/pacemaker placement Moderate to severe pulmonary hypertension Coronary artery disease, status post VA, status post stent GERD. Protonix 40 mg p.o. daily Hyperlipidemia Hypertension Osteoporosis/osteopenia History of hyperammonemia History of thyroid nodule. Outpatient follow-up with his primary care physician or with a provider Obstructive sleep apnea. CPAP/BiPAP: Okay to use home device and/or pressure when sleeping if the patient uses CPAP/BiPAP at home Chronic pain Osteoarthritis Depression Insomnia Peripheral vascular disease DVT prophylaxis. Heparin 5000 units subcutaneously every 12 hours Disposition: The patient will likely be a candidate for discharge within 48 hours, however this may depend on assessment by physical therapy, Occupational Therapy, and case management/social work. At the time of admission, the patient's home medications were pending input to the EMR/DHR system. Once their input, they will be reviewed and reconciled END OF DOCTOR EMAMIS HISTORY AND PHYSICAL / CONSULTATION NOTE
[2021-03-07] MEDS: Acetaminophen 325 MG Tab PO PRN ×2 (15:49→22:13)
[2021-03-07] MEDS ORDERED: Docusate Sodium 100 MG Cap PO PRN (17:00)
[2021-03-07] MEDS: Albuterol/Ipratropium 3.0-0.5 MG/3 ML Neb Soln NEB SCH ×2 (18:30→22:12)
[2021-03-07] MEDS: Rosuvastatin 10 MG Tab PO SCH (20:42)
[2021-03-07] MEDS: Montelukast 10 MG Tab PO SCH (20:42)
[2021-03-07] MEDS: Heparin Sodium 5,000 Units/ML Vial SUBCUT SCH (20:44)
[2021-03-07] MEDS: methylPREDNISolone Sodium Succinate 40 MG/1 ML SDV IVPUSH SCH (22:04)
[2021-03-08] MEDS: Albuterol/Ipratropium 3.0-0.5 MG/3 ML Neb Soln NEB SCH ×6 (03:38→23:33)
[2021-03-08] MEDS: Pantoprazole 40 MG Tab.CR PO SCH (06:02)
[2021-03-08] MEDS: methylPREDNISolone Sodium Succinate 40 MG/1 ML SDV IVPUSH SCH (06:02)
[2021-03-08] MEDS: Sodium Chloride 0.9% 10 ML Syringe FLUSH PRN ×4 (06:03→22:37)
--- NOTE | 2021-03-08 07:23 | PCM.PN ---
- General Info Date of Service: 03/08/21 Subjective Update: Patient currently rates his respiratory status as a 5 out of 10 of 10 is baseline. Overnight he denies fever, rigors, nausea, vomiting, abdominal pain, chest pain. He states that he is having cough which is productive of sputum as well as wheeze. I explained to the patient his current medical condition and plan of care and I have answered all of his questions - Review of Systems General: Reports: No Symptoms HEENT: Reports: No Symptoms Pulmonary: Reports: Shortness of Breath, Cough, Sputum Cardiovascular: Reports: No Symptoms Gastrointestinal: Reports: No Symptoms Genitourinary: Reports: No Symptoms Musculoskeletal: Reports: No Symptoms Skin: Reports: No Symptoms Neurological: Reports: No Symptoms Psychiatric: Reports: No Symptoms - Patient Data Vitals - Most Recent: Last Vital Signs Temp 97.8 F 03/08/21 04:00 Pulse 67 03/08/21 04:00 Resp 20 03/08/21 04:00 BP 102/54 L 03/08/21 04:00 Pulse Ox 97 03/08/21 04:00 Weight - Most Recent: 174 lb 3.2 oz I&O - Last 24 Hours: Intake & Output 03/07/21 03/08/21 03/08/21 22:59 06:59 14:59 Intake Total 636 200 Output Total 500 Balance 636 -300 Lab Results Last 24 Hours: Laboratory Results - last 24 hr 03/07/21 03/07/21 03/07/21 Range/Units 10:52 11:06 11:06 WBC 6.1 (5.0-10.0) 10^3/uL RBC 3.40 L (4.6-6.2) 10^6/uL Hgb 9.8 L (14.0-18.0) g/dL Hct 30.6 L (40.0-54.0) % MCV 90.0 (80-100) fL MCH 28.8 (27.0-34.0) pg MCHC 32.0 L (33.0-35.0) g/dL Plt Count 144 L (150-450) 10^3/uL Neut % (Auto) 68.3 (42.2-75.2) % Lymph % (Auto) 15.2 L (20.5-50.1) % Appling % (Auto) 12.0 H (2-8) % Eos % (Auto) 4.0 H (1.0-3.0) % Baso % (Auto) 0.5 (0.0-1.0) % Sodium 135 L (136-145) mmol/L Potassium 3.7 (3.5-5.1) mmol/L Chloride 100 (98-107) mmol/L Carbon Dioxide 27 (21-32) mmol/L Anion Gap 11.7 (7-13) mEq/L BUN 28 H (7-18) mg/dL Creatinine 1.40 H (0.70-1.30) mg/dL Est Cr Clr Drug Dosing 37.34 mL/min Estimated GFR (MDRD) 49 BUN/Creatinine Ratio 20.0 (No establ ref range) Glucose 103 H (70-99) mg/dL Lactic Acid (0.4-2.0) mmol/L Calcium 8.0 L (8.5-10.1) mg/dL Total Bilirubin 1.9 H (0.2-1.0) mg/dL AST 33 (15-37) U/L ALT 19 (16-63) U/L Alkaline Phosphatase 94 (46-116) U/L Troponin I High Sens 32 (<=76) pg/mL C-Reactive Protein 10.2 H (0.0-0.9) mg/dL B-Natriuretic Peptide 130 H (0-100) pg/ml Total Protein 6.0 L (6.4-8.2) g/dL Albumin 3.0 L (3.4-5.0) g/dL Globulin 3.0 Albumin/Globulin Ratio 1.00 Influenza Type A RNA Negative (NEGATIVE) Influenza Type B RNA Negative (NEGATIVE) SARS-CoV-2 RNA (NELDA) Negative (NEGATIVE) 03/07/21 Range/Units 11:06 WBC (5.0-10.0) 10^3/uL RBC (4.6-6.2) 10^6/uL Hgb (14.0-18.0) g/dL Hct (40.0-54.0) % MCV (80-100) fL MCH (27.0-34.0) pg MCHC (33.0-35.0) g/dL Plt Count (150-450) 10^3/uL Neut % (Auto) (42.2-75.2) % Lymph % (Auto) (20.5-50.1) % Appling % (Auto) (2-8) % Eos % (Auto) (1.0-3.0) % Baso % (Auto) (0.0-1.0) % Sodium (136-145) mmol/L Potassium (3.5-5.1) mmol/L Chloride (98-107) mmol/L Carbon Dioxide (21-32) mmol/L Anion Gap (7-13) mEq/L BUN (7-18) mg/dL Creatinine (0.70-1.30) mg/dL Est Cr Clr Drug Dosing mL/min Estimated GFR (MDRD) BUN/Creatinine Ratio (No establ ref range) Glucose (70-99) mg/dL Lactic Acid 1.2 (0.4-2.0) mmol/L Calcium (8.5-10.1) mg/dL Total Bilirubin (0.2-1.0) mg/dL AST (15-37) U/L ALT (16-63) U/L Alkaline Phosphatase (46-116) U/L Troponin I High Sens (<=76) pg/mL C-Reactive Protein (0.0-0.9) mg/dL B-Natriuretic Peptide (0-100) pg/ml Total Protein (6.4-8.2) g/dL Albumin (3.4-5.0) g/dL Globulin Albumin/Globulin Ratio Influenza Type A RNA (NEGATIVE) Influenza Type B RNA (NEGATIVE) SARS-CoV-2 RNA (NELDA) (NEGATIVE) Fabien Results Last 24 Hours: Microbiology 03/07/21 11:06 Anaerobic Blood Culture - Final Blood - Arm, Right Med Orders - Current: Current Medications Acetaminophen (Acetaminophen 325 Mg Tab) 650 mg PO Q4H PRN PRN Reason: Pain (Mild 1-3)/fever Last Admin: 03/07/21 22:13 Dose: 650 mg Documented by: Albuterol/Ipratropium (Albuterol/Ipratropium 3.0-0.5 Mg/3 Ml Neb Soln) 3 ml NEB Q4HRRT ARIAS Last Admin: 03/08/21 03:38 Dose: 3 ml Documented by: Aspirin (Aspirin 81 Mg Tab.Ec) 81 mg PO DAILY [facility]AS Calcitriol (Calcitriol 0.25 Mcg Cap) 0.25 mcg PO DAILY [facility]AS Diltiazem HCl (Diltiazem 240 Mg Cap.Er) 240 mg PO DAILY [facility] Docusate Sodium (Docusate Sodium 100 Mg Cap) 100 mg PO BID PRN PRN Reason: Constipation Ferrous Sulfate (Ferrous Sulfate 325 Mg Tab) 325 mg PO DAILY [facility] Heparin Sodium (Porcine) (Heparin Sodium 5,000 Units/Ml Vial) 5,000 units SUBCUT Q12HR [facility] Last Admin: 03/07/21 20:44 Dose: 5,000 units Documented by: Vancomycin HCl 1 gm/ Sodium (Chloride) 250 mls @ 166.667 mls/hr IV Q24H [facility] Last Admin: 03/07/21 14:50 Dose: 166.667 mls/hr Documented by: Methylprednisolone Sodium Succinate (Methylprednisolone Sodium Succinate 40 Mg/1 Ml Sdv) 40 mg IVPUSH Q8HR [facility] Last Admin: 03/08/21 06:02 Dose: 40 mg Documented by: Montelukast Sodium (Montelukast 10 Mg Tab) 10 mg PO BEDTIME [facility] Last Admin: 03/07/21 20:42 Dose: 10 mg Documented by: Ondansetron HCl (Ondansetron 4 Mg/2 Ml Sdv) 4 mg IVPUSH Q4H PRN PRN Reason: Nausea/Vomiting Pantoprazole Sodium (Pantoprazole 40 Mg Tab.Cr) 40 mg PO ACBREAKFAST [facility] Last Admin: 03/08/21 06:02 Dose: 40 mg Documented by: Rosuvastatin Calcium (Rosuvastatin 10 Mg Tab) 5 mg PO BEDTIME [facility] Last Admin: 03/07/21 20:42 Dose: 5 mg Documented by: Senna/Docusate Sodium (Docusate Sodium/Sennosides 50-8.6 Mg Tab) 2 tab PO BID PRN PRN Reason: Constipation Sodium Chloride (Sodium Chloride 0.9% 10 Ml Syringe) 10 ml FLUSH ASDIRECTED PRN PRN Reason: Keep Vein Open Last Admin: 03/08/21 06:03 Dose: 10 ml Documented by: Tiotropium Lismore (Tiotropium Inhaler 18 Mcg Inhalation Powder Cap Kit Of 5) 18 mcg INH DAILY [facility] Vancomycin HCl (Pharmacy To Dose - Vancomycin) 0 dose .XX ASDIRECTED [facility] Discontinued Medications Albuterol/Ipratropium (Albuterol/Ipratropium 3.0-0.5 Mg/3 Ml Neb Soln) 3 ml NEB ONETIME ONE Stop: 03/07/21 11:54 Last Admin: 03/07/21 12:59 Dose: 3 ml Documented by: Methylprednisolone Sodium Succinate (Methylprednisolone Sodium Succinate 125 Mg/2 Ml Sdv) 125 mg IVPUSH ONETIME ONE Stop: 03/07/21 11:54 Last Admin: 03/07/21 12:59 Dose: 125 mg Documented by: Sodium Chloride (Sodium Chloride 0.9% 10 Ml Syringe) 10 ml FLUSH ASDIRECTED PRN PRN Reason: Keep Vein Open Last Admin: 03/07/21 12:59 Dose: 10 ml Documented by: - Exam General: Alert, Oriented HEENT: Pupils Equal, Pupils Reactive, EOMI, Mucous Membr. Moist/Angus Neck: Supple Lungs: Decreased Breath Sounds, Wheezing Cardiovascular: Regular Rate, Irregular Rhythm GI/Abdominal Exam: Normal Bowel Sounds, Soft, Non-Tender, No Organomegaly, No Distention, No Abnormal Bruit, No Mass, Pelvis Stable Back Exam: Normal Inspection, Full Range of Motion Extremities: Normal Inspection, Normal Range of Motion, Non-Tender, No Pedal Edema, Normal Capillary Refill Peripheral Pulses: 2+: Carotid (L), Carotid (R), Brachial (L), Brachial (R), Radial (L), Radial (R), Femoral (L), Femoral (R), Popliteal (L), Popliteal (R), Posterior Tibial (L), Posterior Tibial (R), Dorsalis Pedis (L), Dorsalis Pedis (R) Skin: Warm, Dry, Intact, Other (The area of erythema has receded mildly) Wound/Incisions: Healing Well Neurological: No New Focal Deficit Psy/Mental Status: Alert, Normal Affect, Normal Mood - Patient Data Lab Results Last 24 hrs: Laboratory Results - last 24 hr 03/07/21 03/07/21 03/07/21 Range/Units 10:52 11:06 11:06 WBC 6.1 (5.0-10.0) 10^3/uL RBC 3.40 L (4.6-6.2) 10^6/uL Hgb 9.8 L (14.0-18.0) g/dL Hct 30.6 L (40.0-54.0) % MCV 90.0 (80-100) fL MCH 28.8 (27.0-34.0) pg MCHC 32.0 L (33.0-35.0) g/dL Plt Count 144 L (150-450) 10^3/uL Neut % (Auto) 68.3 (42.2-75.2) % Lymph % (Auto) 15.2 L (20.5-50.1) % Appling % (Auto) 12.0 H (2-8) % Eos % (Auto) 4.0 H (1.0-3.0) % Baso % (Auto) 0.5 (0.0-1.0) % Sodium 135 L (136-145) mmol/L Potassium 3.7 (3.5-5.1) mmol/L Chloride 100 (98-107) mmol/L Carbon Dioxide 27 (21-32) mmol/L Anion Gap 11.7 (7-13) mEq/L BUN 28 H (7-18) mg/dL Creatinine 1.40 H (0.70-1.30) mg/dL Est Cr Clr Drug Dosing 37.34 mL/min Estimated GFR (MDRD) 49 BUN/Creatinine Ratio 20.0 (No establ ref range) Glucose 103 H (70-99) mg/dL Lactic Acid (0.4-2.0) mmol/L Calcium 8.0 L (8.5-10.1) mg/dL Total Bilirubin 1.9 H (0.2-1.0) mg/dL AST 33 (15-37) U/L ALT 19 (16-63) U/L Alkaline Phosphatase 94 (46-116) U/L Troponin I High Sens 32 (<=76) pg/mL C-Reactive Protein 10.2 H (0.0-0.9) mg/dL B-Natriuretic Peptide 130 H (0-100) pg/ml Total Protein 6.0 L (6.4-8.2) g/dL Albumin 3.0 L (3.4-5.0) g/dL Globulin 3.0 Albumin/Globulin Ratio 1.00 Influenza Type A RNA Negative (NEGATIVE) Influenza Type B RNA Negative (NEGATIVE) SARS-CoV-2 RNA (NELDA) Negative (NEGATIVE) 03/07/21 Range/Units 11:06 WBC (5.0-10.0) 10^3/uL RBC (4.6-6.2) 10^6/uL Hgb (14.0-18.0) g/dL Hct (40.0-54.0) % MCV (80-100) fL MCH (27.0-34.0) pg MCHC (33.0-35.0) g/dL Plt Count (150-450) 10^3/uL Neut % (Auto) (42.2-75.2) % Lymph % (Auto) (20.5-50.1) % Appling % (Auto) (2-8) % Eos % (Auto) (1.0-3.0) % Baso % (Auto) (0.0-1.0) % Sodium (136-145) mmol/L Potassium (3.5-5.1) mmol/L Chloride (98-107) mmol/L Carbon Dioxide (21-32) mmol/L Anion Gap (7-13) mEq/L BUN (7-18) mg/dL Creatinine (0.70-1.30) mg/dL Est Cr Clr Drug Dosing mL/min Estimated GFR (MDRD) BUN/Creatinine Ratio (No establ ref range) Glucose (70-99) mg/dL Lactic Acid 1.2 (0.4-2.0) mmol/L Calcium (8.5-10.1) mg/dL Total Bilirubin (0.2-1.0) mg/dL AST (15-37) U/L ALT (16-63) U/L Alkaline Phosphatase (46-116) U/L Troponin I High Sens (<=76) pg/mL C-Reactive Protein (0.0-0.9) mg/dL B-Natriuretic Peptide (0-100) pg/ml Total Protein (6.4-8.2) g/dL Albumin (3.4-5.0) g/dL Globulin Albumin/Globulin Ratio Influenza Type A RNA (NEGATIVE) Influenza Type B RNA (NEGATIVE) SARS-CoV-2 RNA (NELDA) (NEGATIVE) Result Diagrams: 03/07/21 11:06 03/07/21 11:06 Fabien Results Last 24 hrs: Microbiology 03/07/21 11:06 Anaerobic Blood Culture - Final Blood - Arm, Right Sepsis Event Note - Evaluation Sepsis Screening Result: No Definite Risk - Focused Exam Vital Signs: Vital Signs Temp Pulse Resp BP Pulse Ox 03/08/21 04:00 97.8 F 67 20 102/54 L 97 03/08/21 03:41 67 03/08/21 00:00 98.1 F 62 20 96/46 L 97 03/07/21 22:19 67 03/07/21 20:00 97.5 F 62 20 93/46 L 97 - Problem List Review Problem List Initiated/Reviewed/Updated: Yes - My Orders Last 24 Hours: My Active Orders 03/07/21 Lunch Heart Healthy Diet [DIET] 03/07/21 13:54 Oxygen Therapy [RC] .PRN Up With Assistance [RC] ASDIRECTED Vital Signs [RC] 00,04,08,12,16,20 Consult to Case Management/Assistant Branch Manager [CONS] Routine OT Evaluation and Treatment [CONS] Routine PT Evaluation and Treatment [CONS] Routine Acetaminophen [TylenoL] 650 mg PO Q4H PRN Ondansetron [Zofran] 4 mg IVPUSH Q4H PRN Sodium Chloride 0.9% [Saline Flush] 10 ml FLUSH ASDIRECTED PRN Peripheral IV Insertion Adult [OM.PC] Routine Saline Lock Insert [OM.PC] Routine Resuscitation Status Routine 03/07/21 13:55 Pulse Oximetry [RC] .PRN 03/07/21 13:56 Peripheral IV Care [RC] 03/07/21 13:57 Communication Order [RC] Communication Order [RC] 03/07/21 13:58 CPAP Adult [RT BiPAP/CPAP] [RC] ASDIRECTED 03/07/21 13:59 RT Aerosol Therapy [RC] ASDIRECTED 03/07/21 14:00 Pharmacy to Dose - Vancomycin 0 dose .XX ASDIRECTED 03/07/21 15:00 Vancomycin 1 gm Sodium Chloride 0.9% [Normal Saline (AdvBag)] 250 ml IV Q24H 03/07/21 17:00 Docusate Sodium [Colace] 100 mg PO BID PRN Docusate Sodium/Sennosides [Senna Plus] 2 tab PO BID PRN 03/07/21 17:05 RT Post Treatment Assessment [RC] Click to Edit RT Pre-Treatment Assessment [RC] Click to Edit 03/07/21 19:00 Albuterol/Ipratropium [DuoNeb 3.0-0.5 MG/3 ML] 3 ml NEB Q4HRRT 03/07/21 21:00 Heparin Sodium 5,000 units SUBCUT Q12HR Montelukast [Singulair] 10 mg PO BEDTIME Rosuvastatin [Crestor] 5 mg PO BEDTIME 03/07/21 22:00 methylPREDNISolone Sod Succ [Solu-MEDROL] 40 mg IVPUSH Q8HR 03/08/21 06:00 Pantoprazole [ProTONIX] 40 mg PO ACBREAKFAST 03/08/21 07:30 methylPREDNISolone Sod Succ [Solu-MEDROL] 60 mg IVPUSH Q8H 03/08/21 09:00 Aspirin [Halfprin] 81 mg PO DAILY Diltiazem [Dilacor XR] 240 mg PO DAILY Ferrous Sulfate 325 mg PO DAILY Tiotropium [Spiriva HandiHaler] 18 mcg INH DAILY calcitrioL [Rocaltrol] 0.25 mcg PO DAILY 03/11/21 14:30 VANCOMYCIN TROUGH [CHEM] Timed - Plan Plan:: Surgical History: Prostatectomy, right shoulder surgery, right hemicolectomy/ileocecectomy, cardiac stentsnumerous, right lung resection, AICD/pacemaker placement, bilateral cataract surgery, sinus surgery Family History: Coronary artery disease, hypertension, hyperlipidemia Social History: Tobacco: Former smoker Alcohol: Denies Caffeine: Coffee Drugs: Never Allergies: Zosyn, adhesive tape, Tazorac Code Status: DNR, DNI Assessment / Plan: COPD exacerbation. Solu-Medrol 60 mg IV every 8 hours plus DuoNeb every 4 hours plus Spiriva 18 mcg inhaled daily plus Singulair 10 mg p.o. nightly Right arm cellulitis. IV vancomycin to be dosed by pharmacy. We will demarcate and date margin of erythema daily Angina Cryptogenic cirrhosis History of prostate cancer, status post prostatectomy. Outpatient follow-up with hematology/oncology as the patient indicates he receives an IV medication infusion every 4 months that he does not know the name of Documented history of BPH despite prostatectomy History non-small cell cancer, status post right lung resection. The patient indicates he is in remission and no longer requires to be monitored for this medical condition by Atrial fibrillation, status post AICD/pacemaker placement. Tiazac 240 mg p.o. daily Degenerative's disease Hyperbilirubinemia, chronic, intermittent Chronic kidney disease, baseline creatinine approximately 1.5. Will monitor creatinine level intermittently. Calcitriol 0.25 mcg p.o. daily Cholelithiasis, asymptomatic Constipation Thrombocytopenia. We will monitor platelet count intermittently Anemia, chronic/iron deficiency anemia. Will monitor hemoglobin level intermittently. Ferrous sulfate 3 and 25 mg p.o. daily CHF, ejection fraction 4045% per echocardiogram from October 19, 2020. Patient status post AICD/pacemaker placement Moderate to severe pulmonary hypertension Coronary artery disease, status post ME, status post stent. Aspirin 81 mg p.o. daily plus Crestor 5 mg p.o. nightly GERD. Protonix 40 mg p.o. daily Hyperlipidemia. Crestor 5 mg p.o. nightly Hypertension. Tiazac 240 mg p.o. daily Osteoporosis/osteopenia History of hyperammonemia History of thyroid nodule. Outpatient follow-up with his primary care physician or with a provider Obstructive sleep apnea. CPAP/BiPAP: Okay to use home device and/or pressure when sleeping if the patient uses CPAP/BiPAP at home Chronic pain Osteoarthritis Depression Insomnia Peripheral vascular disease DVT prophylaxis. Heparin 5000 units subcutaneously every 12 hours Disposition: The patient will likely be a candidate for discharge within 24 hours, however this may depend on assessment by physical therapy, Occupational Therapy, and case management/social work. END OF DOCTOR EMAMIS HISTORY AND PHYSICAL / CONSULTATION NOTE
[2021-03-08] MEDS: Calcitriol 0.25 MCG Cap PO SCH (09:43)
[2021-03-08] MEDS: Aspirin 81 MG Tab.EC PO SCH (09:43)
[2021-03-08] MEDS: Ferrous Sulfate 325 MG Tab PO SCH (09:43)
[2021-03-08] MEDS: Diltiazem 240 MG Cap.ER PO SCH (09:43)
[2021-03-08] MEDS: Heparin Sodium 5,000 Units/ML Vial SUBCUT SCH ×2 (09:44→22:28)
[2021-03-08] MEDS: Tiotropium Inhaler 18 MCG Inhalation Powder Cap Kit of 5 INH SCH (09:54)
[2021-03-08] MEDS: Furosemide 20 MG/2 ML VIAL IVPUSH SCH ×2 (09:58→14:46)
[2021-03-08] MEDS: methylPREDNISolone Sodium Succinate 125 MG/2 ML SDV IVPUSH SCH ×2 (14:47→22:30)
[2021-03-08] MEDS: Rosuvastatin 10 MG Tab PO SCH (22:27)
[2021-03-08] MEDS: Montelukast 10 MG Tab PO SCH (22:28)
[2021-03-09] MEDS: Albuterol/Ipratropium 3.0-0.5 MG/3 ML Neb Soln NEB SCH ×4 (02:56→21:19)
[2021-03-09] MEDS: Sodium Chloride 0.9% 10 ML Syringe FLUSH PRN ×6 (06:02→21:14)
[2021-03-09] MEDS: methylPREDNISolone Sodium Succinate 125 MG/2 ML SDV IVPUSH SCH ×3 (06:02→21:08)
[2021-03-09] MEDS: Pantoprazole 40 MG Tab.CR PO SCH (06:02)
--- NOTE | 2021-03-09 07:28 | PCM.SN.2 ---
- Free Text/Narrative Note: START OF DOCTOR EMAMIS PROGRESS NOTE Subjective: The patient currently rates his respiratory status as a 5 out of 10 of 10 is his baseline. Overnight he admits to cough however it is nonproductive. He denies fever, rigors, nausea, vomiting, wheeze, abdominal pain, chest pain, or any other constitutional complaints. I explained to the patient his current medical condition and plan of care I have answered all of his questions Objective: General: -Alert -No acute distress -No dyspnea -No tachypnea Heart: -iRegular rate -iRegular rhythm -No murmurs -No gallops -No rubs Lungs: -No wheeze -No rhonchi -No rales -Distant breath sounds bilaterally Abdomen: -Normal bowel sounds in all four quadrants -No rebound -No guarding -No tenderness Extremities: -2/4 pulse in all four extremities -No clubbing -No cyanosis -No edema Additional Details / Additional Findings / Exceptions / Miscellaneous: Pertinent Laboratory Results / Pertinent Radiology Results / Pertinent Diagnostic Results / Pertinent Vital Signs: Heart rate 104 bpm. Morning labs pending Assessment / Plan: COPD exacerbation. Solu-Medrol 60 mg IV every 8 hours plus DuoNeb every 4 hours plus Spiriva 18 mcg inhaled daily plus Singulair 10 mg p.o. nightly Right arm cellulitis. IV vancomycin to be dosed by pharmacy. We will demarcate and date margin of erythema daily Angina Cryptogenic cirrhosis History of prostate cancer, status post prostatectomy. Outpatient follow-up with hematology/oncology as the patient indicates he receives an IV medication infusion every 4 months that he does not know the name of Documented history of BPH despite prostatectomy History non-small cell cancer, status post right lung resection. The patient indicates he is in remission and no longer requires to be monitored for this medical condition by Atrial fibrillation, status post AICD/pacemaker placement. Tiazac 240 mg p.o. daily Degenerative's disease Hyperbilirubinemia, chronic, intermittent Chronic kidney disease, baseline creatinine approximately 1.5. Will monitor creatinine level intermittently. Calcitriol 0.25 mcg p.o. daily Cholelithiasis, asymptomatic Constipation Thrombocytopenia. We will monitor platelet count intermittently Anemia, chronic/iron deficiency anemia. Will monitor hemoglobin level inte rmittently. Ferrous sulfate 3 and 25 mg p.o. daily CHF, ejection fraction 4045% per echocardiogram from October 19, 2020. Patient status post AICD/pacemaker placement. Strict I's/O. Daily weight. Lasix 20 mg IV every 12 hours Moderate to severe pulmonary hypertension Coronary artery disease, status post CA, status post stent. Aspirin 81 mg p.o. daily plus Crestor 5 mg p.o. nightly GERD. Protonix 40 mg p.o. daily Hyperlipidemia. Crestor 5 mg p.o. nightly Hypertension. Tiazac 240 mg p.o. daily plus Lasix 20 mg IV every 12 hours Osteoporosis/osteopenia History of hyperammonemia History of thyroid nodule. Outpatient follow-up with his primary care physician or with a provider Obstructive sleep apnea. CPAP/BiPAP: Okay to use home device and/or pressure when sleeping if the patient uses CPAP/BiPAP at home Chronic pain Osteoarthritis Depression Insomnia Peripheral vascular disease DVT prophylaxis. Heparin 5000 units subcutaneously every 12 hours Disposition: Patient appears medically stable for discharge however there are concerns about home safety. Will await reassessment by physical therapy on Thursday, March 11, 2021 to determine discharge planning END OF DOCTOR STEVO PROGRESS NOTE
[2021-03-09 08:57] LABS: ANION GAP 14.2 mEq/L (7-13)
[2021-03-09] MEDS: Heparin Sodium 5,000 Units/ML Vial SUBCUT SCH ×2 (09:42→20:10)
[2021-03-09] MEDS: Furosemide 20 MG/2 ML VIAL IVPUSH SCH (09:44)
[2021-03-09] MEDS: Ferrous Sulfate 325 MG Tab PO SCH (09:47)
[2021-03-09] MEDS: Aspirin 81 MG Tab.EC PO SCH (09:47)
[2021-03-09] MEDS: Calcitriol 0.25 MCG Cap PO SCH (09:47)
[2021-03-09] MEDS: Diltiazem 240 MG Cap.ER PO SCH (09:47)
[2021-03-09] MEDS: Tiotropium Inhaler 18 MCG Inhalation Powder Cap Kit of 5 INH SCH (12:47)
[2021-03-09] MEDS ORDERED: Furosemide 20 MG/2 ML VIAL IVPUSH SCH (14:00)
[2021-03-09] MEDS ORDERED: Benzocaine/Cetylpyridinium/Menthol Lozenge MUCMEM PRN (14:59)
[2021-03-09] MEDS: Rosuvastatin 10 MG Tab PO SCH (20:09)
[2021-03-09] MEDS: Montelukast 10 MG Tab PO SCH (20:09)
[2021-03-10] MEDS: Sodium Chloride 0.9% 10 ML Syringe FLUSH PRN ×2 (05:28→05:34)
[2021-03-10] MEDS: Pantoprazole 40 MG Tab.CR PO SCH (05:28)
[2021-03-10] MEDS: methylPREDNISolone Sodium Succinate 125 MG/2 ML SDV IVPUSH SCH ×2 (05:28→14:25)
[2021-03-10] MEDS: Albuterol/Ipratropium 3.0-0.5 MG/3 ML Neb Soln NEB SCH ×3 (05:36→21:01)
[2021-03-10 06:30] LABS: ANION GAP 13.8 mEq/L (7-13)
--- NOTE | 2021-03-10 07:06 | PCM.SN.2 ---
- Free Text/Narrative Note: START OF DOCTOR STEVO PROGRESS NOTE Subjective: The patient currently rates his respiratory status as a 7 out of 10 if 10 is his baseline. He admits to occasional cough which is productive of green sputum. Aside from this he endorses no complaints. He denies fever, rigors, nausea, vomiting, wheeze, abdominal pain, chest pain, or any other constitutional complaints. The patient Nicolas that he has been ambulating about the renae without any difficulty. I explained to the patient his current medical conditi on and plan of care and I have answered all of his questions Objective: General: -Alert -No acute distress -No dyspnea -No tachypnea Heart: -Regular rate -iRegular rhythm -No murmurs -No gallops -No rubs Lungs: -Scant bilateral wheeze -No rhonchi -No rales -Distant breath sounds bilaterally Abdomen: -Normal bowel sounds in all four quadrants -No rebound -No guarding -No tenderness Extremities: -2/4 pulse in all four extremities -No clubbing -No cyanosis -No edema Additional Details / Additional Findings / Exceptions / Miscellaneous: Pertinent Laboratory Results / Pertinent Radiology Results / Pertinent Diagnostic Results / Pertinent Vital Signs: Vital signs stable, sodium 134, creatinine 1.74 Assessment / Plan: COPD exacerbation. Solu-Medrol 60 mg IV every 8 hours plus DuoNeb every 8 hours plus Spiriva 18 mcg inhaled daily plus Singulair 10 mg p.o. nightly Right arm cellulitis. IV vancomycin to be dosed by pharmacy. We will demarcate and date margin of erythema daily Angina Cryptogenic cirrhosis History of prostate cancer, status post prostatectomy. Outpatient follow-up with hematology/oncology as the patient indicates he receives an IV medication infusion every 4 months that he does not know the name of Documented history of BPH despite prostatectomy History non-small cell cancer, status post right lung resection. The patient indicates he is in remission and no longer requires to be monitored for this medical condition by Atrial fibrillation, status post AICD/pacemaker placement. Tiazac 240 mg p.o. daily Degenerative's disease Hyperbilirubinemia, chronic, intermittent Chronic kidney disease, baseline creatinine approximately 1.5. Will monitor creatinine level intermittently. Calcitriol 0.25 mcg p.o. daily Cholelithiasis, asymptomatic Constipation Thrombocytopenia. We will monitor platelet count intermittently Anemia, chronic/iron deficiency anemia. Will monitor hemoglobin level intermittently. Ferrous sulfate 3 and 25 mg p.o. daily CHF, ejection fraction 4045% per echocardiogram from October 19, 2020. Patient status post AICD/pacemaker placement. Strict I's/O. Daily weight Moderate to severe pulmonary hypertension Coronary artery disease, status post HI, status post stent. Aspirin 81 mg p.o. daily plus Crestor 5 mg p.o. nightly GERD. Protonix 40 mg p.o. daily Hyperlipidemia. Crestor 5 mg p.o. nightly Hypertension. Tiazac 240 mg p.o. daily Osteoporosis/osteopenia History of hyperammonemia History of thyroid nodule. Outpatient follow-up with his primary care physician or with a provider Obstructive sleep apnea. CPAP/BiPAP: Okay to use home device and/or pressure when sleeping if the patient uses CPAP/BiPAP at home Chronic pain Osteoarthritis Depression Insomnia Peripheral vascular disease DVT prophylaxis. Heparin 5000 units subcutaneously every 12 hours Disposition: Anticipate discharge in 24 hours, however I will consult with physical therapy, Occupational Therapy, and case management/social work END OF DOCTOR STEVO PROGRESS NOTE
[2021-03-10] MEDS: Ferrous Sulfate 325 MG Tab PO SCH (09:35)
[2021-03-10] MEDS: Calcitriol 0.25 MCG Cap PO SCH (09:35)
[2021-03-10] MEDS: Aspirin 81 MG Tab.EC PO SCH (09:35)
[2021-03-10] MEDS: Diltiazem 240 MG Cap.ER PO SCH (09:35)
[2021-03-10] MEDS: Heparin Sodium 5,000 Units/ML Vial SUBCUT SCH ×2 (09:36→20:51)
[2021-03-10] MEDS: Tiotropium Inhaler 18 MCG Inhalation Powder Cap Kit of 5 INH SCH (14:30)
[2021-03-10] MEDS: Rosuvastatin 10 MG Tab PO SCH (20:51)
[2021-03-10] MEDS: Montelukast 10 MG Tab PO SCH (20:52)
[2021-03-10] MEDS: Sulfamethoxazole/Trimethoprim 800-160 MG Tab PO SCH (20:52)
[2021-03-10] MEDS ORDERED: Zolpidem 5 MG Tab PO ONE (23:24)
[2021-03-11] MEDS: Albuterol/Ipratropium 3.0-0.5 MG/3 ML Neb Soln NEB SCH ×3 (05:34→15:06)
[2021-03-11 06:50] LABS: ANION GAP 13.7 mEq/L (7-13)
--- NOTE | 2021-03-11 07:18 | PCM.SN.2 ---
- Free Text/Narrative Note: START OF DOCTOR STEVO PROGRESS NOTE Subjective: The patient was briefly awaken from his sleep for interview and examination although he appeared somnolent during my interview. He does not endorse fever, rigors, nausea, vomiting, cough, wheeze, abdominal pain, chest pain, dyspnea, or any other constitutional complaints. I explained to the patient his current medical condition and plan of care and I have answered all of his questions Objective: General: -Somnolent -No acute distress -No dyspnea -No tachypnea Heart: -Regular rate -iRegular rhythm -No murmurs -No gallops -No rubs Lungs: -No wheeze -No rhonchi -No rales -Distant breath sounds bilaterally Abdomen: -Normal bowel sounds in all four quadrants -No rebound -No guarding -No tenderness Extremities: -2/4 pulse in all four extremities -No clubbing -No cyanosis -No edema Additional Details / Additional Findings / Exceptions / Miscellaneous: Pertinent Laboratory Results / Pertinent Radiology Results / Pertinent Diagnostic Results / Pertinent Vital Signs: Vital signs stable. Creatinine 1.65 Assessment / Plan: COPD exacerbation. Prednisone 40 mg p.o. daily plus DuoNeb every 8 hours plus Spiriva 18 mcg inhaled daily plus Singulair 10 mg p.o. nightly Right arm cellulitis. Bactrim 400/80 m tab p.o. twice daily. We will demarcate and date margin of erythema daily Angina Cryptogenic cirrhosis History of prostate cancer, status post prostatectomy. Outpatient follow-up with hematology/oncology as the patient indicates he receives an IV medication infusion every 4 months that he does not know the name of Documented history of BPH despite prostatectomy History non-small cell cancer, status post right lung resection. The patient indicates he is in remission and no longer requires to be monitored for this medical condition by Atrial fibrillation, status post AICD/pacemaker placement. Tiazac 240 mg p.o. daily Degenerative's disease Hyperbilirubinemia, chronic, intermittent Chronic kidney disease, baseline creatinine approximately 1.5. Will monitor creatinine level intermittently. Calcitriol 0.25 mcg p.o. daily Cholelithiasis, asymptomatic Constipation Thrombocytopenia. We will monitor platelet count intermittently Anemia, chronic/iron deficiency anemia. Will monitor hemoglobin level intermittently. Ferrous sulfate 3 and 25 mg p.o. daily CHF, ejection fraction 40-45% per echocardiogram from October 19, 2020. Patient status post AICD/pacemaker placement. Strict I's/O. Daily weight Moderate to severe pulmonary hypertension Coronary artery disease, status post [place], status post stent. Aspirin 81 mg p.o. daily plus Crestor 5 mg p.o. nightly GERD. Protonix 40 mg p.o. daily Hyperlipidemia. Crestor 5 mg p.o. nightly Hypertension. Tiazac 240 mg p.o. daily Osteoporosis/osteopenia History of hyperammonemia History of thyroid nodule. Outpatient follow-up with his primary care physician or with a provider Obstructive sleep apnea. CPAP/BiPAP: Okay to use home device and/or pressure when sleeping if the patient uses CPAP/BiPAP at home Chronic pain Osteoarthritis Depression Insomnia Peripheral vascular disease DVT prophylaxis. Heparin 5000 units subcutaneously every 12 hours Disposition: The patient is medically stable for discharge on this day of March 11, 2021, however I will consult with physical therapy, Occupational Therapy, and case management/social work END OF DOCTOR STEVO PROGRESS NOTE
[2021-03-11] MEDS ORDERED: predniSONE 20 MG Tab PO SCH (08:00)
[2021-03-11] MEDS: Pantoprazole 40 MG Tab.CR PO SCH (08:45)
[2021-03-11] MEDS: Calcitriol 0.25 MCG Cap PO SCH (08:46)
[2021-03-11] MEDS: Diltiazem 240 MG Cap.ER PO SCH (08:47)
[2021-03-11] MEDS: Ferrous Sulfate 325 MG Tab PO SCH (08:47)
[2021-03-11] MEDS: Sulfamethoxazole/Trimethoprim 800-160 MG Tab PO SCH (08:47)
[2021-03-11] MEDS: Aspirin 81 MG Tab.EC PO SCH (08:47)
[2021-03-11] MEDS: Heparin Sodium 5,000 Units/ML Vial SUBCUT SCH (08:48)
[2021-03-11] MEDS: Tiotropium Inhaler 18 MCG Inhalation Powder Cap Kit of 5 INH SCH (10:54)
--- NOTE | 2021-03-11 13:33 | PCM.SN.2 ---
- Free Text/Narrative Note: START OF DOCTOR EMAMIS DISCHARGE SUMMARY Date of Admission: March 07, 2021 Date of Discharge: 1:29 PM on March 11, 2021 Primary Diagnosis: COPD exacerbation Secondary Diagnosis: Right arm cellulitis Angina Cryptogenic cirrhosis History of prostate cancer, status post prostatectomy Document has a history of BPH despite prostatectomy History of non-small cell cancer, status post right lung resection. The patient indicates he is in remission and no longer requires to be monitored for this medical condition by Atrial fibrillation, status post AICD/pacemaker placement Degenerative disc disease Hyperbilirubinemia, chronic, intermittent Chronic kidney disease, baseline creatinine approximately 1.5 Cholelithiasis, asymptomatic Constipation Thrombocytopenia Anemia, chronic/iron deficiency anemia CHF, ejection fraction 40 to 45% per echocardiogram from October 19, 2020. Patient status post AICD/pacemaker placement Moderate to severe pulmonary hypertension Coronary artery disease, status post [place], status post [place] GERD Hyperlipidemia Hypertension Osteoporosis/osteopenia History of hyperammonemia History of thyroid nodule Obstructive sleep apnea Chronic pain Osteoarthritis Depression Insomnia Peripheral vascular disease Consultations: None Condition on Discharge: Fair Disposition: The patient be advised to follow-up with hematology/oncology as directed for his history of prostate cancer for which he is status post prostatectomy The patient is advised follow-up with his primary care physician or with a provider 2 to 4 weeks post discharge. The patient is to discuss whether further evaluation for his history of thyroid nodule is warranted Please continue with home health under [facility] and add PT/OT services for strengthening and home safety evaluation Discharge Medications: SenokotS: 2 tabs p.o. twice daily as needed constipation Crestor 5 mg p.o. nightly Aspirin 81 mg p.o. daily Calcitriol 0.25 mcg p.o. daily Tiazac 240 mg p.o. daily Colace 100 mg p.o. twice daily Ferrous sulfate 3 2 5 mg p.o. daily K. Dur 20 M EQ p.o. daily Protonix 40 mg p.o. daily Cozaar 12.5 mg p.o. daily Lasix 20 mg p.o. twice daily Advair Diskus: 500/50 mc puff twice daily Vitamin D 25 mg p.o. daily Vitamin C 250 mg p.o. daily Combivent Respimat: 2 puffs twice daily as needed shortness of breath/wheeze DuoNeb 3 times daily Proventil HFA: 90 candida as per spray: 2 puffs every 6 hours as needed shortness of breath/wheeze Spiriva 18 mcg inhaled daily Singulair 10 mg p.o. nightly Prednisone 10 mg p.o.: 4 tabs daily x3 days then 3 tabs daily x3 days then 2 tabs daily x3 days then 1 tab daily x3 days. Quantity sufficient. 0 refills Bactrim DS: One half tab p.o. twice daily. Quantity 4. 0 refills END OF DOCTOR EMAMIS DISCHARGE SUMMARY
[2021-03-11 15:47] VITALS: BP 105/51; PULSE 78
== END 2021-03-11 12:15 | disposition home or self-care (01) | DRG 191 ==
LOC: DL.ED 10:17 → DL.MS 13:40
PROVIDERS: ADMIT Internal Medicine; ATTEND Internal Medicine
DX: J44.9 Chronic obstructive pulmonary disease, unspecified (principal); R53.1 Weakness; S80.02XD Contusion of left knee, subsequent encounter; W19.XXXD Unspecified fall, subsequent encounter; J44.1 Chronic obstructive pulmonary disease with (acute) exacerbation; L03.113 Cellulitis of right upper limb; I13.0 Hypertensive heart and chronic kidney disease with heart failure and stage 1 through stage 4 chronic kidney disease, or unspecified chronic kidney disease; K74.69 Other cirrhosis of liver; Z85.46 Personal history of malignant neoplasm of prostate; I11.0 Hypertensive heart disease with heart failure; N40.0 Benign prostatic hyperplasia without lower urinary tract symptoms; Z90.79 Acquired absence of other genital organ(s); G47.30 Sleep apnea, unspecified; I48.91 Unspecified atrial fibrillation; M19.90 Unspecified osteoarthritis, unspecified site; E80.6 Other disorders of bilirubin metabolism; N18.9 Chronic kidney disease, unspecified; M54.9 Dorsalgia, unspecified; K80.20 Calculus of gallbladder without cholecystitis without obstruction; K59.00 Constipation, unspecified; D64.9 Anemia, unspecified; D69.6 Thrombocytopenia, unspecified; Z85.118 Personal history of other malignant neoplasm of bronchus and lung; Z95.810 Presence of automatic (implantable) cardiac defibrillator; D50.9 Iron deficiency anemia, unspecified; I50.9 Heart failure, unspecified; I27.20 Pulmonary hypertension, unspecified; I25.10 Atherosclerotic heart disease of native coronary artery without angina pectoris; K21.9 Gastro-esophageal reflux disease without esophagitis; E78.5 Hyperlipidemia, unspecified; Z20.822 Contact with and (suspected) exposure to COVID-19; M81.0 Age-related osteoporosis without current pathological fracture; M85.80 Other specified disorders of bone density and structure, unspecified site; G47.33 Obstructive sleep apnea (adult) (pediatric); G89.29 Other chronic pain; H91.90 Unspecified hearing loss, unspecified ear; E78.00 Pure hypercholesterolemia, unspecified; F32.9 Major depressive disorder, single episode, unspecified; G47.00 Insomnia, unspecified; I73.9 Peripheral vascular disease, unspecified; Z88.1 Allergy status to other antibiotic agents; Z91.048 Other nonmedicinal substance allergy status; Z95.0 Presence of cardiac pacemaker; I25.2 Old myocardial infarction; Z95.5 Presence of coronary angioplasty implant and graft; Z88.8 Allergy status to other drugs, medicaments and biological substances; Z79.82 Long term (current) use of aspirin; Z79.899 Other long term (current) drug therapy; Z87.01 Personal history of pneumonia (recurrent); Z86.19 Personal history of other infectious and parasitic diseases; Z98.49 Cataract extraction status, unspecified eye; Z90.49 Acquired absence of other specified parts of digestive tract; Z87.891 Personal history of nicotine dependence
CPT/HCPCS: 0240U; 36415; 71045; 80048; 80053; 81003; 83605; 83880; 84484; 85025; 86140; 87040; 93005; 94640; 96374; 97162; 97166; 97530; 99285; A9270-GY; J1644; J1940; J2920; J2930; J3370; J7050; J7512; J7620-GY

== ENCOUNTER 2021-07-11 09:31 | Inpatient (IN) | payer MEDICARE, OTHER ==
--- NOTE | 2021-07-11 09:43 | EDM.PDOC ---
ED HPI GENERAL MEDICAL PROBLEM - General Chief Complaint: Respiratory Problem Stated Complaint: BREATHING ISSUES / COPD Time Seen by Provider: 07/11/21 09:39 Source of Information: Reports: Patient, Old Records, RN, RN Notes Reviewed History Limitations: Reports: No Limitations - History of Present Illness INITIAL COMMENTS - FREE TEXT/NARRATIVE: Pt presents to ER from home by POV with c/o progressively worsening shortness of breath over the past week, feeling like a "COPD flare up". Denies chest pain, hemoptysis, fever, chills, or increasing edema. Hx of severe COPD, and CHF. Pt uses supplemental home oxygen at 2L/min by NC at night. Pt states he has dealt with COPD long enough to know when he is in trouble. Onset: Gradual Duration: Chronic, Constant, Getting Worse Location: Reports: Chest Quality: Reports: Other (Denies pain) Severity: Severe Improves with: Reports: None Worsens with: Reports: Other (Activity/Exertion) Associated Symptoms: Reports: No Other Symptoms Treatments EX CHEF: Reports: Breathing Treatments - Related Data Allergies Allergy/AdvReac Type Severity Reaction Status Date / Time piperacillin sodium Allergy Severe angioedema Verified 07/11/21 09:38 [From Zosyn] tazobactam sodium Allergy Severe angioedema Verified 07/11/21 09:38 [From Zosyn] adhesive tape Allergy Blisters Verified 07/11/21 09:38 tazarotene [From Tazorac] Allergy Airway Verified 07/11/21 09:38 Tightness Home Meds: Home Meds Montelukast [Singulair] 10 mg PO BEDTIME 10/26/13 [History] Pantoprazole Sodium 40 mg PO DAILY 11/09/15 [History] Potassium Chloride [K-Tab ER] 20 meq PO DAILY 03/07/20 [History] Albuterol Sulfate [Proair Hfa] 2 inh INH Q6H PRN 09/26/20 [History] Albuterol/Ipratropium [Combivent Respimat] 2 puff IH BID PRN 09/26/20 [History] Albuterol/Ipratropium [DuoNeb 3.0-0.5 MG/3 ML] 3 ml NEB TID 09/26/20 [History] Cholecalciferol (Vitamin D3) [Vitamin D3] 25 mcg PO DAILY 09/26/20 [History] Fluticasone Propion/Salmeterol [Fluticasone-Salmeterol 500-50] 1 puff IH BID 09/26/20 [History] Tiotropium [Spiriva HandiHaler] 18 mcg INH DAILY 09/26/20 [History] Aspirin [Aspirin EC] 81 mg PO DAILY 01/09/21 [History] Calcitriol 0.25 mcg PO DAILY 01/09/21 [History] Diltiazem [Tiazac] 240 mg PO DAILY 01/09/21 [History] Furosemide [Lasix] 20 mg PO BID 01/09/21 [History] Losartan [Cozaar] 12.5 mg PO DAILY 01/09/21 [History] Rosuvastatin [Crestor] 5 mg PO BEDTIME 01/09/21 [History] Ascorbic Acid [Vitamin C] 250 mg PO DAILY 30 Days #30 tablet 01/10/21 [Rx] Ferrous Sulfate 325 mg PO DAILY 03/02/21 [History] Docusate Sodium [Colace] 100 mg PO BID PRN 03/07/21 [History] Sennosides/Docusate Sodium [Senokot-S Tablet] 2 each PO BID PRN 03/07/21 [History] Sulfamethoxazole/Trimethoprim [Septra DS] 0.5 tab PO BID 4 Days #4 tablet 03/11/21 [Rx] predniSONE [Prednisone] 10 mg PO DAILY 1 Days #1 tablet 03/11/21 [Rx] Past Medical History HEENT History: Reports: Cataract, Hard of Hearing, Other (See Below) Other HEENT History: thyroid nodule Cardiovascular History: Reports: Afib, Angina, CAD, Heart Failure, High Cholesterol, Hypertension, [place], Pacemaker, SOB on Exertion, Stents, Other (See Below) Other Cardiovascular History: 6 stents placed total Respiratory History: Reports: Asthma, Bronchitis, Recurrent, COPD, Pneumonia, Recurrent, Sleep Apnea, SOB Gastrointestinal History: Reports: GERD, Hemorrhoids, Other (See Below) Genitourinary History: Reports: BPH, Prostate Disorder Musculoskeletal History: Reports: Arthritis, Back Pain, Chronic, Fracture, Osteoarthritis Neurological History: Reports: None Psychiatric History: Reports: Depression Other Psychiatric History: insomnia Endocrine/Metabolic History: Reports: None Hematologic History: Reports: Anemia, Blood Transfusion(s), Iron Deficiency Immunologic History: Reports: Other (See Below) Other Immunologic History: Hx prostate and lung ca. 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 IN THE SERVICE, "NOT THE BAD KIND" - Past Surgical History Head Surgeries/Procedures: Reports: None HEENT Surgical History: Reports: Cataract Surgery, Naso-Sinus Surgery Cardiovascular Surgical History: Reports: AICD, Coronary Artery Stent Respiratory Surgical History: Reports: Lung Resection Other Respiratory Surgeries/Procedures: mediastinoscopy GI Surgical History: Reports: Abdominal paracentesis, Appendectomy, Colonoscopy, EGD, Polypectomy, Other (See Below) Other GI Surgeries/Procedures: uMBILICAL HERNIA PRESENT, appendix rupture recently 01/05/16 Male Surgical History: Reports: Prostatectomy, TURP-Transurethral Resection of Prostate Endocrine Surgical History: Reports: Thyroid Biopsy Musculoskeletal Surgical History: Reports: Shoulder Surgery Other Oncologic Surgeries/Procedures: 3/ of right lobe removed Social & Family History - Family History Family Medical History: No Pertinent Family History - Tobacco Use Tobacco Use Status *Q: Former Tobacco User Tobacco Use Within Last Twelve Months: Cigarettes - Caffeine Use Caffeine Use: Reports: Coffee - Living Situation & Occupation Living situation: Reports: , Alone Occupation: Retired ED ROS GENERAL - Review of Systems Review Of Systems: Comprehensive ROS is negative, except as noted in HPI. ED EXAM, GENERAL - Physical Exam Exam: See Below Exam Limited By: No Limitations General Appearance: Alert, Anxious, Other (Chronically ill appearing) Eye Exam: Bilateral Eye: Normal Inspection Nose: Normal Inspection Throat/Mouth: Normal Lips, Normal Voice, No Airway Compromise Head: Atraumatic, Normocephalic Neck: Normal Inspection, Non-Tender Respiratory/Chest: Chest Non-Tender, Decreased Breath Sounds, Wheezing. No: Crackles, Rales, Rhonchi Cardiovascular: Regular Rate, Rhythm GI/Abdominal: Normal Bowel Sounds, Soft, Non-Tender Back Exam: Normal Inspection Extremities: Normal Inspection, No Pedal Edema Neurological: Alert, Oriented, No Motor/Sensory Deficits Psychiatric: Normal Affect, Anxious Skin Exam: Warm, Dry, Intact #1 Interpretation EKG Date: 07/11/21 Time: 10:27 Rhythm: A-Fib Rate (Beats/Min): 74 Knott: LAD-Left Knott Deviation P-Wave: Absent QRS: RBBB (Old inferior Q waves) ST-T: Normal QT: Normal Comparison: No Change Course - Vital Signs Last Recorded V/S: Last Vital Signs Temp 98.8 F 07/11/21 09:38 Pulse 82 07/11/21 09:38 Resp 24 H 07/11/21 09:38 BP 118/51 L 07/11/21 09:38 Pulse Ox 87 L 07/11/21 09:38 - Orders/Labs/Meds Orders: Active Orders 24 hr Category Date Time Status Peripheral IV Care [RC] . DIRECTED Care 07/11/21 09:50 Active RT Aerosol Therapy [RC] ASDIRECTED Care 07/11/21 09:51 Active B-TYPE NATRIURETIC PEPTIDE,BNP [CHEM] Stat Lab 07/11/21 10:00 Received COMPREHENSIVE METABOLIC PN,CMP [CHEM] Stat Lab 07/11/21 10:00 Received CORONAVIRUS COVID-19 NELDA [MOLEC] Stat Lab 07/11/21 09:49 Ordered CULTURE BLOOD [BC] Stat Lab 07/11/21 10:00 Received CULTURE BLOOD [BC] Stat Lab 07/11/21 10:08 Received LACTATE SEPSIS W/ REFLEX [CHEM] Stat Lab 07/11/21 10:08 Received TROPONIN I HIGH SENSITIVITY [CHEM] Stat Lab 07/11/21 10:00 Received Sodium Chloride 0.9% [Saline Flush] Med 07/11/21 09:49 Active 10 ml FLUSH ASDIRECTED PRN Blood Culture x2 Reflex Set [OM.PC] Stat Oth 07/11/21 09:49 Ordered Peripheral IV Insertion Adult [OM.PC] Stat Oth 07/11/21 09:50 Ordered Medication Orders Sodium Chloride (Sodium Chloride 0.9% 10 Ml Syringe) 10 ml FLUSH ASDIRECTED PRN PRN Reason: Keep Vein Open Last Admin: 07/11/21 10:30 Dose: 10 ml Documented by: JUAN Labs: Laboratory Tests 07/11/21 07/11/21 Range/Units 10:00 10:00 WBC 6.8 (5.0-10.0) 10^3/uL RBC 3.33 L (4.6-6.2) 10^6/uL Hgb 9.8 L (14.0-18.0) g/dL Hct 30.2 L (40.0-54.0) % MCV 90.7 (80-100) fL MCH 29.4 (27.0-34.0) pg MCHC 32.5 L (33.0-35.0) g/dL Plt Count 188 (150-450) 10^3/uL Neut % (Auto) 67.1 (42.2-75.2) % Lymph % (Auto) 16.5 L (20.5-50.1) % [place] % (Auto) 11.7 H (2-8) % Eos % (Auto) 4.1 H (1.0-3.0) % Baso % (Auto) 0.6 (0.0-1.0) % PT 11.7 (9.0-12.0) SEC INR 1.2 (0.9-1.2) APTT 29.0 (22.0-34.0) SEC Meds: Medications Generic Name Dose Route Start Last Admin Trade Name Freq PRN Reason Stop Dose Admin Sodium Chloride 10 ml 07/11/21 09:49 07/11/21 10:30 Sodium Chloride 0.9% 10 Ml Syringe FLUSH 10 ml ASDIRECTED PRN Administration Keep Vein Open Discontinued Medications Generic Name Dose Route Start Last Admin Trade Name Freq PRN Reason Stop Dose Admin Albuterol/Ipratropium 3 ml 07/11/21 09:51 07/11/21 10:33 Albuterol/Ipratropium 3.0-0.5 Mg/3 Ml Neb Soln NEB 07/11/21 09:52 3 ml ONETIME ONE Administration Methylprednisolone Sodium Succinate 125 mg 07/11/21 09:51 07/11/21 10:29 Methylprednisolone Sodium Succinate 125 Mg/2 Ml Sdv IVPUSH 07/11/21 09:52 125 mg ONETIME ONE Administration - Radiology Interpretation Free Text/Narrative:: XR Chest: COPD, cardiomegaly with some increase in pulm. vasc. congestion per Rad. report. Departure - Departure Time of Disposition: 10:43 (admitted to Dr. Gonzalez) Disposition: Admitted As Inpatient 65 Condition: Fair Clinical Impression: Acute exacerbation of chronic obstructive pulmonary disease, CHF, Congestive heart failure Acute on chronic respiratory failure Qualifiers: Respiratory failure complication: hypoxia Qualified Code(s): J96.21 - Acute and chronic respiratory failure with hypoxia - Discharge Information *PRESCRIPTION DRUG MONITORING PROGRAM REVIEWED*: Not Applicable *COPY OF PRESCRIPTION DRUG MONITORING REPORT IN PATIENT MARY: Not Applicable Forms: ED Department Discharge Sepsis Event Note (ED) - Focused Exam Vital Signs: Vital Signs Temp Pulse Resp BP Pulse Ox 07/11/21 09:38 98.8 F 82 24 H 118/51 L 87 L - My Orders Last 24 Hours: My Active Orders 07/11/21 09:49 CORONAVIRUS COVID-19 NELDA [MOLEC] Stat Sodium Chloride 0.9% [Saline Flush] 10 ml FLUSH ASDIRECTED PRN Blood Culture x2 Reflex Set [OM.PC] Stat 07/11/21 09:50 Peripheral IV Care [RC] . DIRECTED Peripheral IV Insertion Adult [OM.PC] Stat 07/11/21 09:51 RT Aerosol Therapy [RC] ASDIRECTED 07/11/21 10:00 B-TYPE NATRIURETIC PEPTIDE,BNP [CHEM] Stat COMPREHENSIVE METABOLIC PN,CMP [CHEM] Stat CULTURE BLOOD [BC] Stat TROPONIN I HIGH SENSITIVITY [CHEM] Stat 07/11/21 10:08 CULTURE BLOOD [BC] Stat LACTATE SEPSIS W/ REFLEX [CHEM] Stat - Assessment/Plan Last 24 Hours: My Active Orders 07/11/21 09:49 CORONAVIRUS COVID-19 NELDA [MOLEC] Stat Sodium Chloride 0.9% [Saline Flush] 10 ml FLUSH ASDIRECTED PRN Blood Culture x2 Reflex Set [OM.PC] Stat 07/11/21 09:50 Peripheral IV Care [RC] . DIRECTED Peripheral IV Insertion Adult [OM.PC] Stat 07/11/21 09:51 RT Aerosol Therapy [RC] ASDIRECTED 07/11/21 10:00 B-TYPE NATRIURETIC PEPTIDE,BNP [CHEM] Stat COMPREHENSIVE METABOLIC PN,CMP [CHEM] Stat CULTURE BLOOD [BC] Stat TROPONIN I HIGH SENSITIVITY [CHEM] Stat 07/11/21 10:08 CULTURE BLOOD [BC] Stat LACTATE SEPSIS W/ REFLEX [CHEM] Stat
[2021-07-11] MEDS ORDERED: Sodium Chloride 0.9% 10 ML Syringe FLUSH PRN (09:49)
[2021-07-11] MEDS ORDERED: Albuterol/Ipratropium 3.0-0.5 MG/3 ML Neb Soln NEB ONE (09:51)
[2021-07-11] MEDS ORDERED: methylPREDNISolone Sodium Succinate 125 MG/2 ML SDV IVPUSH ONE (09:51)
[2021-07-11 10:38] LABS: ANION GAP 11.7 mEq/L (7-13)
--- NOTE | 2021-07-11 10:39 | CR ---
EXAMINATION: Chest 1V Frontal SEX: Male AGE: 80 years CLINICAL HISTORY: 80-year-old hypoxic male who is short of breath (wheezing). Comparison to June 2021. INTERPRETATION: Abnormal. 1. Increased cardiac silhouette (size) since 04 June. Cardiac pacemaker (single lead intact). 2. Dependent increased subpulmonic pleural fluid accumulation (pleural effusions) bilaterally. 3. No current increased pulmonary vascular congestion, cephalization of vascular flow or alveolar edema. 4. No new lung mass, hilar lymphadenopathy, alveolar infiltrates, or peripheral "groundglass opacities" (GG0). 5. No pneumothorax or pneumomediastinum. No free subdiaphragmatic air. CONCLUSION: Cardiomegaly with relative increased volume pleural effusions. BNP? Weight? No vascular congestion, new lung mass or pneumonic infiltrates.
[2021-07-11] MEDS ORDERED: Albuterol 0.083% 2.5 MG/3 ML Neb Soln NEB PRN (12:00)
[2021-07-11] MEDS ORDERED: Furosemide 20 MG/2 ML VIAL IVPUSH ONE (12:12)
--- NOTE | 2021-07-11 12:12 | PCM.HP ---
H&P History of Present Illness - General Date of Service: 07/11/21 Admit Problem/Dx: Admission Diagnosis/Problem Admission Diagnosis/Problem COPD, Severe chronic obstructive pulmonary disease - History of Present Illness Initial Comments - Free Text/Narative: Patient is an 80-year-old male with a past medical history of COPD on chronic home O2 2 L, chronic iron deficiency anemia, CKD stage III, CHF unknown last ejection fraction, atrial fibrillation not on anticoagulation who presented with shortness of breath of 4-day duration. Per patient over the last 4 days has had worsening shortness of breath, increased wheezing and overall has been unable to improve his symptoms with his home nebulizers. He states that he also [facility] and 2 to 3 days ago they decreased his Lasix from 20 mg p.o. twice daily to 10 mg p.o. twice daily. He states since that time he said mild increased swelling in his legs. He denies any significant orthopnea, PND. States that he does not take any anticoagulation for his atrial fibrillation. When patient arrived emergency department he was hemodynamically stable maintaining his oxygen saturations on his normal home 2 L. Had significant wheezing noted on exam and was given 125 mg Solu-Medrol IV, DuoNeb's. Laboratory studies included a WBC of 6.8, hemoglobin 9.8 which is stable, platelet count 88, electrolytes within normal notes, creatinine 1.81 which is near baseline of 1.7. Troponins were negative. BNP was in process. Chest x- ray showed worsening bilateral pleural effusions but did not show any vascular congestion. Patient was requested for admission due to worsening dyspnea requiring possible diuresis and continued respiratory cares. - Related Data Allergies/Adverse Reactions: Allergies Allergy/AdvReac Type Severity Reaction Status Date / Time piperacillin sodium Allergy Severe angioedema Verified 07/11/21 13:16 [From Zosyn] tazobactam sodium Allergy Severe angioedema Verified 07/11/21 13:16 [From Zosyn] adhesive tape Allergy Blisters Verified 07/11/21 13:16 tazarotene [From Tazorac] Allergy Airway Verified 07/11/21 13:16 Tightness Home Medications: Home Meds Montelukast [Singulair] 10 mg PO BEDTIME 10/26/13 [History] Pantoprazole Sodium 40 mg PO DAILY 11/09/15 [History] Potassium Chloride [K-Tab ER] 20 meq PO DAILY 03/07/20 [History] Albuterol Sulfate [Proair Hfa] 2 inh INH Q6H PRN 09/26/20 [History] Albuterol/Ipratropium [Combivent Respimat] 2 puff IH BID PRN 09/26/20 [History] Albuterol/Ipratropium [DuoNeb 3.0-0.5 MG/3 ML] 3 ml NEB TID 09/26/20 [History] Cholecalciferol (Vitamin D3) [Vitamin D3] 25 mcg PO DAILY 09/26/20 [History] Fluticasone Propion/Salmeterol [Fluticasone-Salmeterol 500-50] 1 puff IH BID 09/26/20 [History] Tiotropium [Spiriva HandiHaler] 18 mcg INH DAILY 09/26/20 [History] Aspirin [Aspirin EC] 81 mg PO DAILY 01/09/21 [History] Calcitriol 0.25 mcg PO DAILY 01/09/21 [History] Diltiazem [Tiazac] 240 mg PO DAILY 01/09/21 [History] Furosemide [Lasix] 20 mg PO BID 01/09/21 [History] Losartan [Cozaar] 12.5 mg PO DAILY 01/09/21 [History] Rosuvastatin [Crestor] 5 mg PO BEDTIME 01/09/21 [History] Ascorbic Acid [Vitamin C] 250 mg PO DAILY 30 Days #30 tablet 01/10/21 [Rx] Ferrous Sulfate 325 mg PO DAILY 03/02/21 [History] Docusate Sodium [Colace] 100 mg PO BID PRN 03/07/21 [History] Sennosides/Docusate Sodium [Senokot-S Tablet] 2 each PO BID PRN 03/07/21 [His tory] Acetaminophen 500 mg PO Q8HR PRN 07/11/21 [History] Furosemide 10 mg PO 1400 07/11/21 [History] Past Medical History HEENT History: Reports: Cataract, Hard of Hearing, Other (See Below) Other HEENT History: thyroid nodule Cardiovascular History: Reports: Afib, Angina, CAD, Heart Failure, High Choleste rol, Hypertension, DE, Pacemaker, SOB on Exertion, Stents, Other (See Below) Other Cardiovascular History: 6 stents placed total Respiratory History: Reports: Asthma, Bronchitis, Recurrent, COPD, Pneumonia, Recurrent, Sleep Apnea, SOB Gastrointestinal History: Reports: GERD, Hemorrhoids, Other (See Below) Genitourinary History: Reports: BPH, Prostate Disorder Musculoskeletal History: Reports: Arthritis, Back Pain, Chronic, Fracture, Osteoarthritis Neurological History: Reports: None Psychiatric History: Reports: Depression Other Psychiatric History: insomnia Endocrine/Metabolic History: Reports: None Hematologic History: Reports: Anemia, Blood Transfusion(s), Iron Deficiency Immunologic History: Reports: Other (See Below) Other Immunologic History: Hx prostate and lung ca. 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 IN THE SERVICE, "NOT THE BAD KIND" - Past Surgical History Head Surgeries/Procedures: Reports: None HEENT Surgical History: Reports: Cataract Surgery, Naso-Sinus Surgery Cardiovascular Surgical History: Reports: AICD, Coronary Artery Stent Respiratory Surgical History: Reports: Lung Resection Other Respiratory Surgeries/Procedures: mediastinoscopy GI Surgical History: Reports: Abdominal paracentesis, Appendectomy, Colonoscopy, EGD, Polypectomy, Other (See Below) Other GI Surgeries/Procedures: uMBILICAL HERNIA PRESENT, appendix rupture recently 01/05/16 Male Surgical History: Reports: Prostatectomy, TURP-Transurethral Resection of Prostate Endocrine Surgical History: Reports: Thyroid Biopsy Musculoskeletal Surgical History: Reports: Shoulder Surgery Other Oncologic Surgeries/Procedures: 3/4 of right lobe removed Social & Family History - Family History Family Medical History: No Pertinent Family History - Tobacco Use Tobacco Use Status *Q: Never Tobacco User Second Hand Smoke Exposure: No - Caffeine Use Caffeine Use: Reports: Coffee - Recreational Drug Use Recreational Drug Use: No - Living Situation & Occupation Living situation: Reports: , Alone Occupation: Retired H&P Review of Systems - Review of Systems: Review Of Systems: Comprehensive ROS is negative, except as noted in HPI. Exam - Exam Exam: See Below - Vital Signs Vital Signs: Last Vital Signs Temp 97.9 F 07/11/21 11:05 Pulse 76 07/11/21 11:05 Resp 20 07/11/21 11:05 BP 116/62 07/11/21 11:05 Pulse Ox 100 07/11/21 11:05 Weight: 180 lb - Exam Quality Assessment: Supplemental Oxygen General: Alert, Oriented HEENT: Conjunctiva Clear Neck: Supple Lungs: Decreased Breath Sounds, Crackles, Wheezing Cardiovascular: Regular Rate, Irregular Rhythm GI/Abdominal Exam: Normal Bowel Sounds, Soft Back Exam: Normal Inspection Peripheral Pulses: 2+: Radial (L), Radial (R) Skin: Warm Neurological: Cranial Nerves Intact Neuro Extensive - Mental Status: Alert, Oriented x3 Neuro Extensive - Motor, Sensory, Reflexes: CN II-XII Intact - Patient Data Lab Results Last 24 hrs: Laboratory Results - last 24 hr 07/11/21 07/11/21 07/11/21 Range/Units 10:00 10:00 10:00 WBC 6.8 (5.0-10.0) 10^3/uL RBC 3.33 L (4.6-6.2) 10^6/uL Hgb 9.8 L (14.0-18.0) g/dL Hct 30.2 L (40.0-54.0) % MCV 90.7 (80-100) fL MCH 29.4 (27.0-34.0) pg MCHC 32.5 L (33.0-35.0) g/dL Plt Count 188 (150-450) 10^3/uL Neut % (Auto) 67.1 (42.2-75.2) % Lymph % (Auto) 16.5 L (20.5-50.1) % Mcnairy % (Auto) 11.7 H (2-8) % Eos % (Auto) 4.1 H (1.0-3.0) % Baso % (Auto) 0.6 (0.0-1.0) % PT 11.7 (9.0-12.0) SEC INR 1.2 (0.9-1.2) APTT 29.0 (22.0-34.0) SEC Sodium 135 L (136-145) mmol/L Potassium 4.7 (3.5-5.1) mmol/L Chloride 99 (98-107) mmol/L Carbon Dioxide 29 (21-32) mmol/L Anion Gap 11.7 (7-13) mEq/L BUN 30 H D (7-18) mg/dL Creatinine 1.81 H (0.70-1.30) mg/dL Est Cr Clr Drug Dosing 28.88 mL/min Estimated GFR (MDRD) 36 BUN/Creatinine Ratio 16.6 (No establ ref range) Glucose 91 (70-99) mg/dL Lactic Acid (0.4-2.0) mmol/L Calcium 9.7 D (8.5-10.1) mg/dL Total Bilirubin 0.7 (0.2-1.0) mg/dL AST 22 (15-37) U/L ALT 19 (16-63) U/L Alkaline Phosphatase 91 (46-116) U/L Troponin I High Sens 17 (<=76) pg/mL B-Natriuretic Peptide 126 H (0-100) pg/ml Total Protein 6.3 L (6.4-8.2) g/dL Albumin 3.6 (3.4-5.0) g/dL Globulin 2.7 Albumin/Globulin Ratio 1.3 SARS-CoV-2 RNA (NELDA) (NEGATIVE) 07/11/21 07/11/21 Range/Units 10:06 10:08 WBC (5.0-10.0) 10^3/uL RBC (4.6-6.2) 10^6/uL Hgb (14.0-18.0) g/dL Hct (40.0-54.0) % MCV (80-100) fL MCH (27.0-34.0) pg MCHC (33.0-35.0) g/dL Plt Count (150-450) 10^3/uL Neut % (Auto) (42.2-75.2) % Lymph % (Auto) (20.5-50.1) % [place] % (Auto) (2-8) % Eos % (Auto) (1.0-3.0) % Baso % (Auto) (0.0-1.0) % PT (9.0-12.0) SEC INR (0.9-1.2) APTT (22.0-34.0) SEC Sodium (136-145) mmol/L Potassium (3.5-5.1) mmol/L Chloride (98-107) mmol/L Carbon Dioxide (21-32) mmol/L Anion Gap (7-13) mEq/L BUN (7-18) mg/dL Creatinine (0.70-1.30) mg/dL Est Cr Clr Drug Dosing mL/min Estimated GFR (MDRD) BUN/Creatinine Ratio (No establ ref range) Glucose (70-99) mg/dL Lactic Acid 1.7 (0.4-2.0) mmol/L Calcium (8.5-10.1) mg/dL Total Bilirubin (0.2-1.0) mg/dL AST (15-37) U/L ALT (16-63) U/L Alkaline Phosphatase (46-116) U/L Troponin I High Sens (<=76) pg/mL B-Natriuretic Peptide (0-100) pg/ml Total Protein (6.4-8.2) g/dL Albumin (3.4-5.0) g/dL Globulin Albumin/Globulin Ratio SARS-CoV-2 RNA (NELDA) Negative (NEGATIVE) Result Diagrams: 07/11/21 10:00 07/11/21 10:00 - Problem List (1) Acute exacerbation of chronic obstructive pulmonary disease SNOMED Code(s): 203842073 ICD Code: J44.1 - CHRONIC OBSTRUCTIVE PULMONARY DISEASE W (ACUTE) EXACERBATION Status: Acute Priority: Medium Current Visit: No Onset Date: 11/09/15 (2) Anemia SNOMED Code(s): 521504774 ICD Code: D64.9 - ANEMIA, UNSPECIFIED Status: Acute Current Visit: No (3) Chronic congestive heart failure SNOMED Code(s): 46705852 ICD Code: I50.9 - HEART FAILURE, UNSPECIFIED Status: Acute Current Visit: No Qualifiers: Heart failure type: unspecified Qualified Code(s): I50.9 - Heart failure, unspecified (4) Elevated serum creatinine SNOMED Code(s): 489196834 ICD Code: R79.89 - OTHER SPECIFIED ABNORMAL FINDINGS OF BLOOD CHEMISTRY Status: Acute Current Visit: No (5) Generalized weakness SNOMED Code(s): 78042761 ICD Code: R53.1 - WEAKNESS Status: Acute Current Visit: No (6) Coronary arteriosclerosis, CAD SNOMED Code(s): 78008237 ICD Code: I25.10 - ATHSCL HEART DISEASE OF [place] CORONARY ARTERY W/O ANG PCTRS Status: Chronic Current Visit: No (7) History of - atrial fibrillation, afib SNOMED Code(s): 347699926 ICD Code: Z86.79 - PERSONAL HISTORY OF OTHER DISEASES OF THE CIRCULATORY SYSTEM Status: Chronic Current Visit: No Problem List Initiated/Reviewed/Updated: Yes Orders Last 24hrs: Active Orders 24 hr Category Date Time Status Admission Diagnosis [ADT] Stat ADT 07/11/21 11:04 Ordered Admission Status [Patient Status] [ADT] Routine ADT 07/11/21 11:04 Active Oxygen Therapy [RC] PRN Care 07/11/21 11:56 Active RT Aerosol Therapy [RC] ASDIRECTED Care 07/11/21 11:58 Active Up ad Ariadna [RC] ASDIRECTED Care 07/11/21 11:56 Active VTE/DVT Education [RC] PER UNIT ROUTINE Care 07/11/21 11:56 Active Vital Signs [RC] Q4H Care 07/11/21 11:56 Active Regular Diet [DIET] Diet 07/11/21 Lunch Active CULTURE BLOOD [BC] Stat Lab 07/11/21 10:00 Received CULTURE BLOOD [BC] Stat Lab 07/11/21 10:08 Received Albuterol [Proventil Neb Soln] Med 07/11/21 12:00 Active 2.5 mg NEB Q4HRRT PRN Albuterol/Ipratropium [DuoNeb 3.0-0.5 MG/3 ML] Med 07/11/21 15:00 Active 3 ml NEB Q4HRRT Doxycycline Monohydrate Med 07/11/21 12:00 Active 100 mg PO BID Sodium Chloride 0.9% [Saline Flush] Med 07/11/21 09:49 Active 10 ml FLUSH ASDIRECTED PRN predniSONE Med 07/12/21 08:00 Active 40 mg PO WITHBREAKFAST Blood Culture x2 Reflex Set [OM.PC] Stat Oth 07/11/21 09:49 Ordered Peripheral IV Insertion Adult [OM.PC] Stat Oth 07/11/21 09:50 Ordered Resuscitation Status Routine Resus Stat 07/11/21 11:56 Ordered Medication Orders Albuterol (Albuterol 0.083% 2.5 Mg/3 Ml Neb Soln) 2.5 mg NEB Q4HRRT PRN PRN Reason: Shortness of Breath Albuterol/Ipratropium (Albuterol/Ipratropium 3.0-0.5 Mg/3 Ml Neb Soln) 3 ml NEB Q4HRRT ARIAS Doxycycline Monohydrate (Doxycycline Monohydrate 100 Mg Cap) 100 mg PO BID ARIAS Prednisone (Prednisone 20 Mg Tab) 40 mg PO WITHBREAKFAST ARIAS Sodium Chloride (Sodium Chloride 0.9% 10 Ml Syringe) 10 ml FLUSH ASDIRECTED PRN PRN Reason: Keep Vein Open Last Admin: 07/11/21 10:30 Dose: 10 ml Documented by: JUAN Assessment/Plan Comment:: Patient is an 80-year-old male with a history of COPD on chronic home 2 L, chronic anemia, CKD, CHF, atrial fibrillation on anticoagulation who presented with worsening shortness of breath, wheezing. #Shortness of breath -Patient is currently maintaining oxygen saturations on his home 2 to 3 L O2 -Likely COPD exacerbation given patient's history and physical exam. Although question of some component of heart failure as patient had decreased in his oral Lasix several days ago and had increased bilateral effusions on chest x-ray. -We will treat with p.o. prednisone, p.o. doxycycline, scheduled DuoNebs, as needed albuterol nebulizers, will trial IV Lasix today with transition to p.o. tomorrow pending response, daily creatinine electrolytes while diuresing #Anemia -Hemoglobin 9.8, hemoglobin is 9.8 approximately 4 months ago, looking through history patient has a history of iron deficiency, continue iron supplementation, monitor for any signs of bleeding #Chronic medical conditions #Hypertensioncontinue losartan #Atrial fibrillationnot on anticoagulation, continue diltiazem, status post pacemaker #CADcontinue statin Fluidsnone Electrolyteswithin normal limits DietGeneral DVT prophylaxisLovenox
[2021-07-11] MEDS: Doxycycline Monohydrate 100 MG Cap PO SCH ×2 (12:40→21:00)
[2021-07-11] MEDS: Albuterol/Ipratropium 3.0-0.5 MG/3 ML Neb Soln NEB SCH ×3 (15:38→22:42)
[2021-07-11] MEDS ORDERED: Rosuvastatin 10 MG Tab PO SCH (21:00)
[2021-07-11] MEDS ORDERED: Montelukast 10 MG Tab PO SCH (21:00)
[2021-07-12] MEDS: Albuterol/Ipratropium 3.0-0.5 MG/3 ML Neb Soln NEB SCH ×3 (03:22→12:45)
--- NOTE | 2021-07-12 05:38 | PCM.PN ---
- General Info Date of Service: 07/12/21 Admission Dx/Problem (Free Text): Admission Diagnosis/Problem Admission Diagnosis/Problem COPD, Severe chronic obstructive pulmonary disease Subjective Update: Patient states that his breathing is significant improved from when he came in. Patient states he is probably 75% of his baseline. He has been maintaining on his home 3 L nasal cannula. Had a prolonged discussion about possible disch arged home today with p.o. medications and his home nebulizers which patient was in agreement with after reassessment this afternoon. Remainder of review of systems was negative except for those listed. - Patient Data Vitals - Most Recent: Last Vital Signs Temp 99.0 F 07/12/21 03:00 Pulse 88 07/12/21 03:00 Resp 20 07/12/21 03:00 BP 103/47 L 07/12/21 03:00 Pulse Ox 99 07/12/21 03:00 Weight - Most Recent: 177 lb 9.6 oz I&O - Last 24 Hours: Intake & Output 07/11/21 07/11/21 07/12/21 14:59 22:59 06:59 Intake Total 440 200 Output Total 600 Balance 440 -400 Lab Results Last 24 Hours: Laboratory Results - last 24 hr 07/11/21 07/11/21 07/11/21 Range/Units 10:00 10:00 10:00 WBC 6.8 (5.0-10.0) 10^3/uL RBC 3.33 L (4.6-6.2) 10^6/uL Hgb 9.8 L (14.0-18.0) g/dL Hct 30.2 L (40.0-54.0) % MCV 90.7 (80-100) fL MCH 29.4 (27.0-34.0) pg MCHC 32.5 L (33.0-35.0) g/dL Plt Count 188 (150-450) 10^3/uL Neut % (Auto) 67.1 (42.2-75.2) % Lymph % (Auto) 16.5 L (20.5-50.1) % [place] % (Auto) 11.7 H (2-8) % Eos % (Auto) 4.1 H (1.0-3.0) % Baso % (Auto) 0.6 (0.0-1.0) % PT 11.7 (9.0-12.0) SEC INR 1.2 (0.9-1.2) APTT 29.0 (22.0-34.0) SEC Sodium 135 L (136-145) mmol/L Potassium 4.7 (3.5-5.1) mmol/L Chloride 99 (98-107) mmol/L Carbon Dioxide 29 (21-32) mmol/L Anion Gap 11.7 (7-13) mEq/L BUN 30 H D (7-18) mg/dL Creatinine 1.81 H (0.70-1.30) mg/dL Est Cr Clr Drug Dosing 28.88 mL/min Estimated GFR (MDRD) 36 BUN/Creatinine Ratio 16.6 (No establ ref range) Glucose 91 (70-99) mg/dL Lactic Acid (0.4-2.0) mmol/L Calcium 9.7 D (8.5-10.1) mg/dL Total Bilirubin 0.7 (0.2-1.0) mg/dL AST 22 (15-37) U/L ALT 19 (16-63) U/L Alkaline Phosphatase 91 (46-116) U/L Troponin I High Sens 17 (<=76) pg/mL B-Natriuretic Peptide 126 H (0-100) pg/ml Total Protein 6.3 L (6.4-8.2) g/dL Albumin 3.6 (3.4-5.0) g/dL Globulin 2.7 Albumin/Globulin Ratio 1.3 SARS-CoV-2 RNA (NELDA) (NEGATIVE) 07/11/21 07/11/21 Range/Units 10:06 10:08 WBC (5.0-10.0) 10^3/uL RBC (4.6-6.2) 10^6/uL Hgb (14.0-18.0) g/dL Hct (40.0-54.0) % MCV (80-100) fL MCH (27.0-34.0) pg MCHC (33.0-35.0) g/dL Plt Count (150-450) 10^3/uL Neut % (Auto) (42.2-75.2) % Lymph % (Auto) (20.5-50.1) % Wy[place] % (Auto) (2-8) % Eos % (Auto) (1.0-3.0) % Baso % (Auto) (0.0-1.0) % PT (9.0-12.0) SEC INR (0.9-1.2) APTT (22.0-34.0) SEC Sodium (136-145) mmol/L Potassium (3.5-5.1) mmol/L Chloride (98-107) mmol/L Carbon Dioxide (21-32) mmol/L Anion Gap (7-13) mEq/L BUN (7-18) mg/dL Creatinine (0.70-1.30) mg/dL Est Cr Clr Drug Dosing mL/min Estimated GFR (MDRD) BUN/Creatinine Ratio (No establ ref range) Glucose (70-99) mg/dL Lactic Acid 1.7 (0.4-2.0) mmol/L Calcium (8.5-10.1) mg/dL Total Bilirubin (0.2-1.0) mg/dL AST (15-37) U/L ALT (16-63) U/L Alkaline Phosphatase (46-116) U/L Troponin I High Sens (<=76) pg/mL B-Natriuretic Peptide (0-100) pg/ml Total Protein (6.4-8.2) g/dL Albumin (3.4-5.0) g/dL Globulin Albumin/Globulin Ratio SARS-CoV-2 RNA (NELDA) Negative (NEGATIVE) Med Orders - Current: Current Medications Albuterol (Albuterol 0.083% 2.5 Mg/3 Ml Neb Soln) 2.5 mg NEB Q4HRRT PRN PRN Reason: Shortness of Breath Albuterol/Ipratropium (Albuterol/Ipratropium 3.0-0.5 Mg/3 Ml Neb Soln) 3 ml NEB Q4HRRT [facility] Last Admin: 07/12/21 03:22 Dose: 3 ml Documented by: Aspirin (Aspirin 81 Mg Tab.Ec) 81 mg PO DAILY [facility] Diltiazem HCl (Diltiazem 240 Mg Cap.Er) 240 mg PO DAILY [facility] Doxycycline Monohydrate (Doxycycline Monohydrate 100 Mg Cap) 100 mg PO BID [facility] Last Admin: 07/11/21 21:00 Dose: 100 mg Documented by: Enoxaparin Sodium (Enoxaparin 40 Mg/0.4 Ml Syringe) 40 mg SUBCUT DAILY [facility] Ferrous Sulfate (Ferrous Sulfate 325 Mg Tab) 325 mg PO WITHBREAKFAST [facility] Influenza Virus Vaccine (Pharmacy To Dose - Influenza Vaccine) 1 each IM DAILY [facility] Losartan Potassium (Losartan 25 Mg Tab) 12.5 mg PO DAILY [facility] Montelukast Sodium (Montelukast 10 Mg Tab) 10 mg PO BEDTIME [facility] Last Admin: 07/11/21 21:00 Dose: 10 mg Documented by: Pantoprazole Sodium (Pantoprazole 40 Mg Tab.Cr) 40 mg PO ACBREAKFAST [facility] Potassium Chloride (Potassium Chloride 10 Meq Tab.Er) 20 meq PO DAILY [facility] Prednisone (Prednisone 20 Mg Tab) 40 mg PO WITHBREAKFAST [facility] Rosuvastatin Calcium (Rosuvastatin 10 Mg Tab) 5 mg PO BEDTIME [facility] Last Admin: 07/11/21 21:00 Dose: 5 mg Documented by: Sodium Chloride (Sodium Chloride 0.9% 10 Ml Syringe) 10 ml FLUSH ASDIRECTED PRN PRN Reason: Keep Vein Open Last Admin: 07/11/21 10:30 Dose: 10 ml Documented by: Discontinued Medications Albuterol/Ipratropium (Albuterol/Ipratropium 3.0-0.5 Mg/3 Ml Neb Soln) 3 ml NEB ONETIME ONE Stop: 07/11/21 09:52 Last Admin: 07/11/21 10:33 Dose: 3 ml Documented by: Furosemide (Furosemide 20 Mg/2 Ml Vial) 20 mg IVPUSH ONETIME ONE Stop: 07/11/21 12:13 Last Admin: 07/11/21 12:40 Dose: 20 mg Documented by: Methylprednisolone Sodium Succinate (Methylprednisolone Sodium Succinate 125 Mg/2 Ml Sdv) 125 mg IVPUSH ONETIME ONE Stop: 07/11/21 09:52 Last Admin: 07/11/21 10:29 Dose: 125 mg Documented by: - Exam Quality Assessment: Supplemental Oxygen General: Alert, Oriented HEENT: Pupils Equal Neck: Supple Lungs: Wheezing (improved from prior day) Cardiovascular: Regular Rate, Regular Rhythm GI/Abdominal Exam: Normal Bowel Sounds, Soft Back Exam: Normal Inspection Extremities: Normal Inspection Peripheral Pulses: 2+: Radial (L), Radial (R) Skin: Warm, Dry Neurological: No New Focal Deficit Psy/Mental Status: Alert - Patient Data Lab Results Last 24 hrs: Laboratory Results - last 24 hr 07/11/21 07/11/21 07/11/21 Range/Units 10:00 10:00 10:00 WBC 6.8 (5.0-10.0) 10^3/uL RBC 3.33 L (4.6-6.2) 10^6/uL Hgb 9.8 L (14.0-18.0) g/dL Hct 30.2 L (40.0-54.0) % MCV 90.7 (80-100) fL MCH 29.4 (27.0-34.0) pg MCHC 32.5 L (33.0-35.0) g/dL Plt Count 188 (150-450) 10^3/uL Neut % (Auto) 67.1 (42.2-75.2) % Lymph % (Auto) 16.5 L (20.5-50.1) % Wy[place] % (Auto) 11.7 H (2-8) % Eos % (Auto) 4.1 H (1.0-3.0) % Baso % (Auto) 0.6 (0.0-1.0) % PT 11.7 (9.0-12.0) SEC INR 1.2 (0.9-1.2) APTT 29.0 (22.0-34.0) SEC Sodium 135 L (136-145) mmol/L Potassium 4.7 (3.5-5.1) mmol/L Chloride 99 (98-107) mmol/L Carbon Dioxide 29 (21-32) mmol/L Anion Gap 11.7 (7-13) mEq/L BUN 30 H D (7-18) mg/dL Creatinine 1.81 H (0.70-1.30) mg/dL Est Cr Clr Drug Dosing 28.88 mL/min Estimated GFR (MDRD) 36 BUN/Creatinine Ratio 16.6 (No establ ref range) Glucose 91 (70-99) mg/dL Lactic Acid (0.4-2.0) mmol/L Calcium 9.7 D (8.5-10.1) mg/dL Total Bilirubin 0.7 (0.2-1.0) mg/dL AST 22 (15-37) U/L ALT 19 (16-63) U/L Alkaline Phosphatase 91 (46-116) U/L Troponin I High Sens 17 (<=76) pg/mL B-Natriuretic Peptide 126 H (0-100) pg/ml Total Protein 6.3 L (6.4-8.2) g/dL Albumin 3.6 (3.4-5.0) g/dL Globulin 2.7 Albumin/Globulin Ratio 1.3 SARS-CoV-2 RNA (NELDA) (NEGATIVE) 07/11/21 07/11/21 Range/Units 10:06 10:08 WBC (5.0-10.0) 10^3/uL RBC (4.6-6.2) 10^6/uL Hgb (14.0-18.0) g/dL Hct (40.0-54.0) % MCV (80-100) fL MCH (27.0-34.0) pg MCHC (33.0-35.0) g/dL Plt Count (150-450) 10^3/uL Neut % (Auto) (42.2-75.2) % Lymph % (Auto) (20.5-50.1) % [place] % (Auto) (2-8) % Eos % (Auto) (1.0-3.0) % Baso % (Auto) (0.0-1.0) % PT (9.0-12.0) SEC INR (0.9-1.2) APTT (22.0-34.0) SEC Sodium (136-145) mmol/L Potassium (3.5-5.1) mmol/L Chloride (98-107) mmol/L Carbon Dioxide (21-32) mmol/L Anion Gap (7-13) mEq/L BUN (7-18) mg/dL Creatinine (0.70-1.30) mg/dL Est Cr Clr Drug Dosing mL/min Estimated GFR (MDRD) BUN/Creatinine Ratio (No establ ref range) Glucose (70-99) mg/dL Lactic Acid 1.7 (0.4-2.0) mmol/L Calcium (8.5-10.1) mg/dL Total Bilirubin (0.2-1.0) mg/dL AST (15-37) U/L ALT (16-63) U/L Alkaline Phosphatase (46-116) U/L Troponin I High Sens (<=76) pg/mL B-Natriuretic Peptide (0-100) pg/ml Total Protein (6.4-8.2) g/dL Albumin (3.4-5.0) g/dL Globulin Albumin/Globulin Ratio SARS-CoV-2 RNA (NELDA) Negative (NEGATIVE) Result Diagrams: 07/11/21 10:00 07/12/21 06:12 Sepsis Event Note - Evaluation Sepsis Screening Result: No Definite Risk - Focused Exam Vital Signs: Vital Signs Temp Pulse Resp BP Pulse Ox 07/12/21 03:00 99.0 F 88 20 103/47 L 99 07/11/21 19:00 98.2 F 82 22 H 101/51 L 99 - Problem List & Annotations (1) Acute exacerbation of chronic obstructive pulmonary disease SNOMED Code(s): 651257125 Code(s): J44.1 - CHRONIC OBSTRUCTIVE PULMONARY DISEASE W (ACUTE) EXACERBATION Status: Acute Priority: Medium Current Visit: No Onset Date: 11/09/15 (2) Anemia SNOMED Code(s): 398057263 Code(s): D64.9 - ANEMIA, UNSPECIFIED Status: Acute Current Visit: No (3) Chronic congestive heart failure SNOMED Code(s): 46899404 Code(s): I50.9 - HEART FAILURE, UNSPECIFIED Status: Acute Current Visit: No Qualifiers: Heart failure type: unspecified Qualified Code(s): I50.9 - Heart failure, unspecified (4) Elevated serum creatinine SNOMED Code(s): 447295323 Code(s): R79.89 - OTHER SPECIFIED ABNORMAL FINDINGS OF BLOOD CHEMISTRY Status: Acute Current Visit: No (5) Generalized weakness SNOMED Code(s): 42924611 Code(s): R53.1 - WEAKNESS Status: Acute Current Visit: No (6) Coronary arteriosclerosis, CAD SNOMED Code(s): 08846391 Code(s): I25.10 - ATHSCL HEART DISEASE OF [place] CORONARY ARTERY W/O ANG PCTRS Status: Chronic Current Visit: No (7) History of - atrial fibrillation, afib SNOMED Code(s): 519160370 Code(s): Z86.79 - PERSONAL HISTORY OF OTHER DISEASES OF THE CIRCULATORY SYSTEM Status: Chronic Current Visit: No - Problem List Review Problem List Initiated/Reviewed/Updated: Yes - My Orders Last 24 Hours: My Active Orders 07/11/21 11:56 Oxygen Therapy [RC] PRN Up ad Ariadna [RC] ASDIRECTED VTE/DVT Education [RC] PER UNIT ROUTINE Vital Signs [RC] Q4H Resuscitation Status Routine 07/11/21 11:58 RT Aerosol Therapy [RC] ASDIRECTED 07/11/21 Lunch Regular Diet [DIET] Albuterol [Proventil Neb Soln] 2.5 mg NEB Q4HRRT PRN Doxycycline Monohydrate 100 mg PO BID 07/11/21 12:24 Vaccine to be Administered/Admin Charge [RC] ASDIRECTED 07/11/21 15:00 Albuterol/Ipratropium [DuoNeb 3.0-0.5 MG/3 ML] 3 ml NEB Q4HRRT 07/11/21 21:00 Montelukast [Singulair] 10 mg PO BEDTIME Rosuvastatin [Crestor] 5 mg PO BEDTIME 07/12/21 05:11 BASIC METABOLIC PANEL,BMP [CHEM] AM 07/12/21 06:00 Pantoprazole [ProTONIX] 40 mg PO ACBREAKFAST 07/12/21 08:00 Ferrous Sulfate 325 mg PO WITHBREAKFAST predniSONE 40 mg PO WITHBREAKFAST 07/12/21 09:00 Aspirin [Halfprin] 81 mg PO DAILY Diltiazem [Dilacor XR] 240 mg PO DAILY Enoxaparin [Lovenox] 40 mg SUBCUT DAILY Losartan [Cozaar] 12.5 mg PO DAILY Pharmacy to Dose - InFluenza V [Pharmacy to Dose - InFluenza Vaccine] 1 each IM DAILY Potassium Chloride [Klor-Con 10] 20 meq PO DAILY - Plan Plan:: Patient is an 80-year-old male with a history of COPD on chronic home 2 L, chronic anemia, CKD, CHF, atrial fibrillation on anticoagulation who presented with worsening shortness of breath, wheezing. #Shortness of breath -Patient is currently maintaining oxygen saturations on his home 2 to 3 L O2 -Likely COPD exacerbation given patient's history and physical exam. Although question of some component of heart failure as patient had decreased in his oral Lasix several days ago and had increased bilateral effusions on chest x-ray. -Continue with p.o. prednisone, p.o. doxycycline, scheduled DuoNebs, as needed albuterol nebulizers, transition to home PO lasix today #Anemia -Hemoglobin 9.8, hemoglobin is 9.8 approximately 4 months ago, looking through history patient has a history of iron deficiency, continue iron supplementation, monitor for any signs of bleeding #Chronic medical conditions #Hypertensioncontinue losartan #Atrial fibrillationnot on anticoagulation, continue diltiazem, status post pacemaker #CADcontinue statin Fluidsnone Electrolyteswithin normal limits DietGeneral DVT prophylaxisLovenox Dispositionpossible discharge today pending reevaluation
[2021-07-12] MEDS ORDERED: Pantoprazole 40 MG Tab.CR PO SCH (06:00)
[2021-07-12 07:18] LABS: ANION GAP 12.4 mEq/L (7-13)
[2021-07-12] MEDS ORDERED: Ferrous Sulfate 325 MG Tab PO SCH (08:00)
[2021-07-12] MEDS ORDERED: predniSONE 20 MG Tab PO SCH (08:00)
[2021-07-12] MEDS: Doxycycline Monohydrate 100 MG Cap PO SCH (08:59)
[2021-07-12] MEDS ORDERED: Enoxaparin 40 MG/0.4 ML Syringe SUBCUT SCH (09:00)
[2021-07-12] MEDS: Furosemide 20 MG Tab PO SCH ×2 (09:00→15:14)
[2021-07-12] MEDS ORDERED: Potassium Chloride 10 MEQ Tab.ER PO SCH (09:00)
[2021-07-12] MEDS ORDERED: Diltiazem 240 MG Cap.ER PO SCH (09:00)
[2021-07-12] MEDS ORDERED: Losartan 25 MG Tab PO SCH (09:00)
[2021-07-12] MEDS ORDERED: Furosemide 20 MG Tab PO SCH (09:00)
[2021-07-12] MEDS ORDERED: Aspirin 81 MG Tab.EC PO SCH (09:00)
--- NOTE | 2021-07-12 11:28 | PCM.DCSUM1 ---
Discharge Summary - Hospital Course Free Text/Narrative:: Patient is an 80-year-old male with a past medical history of COPD on chronic home O2 2 L, chronic iron deficiency anemia, CKD stage III, CHF unknown last ejection fraction, atrial fibrillation not on anticoagulation who presented with shortness of breath of 4-day duration. Per patient over the last 4 days has had worsening shortness of breath, increased wheezing and overall has been unable to improve his symptoms with his home nebulizers. He states that he also talked [facility] and 2 to 3 days ago they decreased his Lasix from 20 mg p.o. twice daily to 10 mg p.o. twice daily. He states since that time he said mild increased swelling in his legs. He denies any significant orthopnea, PND. States that he does not take any anticoagulation for his atrial fibrillation. When patient arrived emergency department he was hemodynamically stable maintaining his oxygen saturations on his normal home 2 L. Had significant wheezing noted on exam and was given 125 mg Solu-Medrol IV, DuoNeb's. Laboratory studies included a WBC of 6.8, hemoglobin 9.8 which is stable, platelet count 88, electrolytes within normal notes, creatinine 1.81 which is near baseline of 1.7. Troponins were negative. BNP was in process. Chest x- ray showed worsening bilateral pleural effusions but did not show any vascular congestion. Patient was requested for admission due to worsening dyspnea requiring possible diuresis and continued respiratory cares. Patient was admitted for further evaluation and treatment. Patient was given p.o. prednisone, p.o. doxycycline, scheduled duo nebs, as needed albuterol nebulizers. On the following hospital day patient had significant improvement in his respiratory status and stated that he was near baseline. Patient was also given 1 dose of IV Lasix. His creatinine electrolytes were monitored and were stable. Patient was maintaining saturations on his home oxygen. Patient will be discharged home. Plan to continue p.o. prednisone for a total of 5 days, p.o. doxycycline for 5 days. Recommended patient continue to utilize his nebulizers scheduled at home. We will have patient follow-up with his primary physician. Patient may benefit from 3 times weekly azithromycin. - Discharge Data Discharge Date: 07/12/21 Discharge Disposition: Home, Self-Care 01 Condition: Good - Referral to Home Health Primary Care Physician: PCP None - Discharge Diagnosis/Problem(s) (1) Acute exacerbation of chronic obstructive pulmonary disease SNOMED Code(s): 361224312 ICD Code: J44.1 - CHRONIC OBSTRUCTIVE PULMONARY DISEASE W (ACUTE) EXACERBATION Status: Acute Priority: Medium Current Visit: No Onset Date: 11/09/15 (2) Anemia SNOMED Code(s): 486004424 ICD Code: D64.9 - ANEMIA, UNSPECIFIED Status: Acute Current Visit: No (3) Chronic congestive heart failure SNOMED Code(s): 06837541 ICD Code: I50.9 - HEART FAILURE, UNSPECIFIED Status: Acute Current Visit: No Qualifiers: Heart failure type: unspecified Qualified Code(s): I50.9 - Heart failure, unspecified (4) Elevated serum creatinine SNOMED Code(s): 548718016 ICD Code: R79.89 - OTHER SPECIFIED ABNORMAL FINDINGS OF BLOOD CHEMISTRY Status: Acute Current Visit: No (5) Generalized weakness SNOMED Code(s): 37491986 ICD Code: R53.1 - WEAKNESS Status: Acute Current Visit: No (6) Coronary arteriosclerosis, CAD SNOMED Code(s): 69158831 ICD Code: I25.10 - ATHSCL HEART DISEASE OF [place] CORONARY ARTERY W/O ANG PCTRS Status: Chronic Current Visit: No (7) History of - atrial fibrillation, afib SNOMED Code(s): 665775294 ICD Code: Z86.79 - PERSONAL HISTORY OF OTHER DISEASES OF THE CIRCULATORY SYSTEM Status: Chronic Current Visit: No - Patient Instructions Diet: Low Sodium - Discharge Plan *PRESCRIPTION DRUG MONITORING PROGRAM REVIEWED*: Not Applicable *COPY OF PRESCRIPTION DRUG MONITORING REPORT IN PATIENT MARY: Not Applicable Prescriptions/Med Rec: Doxycycline Monohydrate 100 mg PO BID #8 cap predniSONE 40 mg PO WITHBREAKFAST #5 tablet Home Medications: Home Meds Montelukast [Singulair] 10 mg PO BEDTIME 10/26/13 [History] Pantoprazole Sodium 40 mg PO DAILY 11/09/15 [History] Potassium Chloride [K-Tab ER] 20 meq PO DAILY 03/07/20 [History] Albuterol Sulfate [Proair Hfa] 2 puff INH Q4HR PRN 09/26/20 [History] Albuterol/Ipratropium [Combivent Respimat] 1 puff IH QID PRN 09/26/20 [History] Albuterol/Ipratropium [DuoNeb 3.0-0.5 MG/3 ML] 3 ml NEB Q4HR PRN 09/26/20 [History] Cholecalciferol (Vitamin D3) [Vitamin D3] 25 mcg PO DAILY 09/26/20 [History] Fluticasone Propion/Salmeterol [Fluticasone-Salmeterol 500-50] 1 puff IH BID 09/26/20 [History] Tiotropium [Spiriva HandiHaler] 1 inh PO DAILY 09/26/20 [History] Aspirin [Aspirin EC] 81 mg PO DAILY 01/09/21 [History] Diltiazem [Tiazac] 240 mg PO DAILY 01/09/21 [History] Furosemide [Lasix] 20 mg PO QAM 01/09/21 [History] Losartan [Cozaar] 12.5 mg PO DAILY 01/09/21 [History] Rosuvastatin [Crestor] 5 mg PO BEDTIME 01/09/21 [History] Ascorbic Acid [Vitamin C] 250 mg PO DAILY 30 Days #30 tablet 01/10/21 [Rx] Ferrous Sulfate 325 mg PO WITHBREAKFAST 03/02/21 [History] Docusate Sodium [Colace] 100 mg PO BID PRN 03/07/21 [History] Sennosides/Docusate Sodium [Senokot-S Tablet] 2 each PO BID PRN 03/07/21 [History] Acetaminophen 500 mg PO Q8HR PRN 07/11/21 [History] calcitrioL [Calcitriol] 0.25 cap PO DAILY 07/11/21 [History] Doxycycline Monohydrate 100 mg PO BID #8 cap 07/12/21 [Rx] Furosemide 20 mg PO 1400 #0 07/12/21 [Rx] predniSONE 40 mg PO WITHBREAKFAST #5 tablet 07/12/21 [Rx] - Discharge Summary/Plan Comment DC Time >30 min.: Yes Total # of Minutes for Discharge Time: 30 minutes - Patient Data Vitals - Most Recent: Last Vital Signs Temp 98.2 F 07/12/21 08:00 Pulse 96 07/12/21 08:00 Resp 22 H 07/12/21 08:00 BP 113/58 L 07/12/21 09:00 Pulse Ox 100 07/12/21 08:00 Weight - Most Recent: 176 lb I&O - Last 24 hours: Intake & Output 07/11/21 07/12/21 07/12/21 22:59 06:59 14:59 Intake Total 200 Output Total 600 Balance -400 Lab Results - Last 24 hrs: Laboratory Results - last 24 hr 07/11/21 07/11/21 07/12/21 Range/Units 10:00 10:06 06:12 Sodium 139 (136-145) mmol/L Potassium 4.4 (3.5-5.1) mmol/L Chloride 101 (98-107) mmol/L Carbon Dioxide 30 (21-32) mmol/L Anion Gap 12.4 (7-13) mEq/L BUN 32 H (7-18) mg/dL Creatinine 1.61 H (0.70-1.30) mg/dL Est Cr Clr Drug Dosing 32.47 mL/min Estimated GFR (MDRD) 41 Glucose 164 H (70-99) mg/dL Calcium 9.1 (8.5-10.1) mg/dL B-Natriuretic Peptide 126 H (0-100) pg/ml SARS-CoV-2 RNA (NELDA) Negative (NEGATIVE) JORJE Results - Last 24 hrs: Microbiology 07/11/21 10:08 Aerobic Blood Culture - Preliminary Blood - Arm, Right NO GROWTH AFTER 1 DAY Anaerobic Blood Culture - Preliminary NO GROWTH AFTER 1 DAY 07/11/21 10:00 Aerobic Blood Culture - Preliminary Blood - Arm, Left NO GROWTH AFTER 1 DAY Anaerobic Blood Culture - Preliminary NO GROWTH AFTER 1 DAY Med Orders - Current: Current Medications Albuterol (Albuterol 0.083% 2.5 Mg/3 Ml Neb Soln) 2.5 mg NEB Q4HRRT PRN PRN Reason: Shortness of Breath Albuterol/Ipratropium (Albuterol/Ipratropium 3.0-0.5 Mg/3 Ml Neb Soln) 3 ml NEB Q4HRRT [facility] Last Admin: 07/12/21 03:22 Dose: 3 ml Documented by: Aspirin (Aspirin 81 Mg Tab.Ec) 81 mg PO DAILY [facility] Last Admin: 07/12/21 08:59 Dose: 81 mg Documented by: Diltiazem HCl (Diltiazem 240 Mg Cap.Er) 240 mg PO DAILY [facility] Last Admin: 07/12/21 09:00 Dose: 240 mg Documented by: Doxycycline Monohydrate (Doxycycline Monohydrate 100 Mg Cap) 100 mg PO BID [facility] Last Admin: 07/12/21 08:59 Dose: 100 mg Documented by: Enoxaparin Sodium (Enoxaparin 40 Mg/0.4 Ml Syringe) 40 mg SUBCUT DAILY [facility] Last Admin: 07/12/21 09:00 Dose: 40 mg Documented by: Ferrous Sulfate (Ferrous Sulfate 325 Mg Tab) 325 mg PO WITHBREAKFAST [facility] Last Admin: 07/12/21 08:59 Dose: 325 mg Documented by: Furosemide (Furosemide 20 Mg Tab) 20 mg PO BIDDIURETIC [facility] Last Admin: 07/12/21 09:00 Dose: 20 mg Documented by: Influenza Virus Vaccine (Pharmacy To Dose - Influenza Vaccine) 1 each IM DAILY [facility] Losartan Potassium (Losartan 25 Mg Tab) 12.5 mg PO DAILY [facility] Last Admin: 07/12/21 09:00 Dose: 12.5 mg Documented by: Montelukast Sodium (Montelukast 10 Mg Tab) 10 mg PO BEDTIME [facility] Last Admin: 07/11/21 21:00 Dose: 10 mg Documented by: Pantoprazole Sodium (Pantoprazole 40 Mg Tab.Cr) 40 mg PO ACBREAKFAST [facility] Last Admin: 07/12/21 05:48 Dose: 40 mg Documented by: Potassium Chloride (Potassium Chloride 10 Meq Tab.Er) 20 meq PO DAILY [facility] Last Admin: 07/12/21 08:59 Dose: 20 meq Documented by: Prednisone (Prednisone 20 Mg Tab) 40 mg PO WITHBREAKFAST [facility] Last Admin: 07/12/21 08:59 Dose: 40 mg Documented by: Rosuvastatin Calcium (Rosuvastatin 10 Mg Tab) 5 mg PO BEDTIME [facility] Last Admin: 07/11/21 21:00 Dose: 5 mg Documented by: Sodium Chloride (Sodium Chloride 0.9% 10 Ml Syringe) 10 ml FLUSH ASDIRECTED PRN PRN Reason: Keep Vein Open Last Admin: 07/11/21 10:30 Dose: 10 ml Documented by: Discontinued Medications Albuterol/Ipratropium (Albuterol/Ipratropium 3.0-0.5 Mg/3 Ml Neb Soln) 3 ml NEB ONETIME ONE Stop: 07/11/21 09:52 Last Admin: 07/11/21 10:33 Dose: 3 ml Documented by: Furosemide (Furosemide 20 Mg/2 Ml Vial) 20 mg IVPUSH ONETIME ONE Stop: 07/11/21 12:13 Last Admin: 07/11/21 12:40 Dose: 20 mg Documented by: Furosemide (Furosemide 20 Mg Tab) 20 mg PO DAILY [facility] Methylprednisolone Sodium Succinate (Methylprednisolone Sodium Succinate 125 Mg/2 Ml Sdv) 125 mg IVPUSH ONETIME ONE Stop: 07/11/21 09:52 Last Admin: 07/11/21 10:29 Dose: 125 mg Documented by:
[2021-07-12 12:49] VITALS: BP 106/54; PULSE 84
== END 2021-07-12 14:35 | disposition home or self-care (01) | DRG 191 ==
LOC: DL.ED 09:31 → DL.MS 11:30
PROVIDERS: ADMIT Internal Medicine; ATTEND Internal Medicine
DX: J44.1 Chronic obstructive pulmonary disease with (acute) exacerbation (principal); I13.0 Hypertensive heart and chronic kidney disease with heart failure and stage 1 through stage 4 chronic kidney disease, or unspecified chronic kidney disease; I25.10 Atherosclerotic heart disease of native coronary artery without angina pectoris; R79.89 Other specified abnormal findings of blood chemistry; N18.30 Chronic kidney disease, stage 3 unspecified; I50.9 Heart failure, unspecified; J96.21 Acute and chronic respiratory failure with hypoxia; H91.90 Unspecified hearing loss, unspecified ear; I48.91 Unspecified atrial fibrillation; I25.119 Atherosclerotic heart disease of native coronary artery with unspecified angina pectoris; I11.0 Hypertensive heart disease with heart failure; E78.00 Pure hypercholesterolemia, unspecified; I25.2 Old myocardial infarction; K21.9 Gastro-esophageal reflux disease without esophagitis; N40.0 Benign prostatic hyperplasia without lower urinary tract symptoms; G89.29 Other chronic pain; M54.9 Dorsalgia, unspecified; Z20.822 Contact with and (suspected) exposure to COVID-19; G47.30 Sleep apnea, unspecified; D50.9 Iron deficiency anemia, unspecified; Z98.49 Cataract extraction status, unspecified eye; Z79.01 Long term (current) use of anticoagulants; Z87.01 Personal history of pneumonia (recurrent); M19.90 Unspecified osteoarthritis, unspecified site; Z95.0 Presence of cardiac pacemaker; Z91.09 Other allergy status, other than to drugs and biological substances; F32.A Depression, unspecified; G47.00 Insomnia, unspecified; Z85.46 Personal history of malignant neoplasm of prostate; Z85.118 Personal history of other malignant neoplasm of bronchus and lung; Z87.891 Personal history of nicotine dependence; Z88.8 Allergy status to other drugs, medicaments and biological substances; Z91.048 Other nonmedicinal substance allergy status; Z88.1 Allergy status to other antibiotic agents; Z79.52 Long term (current) use of systemic steroids; Z79.82 Long term (current) use of aspirin; Z79.899 Other long term (current) drug therapy; Z99.81 Dependence on supplemental oxygen
CPT/HCPCS: 36415; 71045; 80048; 80053; 83605; 83880; 84484; 85025; 85610; 85730; 87040; 93005; 94640; 96374; 99285-25; A9270-GY; J1650; J1940; J2930; J7512; J7620-GY; U0002

== ENCOUNTER 2021-08-09 10:04 | Inpatient (IN) | payer OTHER, MEDICARE ==
[2021-08-09] MEDS ORDERED: Morphine 2 MG/ML SYRINGE IVPUSH PRN (11:30)
[2021-08-09] MEDS ORDERED: Acetaminophen 325 MG Tab PO PRN (11:35)
[2021-08-09] MEDS ORDERED: Sodium Chloride 0.9% 10 ML Syringe FLUSH PRN (11:35)
--- NOTE | 2021-08-09 11:44 | PCM.HP ---
H&P History of Present Illness - General Date of Service: 08/09/21 Admit Problem/Dx: Admission Diagnosis/Problem Admission Diagnosis/Problem Congestive heart failure Source of Information: Patient - History of Present Illness Initial Comments - Free Text/Narative: Robert was admitted on 08/03 for dyspnea on exertion; this was re- hospitalization within approx 24h (had been hospitalized 07/29- and treated for acute on chronic heart failure and possible community acquired pneumonia). He was admitted for similar complaint also in early 07/2021. was treated for acute copd and acute on chronic systolic chf, acute community acquired pneumonia patient improved but felt that he would like to change his goals of care to comfort care only - Related Data Allergies/Adverse Reactions: Allergies Allergy/AdvReac Type Severity Reaction Status Date / Time piperacillin sodium Allergy Severe angioedema Verified 08/09/21 10:06 [From Zosyn] tazobactam sodium Allergy Severe angioedema Verified 08/09/21 10:06 [From Zosyn] adhesive tape Allergy Blisters Verified 08/09/21 10:06 tazarotene [From Tazorac] Allergy Airway Verified 08/09/21 10:06 Tightness Home Medications: Home Meds . [No Known Home Meds] 08/09/21 [History] Past Medical History HEENT History: Reports: Cataract, Hard of Hearing, Other (See Below) Other HEENT History: thyroid nodule Cardiovascular History: Reports: Afib, Angina, CAD, Heart Failure, High Cholesterol, Hypertension, CT, Pacemaker, SOB on Exertion, Stents, Other (See Below) Other Cardiovascular History: 6 stents placed total Respiratory History: Reports: Asthma, Bronchitis, Recurrent, COPD, Pneumonia, Recurrent, Sleep Apnea, SOB Gastrointestinal History: Reports: GERD, Hemorrhoids, Other (See Below) Genitourinary History: Reports: BPH, Chronic Renal Insuffiency, Prostate Disorder Musculoskeletal History: Reports: Arthritis, Back Pain, Chronic, Fracture, Osteoarthritis Neurological History: Reports: None Psychiatric History: Reports: Depression Other Psychiatric History: insomnia Endocrine/Metabolic History: Reports: Obesity/BMI 30+ Hematologic History: Reports: Anemia, Blood Transfusion(s), Iron Deficiency Immunologic History: Reports: Other (See Below) Other Immunologic History: Hx prostate and lung ca. Oncologic (Cancer) History: Reports: Lung, Prostate Dermatologic History: Reports: Other (See Below) Other Dermatologic History: Dry skin and bruising noted - Infectious Disease History Infectious Disease History: Reports: Measles, Mumps Other Infectious Disease History: SOME KIND OF HEPATITIS WHILE IN THE SERVICE, "NOT THE BAD KIND" - Past Surgical History Head Surgeries/Procedures: Reports: None HEENT Surgical History: Reports: Cataract Surgery, Naso-Sinus Surgery Cardiovascular Surgical History: Reports: AICD, Coronary Artery Stent Respiratory Surgical History: Reports: Lung Resection Other Respiratory Surgeries/Procedures: mediastinoscopy GI Surgical History: Reports: Abdominal paracentesis, Appendectomy, Colonoscopy, EGD, Polypectomy, Other (See Below) Other GI Surgeries/Procedures: UMBILICAL HERNIA PRESENT, appendix rupture recently 01/05/16 Male Surgical History: Reports: Prostatectomy, TURP-Transurethral Resection of Prostate Endocrine Surgical History: Reports: Thyroid Biopsy Musculoskeletal Surgical History: Reports: Shoulder Surgery Other Oncologic Surgeries/Procedures: 3/4 of right lobe removed Social & Family History - Family History Family Medical History: No Pertinent Family History - Tobacco Use Tobacco Use Status *Q: Former Tobacco User Used Tobacco, but Quit: Yes Month/Year Tobacco Last Used: 40 years ago - Caffeine Use Caffeine Use: Reports: Coffee - Recreational Drug Use Recreational Drug Use: No - Living Situation & Occupation Living situation: Reports: , Alone Occupation: Retired H&P Review of Systems - Review of Systems: Review Of Systems: Unable To Obtain Reason Not Obtained: lethargic Exam - Exam Exam: See Below - Vital Signs Weight: 168 lb 9.6 oz - Exam Quality Assessment: Supplemental Oxygen General: Lethargic Lungs: Rhonchi Extremities: No Pedal Edema - Problem List (1) End of life care SNOMED Code(s): 921077652, [id number] ICD Code: Z51.5 - ENCOUNTER FOR PALLIATIVE CARE Status: Acute Problem List Initiated/Reviewed/Updated: Yes Orders Last 24hrs: Active Orders 24 hr Category Date Time Status Admission Diagnosis [ADT] Routine ADT 08/09/21 11:35 Ordered Patient Status [ADT] Routine ADT 08/09/21 11:35 Ordered Antiembolic Devices [RC] .Routine Care 08/09/21 11:35 Ordered Antiembolic Devices [RC] PER UNIT ROUTINE Care 08/09/21 11:35 Ordered Insert Kingsley Catheter [Insert Urinary Catheter] [OM.PC] Care 08/09/21 11:35 Ordered Q24H Oxygen Therapy [RC] CONTINUOUS Care 08/09/21 11:35 Ordered Peripheral IV Care [RC] . DIRECTED Care 08/09/21 11:35 Ordered Pulse Oximetry [RC] PRN Care 08/09/21 11:35 Ordered RT Aerosol Therapy [RC] ASDIRECTED Care 08/09/21 11:35 Ordered RT Aerosol Therapy [RC] ASDIRECTED Care 08/09/21 11:35 Ordered RT Post Treatment Assessment [RC] Click to Edit Care 08/09/21 11:35 Ordered RT Pre-Treatment Assessment [RC] Click to Edit Care 08/09/21 11:35 Ordered Up With Assistance [RC] ASDIRECTED Care 08/09/21 11:35 Ordered Urinary Catheter Assessment [RC] ASDIRECTED Care 08/09/21 11:35 Ordered Urinary Catheter Assessment [RC] ASDIRECTED Care 08/09/21 11:35 Ordered VTE/DVT Education [RC] PER UNIT ROUTINE Care 08/09/21 11:35 Ordered Vital Signs [RC] Q4H Care 08/09/21 11:35 Ordered 2 Gram Sodium Diet [DIET] Diet 08/09/21 Lunch Ordered Acetaminophen [TylenoL] Med 08/09/21 11:35 Ordered 650 mg PO Q4H PRN Acetaminophen [Tylenol] Med 08/09/21 11:35 Ordered 650 mg RECTAL Q4H PRN Albuterol/Ipratropium [DuoNeb 3.0-0.5 MG/3 ML] Med 08/09/21 15:00 Ordered 3 ml INH Q8HRRT Atropine 1% [Atropine 1% Ophth Soln] Med 08/09/21 11:40 Ordered 1 ml SL Q1H PRN LORazepam [Ativan] Med 08/09/21 11:35 Ordered 1 mg IVPUSH Q4H PRN Morphine Med 08/09/21 11:35 Ordered 1 mg IVPUSH Q1H PRN Sodium Chloride 0.9% [Saline Flush] Med 08/09/21 21:00 Ordered 10 ml FLUSH 0900,2100 Sodium Chloride 0.9% [Saline Flush] Med 08/09/21 11:35 Ordered 10 ml FLUSH ASDIRECTED PRN DVT/VTE Prophylaxis Reflex [OM.PC] Routine Oth 08/09/21 11:35 Ordered Intermittent Pneumatic Compress Device [Sequential Oth 08/09/21 11:35 Ordered Compression Device] [OM.PC] Routine Peripheral IV Insertion Adult [OM.PC] Stat Oth 08/09/21 11:35 Ordered Renew/Continue Urinary Catheter [OM.PC] Routine Oth 08/09/21 11:35 Ordered Code Status [Resuscitation Status] Routine Resus Stat 08/09/21 11:35 Ordered Medication Orders Acetaminophen (Acetaminophen 325 Mg Tab) 650 mg PO Q4H PRN PRN Reason: Pain (mild 1-3 )/fever Acetaminophen (Acetaminophen 650 Mg Supp) 650 mg RECTAL Q4H PRN PRN Reason: Fever Albuterol/Ipratropium (Albuterol/Ipratropium 3.0-0.5 Mg/3 Ml Neb Soln) 3 ml INH Q8HRRT ARIAS Lorazepam (Lorazepam 2 Mg/Ml Sdv) 1 mg IVPUSH Q4H PRN PRN Reason: anxiety, agitation Morphine Sulfate (Morphine 2 Mg/Ml Syringe) 1 mg IVPUSH Q1H PRN PRN Reason: pain, sob Sodium Chloride (Sodium Chloride 0.9% 10 Ml Syringe) 10 ml FLUSH 0900,2100 ARIAS Sodium Chloride (Sodium Chloride 0.9% 10 Ml Syringe) 10 ml FLUSH ASDIRECTED PRN PRN Reason: Keep Vein Open Assessment/Plan Comment:: Robert was admitted on 08/03 for dyspnea on exertion; this was re- hospitalization within approx 24h (had been hospitalized 07/29- and treated for acute on chronic heart failure and possible community acquired pneumonia). He was admitted for similar complaint also in early 07/2021. was treated for acute copd and acute on chronic systolic chf, acute community acquired pneumonia patient improved but felt that he would like to change his goals of care to comfort care only he is lethargic, his life expectancy is days only use nebs for sob IV morphine for pain and sob iv ativan for anxiety, agitation as needed atropin drops for secretions
[2021-08-09 12:32] VITALS: BP 85/38; PULSE 92
[2021-08-09] MEDS ORDERED: Acetaminophen 650 MG Supp RECTAL PRN (14:30)
[2021-08-09] MEDS: Albuterol/Ipratropium 3.0-0.5 MG/3 ML Neb Soln INH SCH (15:00)
[2021-08-09] MEDS: Sodium Chloride 0.9% 10 ML Syringe FLUSH SCH (22:25)
[2021-08-09] MEDS: Morphine 2 MG/ML SYRINGE IVPUSH SCH (22:26)
[2021-08-10] MEDS: Albuterol/Ipratropium 3.0-0.5 MG/3 ML Neb Soln INH SCH ×2 (03:05→08:44)
[2021-08-10] MEDS: Sodium Chloride 0.9% 10 ML Syringe FLUSH SCH ×2 (09:13→20:37)
[2021-08-10] MEDS: Morphine 2 MG/ML SYRINGE IVPUSH SCH ×2 (09:13→20:36)
[2021-08-10] MEDS ORDERED: Albuterol/Ipratropium 3.0-0.5 MG/3 ML Neb Soln INH PRN (11:55)
[2021-08-10] MEDS: Atropine 1% Ophth Soln 5 ML BOTTLE SL PRN ×2 (20:51→22:49)
[2021-08-10] MEDS: LORazepam 2 MG/ML SDV IVPUSH PRN (20:51)
[2021-08-11] MEDS: Atropine 1% Ophth Soln 5 ML BOTTLE SL PRN ×3 (08:34→15:28)
[2021-08-11] MEDS: Morphine 2 MG/ML SYRINGE IVPUSH SCH (08:34)
[2021-08-11] MEDS: Sodium Chloride 0.9% 10 ML Syringe FLUSH SCH (08:34)
[2021-08-11] MEDS: LORazepam 2 MG/ML SDV IVPUSH PRN (10:06)
--- NOTE | 2021-08-11 17:58 | PCM.DCSUM1 ---
Discharge Summary - Hospital Course Free Text/Narrative:: Robert was admitted on 08/03 for dyspnea on exertion; this was re- hospitalization within approx 24h (had been hospitalized 07/29- and treated for acute on chronic heart failure and possible community acquired pneumonia). He was admitted for similar complaint also in early 07/2021. was treated for acute copd and acute on chronic systolic chf, acute community acquired pneumonia patient improved but felt that he would like to change his goals of care to comfort care only he was admitted to swing bed for comfort care used nebs for sob IV morphine for pain and sob iv ativan for anxiety, agitation as needed atropin drops for secretions on 08/11/21 he passed peacefully while family was present Diagnosis: Stroke: No - Discharge Data Discharge Date: 08/11/21 Discharge Disposition: 20 Preliminary Cause of *Q: Other_Special Instruction (acute congestive heart failure) Event(s) Leading to Patient's *Q: comfort care Condition: - Referral to Home Health Primary Care Physician: PCP None - Discharge Diagnosis/Problem(s) (1) End of life care SNOMED Code(s): 875435450, [id number] ICD Code: Z51.5 - ENCOUNTER FOR PALLIATIVE CARE Status: Acute Current Visit: No - Discharge Plan Home Medications: Home Meds . [No Known Home Meds] 08/09/21 [History] - Discharge Summary/Plan Comment DC Time >30 min.: No Total # of Minutes for Discharge Time: 15 min - General Info Date of Service: 08/11/21 Subjective Update: peacefully - Patient Data Vitals - Most Recent: Last Vital Signs Temp 98.9 F 08/09/21 11:35 Pulse 92 08/09/21 11:35 Resp 26 H 08/09/21 11:35 BP 85/38 L 08/09/21 11:35 Pulse Ox 95 08/11/21 10:28 Weight - Most Recent: 168 lb 9.6 oz I&O - Last 24 hours: Intake & Output 08/11/21 08/11/21 08/11/21 06:59 14:59 22:59 Output Total 25 Balance -25 Med Orders - Current: Current Medications Acetaminophen (Acetaminophen 325 Mg Tab) 650 mg PO Q4H PRN PRN Reason: Pain (mild 1-3 )/fever Acetaminophen (Acetaminophen 650 Mg Supp) 650 mg RECTAL Q4H PRN PRN Reason: Fever Albuterol/Ipratropium (Albuterol/Ipratropium 3.0-0.5 Mg/3 Ml Neb Soln) 3 ml INH Q8HRRT PRN PRN Reason: sob Atropine Sulfate (Atropine 1% Ophth Soln 5 Ml Bottle) 0 ml SL Q1H PRN PRN Reason: increased secretions Last Admin: 08/11/21 15:28 Dose: 5 ml Documented by: Lorazepam (Lorazepam 2 Mg/Ml Sdv) 1 mg IVPUSH Q4H PRN PRN Reason: anxiety, agitation Last Admin: 08/11/21 10:06 Dose: 1 mg Documented by: Morphine Sulfate (Morphine 2 Mg/Ml Syringe) 1 mg IVPUSH Q1H PRN PRN Reason: comfort measures pain, sob Morphine Sulfate (Morphine 2 Mg/Ml Syringe) 1 mg IVPUSH BID [facility] Last Admin: 08/11/21 08:34 Dose: 1 mg Documented by: Sodium Chloride (Sodium Chloride 0.9% 10 Ml Syringe) 10 ml FLUSH 0900,2100 [facility] Last Admin: 08/11/21 08:34 Dose: 10 ml Documented by: Sodium Chloride (Sodium Chloride 0.9% 10 Ml Syringe) 10 ml FLUSH ASDIRECTED PRN PRN Reason: Keep Vein Open Discontinued Medications Albuterol/Ipratropium (Albuterol/Ipratropium 3.0-0.5 Mg/3 Ml Neb Soln) 3 ml INH Q8HRRT [facility] Last Admin: 08/10/21 08:44 Dose: Not Given Documented by: - Exam General: Reports: Other (non responsive) Lungs: Reports: Other (no respiration) Cardiovascular: Reports: Other (no pulse, no heart sounds) Neurological: Reports: Other (unresponsive)
== END 2021-08-11 20:09 | disposition expired | DRG 951 ==
LOC: DL.MS 11:11 → UNDOADMIN 12:21 → DL.MS 12:21
PROVIDERS: ADMIT Internal Medicine; ATTEND Internal Medicine
DX: Z51.5 Encounter for palliative care (principal); I50.23 Acute on chronic systolic (congestive) heart failure; J18.9 Pneumonia, unspecified organism; J44.0 Chronic obstructive pulmonary disease with (acute) lower respiratory infection; I13.0 Hypertensive heart and chronic kidney disease with heart failure and stage 1 through stage 4 chronic kidney disease, or unspecified chronic kidney disease; H91.90 Unspecified hearing loss, unspecified ear; E78.00 Pure hypercholesterolemia, unspecified; I25.10 Atherosclerotic heart disease of native coronary artery without angina pectoris; G47.30 Sleep apnea, unspecified; K21.9 Gastro-esophageal reflux disease without esophagitis; I48.91 Unspecified atrial fibrillation; E04.1 Nontoxic single thyroid nodule; N18.30 Chronic kidney disease, stage 3 unspecified; N40.0 Benign prostatic hyperplasia without lower urinary tract symptoms; M19.90 Unspecified osteoarthritis, unspecified site; M54.9 Dorsalgia, unspecified; G89.29 Other chronic pain; F32.A Depression, unspecified; E66.9 Obesity, unspecified; G47.00 Insomnia, unspecified; D63.1 Anemia in chronic kidney disease; Z88.1 Allergy status to other antibiotic agents; Z91.09 Other allergy status, other than to drugs and biological substances; Z88.8 Allergy status to other drugs, medicaments and biological substances; I25.2 Old myocardial infarction; Z95.0 Presence of cardiac pacemaker; Z95.5 Presence of coronary angioplasty implant and graft; Z85.46 Personal history of malignant neoplasm of prostate; Z85.118 Personal history of other malignant neoplasm of bronchus and lung; Z98.49 Cataract extraction status, unspecified eye; Z87.891 Personal history of nicotine dependence; Z90.49 Acquired absence of other specified parts of digestive tract; Z68.27 Body mass index [BMI] 27.0-27.9, adult
CPT/HCPCS: A9270-GY; J2060; J2270